=== PATIENT | female | born 1965 | race Caucasian/White ===

== ENCOUNTER → 2018-02-07 17:30 | Outpatient (CLI) | payer BC, SELFPAY ==
--- NOTE | 2018-02-07 17:30 | DT_ITS ---
This patient was seen during an EMR downtime February 06, 2018 - February 13, 2018. This patient may have a combination of paper and electronic documentation or all paper documentation. All documentation is viewable within the e-chart portion of [employer] for each patient visit.
--- NOTE | 2018-02-07 18:00 | MRI_ITS ---
STUDY: MRI BRAIN WITH AND WITHOUT CONTRAST REASON FOR EXAM: Female, 52 years old. MS. Numbness and tingling. TECHNIQUE: Standardized multiplanar fat and water weighted pulse sequences were obtained. 10 ml of Gadavist contrast material was administered intravenously for the contrast portion of the examination. COMPARISON: 12/27/2016. FINDINGS: No restricted diffusion to suspect acute or subacute ischemic infarct. Normal size of the ventricles and extra-axial spaces for the patient's age. Subcortical white matter T2 FLAIR hyperintensity foci in both cerebral hemispheres are unchanged. Normal bilateral basal ganglia. Normal thalami. There is no extra-axial fluid accumulation. Normal flow voids within the major intracranial circulation suggesting patency by spin echo criteria. Normal venous enhancement. There is no enhancing intra-axial or extra-axial abnormality. Normal sella turcica, pituitary gland, infundibular stalk, optic chiasm and hypothalamus. Normal tectal plate and pineal gland. Normal midbrain, mendez and medulla. Normal cerebellum. Normal basal cisterns. Normal bilateral temporal bones. Normal bilateral internal auditory canals. No demonstrated orbital abnormality, within the constraints of a routine brain study. Normal visualized paranasal sinuses. Normal calvarium and skull base. Normal visualized soft tissue structures. Normal visualized upper cervical spine. MRI/Brain W/WO Contrast IMPRESSION: 1. No MRI evidence of acute or subacute ischemic infarct. 2. Nonspecific T2 FLAIR hyperintensity foci in the white matter of both cerebral hemispheres. They are unchanged. 3. No enhancing lesions extra-axially and intraaxially. 4. No significant interval changes when compared to 12/27/2016. Electronically Signed: Asa Mcdaniel MD at 12:21 EDT , Service support ,
== END ==
PROVIDERS: Family Provider Internal Medicine; PCP Internal Medicine; Visit Provider Nurse Practitioner Acute Care
DX: G35 Multiple sclerosis (principal); R20.0 Anesthesia of skin; R20.2 Paresthesia of skin
CPT/HCPCS: 70553; A9585

== ENCOUNTER → 2018-07-28 11:49 | Outpatient (CLI) | payer BC, SELFPAY ==
--- NOTE | 2018-07-28 11:53 | BI_ITS ---
MAMMOGRAPHY - BILATERAL SCREENING REASON FOR EXAM: Female, 53 years old. Routine annual screening examination. PERTINENT HISTORY: Non-contributory. TECHNIQUE: Digital bilateral breast pio (3D mammographic acquisition) in the CC and MLO projections. 2-D mediolateral oblique (MLO) and craniocaudad (CC) views of both breasts were obtained. CAD: Full Field Digital Mammography with Computer Added Detection was performed. COMPARISON: Comparison is made with prior study dated July 21, 2017 and November 26, 2015. FINDINGS: Breast Composition: The breasts are almost entirely fatty. There are no dominant masses or suspicious calcifications. Stable small benign-appearing nodules in the axillary region of the left breast suggestive of small lymph nodes. No other significant abnormalities are identified. There has been no significant change since the prior study. BI/SCREENING MAMM (CAD), BILAT IMPRESSION: Stable bilateral screening mammogram. Yearly follow-up mammogram recommended. (A) ASSESSMENT CATEGORY: BIRADS Category 2: Benign. A letter regarding these results will be sent to the patient by the facility within 30 days. Approximately 10% of breast cancers are not detected by mammography. A normal mammogram should not delay biopsy of a clinically suspicious abnormality. [id number] Electronically Signed: Jose Gibbons MD at 9:36 EST Tel [phone], Service support ,
== END ==
PROVIDERS: Family Provider Internal Medicine; PCP Internal Medicine; Referring Provider Obstetrics & Gynecology; Visit Provider Obstetrics & Gynecology
DX: Z12.31 Encounter for screening mammogram for malignant neoplasm of breast (principal)
CPT/HCPCS: 77063; 77067

== ENCOUNTER → 2018-08-18 11:33 | Outpatient (CLI) | payer BC, SELFPAY ==
[2018-08-18 13:35] LABS: Absolute Lymphocyte Count 1.48 X10^3/ul (0.83-4.51); Absolute Neutrophil Count 2.6 X10^3/uL (2.0-7.7); Basophil# 0.03 X10^3/uL; Basophil% 0.6 % (0-1); Eosinophils% 2.2 % (0-5); Hemoglobin 12.8 g/dl (12.0-15.0); Lymphocyte # 1.48 X10^3/ul (4.0); Lymphocyte % 31.8 % (19-41); Mean Corpuscular Hgb 29.9 pg (27.0-32.0); Mean Corpuscular Volume 93.5 fL (81-99); Mean Platelet Vol. 9.4 fl (6.2-12.0); Monocyte# 0.45 X10^3/uL; Monocyte% 9.7 % (0-10); Neutrophil # 2.59 X10^3/uL (2.7-7.7); Neutrophil % 55.7 % (47-70); Platelet Count 319 K/mm3 (150-450); RBC Distribution Width CV 13.6 % (11.6-14.6); RBC Distribution Width SD 46.2 fl (35.1-43.9); Red Blood Count 4.28 M/mm3 (4.2-5.4); White Blood Count 4.7 K/mm3 (4.4-11.0)
[2018-08-18 13:36] LABS: POSITIVE COUNT NO; POSITIVE DIFFERENTIAL NO; POSITIVE MORPHOLOGY NO
[2018-08-18 13:47] LABS: Color, Urine Yellow (Yellow); Glucose, Dipstick Normal (Normal); Ketone-Dipstick Negative (Negative); Leukocyte Esterase-Dipstick 100 /ul (Negative); Nitrite-Dipstick Negative (Negative); Occult Blood-Urine Negative /ul (Negative); Protein-Dipstick Negative (Negative); Urine Bilirubin Dipstick Negative (Negative); Urine Clarity Clear (Clear); Urine Urobilinogen Normal (Normal)
[2018-08-18 14:14] LABS: ALB/GLOB Ratio 1.1 RATIO (0.9-2.4); AST(SGOT) 18 U/L (15-37); Alanine Aminotransfer ALT/SGPT 25 U/L (13-56); Albumin, Serum 3.8 g/dL (3.2-5.0); Alkaline Phosphatase 85 U/L (45-117); Anion Gap 9 (5-15); BUN 19 mg/dL (7-18); BUN/Creat Ratio 29.6 RATIO (10-20); Calcium,Total 8.9 mg/dL (8.5-10.1); Chloride 105 mmol/L (98-107); Cholesterol 210 mg/dL (200); Creatinine, Serum 0.64 mg/dL (0.55-1.02); EST Glomerular Filtration Rate 103 mL/min (>60); Est Glom Filt Rate - Afr Amer 124 mL/min (>60); Globulin 3.6 g/dL (2.2-4.2); Glucose 82 mg/dL (74-106); High Density Lipoprotein 75 mg/dL; Potassium 3.8 mmol/L (3.5-5.1); Protein, Total 7.4 g/dL (6.4-8.2); Sodium Level 139 mmol/L (136-145); Thyroid Stim Hormone (TSH) 1.35 uIU/mL (0.358-3.74); Triglycerides 79 mg/dL; Very Low Density Lipoprotein 16 mg/dL (5-40)
--- OUTSIDE RECORDS SUMMARY | 2018-10-03 07:19 | XMS RPT_ITS | Continuity of Care Document ---
:1965 Author Organization [facility] Address [address] [place] [address] Phone Care Team Providers Name Role Phone Rimma Ovalle DO Unavailable José Miguel BOONE, Faisal Coleman Unavailable ASA Celis Unavailable Unavailable Kem Moya Unavailable Unavailable Unavailable Unavailable Problems Name Dates Details Annual physical exam (Z00.00, V70.0) Status: Active Benign paroxysmal positional vertigo (H81.10, 386.11) Comments: see comment with other dx -- may need to do mri Status: Active BMI 39.0-39.9,adult (Z68.39, V85.39) Status: Active Cyst of ovary, unspecified laterality (N83.209, 620.2) Status: Active Depression, acute (F32.9, 296.20) Status: Active Elevated blood-pressure reading without diagnosis of hypertension (R03.0, 796.2) Status: Active Encounter for screening for lipid disorder (Renamed from Screening for lipid disorders) (Z13.220, V77.91) Status: Active FIBROMYALGIA Status: Active Hormone imbalance (E34.9, 259.9) Status: Active Hypercholesteremia (E78.00, 272.0) Status: Active Hypoglycemia (E16.2, 251.2) Comments: eat q 2-3 hrs - aviod sugar white starches Status: Active Non morbid obesity, unspecified obesity type (E66.9, 278.00) Status: Active Non-smoker (Z78.9, V49.89) Status: Active Premenstrual tension syndrome (N94.3, 625.4) Status: Active Rosacea (L71.9, 695.3) Status: Active Screening for diabetes mellitus (Z13.1, V77.1) Status: Active Sore throat (J02.9, 462) Status: Active Syncope (R55, 780.2) Status: Active Ultrasound scan abnormal (R93.8, 793.99) Comments: dilated fallopian tube Status: Active Upper respiratory infection, acute (J06.9, 465.9) Status: Active URI (upper respiratory infection) (J06.9, 465.9) Status: Active Medications Name Dates Details AmLODIPine Besylate 2.5 MG Oral Tablet 1 (one) Tablet qd for 0 days Quantity: 30 {Tablet} Refills: 2 Ordered:21-Aug-2018 Kelly Ovalle DO, DO, Kathleen Start : 21-Aug-2018 Active Aspirin 81 MG Oral Tablet Delayed Release daily (81 MG) Active VITAMIN B12, 100MCG (Oral Tablet) 1 (one) Tablet qd for 30 days Refills: 0 Ordered:31-Jan-2015 Kelly Ovalle DO, DO, Kathleen Start : 31-Jan-2015 Active VITAMIN D3, 2000UNIT (Oral Capsule) 2 (two) Capsule qd for 30 days Refills: 0 Ordered:31-Jan-2015 Kelly Ovalle DO, DO, Kathleen Start : 31-Jan-2015 Active Wellbutrin XL 300 MG Oral Tablet Extended Release 24 Hour 1 (one) Tablet qd for 90 days Quantity: 90 {Tablet} Refills: 1 Ordered:21-Aug-2018 Kelly Ovalle DO, DO, Kathleen Start : 21-Aug-2018 Active ADVAIR DISKUS, 100-50MCG/DOSE (Inhalation Miscellaneous) 1 puff Misc BID for 0 days Quantity: 1 {Misc} Refills: 0 Ordered:29-Sep-2007 Whit Celis LPN Start : 29-Sep-2007 End : 11-Jun-2008 Inactive SANTA-D 24 HOUR, 180-240MG (Oral Tablet Extended Release 24 Hour) 1 for 0 days Refills: 0 Ordered:06-Nov-2010 Hayley Turner LPN Start : 04-Dec-2008 End : 06-Nov-2010 Inactive Amoxicillin-Pot Clavulanate 875-125 MG Oral Tablet 1 (one) Tablet PO BID for 14 days Quantity: 28 {Tablet} Refills: 0 Ordered:13-Dec-2017 Whit Hall Start : 13-Dec-2017 End : 27-Dec-2017 Inactive Comments:Take with food Augmentin 875-125 MG Oral Tablet 1 Tablet bid for 14 days Quantity: 28 {Tablet} Refills: 0 Ordered:16-Nov-2017 Rhonda Robledo CNP Start : 16-Nov-2017 End : 30-Nov-2017 Inactive BIAXIN XL PAC, 500MG (Oral Tablet Extended Release 24 Hour) 2 (two) Tablet ER 24HR daily for 10 days Quantity: 20 {Tablet_ER_24HR} Refills: 0 Ordered:02-Mar-2013 Rhonda Robledo CNP Start : 02-Mar-2013 End : 12-Mar-2013 Inactive Contrave 8-90 MG Oral Tablet Extended Release 12 Hour 1 (one) Tablet uad for 30 days Refills: 0 Ordered:17-Aug-2017 Kelly Ovalle DO, DO, Kathleen Start : 17-Aug-2017 End : 16-Sep-2017 Inactive Comments:1 tab qd x 1 wk1 tab bid x 1 wk2 tabs in AM and 2 tab in PM x 1 wkthen 2 tabs bid CYANOCOBALAMIN, 2500MCG (Sublingual Tablet Sublingual) 1 Tab Sublingual qd for 999 days Refills: 0 Ordered:26-Apr-2014 Rhonda Robledo CNP Start : 06-Nov-2010 End : 01-Aug-2013 Inactive Comments:500 sublingual CYMBALTA, 30MG (Oral Capsule Delayed Release Particles) 1 (one) Capsule DR Part Daily for one wek for 0 days Refills: 0 Ordered:21-Oct-2008 Whit Celis LPN Start : 21-Oct-2008 End : 02-Jan-2009 Inactive CYMBALTA, 60MG (Oral Capsule Delayed Release Particles) 1 (one) Capsule DR Part Daily for 0 days Quantity: 90 {Capsule_DR_Part} Refills: 3 Ordered:06-Nov-2010 Hayley Turner LPN Start : 27-Nov-2008 End : 06-Nov-2010 Inactive DIPROLENE AF, 0.05% (External Cream) apply to affected area Cream Twice daily for 0 days Quantity: 60 {Cream} Refills: 0 Ordered:06-Nov-2010 Hayley Turner LPN Start : 11-Jun-2008 End : 06-Nov-2010 Inactive DOXEPIN HCL, 10MG (Oral Capsule) 1 (one) Capsule Daily for 0 days Quantity: 30 {Capsule} Refills: 0 Ordered:21-Oct-2008 Whit Celis LPN Start : 21-Oct-2008 End : 01-Nov-2008 Inactive FLONASE, 50MCG/ACT (Nasal Suspension) 1 QD for 0 days Refills: 0 Ordered:11-Jun-2008 Whit Celis LPN End : 11-Jun-2008 Inactive HYCODAN, 5-1.5MG/5ML (Oral Syrup) 1-2 Syrup QHS / HS for 0 days Quantity: 90 {Syrup} Refills: 0 Ordered:29-Sep-2007 Whit Celis LPN Start : 29-Sep-2007 End : 11-Jun-2008 Inactive HYCODEN (Oral Syrup) (Free Text) 1 (one) Syrup 1 tsp q8hrs prn for 0 days Quantity: 4 {Ounce} Refills: 0 Ordered:31-Jan-2015 Whit Celis LPN Start : 25-Oct-2014 End : 31-Jan-2015 Inactive Lansoprazole 30 MG Oral Capsule Delayed Release 1 (one) Capsule DR qd for 0 days Quantity: 30 {Capsule} Refills: 2 Ordered:01-Nov-2016 Whit Celis LPN Start : 12-Jun-2015 End : 01-Nov-2016 Inactive Lansoprazole 30 MG Oral Capsule Delayed Release 1 (one) Capsule DR qd for 0 days Quantity: 90 {Capsule} Refills: 3 Ordered:01-Nov-2016 Whit Celis LPN Start : 12-Jun-2015 End : 01-Nov-2016 Inactive LEVAQUIN, 750MG (Oral Tablet) 1 Tablet Daily for 0 days Quantity: 5 {Tablet} Refills: 0 Ordered:29-Sep-2007 Whit Celis LPN Start : 29-Sep-2007 End : 11-Jun-2008 Inactive MEDROL (WYATT), 4MG (Oral Tablet) 1 qd for 0 days Refills: 0 Ordered:06-Nov-2010 Hayley Turner LPN End : 06-Nov-2010 Inactive METROGEL, 1% (External Gel) apply qd for 0 days Refills: 0 Ordered:06-Nov-2010 Hayley Turner LPN End : 06-Nov-2010 Inactive MUCINEX, 600MG (Oral Tablet Extended Release 12 Hour) 1 Tablet ER 12HR bid for 0 days Quantity: 30 {Tablet_ER_12HR} Refills: 0 Ordered:26-Apr-2014 Whit Celis LPN Start : 02-Mar-2013 End : 26-Apr-2014 Inactive MULTI VITAMIN/MINERALS (Oral Tablet) 1 Tablet qd for 999 days Refills: 0 Ordered:26-Apr-2014 Meena [employer] MATERIAL HANDLERRhonda Start : 06-Nov-2010 End : 01-Aug-2013 Inactive NASACORT AQ, 55MCG/ACT (Nasal Aerosol Solution) Aerosol Soln for 0 days Refills: 0 Ordered:06-Nov-2010 Hayley Turner LPN Start : 04-Dec-2008 End : 06-Nov-2010 Inactive NASONEX, 50MCG/ACT (Nasal Suspension) 2 (two) Suspension sprays for 0 days Quantity: 1 {Suspension} Refills: 0 Ordered:26-Apr-2014 Whit Celis LPN Start : 02-Mar-2013 End : 26-Apr-2014 Inactive No Known Historical Medications PREDNISONE, 20MG (Oral Tablet) 1 Tablet Daily for 0 days Quantity: 5 {Tablet} Refills: 0 Ordered:29-Sep-2007 Whit Celis LPN Start : 29-Sep-2007 End : 11-Jun-2008 Inactive SINGULAIR, 10MG (Oral Tablet) 1 QD for 0 days Refills: 0 Ordered:11-Jun-2008 Whit Celis LPN End : 11-Jun-2008 Inactive TRAZODONE HCL, 50MG (Oral Tablet) 1 Tablet qd for 0 days Refills: 0 Ordered:06-Nov-2010 Hayley Turner LPN Start : 27-Nov-2008 End : 06-Nov-2010 Inactive SANTA, 180MG (Oral Tablet) 1 QD for 0 days Refills: 0 Ordered:24-Jan-2007 Kristen Banks End : 24-Jan-2007 Discontinued CELEBREX, 200MG (Oral Capsule) 1 QD for 0 days Refills: 0 Ordered:24-Jan-2007 Kristen Banks End : 24-Jan-2007 Discontinued Coricidin HBP Congestion/Cough 10-200 MG Oral Capsule 1 (one) Capsule TAD for 0 days Quantity: 30 {Capsule} Refills: 0 Ordered:13-Dec-2017 MoyaKem Start : 16-Nov-2017 End : 13-Dec-2017 Discontinued Allergies and Adverse Reactions Name Dates Details doxycycline (Renamed from VELASQUEZ Inhibitors) (Allergy) Status: Active cipro (Renamed from Cephalosporins) (Allergy) Status: Active Seasonal (Allergy) Status: Active Past Medical History Name Dates Details Abdominal pain (R10.9, 789.00) Status: Inactive as of 30-Jul-2015 Abdominal pain, acute, left upper quadrant (R10.12, 789.02) Comments: for most part Status: Resolved as of 12-Jun-2015 Allergic rhinitis (J30.9, 477.9) Comments: Seasonal Status: Inactive as of 29-Jan-2009 Allergic rhinitis due to other allergen (J30.89, 477.8) Status: Inactive as of 29-Jan-2009 Atypical chest pain (R07.89, 786.59) Status: Resolved as of 21-Aug-2018 BMI 38.0-38.9,adult (Z68.38, V85.38) Status: Inactive as of 16-Nov-2017 BMI 40.0-44.9, adult (Z68.41, V85.41) Status: Inactive as of 16-Nov-2017 Bronchitis (J40, 490) Status: Inactive as of 29-Jan-2009 Cough (R05, 786.2) Status: Inactive as of 21-Aug-2018 Cough (R05, 786.2) Status: Inactive as of 14-Feb-2017 Dysuria (R30.0, 788.1) Status: Inactive as of 14-Feb-2017 Eczema (L30.9, 692.9) Status: Inactive as of 14-Feb-2017 Encounter for screening for malignant neoplasm of colon (Renamed from Special screening for malignant neoplasms, colon) (Z12.11, V76.51) Status: Inactive as of 14-Feb-2017 Epigastric Pain (Renamed from Abdominal pain, epigastric) (R10.13, 789.06) Status: Inactive as of 30-Jul-2015 Fatigue (R53.83, 780.79) Comments: considering BHRT Status: Inactive as of 29-Jan-2009 Hair loss (L65.9, 704.00) Status: Inactive as of 21-Aug-2018 Nausea (R11.0, 787.02) Status: Inactive as of 30-Jul-2015 Nutritional counseling (Z71.3, V65.3) Status: Inactive as of 21-Aug-2018 Pharyngitis, acute (J02.9, 462) Status: Inactive as of 29-Jan-2009 Post-nasal drainage (R09.82, 473.9) Status: Inactive as of 21-Aug-2018 Serum potassium elevated (E87.5, 276.7) Status: Inactive as of 21-Aug-2018 Shortness of breath (R06.02, 786.05) Status: Inactive as of 30-Jul-2015 Sinus pressure (J34.89, 478.19) Status: Inactive as of 21-Aug-2018 Sinusitis, acute (J01.90, 461.9) Status: Inactive as of 14-Feb-2017 SYMPTOM, FEVER PREST W/ CONDITIONS ELSEWHERE (780.61) Status: Inactive as of 30-Jul-2015 Unspecified Diagnosis Status: Inactive as of 14-Feb-2017 URI (upper respiratory infection) (465.9) Comments: early URI, but going on vacation will send with scritp us e if needed Status: Inactive as of 14-Feb-2017 Procedures Procedure Dates Details Carpal Tunnel Surgery - Right Completed Comments: 03/27/14 D&C Completed Comments: 02/18 Date Value Details 28-Jul-2018 SCREENING MAMM (CAD), BILAT Result: Comments: See Note; NOTES: [facility] Imaging Services [address] [place] [address] SCREENING MAMM (CAD), BILAT MR#: [id number] Acct: [id number] Name: MELISSAVARSHA Rep # : [id number] : 1965 F 53 From: Jose Gibbons MD PCP: Rimma Ovalle DO Status: REG CLI Study: SCREENING MAMM (CAD), BILAT Date of Exam: 07/28/18 Exam# [id number] Ordering Dr: Linda Coker DO MAMMOGRAPHY - BILATERAL SCREENING REASON FOR EXAM: Female, 53 years old. Routine annual screening examination. PERTINENT HISTORY: Non-contributory. TECHNIQUE: Digital bilateral breast pio (3D m ammographic acquisition) in the CC and MLO projections. 2-D mediolateral oblique (MLO) and craniocaudad (CC) views of both breasts were obtained. CAD: Full Field Digital Mammography with Computer Added Detection was performed. COMPARISON: Comparison is made with prior study dated July 21, 2017 and November 26, 2015. FINDINGS: Breast Composition: The breasts are a lmost entirely fatty. There are no dominant masses or suspicious calcifications. Stable small benign-appearing nodules in the axillary region of the left breast suggestive of small lymph nodes. No oth er significant abnormalities are identified. There has been no significant change since the prior study. BI/SCREENING MAMM (CAD), BILAT IMPRESSIO N: Stable bilateral screening mammogram. Yearly follow-up mammogram recommended. (A) ASSESSMENT CATEGORY: BIRADS Category 2: Benign. A letter regarding these result s will be sent to the patient by the facility within 30 days. Approximately 10% of breast cancers are not detected by mammography. A normal mammogram should not delay biopsy of a clinically suspicious abnormality. [id number] Electronically Signed: Jose Gibbons MD at 9:36 EST Tel [phone], Service support , CC: Rimma Ovalle DO; Linda Coker DO [employer]: Signed 23-Feb-2018 Downtime Report Result: Comments: See Note; NOTES: [facility] Medical Records Department [address] [place] [address] Downtime Report MR#: [id number] Acct: [id number] Name: VARSHA IBARRA Rep #: [id number] : 1965 52 From: Franco Montana PCP: Rimma Ovalle DO Status: REG CLI This patient was seen during an EMR downtime February 06, 2018 - February 13, 2018. This patient may have a combination of paper and electronic documentation or all paper documentation. All documentation is viewable within the e-chart portion of [employer] for each patient visit. 21-Jul-2017 SCREENING MAMM (CAD), BILAT Result: Comments: See Note; NOTES: [facility] Imaging Services [address] [place] [address] SCREENING MAMM (CAD), BILAT MR#: [id number] Acct: [id number] Name: VARSHA IBARRA Rep # : [id number] : 1965 F 52 From: Jose Gibbons MD PCP: Rimma Ovalle DO Status: REG CLI Study: SCREENING MAMM (CAD), BILAT Date of Exam: 07/21/17 Exam# [id number] Ordering Dr: Yamilet Vilchis o. MAMMOGRAPHY - BILATERAL SCREENING REASON FOR EXAM: Female, 52 years old. Routine annual screening examination. PERTINENT HISTORY: Non-contributory. TECHNIQUE: Digital bilateral breast pio ( 3D mammographic acquisition) in the CC and MLO projections. 2-D mediolateral oblique (MLO) and craniocaudad (CC) views of both breasts were obtained. CAD: Full Field Digital Mammography with Computer Ad ded Detection was performed. COMPARISON: Comparison is made with prior study dated November 26, 2015 and October 03, 2014. FINDINGS: Breast Composition: The breasts ar e almost entirely fatty. There are no dominant masses or suspicious calcifications. Stable appearance of the small axillary lymph nodes in the axillary region of the left breast. No other significant abnormalities are identified. There has been no significant change since the prior study. HPBI/SCREENING MAMM (CAD), BILAT IMPRESSION: Stable william ateral screening mammogram. Yearly follow-up mammogram recommended. (A) ASSESSMENT CATEGORY: BIRADS Category 2: Benign. A letter regarding these results will be sen t to the patient by the facility within 30 days. Approximately 10% of breast cancers are not detected by mammography. A normal mammogram should not delay biopsy of a clinically suspicious abnormality. [id number] Electronically Signed: Jose Gibbons MD at 14:34 EST Tel [phone], Service support , CC: Rimma Ovalle DO; OUT OF TOWN DOCTOR [employer]: Signed 09-Feb-2017 Echocardiogram Complete Result: Comments: See Note; NOTES: [facility] Cardiovascular Services [address] [place] [address] Echo Complete 02/09/17 1257 MR#: [id number] Acct: [id number] Name: VARSHA IBARRA Rep #: [id number] : 1965 51 From: Ken Lisa MD Attending Dr: Zulay Rhodes MD Status: REG CLI Ordering Dr: Rimma Rhodes MD Date: 02/09/17 Location: [facility] Sex: F C Adm itted: Reason For Study: Left Sided Paresthesia Procedure This was a 2D Doppler, Color Flow transthoracic echocardiogram. Exam performed in department. Left Ventricle Normal LV size. Mild concent suhail left ventricular hypertrophy. The estimated ejection fraction is 65 %. Stage 1 diastolic dysfunction. No regional wall motion abnormalities noted. Right Ventricle Normal size and thickness. Normal systolic function. Atria Normal left atrium. Normal right atrium. Normal atrial septum. Bubble contrast study negative for right to left interatrial shunt. Mitral Valve Normal mitral valve. Trivial mi tral valve insufficiency. Tricuspid Valve Normal tricuspid valve. Trivial tricuspid valve insufficiency. Unable to estimate RV systolic pressure/pulmonary artery pressure due to technically difficult s tudy. Aortic Valve Trisinus/trileaflet aortic valve. Pulmonic Valve Normal pulmonic valve. Great Vessels Normal aortic root. Normal arch. Normal inferior vena cava. Inferior vena cava collapse with sn iff. Pericardium/Pleural No pericardial effusion. Medication 22 gauge I.V. with prn adaptor inserted into left arm. Performed a rapid injection of agitated mix of 9 cc saline and 1cc air to assess for atrial septal defect. MMode/2D Measurements AND Calculations LVIDd: 3.9 cm IVSd: 1.2 cm LVOT diam: 2.0 cm LVIDs: 1.9 cm LVPWd: 1.4 cm LVOT area: 3.3 cm2 RVDd: 2.8 cm FS: 52.2 % Ao root diam: 3.1 cm LAV(MOD-bp): 25.4 ml LA A4 area: 10.0 cm2 LA dimension: 3.6 cm LAV(MOD-bp) Indexed: 11.8 ml/m2 LAV(MOD-sp2): 26.0 ml LAV(M OD-sp4): 19.2 ml RA A4 area: 10.6 cm2 Time Measurements MV dec time: 0.17 sec Doppler Measurements AND Calculations MV E max aye: 72.4 cm/sec Lat Peak E' Aye: 7.4 cm/sec Med Peak E' Aye: 6.8 cm/sec MV A max aye: 88.7 cm/sec E/E' lat: 9.8 E/E' med: 10.6 MV E/A: 0.82 MV V2 max: 103.0 cm/sec MV P1/2t max aye: 95.3 cm/sec Ao V2 max: 130.0 cm/sec MV max P.2 mmHg MV P1/2t: 50.9 msec Ao max P.8 mmHg MV V2 mean: 58.9 cm/sec MV dec slope : 549.0 cm/sec2 RADHA(V,D): 2.7 cm2 MV mean P.7 mmHg MVA(P1/2t): 4.3 cm2 MV V2 VTI: 20.2 cm LV V1 max: 108.6 cm/sec PA V2 max: 132.9 cm/sec LV V1 max P.7 mmHg Interpretation Summary Mild concentric left ventricular hypertrophy. The estimated ejection fraction is 65 %. Stage 1 diastolic dysfunction. Bubble contrast study negative for right to left interatrial shunt. Unable to estimate RV systolic pressure/pulmonary artery pressure due to technically difficult study. Compared to echo report dated 01/12/2012, no hector reciable changes noted. Ordering Physician: Zulay Rhodes Referring Physician: LINDA COKER Performed By: Devon Vallejo RCS 02/09/17 1448 Date Ken Lisa MD CC: Zulay Rhodes MD; Rimma Ovalle DO Date Dictated: 02/09/17 1257 Date Transcribed: 02/09/17 1448 [employer]: Signed 31-Dec-2016 12 Lead Electrocardiogram Result: Comments: See Note; NOTES: [facility] Cardiovascular Services [address] [place] [address] 12 Lead EKG 12/27/166 MR#: [id number] Acct: [id number] Name: VARSHA IBARRA E Rep #: [id number] : 1965 51 From: Ken Lisa MD Attending Dr: Status: DEP ER Ordering Dr: Leigh Charles MD Date: 12/27/16 Location: ED Sex: F C Admitted: Test Reason : NUMBNESS Blood Pressur e : / mmHG Vent. Rate : 095 BPM Atrial Rate : 095 BPM P-R Int : 174 ms QRS Dur : 076 ms QT Int : 362 ms P-R-T Axes : 034 007 044 degrees QTc Int : 454 ms Normal sinus rhythm Inferior infarct , ag e undetermined Abnormal ECG Confirmed by KEN LISA ([id number]), loan expeditor MARVIN MONTANA ([id number]) on 12/30/2016 3:03:19 PM Referred By: KRYSTA Confirmed By:KEN LISA 12/30/16 1503 Date Ken Lisa MD CC: Rimma Ovalle DO Date Dictated: 12/27/16 1436 Date Transcribed: 12/27/16 1436 [employer]: Signed 30-Dec-2016 Emergency Department Summary Result: Comments: See Note; NOTES: [facility] Medical Records Department [address] [place] [address] Emergency Department Summary MR#: [id number] Acct: [id number] Name: KARTHIK IBARRA E Rep #: [id number] : 1965 51 From: Leigh Charles MD PCP: Rimma Ovalle DO Status: DEP ER DATE OF SERVICE: 12/27/2016 CHIEF COMPLAINT: Paresthesia. HISTORY OF PRESENT ILLNESS: This is an otherwise healthy 51-year-old female with no known medical history, who had symptoms that started 3 days ago with a paresthesia in the left side of her jaw and tongue that had continued until today whe n very suddenly after lunch at work, she did not feel well and began noticing a paresthesia on the entire left side of her body, predominantly her limbs and it has continued. It has been a couple of marry rs now and just has not gotten better. Generally speaking, she does not feel ill. She has no headache, no tinnitus, no visual change or diplopia. No difficulty swallowing. No difficulty with speech and she has never experienced anything like this before. PHYSICAL EXAMINATION: VITAL SIGNS: Noted for a blood pressure initially 165/100, temperature is 99.4, and heart rate of 109. GENERAL: She is visibly a little bit anxious, but not distressed. NEUROLOGIC: Cranial nerves II through XII are intact. She has an NIH of 1 only for subjective paresthesias on the left side. No other elicited neurologic defic its. No facial droop or asymmetry. HEART: Rate is regular without murmur. LUNGS: Clear to auscultation bilaterally. EXTREMITIES: No pedal edema. CLINICAL COURSE AND DECISION MAKING: EKG was normal sinu s rhythm, unchanged from previous. CT brain was negative. CBC and chemistry, both unremarkable. I discussed the case with Dr. Adrian, who recommended MRI including MRA head and neck and currently, those tests are pending and will be followed up on by the oncoming physician. Providing benign appearing results, she will be discharged home to follow up with her physician. Obviously, there is significant a bnormality on the MRI that will be addressed. DISPOSITION: Pending MRI. DIAGNOSIS: Left-sided paresthesias. Leigh Charles MD T: NTS JOB: [id number] 12/30/16 0805 <Electronically signed by Jag Charles MD> Date Leigh Charles MD Cosigner Signature (If Indicated): Date CC: Rimma valerio DO Date Dictated: 12/27/161543 Date Transcribed: 12/27/161543 [employer]: Signed 28-Dec-2016 Emergency Department Summary Result: Comments: See Note; NOTES: [facility] Medical Records Department [address] [place] [address] Emergency Department Summary MR#: [id number] Acct: [id number] Name: KARTHIK IBARRA Rep #: [id number] : 1965 51 From: Magnus Londono MD PCP: Rimma Ovalle DO Status: [facility] DATE OF SERVICE: 12/27/2016 ADDENDUM: The patient was signed out to me by Dr. Charles. MRIs w ere reviewed. MRA of head and neck were unremarkable. MRI was questionable for concerning periventricular white matter changes, likely seen a small vessel disease versus demyelinating process. The patie nt has had no progression of symptoms while here. I discussed with Dr. Adrian. The patient wants to try outpatient therapy and I feel that this is reasonable. She will be discharged home, will be seen th is week. She is counseled on concerning symptoms, reasons to return and will follow up with neurology. IMPRESSION: Paresthesias. DISPOSITION: Discharge. Magnus Londono MD T: NTS JOB: [id number] <Electronically signed by Magnus Londono MD> Date Magnus Londono MD Cosigner Signature (If Indicated): Date ___ CC: Rimma Ovalle DO Date Dictated: 12/27/161958 Date Transcribed: 12/27/161958 [employer]: Signed 27-Dec-2016 Discharge Instruction Result: Comments: See Note; NOTES: [facility] Medical Records Department [address] [place] [address] Discharge Instruction 12/27/16 1957 MR#: [id number] Acct: [id number] Name: VARSHA IBARRA Rep #: [id number] : 1965 51 From: Magnus Londono MD PCP: Rimma Ovalle DO Status: REG ER ED Disposition - Plan for ED Patient: Chief Complaint: Numb/Ting Instructions: ED Paraes thesias Referrals: Rasta Adrian MD [STAFF PHYSICIAN] - What to do if you have Problems For any increased pain, shortness of breath, bleeding, nausea or vomiting, chest pain, or any unexpected prob lems, contact your Primary Care Provider. Call [facility] ([phone]) or report to the closest Emergency Room. Call 911 if necessary. 12/27/162005 <Electronically signed by Magnus adler MD> Date Magnus Londono MD Cosigner Signature (If Indicated): Date CC: Rimma Ovalle DO 27-Dec-2016 Discharge Instruction Result: Comments: See Note; NOTES: [facility] Medical Records Department [address] [place] [address] Discharge Instruction 12/27/16 1544 MR#: [id number] Acct: [id number] Name: VARSHA IBARRA Rep #: [id number] : 1965 51 From: Leigh Charles MD PCP: Rimma Ovalle DO Status: REG ER ED Disposition - Plan for ED Patient: Chief Complaint: Numb/Ting Instructions: ED Paraesthe inocencio Referrals: Rimma Ovalle DO [Primary Care Provider] - As soon as possible What to do if you have Problems For any increased pain, shortness of breath, bleeding, nausea or vomiting, chest ashish n, or any unexpected problems, contact your Primary Care Provider. Call [facility] ([phone]) or report to the closest Emergency Room. Call 911 if necessary. 12/27/16 1545 <Parish huseyin signed by Leigh Charles MD> Date Leigh Charles MD Cosigner Signature (If Indicated): Date CC: Rimma Ovalle DO 27-Dec-2016 Brain W/WO Contrast Result: Comments: See Note; NOTES: [facility] Imaging Services [address] [place] [address] Verdana 4d Brain W/WO Contrast MR#: [id number] Acct: [id number] Name: VARSHA IBARRA p #: [id number] : 1965 F 51 From: Joseluis Magaña MD PCP: Rimma Ovalle DO Status: REG ER Study: Brain W/WO Contrast Date of Exam: 12/27/16 Exam# [id number] Ordering Dr: Leigh Charles MD STUDY : MRI BRAIN WITH AND WITHOUT CONTRAST REASON FOR EXAM: Female, 51 years old. Numbness and tingling of left cheek and tongue TECHNIQUE: Standardized multiplanar fat and water weighted pulse sequences w ere obtained. 10 ml of Gadavist contrast material was administered intravenously for the contrast portion of the examination. COMPARISON: CT of December 27, 2016 FINDI NGS: Normal size of the ventricles and extra-axial spaces for the patient's age. There are multiple punctate white matter lesions in the centrum semiovale and ricks radiata bilaterally without mass eff ect or restricted diffusion. Normal bilateral basal ganglia. Normal thalami. There is no extra-axial fluid accumulation. Normal flow voids within the major intracranial circulation suggesting patency by spin echo criteria. Normal venous enhancement. There is no enhancing intra- axial or extra-axial abnormality. Normal sella turcica, pituitary gland, infundibular stalk, optic chiasm and hypothalamus. Normal tectal plate and pineal gland. Normal midbrain, mendez and medulla. Normal cerebellum. Normal basal cisterns. Normal bilateral temporal bones. Normal bilateral internal auditory canals. No demon strated orbital abnormality, within the constraints of a routine brain study. Normal visualized paranasal sinuses. Normal calvarium and skull base. Normal visualized soft tissue structures. Normal visua lized upper cervical spine. 0008 MRI/Brain W/WO Contrast IMPRESSION: Multiple nonspecific periventricular white matter lesions.. This likely represent s ischemic changes secondary to small vessel disease in patient of this age although nonspecific demyelinating disease also cannot be entirely excluded and clinical correlation is recommended There is n o mass effect or restricted diffusion to suggest acute infarction. Electronically Signed: Joseluis Magaña MD at 19:09 EDT , Service support , CC: Leigh Charles MD; Rimma Ovalle DO [employer]: Signed 27-Dec-2016 MRA Head ONLY without Contrast Result: Comments: See Note; NOTES: [facility] Imaging Services [address] [place] [address] Verdana 4d MRA Head ONLY without Contrast MR#: [id number] Acct: [id number] Name: Ivon IBARRA Rep #: [id number] : 1965 F 51 From: Joseluis Magaña MD PCP: Rimma Ovalle DO Status: [facility] Study: MRA Head ONLY without Contrast Date of Exam: 12/27/16 Exam# [id number] Ordering Dr: Leigh Covington MD STUDY: MRA OF THE HEAD WITHOUT CONTRAST REASON FOR EXAM: Female, 51 years old. CVA TECHNIQUE: 3-D kljo-bu-bljwtq (TOF) imaging was performed with MIPs. The study was performed unenhan david. COMPARISON: None. FINDINGS: Normal bilateral petrous carotid arteries. Normal right cavernous carotid artery with a normal supraclinoid bifurcation. Normal lef t cavernous carotid artery with a normal supraclinoid bifurcation. Normal right A1 segments of the anterior cerebral artery. Normal left A1 segments of the anterior cerebral artery. Anterior communicat ing artery not visualized consistent with normal variant.. Normal A2 segments of the anterior cerebral arteries Normal right M1 and M2 segments of the middle cerebral arteries, with a normal M1 bifurca tion. Normal left M1 and M2 segments of the middle cerebral arteries, with a normal M1 bifurcation. Normal right posterior communicating artery (PCOM). Left posterior communicating artery not visualize d consistent with normal variant Normal bilateral vertebral arteries. Normal basilar artery with a normal basilar bifurcation. The visualized bilateral superior cerebellar (SCA) arteries are normal. N ormal bilateral P1, P2 and visualized P3 segments of the posterior cerebral arteries. There is no demonstrated aneurysm of the eek of [place]. There is no major vessel occlusion or hemodynamically si gnificant stenosis. There is no demonstrated abnormality of the visualized brain. MRI/MRA Head ONLY without Contrast IMPRESSION: Normal MRA of th e head Electronically Signed: Joseluis Magaña MD at 19:38 EDT , Service support , CC: Leigh Charles MD; Rimma Ovalle DO [employer]: Signed 27-Dec-2016 MRA Neck WITH and W/O Contrast Result: Comments: See Note; NOTES: [facility] Imaging Services [address] [place] [address] Verdana 4d MRA Neck WITH and W/O Contrast MR#: [id number] Acct: [id number] Name: Ivon IBARRA Rep #: [id number] : 1965 F 51 From: Joseluis Magaña MD PCP: Rimma Ovalle DO Status: REG ER Study: MRA Neck WITH and W/O Contrast Date of Exam: 12/27/16 Exam# [id number] Ordering Dr: Leigh Covington MD STUDY: MRA NECK WITH AND WITHOUT CONTRAST REASON FOR EXAM: Female, 51 years old. CVA TECHNIQUE: 3-D ujkc-ta-xmibqk (TOF) imaging was performed in an 1.5 T MRI scanner. [address] was administered for the contrast enhanced images. COMPARISON: None. FINDINGS: RIGHT CAROTID ARTERIES: Normal right common carotid artery (CCA). Normal right co mmon carotid bulb. Normal origin of the right internal carotid (ICA) artery without a hemodynamically significant stenosis. Normal visualized cervical portion of the right internal carotid artery. Norm al origin of the right external carotid artery (ECA). LEFT CAROTID ARTERIES: Normal left common carotid artery (CCA). Normal left common carotid bulb. Normal origin of the left internal carotid (ICA) a rtery without a hemodynamically significant stenosis. Normal visualized cervical portion of the left internal carotid artery. Normal origin of the left external carotid artery (ECA). VERTEBRAL ARTERIE S: Normal antegrade flow within the bilateral vertebral artery without a hemodynamically significant stenosis. MRI/MRA Neck WITH and W/O Contrast IMPRESSION: Normal bilateral cervical carotid and vertebral arteries. Electronically Signed: Joseluis Magaña MD at 19:12 EDT , Service support , Fax CC: Leigh Charles MD; Rimma Ovalle DO [employer]: Signed 27-Dec-2016 Brain/Head without Contrast Result: Comments: See Note; NOTES: [facility] Imaging Services [address] [place] [address] Verdana 4d Brain/Head without Contrast MR#: [id number] Acct: [id number] Name: KARTHIK IBARRA E Rep #: [id number] : 1965 F 51 From: Jose Gibbons MD PCP: Rimma Ovalle DO Status: REG ER Study: Brain/Head without Contrast Date of Exam: 12/27/16 Exam# [id number] Ordering Dr: Leigh Guzman MD STUDY: CT BRAIN WITHOUT CONTRAST REASON FOR EXAM: Female, 51 years old. Left sided paresthesias. RADIATION DOSAGE (If Supplied By Facility): CTDIvol = ( 60.81 ) mGy, DLP = ( 1044.28 ) m Gycm TECHNIQUE: Transaxial CT imaging of the brain was performed without administration of intravenous contrast material. Individualized dose optimization techniques were used for this CT. COMPARISON : None. FINDINGS: Normal soft tissue structures. Normal calvarium. Normal size ventricles and extra-axial spaces for the patient's age. Normal white matter tracts o f the cerebral hemispheres. Normal basal ganglia and thalami. Normal brainstem. Normal cerebellum. There is no intracranial hemorrhage. There are no findings of an acute ischemic infarction. Normal vi sualized paranasal sinuses. 0026 CT/Brain/Head without Contrast IMPRESSION: Normal unenhanced CT scan of the brain. Electronically Signed: Jose heath MD at 15:12 EDT Tel [phone], Service support , CC: Leigh Charles MD; Rimam Ovalle DO [employer]: Signed 22-Nov-2016 Electroencephalogram Result: Comments: See Note; NOTES: [facility] Pulmonary Services/Neurology [address] [place] [address] Electroencephalogram (EEG) MR#: [id number] Acct: [id number] Name: WARD IBARRA Rep #: [id number] : 1965 51 From: Rimma Rhodes MD Referring Dr: Rimma Ovalle DO Status: REG CLI Ordering Dr: Rimma Ovalle DO Date: 11/12/16 Location: PSN Sex: F C DATE OF SERVICE: HISTORY: EEG is done to rule out seizure. The patient had experienced tunneled vision, eyes rolling back as well as blackout episode for which EEG is being requested. EEG DESCRIPTION: This is an 18-channel EEG done with 10-20 lead placement system. Photic stimulation and hyperventilation were performed. Bipolar montages and referential montages were reviewed. The posterior dominant backgro und rhythm is 8 Hz, which is synchronous, symmetrical and reactive to eye opening and closing. Photic stimulation elicited a normal photic driving response. Without any photoparoxysmal response. Hyperve ntilation did not elicit any abnormal paroxysmal response. The patient did get drowsy, but no sleep architecture was identified. There is no background slowing. There is no epileptiform discharges or el ectrographic seizures noted during the recording. INTERPRETATION: This is a normal awake and drowsy EEG. There is no epileptiform discharges or electrographic seizures noted during the record. José Rhodes MD T: NTS JOB: [id number] 11/22/16 1339 <Electronically signed by Rimma Rhodes MD> Date Rimma Rhodes MD C C: Zulay Rhodes MD; Rimma Ovalle DO Date Dictated: 11/12/1643 Date Transcribed: 11/12/16942 [employer]: Signed 21-May-2016 Upper GI/w Small Bowel Result: Comments: See Note; NOTES: [facility] Imaging Services [address] [place] [address] Verdana 4d Upper GI/w Small Bowel MR#: [id number] Acct: [id number] Name: VARSHA IBARRA Rep #: [id number] : 1965 F 51 From: Jose Gibbons MD PCP: Rimma Ovalle DO Status: REG CLI Study: Upper GI/w Small Bowel Date of Exam: 05/21/16 Exam# [id number] Ordering Dr: Rony Gale STUDY: AIR-CONTRAST UPPER GI SERIES AND SMALL BOWEL FOLLOW-THROUGH EXAMINATION. REASON FOR EXAM: Female, 51 years old. Upper abdominal pain and heartburn. FLUOROSCOPY TIME (if supplied): (0:4 0) minutes/seconds. 30 images were obtained. TECHNIQUE: The patient ingested barium. Multiple images of the esophagus, stomach and duodenum were obtained. Following this, a small bowel follow-through e xamination was performed. COMPARISON: None. FINDINGS: The esophagus is unremarkable. There is no evidence of gas esophageal reflux. No mass lesion is seen. The stom ach and duodenum are unremarkable. There is no evidence of ulceration. No mass lesions present. A small bowel follow through examination was then obtained. The small bowel transit is normal. There is no evidence of intrinsic or extrinsic small bowel disease. The terminal ileum is unremarkable. RAD/Upper GI/w Small Bowel IMPRESSION: Unremarkable examination. Electronically Signed: Jose Gibbons MD at 10:55 EDT Tel [phone], Service support [phone], CC: RONY GALE; Rimma Ovalle DO [employer]: Signed 21-May-2016 Upper GI/w Small Bowel Result: Comments: See Note; NOTES: [facility] Imaging Services [address] [place] [address] Verdana 4d Upper GI/w Small Bowel MR#: [id number] Acct: [id number] Name: ANGIE IBARRAAlicja Craig Rep #: [id number] : 1965 F 51 From: Jose Gibbons MD PCP: Rimma Ovalle DO Status: REG CLI Study: Upper GI/w Small Bowel Date of Exam: 05/21/16 Exam# [id number] Ordering Dr: Rony Gale STUDY: AIR-CONTRAST UPPER GI SERIES AND SMALL BOWEL FOLLOW-THROUGH EXAMINATION. REASON FOR EXAM: Female, 51 years old. Upper abdominal pain and heartburn. FLUOROSCOPY TIME (if supplied): (0:4 0) minutes/seconds. 30 images were obtained. TECHNIQUE: The patient ingested barium. Multiple images of the esophagus, stomach and duodenum were obtained. Following this, a small bowel follow-through e xamination was performed. COMPARISON: None. FINDINGS: The esophagus is unremarkable. There is no evidence of gas esophageal reflux. No mass lesion is seen. The stom ach and duodenum are unremarkable. There is no evidence of ulceration. No mass lesions present. A small bowel follow through examination was then obtained. The small bowel transit is normal. There is no evidence of intrinsic or extrinsic small bowel disease. The terminal ileum is unremarkable. RAD/Upper GI/w Small Bowel IMPRESSION: Unremarkable examination. Electronically Signed: Jose Gibbons MD at 10:55 EDT Tel [phone], Service support [phone], CC: RONY GALE; Rimma Ovalle DO [employer]: Signed 26-Nov-2015 Breast Limited Unilateral Result: Comments: See Note; NOTES: [facility] Imaging Services [address] [place] [address] Verdana 4d Breast Limited Unilateral MR#: [id number] Acct: [id number] Name: VARSHA CHAN Rep #: [id number] : 1965 F 50 From: Jose Gibbons MD PCP: Rimma Ovalle DO Status: [facility] CLI Study: Breast Limited Unilateral Date of Exam: 11/26/15 Exam# [id number] Or gareth Dr: LINDA COKER STUDY: ULTRASOUND BREAST - RIGHT REASON FOR EXAM: Female, 50 years old. Palpable lump in the right breast. TECHNIQUE: Axial and longitudinal images of the RIGHT breast w ere performed with a high resolution ultrasound transducer. COMPARISON: Comparison is made with prior mammogram done earlier in the day. FINDINGS: RIGHT Carmen st: There is a 6 mm x 1 mm x 2 mm echogenic nodule deep to the skin surface. This corresponds to the palpable abnormality. This may represent a sebaceous cyst. IMPRESSION: There is a 6 mm x 1 mm x 2 mm echogenic non-OB to the skin surface. This corresponds to the palpable abnormality. This most likely represents a sebaceous cyst. ASSESSMENT CATEGORY: BIRADS Category 2: Benign. A letter regarding these results will be sent to the patient by the facility within 30 days. Electronically Signed: Chandrika Mensah at 13:05 EDT Tel [phone], Service support [phone], CC: Rimma Ovalle DO; LINDA COKER [employer]: Signed 26-Nov-2015 Bilat Diag Digital AND CAD Result: Comments: See Note; NOTES: [facility] Imaging Services [address] [place] [address] Verdana 4d Bilat Diag Digital AND CAD MR#: [id number] Acct: [id number] Name: VARSHA IBARRA Rafa Rep #: [id number] : 1965 F 50 From: Jose Gibbons MD PCP: Rimma Ovalle DO Status: REG CLI Study: Bilat Diag Digital AND CAD Date of Exam: 11/26/15 Exam# [id number] Ordering Dr: HAYLEY COKER MAMMOGRAPHY - BILATERAL DIAGNOSTIC REASON FOR EXAM: Female, 50 years old. Superficial lump along the inferior medial aspect of the right breast. PERTINENT HISTORY: Non- contributory. TECHNIQUE: Digital examination. Mediolateral oblique (MLO) and craniocaudad (CC) views of both breasts were obtained. CAD: CAD was performed on this study. COMPARISON: Comparison is made with prior examination dated October 03, 2014 and July 27, 2013. FINDINGS: Breast Composition: There are scattered areas of fibroglandular density. Th ere are no dominant masses or suspicious calcifications. No other significant abnormalities are identified. There has been no significant change since the prior study. IMPRESSION: Stable bilateral diagnostic mammogram. With the patient's history of a palpable abnormality in the right breast, correlation with ultrasound is recommended. ASSESSMENT CATEGORY: BIRADS Category 0: Incomplete. Need additional imaging evaluation. A letter regarding these results will be sent to the patient by the facility within 30 days. Approximately 10% of breast cancers are not detected by mammography. A normal mammogram should not delay biopsy of a clinically suspicious abnormality. Electronically Signed: Jose Gibbons MD at 13:06 EDT Tel [phone], Service support [phone], CC: Rimma COKER [employer]: Signed 04-Jun-2015 Abdomen without IV Contrast Result: Comments: See Note; NOTES: [facility] Imaging Services [address] [place] [address] CAT Scan Report MR#: [id number] Acct: [id number] Name: MELISSAVARSHA E Rep #: [id number] : 1965 F 50 From: Madison Romero MD PCP: Rimma Ovalle DO Status: REG CLI Study: Abdomen without IV Contrast Date of Exam: 06/04/15 Exam# [id number] Ordering Dr: Rimma Ovalle STUDY: CT ABDOMEN WITHOUT CONTRAST REASON FOR EXAM: Female, 50 years old. Epigastric and left upper quadrant pain, prior gastric plication, cholecystectomy. RADIATION DOSAGE (If Supplied By F acdelia): CTDIvol = ( 13.38 ) mGy, DLP = ( 980.25 ) mGycm TECHNIQUE: Transaxial 3.75 mm images were obtained without intravenous contrast, and oral contrast. Sagittal and coronal images were recons tructed. This examination is limited for the evaluation of solid organs and vascular structures due to the lack of intravenous contrast. COMPARISON: None. FINDI NGS: The visualized lung bases are unremarkable. There is cardiac enlargement. There is no pericardial effusion. There is mild hepatomegaly with diffuse hepatic enlargement measuring 18 cm cranioca udal. The gallbladder is contracted. Normal spleen. Normal pancreas. Normal bilateral adrenal glands. Bilateral nonobstructive but hyperattenuated collecting system possible with previous contrast application. Normal post surgical gastric plication appearance. Normal small intestine. Normal colon. The appendix is visualized and appears normal. Image 85-19 series 1002. There is minor athero sclerotic calcification of the abdominal aorta, without a demonstrated aneurysm. Normal inferior vena cava. Normal retroperitoneum. There is a small umbilical hernia containing fat. Obesity. There a re L5-S1 degenerative changes. IMPRESSION: Normal post surgical appearance of gastric plication. Status post cholecystectomy. No acute intra-abdominal pathol ogy detected. Hyperattenuation in the renal collecting system possible due to previous contrast application. This can also be seen with marked hematuria. Clinical correlation advised. Mild arterio sclerosis, small umbilical hernia, degenerative changes, obesity as nonacute findings. Electronically Signed: Madison Romero MD at 5:04 EDT , Service support [phone], CC: Rimma Ovalle DO [employer]: Signed 31-Jan-2015 Chest PA and Lateral Result: Comments: See Note; NOTES: [facility] Imaging Services [facility] [place] [address] Radiology Report MR#: [id number] Acct: [id number] Name: VARSHA IBARRA Rep #: [id number] : 1965 F 49 From: Eris Bro MD PCP: Rimma Ovalle DO Status: REG CLI Study: Chest PA and Lateral Date of Exam: 01/31/15 Exam# [id number] Ordering Dr: Rimma Ovalle DO STUDY: X-RAY CHEST REASON FOR EXAM: Female, 49 years old. Chest pressure. Hiatal hernia. TECHNIQUE: Frontal and lateral views of the chest. COMPARISON: None. FINDINGS: The lungs are clear and expanded. There is no demonstrated pleural abnormality. Normal size heart. Normal mediastinum and dejon. Normal visualized pulmonary arteries. Normal visualized aortic arch and descending thoracic aorta. Normal visualized thoracic spine. Normal visualized ribs, clavicles, and shoulders. There is no demonstrated abnormality of the visualized soft tissue structures of the upper abdomen. IMPRESSION: Normal x-ray examination of the chest. Electronically Signed: Eris Bro MD at 23:31 EDT Tel , Service support [phone], 0035 RAD/Chest PA and Lateral IMPRESSION: Normal x-ray examination of the chest. Electronically Signed: Eris alvarado MD at 23:31 EDT , Service support [phone], CC: Rimma Ovalle DO [employer]: Signed 03-Oct-2014 Bilat Scrn Digital AND CAD Result: Comments: See Note; NOTES: [facility] Imaging Services [address] [place] [address] Breast Imaging Report MR#: [id number] Acct: [id number] Name: VARSHA IBARRA Rep # : [id number] : 1965 F 49 From: Jose Gibbons MD PCP: Rimma Ovalle DO Status: REG CLI Study: Bilat Scrn Digital AND CAD Date of Exam: 10/03/14 Exam# [id number] Ordering Dr: BURAK COKER AN MAMMOGRAPHY - BILATERAL SCREENING REASON FOR EXAM: Female, 49 years old. Routine annual screening examination. PERTINENT HISTORY: Non-contributory. TECHNIQUE: Digital examination. Mediolat eral oblique (MLO) and craniocaudad (CC) views of both breasts were obtained. CAD: CAD was performed on this study. COMPARISON: Comparison is made with prior study dated July 27, 2013 and 2011. FINDINGS: Breast Composition: There are scattered areas of fibroglandular density. There are no dominant masses or suspicious calcifications. Stab le small nodular densities in both axillary regions in keeping with small axillary lymph nodes. No other significant abnormalities are identified. There has been no significant change since the rose or study. IMPRESSION: Stable bilateral screening mammogram. Yearly follow-up recommended. (A) ASSESSMENT CATEGORY: BIRADS Category 2: Benign. A letter regarding these results will be sent to the patient by the facility within 30 days. Approximately 10% of breast cancers are not detected by mammography. A normal mammogr am should not delay biopsy of a clinically suspicious abnormality. Electronically Signed: Jose Gibbons MD at 8:13 EST Tel [phone], Service support [phone], Fax CC: Rimma Ovalle DO; LINDA COKER [employer]: Signed Family History Unknown Family Member Name Dates Details Adopted Status: Active Social History Name Dates Details Caffeine Use Comments: 3 QD Status: Active Drug Use Comments: Marijuana in high school & college Status: Active Non Drinker/No Alcohol Use Status: Active Non Smoker/No Tobacco Use Status: Active Tobacco use: Never smoker. Status: Active Smoking Status Name Dates Details Never smoker Vital Signs Date Test Result Details :44 Pulse 94 /min Comments: Pattern: Regular Respiration Rate 18 /min Comments: Pattern: Unlabored O2 SAT 96 % Comments: Room air BP Systolic 140 mm[Hg] Comments: Patient Position: Sitting; Cuff Location: Left Arm; Cuff Size: Thigh BP Diastolic 92 mm[Hg] Comments: Patient Position: Sitting; Cuff Location: Left Arm; Cuff Size: Thigh Weight 240.5 lb Height 66 in Body Mass Index Calculated 38.82 kg/m2 Body Surface Area Calculated 2.16 m2 :54 Temperature 97 f Pulse 90 /min Comments: Pattern: Regular Respiration Rate 17 /min Comments: Pattern: Unlabored O2 SAT 98 % Comments: Room air BP Systolic 118 mm[Hg] Comments: Patient Position: Sitting; Cuff Location: Left Arm; Cuff Size: Standard BP Diastolic 84 mm[Hg] Comments: Patient Position: Sitting; Cuff Location: Left Arm; Cuff Size: Standard Weight 245 lb Height 66 in Body Mass Index Calculated 39.54 kg/m2 Body Surface Area Calculated 2.18 m2 :17 Temperature 97.2 f Pulse 89 /min Comments: Pattern: Regular Respiration Rate 16 /min Comments: Pattern: Unlabored O2 SAT 98 % Comments: Room air BP Systolic 126 mm[Hg] Comments: Patient Position: Sitting; Cuff Location: Left Arm; Cuff Size: Standard BP Diastolic 84 mm[Hg] Comments: Patient Position: Sitting; Cuff Location: Left Arm; Cuff Size: Standard Weight 245 lb Height 66 in Body Mass Index Calculated 39.54 kg/m2 Body Surface Area Calculated 2.18 m2 :31 Pulse 72 /min Comments: Pattern: Regular Respiration Rate 18 /min Comments: Pattern: Unlabored O2 SAT 96 % Comments: Room air BP Systolic 128 mm[Hg] Comments: Patient Position: Sitting; Cuff Location: Left Arm; Cuff Size: Large BP Diastolic 84 mm[Hg] Comments: Patient Position: Sitting; Cuff Location: Left Arm; Cuff Size: Large Weight 251.25 lb Height 66 in Body Mass Index Calculated 40.55 kg/m2 Body Surface Area Calculated 2.2 m2 :29 Pulse 87 /min Comments: Pattern: Regular Respiration Rate 18 /min Comments: Pattern: Unlabored O2 SAT 97 % Comments: Room air BP Systolic 138 mm[Hg] Comments: Patient Position: Sitting; Cuff Location: Left Arm; Cuff Size: Large BP Diastolic 84 mm[Hg] Comments: Patient Position: Sitting; Cuff Location: Left Arm; Cuff Size: Large Weight 245.5 lb Height 66 in Body Mass Index Calculated 39.62 kg/m2 Body Surface Area Calculated 2.18 m2 :44 Pulse 102 /min Comments: Pattern: Regular Respiration Rate 18 /min Comments: Pattern: Unlabored O2 SAT 97 % Comments: Room air BP Systolic 132 mm[Hg] Comments: Patient Position: Sitting; Cuff Location: Left Arm; Cuff Size: Large BP Diastolic 88 mm[Hg] Comments: Patient Position: Sitting; Cuff Location: Left Arm; Cuff Size: Large Weight 240.25 lb Height 66 in Body Mass Index Calculated 38.78 kg/m2 Body Surface Area Calculated 2.16 m2 :06 Pulse 88 /min Comments: Pattern: Regular Respiration Rate 20 /min Comments: Pattern: Unlabored O2 SAT 98 % Comments: Room air BP Systolic 124 mm[Hg] Comments: Patient Position: Sitting; Cuff Location: Left Arm; Cuff Size: Large BP Diastolic 86 mm[Hg] Comments: Patient Position: Sitting; Cuff Location: Left Arm; Cuff Size: Large Weight 248 lb Height 66 in Body Mass Index Calculated 40.03 kg/m2 Body Surface Area Calculated 2.19 m2 :33 Temperature 97.8 f Comments: Method: Temporal Pulse 116 /min Comments: Pattern: Regular Respiration Rate 17 /min Comments: Pattern: Unlabored O2 SAT 98 % Comments: Room air BP Systolic 124 mm[Hg] Comments: Patient Position: Sitting; Cuff Location: Left Arm; Cuff Size: Standard BP Diastolic 82 mm[Hg] Comments: Patient Position: Sitting; Cuff Location: Left Arm; Cuff Size: Standard Weight 246.5 lb Height 66 in Body Mass Index Calculated 39.79 kg/m2 Body Surface Area Calculated 2.19 m2 :48 Temperature 98.2 f Comments: Method: Temporal Pulse 70 /min Comments: Pattern: Regular Respiration Rate 16 /min Comments: Pattern: Unlabored BP Systolic 122 mm[Hg] Comments: Patient Position: Sitting; Cuff Location: Left Arm; Cuff Size: Standard BP Diastolic 74 mm[Hg] Comments: Patient Position: Sitting; Cuff Location: Left Arm; Cuff Size: Standard Weight 238.5 lb Height 66 in Body Mass Index Calculated 38.49 kg/m2 Body Surface Area Calculated 2.16 m2 [id number]:20 Pulse 83 /min Comments: Pattern: Regular O2 SAT 97 % Comments: Room air BP Systolic 128 mm[Hg] Comments: Patient Position: Sitting; Cuff Location: Left Arm; Cuff Size: Large BP Diastolic 80 mm[Hg] Comments: Patient Position: Sitting; Cuff Location: Left Arm; Cuff Size: Large Weight 238.5 lb Height 66 in Body Mass Index Calculated 38.49 kg/m2 Body Surface Area Calculated 2.16 m2 [id number]:15 Temperature 98.8 f Comments: Method: Oral Pulse 100 /min Comments: Pattern: Regular Respiration Rate 18 /min Comments: Pattern: Unlabored O2 SAT 98 % Comments: Room air BP Systolic 128 mm[Hg] Comments: Patient Position: Sitting; Cuff Location: Left Arm; Cuff Size: Large BP Diastolic 86 mm[Hg] Comments: Patient Position: Sitting; Cuff Location: Left Arm; Cuff Size: Large Weight 230.125 lb Height 66 in Body Mass Index Calculated 37.14 kg/m2 Body Surface Area Calculated 2.12 m2 [id number]:01 Comments: 128/84 recheck bp Temperature 98 f Comments: Method: Tympanic Pulse 66 /min Comments: Pattern: Regular Respiration Rate 18 /min Comments: Pattern: Unlabored O2 SAT 98 % Comments: Room air BP Systolic 162 mm[Hg] Comments: Patient Position: Sitting; Cuff Location: Left Arm; Cuff Size: Large BP Diastolic 90 mm[Hg] Comments: Patient Position: Sitting; Cuff Location: Left Arm; Cuff Size: Large Weight 231.5625 lb Height 66 in Body Mass Index Calculated 37.37 kg/m2 Body Surface Area Calculated 2.13 m2 24-[id number]:57 Temperature 98 f Comments: Method: Oral Pulse 77 /min Comments: Pattern: Regular O2 SAT 98 % Comments: Room air BP Systolic 122 mm[Hg] Comments: Patient Position: Sitting; Cuff Location: Left Arm; Cuff Size: Standard BP Diastolic 80 mm[Hg] Comments: Patient Position: Sitting; Cuff Location: Left Arm; Cuff Size: Standard Weight 212.125 lb Height 66 in Body Mass Index Calculated 34.24 kg/m2 Body Surface Area Calculated 2.05 m2 [id number]:28 Pulse 72 /min Comments: Pattern: Regular Respiration Rate 20 /min Comments: Pattern: Unlabored BP Systolic 128 mm[Hg] Comments: Patient Position: Sitting; Cuff Location: Left Arm; Cuff Size: Large BP Diastolic 82 mm[Hg] Comments: Patient Position: Sitting; Cuff Location: Left Arm; Cuff Size: Large Weight 212.125 lb Height 66 in Body Mass Index Calculated 34.24 kg/m2 Body Surface Area Calculated 2.05 m2 :38 Comments: statse today is a good day Temperature 97.5 f Comments: Method: Oral Pulse 76 /min Comments: Pattern: Regular Respiration Rate 18 /min Comments: Pattern: Unlabored BP Systolic 114 mm[Hg] Comments: Patient Position: Sitting; Cuff Location: Left Arm; Cuff Size: Standard BP Diastolic 70 mm[Hg] Comments: Patient Position: Sitting; Cuff Location: Left Arm; Cuff Size: Standard Weight 212.125 lb Height 66 in Body Mass Index Calculated 34.24 kg/m2 Body Surface Area Calculated 2.05 m2 :37 Temperature 99.1 f Comments: Method: Oral Pulse 64 /min Comments: Pattern: Regular Respiration Rate 20 /min Comments: Pattern: Unlabored BP Systolic 128 mm[Hg] Comments: Patient Position: Sitting; Cuff Location: Left Arm; Cuff Size: Large BP Diastolic 84 mm[Hg] Comments: Patient Position: Sitting; Cuff Location: Left Arm; Cuff Size: Large Weight 212.125 lb Height 66 in Body Mass Index Calculated 34.24 kg/m2 Body Surface Area Calculated 2.05 m2 :26 Temperature 97.6 f Comments: Method: Oral Pulse 76 /min Comments: Pattern: Regular Respiration Rate 16 /min Comments: Pattern: Unlabored BP Systolic 118 mm[Hg] Comments: Patient Position: Sitting; Cuff Location: Left Arm; Cuff Size: Standard BP Diastolic 80 mm[Hg] Comments: Patient Position: Sitting; Cuff Location: Left Arm; Cuff Size: Standard Weight 214.4 lb Height 66 in Body Mass Index Calculated 34.6 kg/m2 Body Surface Area Calculated 2.06 m2 :06 Pulse 80 /min Comments: Pattern: Regular Respiration Rate 20 /min Comments: Pattern: Unlabored BP Systolic 132 mm[Hg] Comments: Patient Position: Sitting; Cuff Location: Left Arm; Cuff Size: Large BP Diastolic 78 mm[Hg] Comments: Patient Position: Sitting; Cuff Location: Left Arm; Cuff Size: Large Weight 245.5625 lb Height 65 in Body Mass Index Calculated 40.86 kg/m2 Body Surface Area Calculated 2.16 m2 Head Circumference 0.00 cm :09 Temperature 98.5 f Comments: Method: Oral Pulse 78 /min Comments: Pattern: Regular Respiration Rate 18 /min Comments: Pattern: Unlabored BP Systolic 128 mm[Hg] Comments: Patient Position: Sitting; Cuff Location: Left Arm; Cuff Size: Standard BP Diastolic 78 mm[Hg] Comments: Patient Position: Sitting; Cuff Location: Left Arm; Cuff Size: Standard Weight 247.0625 lb Height 0 in Head Circumference 0.00 cm :13 Pulse 64 /min Comments: Pattern: Regular Respiration Rate 20 /min Comments: Pattern: Unlabored BP Systolic 128 mm[Hg] Comments: Patient Position: Sitting; Cuff Location: Left Arm; Cuff Size: Large BP Diastolic 82 mm[Hg] Comments: Patient Position: Sitting; Cuff Location: Left Arm; Cuff Size: Large Weight 249.0625 lb Height 65 in Body Mass Index Calculated 41.45 kg/m2 Body Surface Area Calculated 2.17 m2 Head Circumference 0.00 cm :53 Pulse 72 /min Comments: Pattern: Regular Respiration Rate 18 /min Comments: Pattern: Unlabored BP Systolic 128 mm[Hg] Comments: Patient Position: Sitting; Cuff Location: Left Arm; Cuff Size: Large BP Diastolic 78 mm[Hg] Comments: Patient Position: Sitting; Cuff Location: Left Arm; Cuff Size: Large Weight 0 lb Height 65 in Head Circumference 0.00 cm :42 Pulse 80 /min Comments: Pattern: Regular Respiration Rate 20 /min Comments: Pattern: Unlabored BP Systolic 118 mm[Hg] Comments: Patient Position: Sitting; Cuff Location: Left Arm; Cuff Size: Standard BP Diastolic 70 mm[Hg] Comments: Patient Position: Sitting; Cuff Location: Left Arm; Cuff Size: Standard Weight 225 lb Height 65 in Body Mass Index Calculated 37.44 kg/m2 Body Surface Area Calculated 2.08 m2 Head Circumference 0.00 cm :56 Temperature 98.3 f Comments: Method: Oral Pulse 88 /min Comments: Pattern: Regular Respiration Rate 20 /min Comments: Pattern: Unlabored BP Systolic 124 mm[Hg] Comments: Patient Position: Sitting; Cuff Location: Right Arm; Cuff Size: Standard BP Diastolic 72 mm[Hg] Comments: Patient Position: Sitting; Cuff Location: Right Arm; Cuff Size: Standard Weight 225 lb Height 65 in Body Mass Index Calculated 37.44 kg/m2 Body Surface Area Calculated 2.08 m2 Head Circumference 0.00 cm [id number]:32 Pulse 60 /min Comments: Pattern: Regular Respiration Rate 16 /min Comments: Pattern: Unlabored BP Systolic 112 mm[Hg] Comments: Patient Position: Sitting; Cuff Location: Left Arm; Cuff Size: Standard BP Diastolic 64 mm[Hg] Comments: Patient Position: Sitting; Cuff Location: Left Arm; Cuff Size: Standard Weight 225 lb Height 65 in Body Mass Index Calculated 37.44 kg/m2 Body Surface Area Calculated 2.08 m2 Head Circumference 0.00 cm Results Date Description Value Details [id number] CBC W/Diff, Automated Comments: [facility] [address] [place], [address] Absolute Lymph 1.48 {X10_3/ul} (Normal) Range: 0.83-4.51 Absolute Neut 2.6 {X10_3/uL} (Normal) Range: 2.0-7.7 IM GRAN % 0.000 % (Normal) Range: 0.0-0.9 Comments: IG% - Immature Granulocytes (promyelocytes, myelocytes andmetamyelocytes) > 1% indicates that a LEFT SHIFT is Present. BASO% 0.6 % (Normal) Range: 0-1 EO% 2.2 % (Normal) Range: 0-5 MONO% 9.7 % (Normal) Range: 0-10 LY% 31.8 % (Normal) Range: 19-41 NEUT% 55.7 % (Normal) Range: 47-70 MPV 9.4 fL (Normal) Range: 6.2-12.0 PLT 319 K/mm3 (Normal) Range: 150-450 RDW SD 46.2 fL (Abnormal) Range: 35.1-43.9 RDW CV 13.6 % (Normal) Range: 11.6-14.6 MCHC 32.0 {g/gl} (Normal) Range: 32-36 MCH 29.9 pg (Normal) Range: 27.0-32.0 MCV 93.5 fL (Normal) Range: 81-99 HCT 40.0 % (Normal) Range: 37-47 HGB 12.8 g/dL (Normal) Range: 12.0-15.0 RBC 4.28 {M/mm3} (Normal) Range: 4.2-5.4 WBC 4.7 K/mm3 (Normal) Range: 4.4-11.0 24-Jtk-[id number]:38 Comprehensive Metabolic Profil Comments: [facility] [address] [place] [place], [address] GAP 9 (Normal) Range: 5-15 CO2 25.0 mmol/L (Normal) Range: 21.0-32.0 CL 105 mmol/L (Normal) Range: 98-107 K 3.8 mmol/L (Normal) Range: 3.5-5.1 NA 139 mmol/L (Normal) Range: 136-145 T BILI 0.50 mg/dL (Normal) Range: 0.20-1.00 ALT 25 U/L (Normal) Range: 13-56 ALK P 85 U/L (Normal) Range: 45-117 AST 18 U/L (Normal) Range: 15-37 CA 8.9 mg/dL (Normal) Range: 8.5-10.1 A/G 1.1 {RATIO} (Normal) Range: 0.9-2.4 GLOB 3.6 g/dL (Normal) Range: 2.2-4.2 ALB 3.8 g/dL (Normal) Range: 3.2-5.0 T PROT 7.4 g/dL (Normal) Range: 6.4-8.2 BUN/CRE 29.6 {RATIO} (Abnormal) Range: 10-20 EST GFR - AA 124 mL/min (Normal) Comments: GFR Calc EST GFR 103 mL/min (Normal) Comments: Non- GFR Calc CREAT,SERUM 0.64 mg/dL (Normal) Range: 0.55-1.02 Comments: The validity of the calculated GFR AND GFRAA in patients over70 years has not been determined. Clinical correlation isessential. BUN 19 mg/dL (Abnormal) Range: 7-18 GLU 82 mg/dL (Normal) Range: 74-106 Comments: Please note revised GLUCOSE reference range ptlzdjyzr48/02/2018. 34-Ius-306834:38 Lipid Profile Comments: [facility] [address] [place], [place], [id number] VLDL 16 mg/dL (Normal) Range: 5-40 LDL 119 mg/dL (Normal) Range: 0-130 HDL 75 mg/dL (Normal) Comments: The drugs N-Acetylcysteine and Metamizole may falselydepress this assay. Reference Range HDL <40 mg/dL Low HDL Cholesterol HDL >or= 60 mg/dL High HDL Cholesterol TRIG 79 mg/dL (Normal) Comments: The drugs N-Acetylcysteine and Metamizole may falselydepress this assay.Serum Triglycerides Reference Interval Normal <150 mg/dL Borderline high 150 - 199 mg/dL High 200 - 499 mg/dL Very High > or = 500 mg/dL CHOL 210 mg/dL (Abnormal) Comments: <200 mg/dL Desirable 200-240 mg/dL Borderline >240 mg/dL High Risk [id number]-Ozf-[id number] Thyroid Stim Hormone (TSH) Comments: [facility] [address] [place], [address] TSH 1.35 {uIU/mL} (Normal) Range: 0.358-3.74 30-Ehc-375455:38 Urinalysis, Routine (Dipstick) Comments: How was Urine Obtained? [facility] [address] [place], [address] LEUK ESTERASE 100 /ul (Abnormal) OCCULT BLOOD-UR Negative /ul (Normal) NITRITE UR Negative (Normal) UROBILI Normal mg/dL (Normal) PROT DIPSTX Negative mg/dL (Normal) pH UR 6.0 (Normal) Range: 5.0 - 8.0 SP.GR. DIPSTX 1.010 (Normal) Range: 1.002-1.030 KETONE UR Negative mg/dL (Normal) BILIRUBIN URINE Negative mg/dL (Normal) GLUCOSE, UR Normal mg/dL (Normal) CLARITY Clear (Normal) COLOR Yellow (Normal) 09-Vmt-85997:16 THROAT CULTURE (04104) Comments: PATIENT NOT FASTINGPERFORMED BY: [facility] [address] [facility] [id number] Information: SRC: Result 1 RRF (Normal) Comments: Routine respiratory taniya Upper Respiratory Culture Final report (Normal) [id number] Rapid Strep Test, Office (04268) Rapid Strep Test, Office Negative (Normal) :44 CBC W/Diff, Automated Comments: [facility] [address] [place], [address] Absolute Lymph 1.70 {X10_3/ul} (Normal) Range: 0.83-4.51 Absolute Neut 2.5 {X10_3/uL} (Normal) Range: 2.0-7.7 IM GRAN % 0.000 % (Normal) Range: 0.0-0.9 Comments: IG% - Immature Granulocytes (promyelocytes, myelocytes andmetamyelocytes) > 1% indicates that a LEFT SHIFT is Present. BASO% 0.4 % (Normal) Range: 0-1 EO% 2.5 % (Normal) Range: 0-5 MONO% 8.4 % (Normal) Range: 0-10 LY% 35.7 % (Normal) Range: 19-41 NEUT% 53.0 % (Normal) Range: 47-70 MPV 10.2 fL (Normal) Range: 6.2-12.0 PLT 272 K/mm3 (Normal) Range: 150-450 RDW SD 46.7 fL (Abnormal) Range: 35.1-43.9 RDW CV 13.4 % (Normal) Range: 11.6-14.6 MCHC 31.3 {g/gl} (Abnormal) Range: 32-36 MCH 30.0 pg (Normal) Range: 27.0-32.0 MCV 96.2 fL (Normal) Range: 81-99 HCT 40.0 % (Normal) Range: 37-47 HGB 12.5 g/dL (Normal) Range: 12.0-15.0 RBC 4.16 {M/mm3} (Abnormal) Range: 4.2-5.4 WBC 4.8 K/mm3 (Normal) Range: 4.4-11.0 :44 Erythrocyte Sed Rate Comments: [facility] [address] [place] [place], [address] SED RATE 11 mm/h (Normal) Range: 0-30 :44 Uric Acid Comments: [address] [place], [place], [address] URIC 3.7 mg/dL (Normal) Range: 2.6-6.0 Comments: The drugs N-Acetylcysteine and Metamizole may falselydepress this assay. :30 Hemoglobin A1c Comments: [facility] [address] [place], [place], [id number] HGB A1C 5.8 % (Normal) Range: 4.2-6.3 37-Kvt-97694:30 Lipid Profile Comments: [facility] [address] [place], [place], [id number] VLDL 12 mg/dL (Normal) Range: 5-40 LDL 125 mg/dL (Normal) Range: 0-130 HDL 73 mg/dL (Normal) Comments: The drugs N-Acetylcysteine and Metamizole may falsely deressthis assay. Reference Range HDL <40 mg/dL Low HDL Cholesterol HDL >or= 60 mg/dL High HDL Cholesterol TRIG 61 mg/dL (Normal) Comments: The drugs N-Acetylcysteine and Metamizole may falsely deressthis assay.Serum Triglycerides Reference Interval Normal <150 mg/dL Borderline high 150 - 199 mg/dL High 200 - 499 mg/dL Very High > or = 500 mg/dL CHOL 210 mg/dL (Abnormal) Comments: <200 mg/dL Desirable 200-240 mg/dL Borderline >240 mg/dL High Risk 10-Got-984000:35 Basic Metabolic Profile (BMP) Comments: [facility] [address] [place], [place], [id number] GAP 3 (Abnormal) Range: 5-15 CO2 28.0 mmol/L (Normal) Range: 21.0-32.0 CL 108 mmol/L (Abnormal) Range: 98-107 K 3.8 mmol/L (Normal) Range: 3.5-5.1 NA 139 mmol/L (Normal) Range: 136-145 CA 8.9 mg/dL (Normal) Range: 8.5-10.1 BUN/CRE 23.7 {RATIO} (Abnormal) Range: 10-20 Estimated CRCL 82.25 ml/min (Normal) EST GFR - AA 110 mL/min (Normal) Comments: GFR Calc EST GFR 91 mL/min (Normal) Comments: Non- GFR Calc CREAT,SERUM 0.72 mg/dL (Normal) Range: 0.55-1.02 Comments: The validity of the calculated GFR AND GFRAA in patients over70 years has not been determined. Clinical correlation isessential. BUN 17 mg/dL (Normal) Range: 7-18 GLU 104 mg/dL (Normal) Range: 70-110 75-Qtf-890553:35 CBC W/Diff, Automated Comments: [facility] [address] [place], [address] Absolute Lymph 1.20 {X10_3/ul} (Normal) Range: 0.83-4.51 Absolute Neut 3.4 {X10_3/uL} (Normal) Range: 2.0-7.7 IM GRAN % 0.000 % (Normal) Range: 0.0-0.9 Comments: IG% - Immature Granulocytes (promyelocytes, myelocytes andmetamyelocytes) > 1% indicates that a LEFT SHIFT is Present. BASO% 0.4 % (Normal) Range: 0-1 EO% 1.6 % (Normal) Range: 0-5 MONO% 7.4 % (Normal) Range: 0-10 LY% 23.9 % (Normal) Range: 19-41 NEUT% 66.7 % (Normal) Range: 47-70 MPV 9.0 fL (Normal) Range: 6.2-12.0 PLT 274 K/mm3 (Normal) Range: 150-450 RDW SD 47.5 fL (Abnormal) Range: 35.1-43.9 RDW CV 13.8 % (Normal) Range: 11.6-14.6 MCHC 31.9 {g/gl} (Abnormal) Range: 32-36 MCH 30.0 pg (Normal) Range: 27.0-32.0 MCV 94.3 fL (Normal) Range: 81-99 HCT 38.3 % (Normal) Range: 37-47 HGB 12.2 g/dL (Normal) Range: 12.0-15.0 RBC 4.06 {M/mm3} (Abnormal) Range: 4.2-5.4 WBC 5.0 K/mm3 (Normal) Range: 4.4-11.0 86-Mij-639352:04 LIPID PANEL (27044) Comments: PATIENT WAS FASTINGPERFORMED BY: [facility] [address] [place] [id number] Information: [id number] LDL/HDL Ratio 1.5 {ratio_units} (Normal) Range: 0.0-3.2 Comments: LDL/HDL Ratio Men Women 1/2 Avg.Risk 1.0 1.5 Av g.Risk 3.6 3.2 2X Avg.Risk 6.2 5.0 3X Avg.Risk 8.0 6.1 LDL Cholesterol Calc 134 mg/dL (Abnormal) Range: 0-99 VLDL Cholesterol [place] 13 mg/dL (Normal) Range: 5-40 HDL Cholesterol 87 mg/dL (Normal) Comments: According to ATP-III Guidelines, HDL-C >59 mg/dL is considered anegative risk factor for CHD. Triglycerides 66 mg/dL (Normal) Range: 0-149 Cholesterol, Total 234 mg/dL (Abnormal) Range: 100-199 56-Rdg-571400:05 Amylase Comments: Test performed at:[facility] [address] [place] [address] LEIGH 29 U/L (Normal) Range: 25-115 59-Llw-630234:05 CBC W/Diff, Automated Comments: Test performed at:[facility] [address] [facility] [place] [address] Absolute Lymph 1.35 {X10_3/ul} (Normal) Range: 0.83-4.51 Absolute Neut 2.2 {X10_3/uL} (Normal) Range: 2.0-7.7 IM GRAN % 0.000 % (Normal) Range: 0.0-0.9 Comments: IG% - Immature Granulocytes (promyelocytes, myelocytes andmetamyelocytes) > 1% indicates that a LEFT SHIFT is Present. BASO% 0.7 % (Normal) Range: 0-1 EO% 1.7 % (Normal) Range: 0-5 MONO% 10.6 % (Abnormal) Range: 0-10 LY% 33.3 % (Normal) Range: 19-41 NEUT% 53.7 % (Normal) Range: 47-70 MPV 10.1 fL (Normal) Range: 6.2-12.0 PLT 293 K/mm3 (Normal) Range: 150-450 RDW SD 43.4 fL (Normal) Range: 35.1-43.9 RDW CV 13.1 % (Normal) Range: 11.6-14.6 MCHC 33.5 {g/gl} (Normal) Range: 32-36 MCH 31.2 pg (Normal) Range: 27.0-32.0 MCV 93.1 fL (Normal) Range: 81-99 HCT 40.3 % (Normal) Range: 37-47 HGB 13.5 g/dL (Normal) Range: 12.0-15.0 RBC 4.33 {M/mm3} (Normal) Range: 4.2-5.4 WBC 4.1 K/mm3 (Abnormal) Range: 4.4-11.0 71-Psu-759233:05 Comprehensive Metabolic Profil Comments: Test performed at:[facility] [address], [place] [id number] GAP 6 (Normal) Range: 5-15 CO2 26.0 mmol/L (Normal) Range: 21.0-32.0 CL 105 mmol/L (Normal) Range: 98-107 K 3.8 mmol/L (Normal) Range: 3.5-5.1 NA 137 mmol/L (Normal) Range: 136-145 T BILI 0.50 mg/dL (Normal) Range: 0.20-1.00 ALT 29 U/L (Normal) Range: 12-78 ALK P 89 U/L (Normal) Range: 50-136 AST 24 U/L (Normal) Range: 15-37 CA 9.1 mg/dL (Normal) Range: 8.5-10.1 A/G 1.1 {RATIO} (Normal) Range: 0.9-2.4 GLOB 3.5 g/dL (Normal) Range: 2.3-3.5 ALB 3.9 g/dL (Normal) Range: 3.4-5.0 T PROT 7.4 g/dL (Normal) Range: 6.4-8.2 BUN/CRE 20.0 {RATIO} (Normal) Range: 10-20 EST GFR - AA 114 mL/min (Normal) EST GFR 94 mL/min (Normal) CREAT,SERUM 0.70 mg/dL (Normal) Range: 0.55-1.20 Comments: The validity of the calculated GFR AND GFRAA in patients over70 years has not been determined. Clinical correlation isessential. BUN 14 mg/dL (Normal) Range: 7-18 GLU 78 mg/dL (Normal) Range: 70-110 96-Bwj-326827:05 CRP Comments: Test performed at:[facility] [address] [facility] [place] [address] C-REACTIVE PROT 3.94 mg/L (Abnormal) Range: 0.0-3.0 Comments: C-Reactive Protein (CRP) provides useful information for thediagnosis, therapy and monitoring of inflammatory processesand associated diseases. For the evaluation of Relative Riskfor Cardiovascular Dise ase, a High Sensitivity CRP (HSCRP)should be ordered. [id number]-[id number]:05 Erythrocyte Sed Rate Comments: Test performed at:[facility] [address] [place] [address] SED RATE 28 mm/h (Normal) Range: 0-30 61-Nqw-031426:05 Lipase Comments: Test performed at:[facility] [address] [place], [place] [address] LIPASE 85 U/L (Normal) Range: 73-393 95-Vbr-627360:41 Comprehensive Metabolic Profil Comments: Test performed at:[facility] [address] [place], [place] [address] GAP 9 (Normal) Range: 5-15 CO2 25.0 mmol/L (Normal) Range: 21.0-32.0 CL 102 mmol/L (Normal) Range: 98-107 K 4.0 mmol/L (Normal) Range: 3.5-5.1 NA 136 mmol/L (Normal) Range: 136-145 T BILI 0.40 mg/dL (Normal) Range: 0.00-4.00 ALT 28 U/L (Normal) Range: 12-78 ALK P 79 U/L (Normal) Range: 50-136 AST 18 U/L (Normal) Range: 15-37 CA 9.5 mg/dL (Normal) Range: 8.5-10.1 A/G 1.1 {RATIO} (Normal) Range: 0.9-2.4 GLOB 3.6 g/dL (Normal) Range: 2.7-4.2 ALB 3.8 g/dL (Normal) Range: 3.4-5.0 T PROT 7.4 g/dL (Normal) Range: 6.4-8.2 BUN/CRE 22.5 {RATIO} (Abnormal) Range: 10-20 EST GFR - AA 98 mL/min (Normal) EST GFR 81 mL/min (Normal) CREAT,SERUM 0.8 mg/dL (Normal) Range: 0.6-1.0 BUN 18 mg/dL (Normal) Range: 7-18 GLU 94 mg/dL (Normal) Range: 70-110 :41 Follicle Stimulating Hormone Comments: Test performed at:[facility] [address] [place] [address] FSH 67.0 m[iU]/mL (Normal) Comments: NORMAL REFERENCE RANGES FEMALE FOLLICULAR 2.3 - 12.6 mIU/mL MID-CYCLE PEAK 5.2 - 17.5 mIU/mL LUTEAL 1.7 - 12.9 mIU/mL POST-MENOPAUSAL ON MHT 5.9 - 72.8 mIU/mL NOT ON MHT 12.7 - 132.2 mlU/mL MALE 0.7 - 10.8 mIU/mLNEW TEST METHOD AND REFERENCE RANGES JANUARY 24, 201224-Oct-201424-Zgy-313552:41 Thyroid Stim Hormone (TSH) Comments: Test performed at:[facility] [address] [place] [address] TSH 1.51 {uIU/mL} (Normal) Range: 0.358-3.74 :41 Vitamin B12 362 pg/mL (Normal) Comments: Test performed at:[facility] [address] [place] [address] Range: 211-911 :41 Vitamin D,25 Hydroxy Comments: Test performed at:[facility] [address] [place] [id number] Vitamin D 25-OH 28.8 ng/mL (Normal) Comments: Vitamin D 25(OH) Status Range Deficiency <20 ng/mL (50nmol/L) Insuffciency 20 - 30 ng/mL (50 - 75 nmol/L) Sufficiency 30 - 100 ng/mL (75 - 250 nmol/L) Toxicity >100 ng/mL (>250 nmol/L) :05 B12 279 pg/mL (Normal) Range: 211-911 :05 CBCD ALC 1.15 {X10_3/ul} (Normal) Range: 0.83-4.51 ANC 2.5 {X10_3/uL} (Normal) Range: 2.0-7.7 IG% 0.200 % (Normal) Range: 0.0-0.9 Comments: IG% - Immature Granulocytes (promyelocytes, myelocytes andmetamyelocytes) > 1% indicates that a LEFT SHIFT is Present. B% 0.7 % (Normal) Range: 0-1 E% 2.7 % (Normal) Range: 0-5 M% 8.0 % (Normal) Range: 0-10 L% 27.8 % (Normal) Range: 19-41 N% 60.6 % (Normal) Range: 47-70 MPV 10.0 fL (Normal) Range: 6.2-12.0 PLT 284 K/mm3 (Normal) Range: 150-450 RDWSD 42.9 fL (Normal) Range: 35.1-43.9 RDWCV 13.0 % (Normal) Range: 11.6-14.6 MCHC 33.0 {g/gl} (Normal) Range: 32-36 MCH 30.4 pg (Normal) Range: 27.0-32.0 MCV 92.2 fL (Normal) Range: 81-99 HCT 37.9 % (Normal) Range: 37-47 HGB 12.5 g/dL (Normal) Range: 12.0-15.0 RBC 4.11 {M/mm3} (Abnormal) Range: 4.2-5.4 WBC 4.1 K/mm3 (Abnormal) Range: 4.4-11.0 :05 CELIAC Comments: Has Patient had X-rays with Contrast this admission? N tCELENDOA Negative (Normal) tCELTTG <2 U/mL (Normal) Range: 0-5 Comments: Negative 0 - 5Weak Positive 6 - 9Positive >9 tCELTTA <2 U/mL (Normal) Range: 0-3 Comments: Negative 0 - 3Weak Positive 4 - 10Positive >10Tissue Transglutaminase (tTG) has been identifiedas the endomysial antigen. Studies have demonstr-ated that endomysial IgA antibodie s have over 99%specificity for gluten sensitive enteropathy. VANIA 87 mg/dL (Abnormal) Range: 91-414 :05 CMP GAP 9 (Normal) Range: 5-15 CO2 27.0 mmol/L (Normal) Range: 21.0-32.0 CL 104 mmol/L (Normal) Range: 98-107 K 3.8 mmol/L (Normal) Range: 3.5-5.1 NA 140 mmol/L (Normal) Range: 136-145 BIT 0.30 mg/dL (Normal) Range: 0.00-4.00 ALT 25 U/L (Normal) Range: 12-78 ALK 81 U/L (Normal) Range: 50-136 AST 23 U/L (Normal) Range: 15-37 CA 8.9 mg/dL (Normal) Range: 8.5-10.1 AG 1.1 {RATIO} (Normal) Range: 0.9-2.4 GLOB 3.2 g/dL (Normal) Range: 2.7-4.2 ALB 3.6 g/dL (Normal) Range: 3.4-5.0 TPROT 6.8 g/dL (Normal) Range: 6.4-8.2 BC 22.9 {RATIO} (Abnormal) Range: 10-20 GFRAA 114 mL/min (Normal) GFR 94 mL/min (Normal) CREAT 0.7 mg/dL (Normal) Range: 0.6-1.0 BUN 16 mg/dL (Normal) Range: 7-18 GLU 131 mg/dL (Abnormal) Range: 70-110 Comments: Fasting Glucose result greater than or equal to 126 mg/dLsuggests DIABETES MELLITUS per A.D.A. criteria. :05 TESTF Comments: Has Patient had X-rays with Contrast this admission? N tTESPF 1.44 % (Normal) Range: 0.50-2.80 Comments: Performed at: CB - [facility] [address] [id number] Director: Ranjit Becerra PhD, Phone: [phone] at: - [facility] [address] [id number] Director: Rasta Canales MD, Phone: [phone] tTESF < 0.04 ng/dL (Abnormal) Range: 0.10-0.85 tTESTCOM Test not performed (Normal) tTEST < 3 ng/dL (Abnormal) Range: 3-41 8-Ipv-258130:05 VITD 26.8 ng/mL (Normal) Comments: Vitamin D 25(OH) Status RangeDeficiency <20 ng/mL (50nmol/L)Insuffciency 20 - 30 ng/mL (50 - 75 nmol/L)Sufficiency 30 - 100 ng/mL (75 - 250 nmol/L)Toxicity >100 ng/mL (>250 nmol/L) :39 CMP Comments: Has Patient had X-rays with Contrast this admission? NIs Patient on Heparin? N GAP 6 (Normal) Range: 5-15 CO2 27.0 mmol/L (Normal) Range: 21.0-32.0 CL 104 mmol/L (Normal) Range: 98-107 K 3.4 mmol/L (Abnormal) Range: 3.5-5.1 NA 137 mmol/L (Normal) Range: 136-145 BIT 0.40 mg/dL (Normal) Range: 0.00-1.00 ALT 29 U/L (Normal) Range: 12-78 ALK 76 U/L (Normal) Range: 45-117 AST 19 U/L (Normal) Range: 15-37 CA 8.6 mg/dL (Normal) Range: 8.5-10.1 AG 1.0 {RATIO} (Normal) Range: 0.9-2.4 GLOB 3.4 g/dL (Normal) Range: 2.7-4.2 ALB 3.4 g/dL (Normal) Range: 3.4-5.0 TPROT 6.8 g/dL (Normal) Range: 6.4-8.2 BC 12.5 {RATIO} (Normal) Range: 10-20 GFRAA 98 mL/min (Normal) GFR 81 mL/min (Normal) CREAT 0.8 mg/dL (Normal) Range: 0.6-1.0 BUN 10 mg/dL (Normal) Range: 7-18 GLU 101 mg/dL (Normal) Range: 70-110 :39 DHEA 51.3 ug/dL (Normal) Comments: Has Patient had Radioactive Injection for X-ray?: N Range: 41.2-243.7 :39 FE 60 ug/dL (Normal) Comments: Has Patient had X-rays with Contrast this admission? NIs Patient on Heparin? N Range: 50-170 :39 AMANDA 16 ng/mL (Normal) Comments: Has Patient had X-rays with Contrast this admission? NIs Patient on Heparin? N Range: 8-252 :39 FT3 2.9 pg/mL (Normal) Comments: Has Patient had X-rays with Contrast this admission? NIs Patient on Heparin? N Range: 2.18-3.98 :39 LIPID Comments: Has Patient had X-rays with Contrast this admission? NIs Patient on Heparin? N VLDL 11 mg/dL (Normal) Range: 5-40 LDL 108 mg/dL (Normal) Range: 0-130 HDL 72 mg/dL (Normal) Comments: Reference RangeHDL <40 mg/dL Low HDL CholesterolHDL >or= 60 mg/dL High HDL Cholesterol TRIG 55 mg/dL (Normal) Range: 0-199 Comments: Serum Triglycerides Reference IntervalNormal <150 mg/dLBorderline high 150 - 199 mg/dLHigh 200 - 499 mg/ dLVery High > or = 500 mg/dL CHOL 191 mg/dL (Normal) Comments: <200 mg/dL Toknmqywz178-616 mg/dL Borderline>240 mg/dL High Risk :39 PROL 9.8 ng/mL (Normal) Comments: Has Patient had X-rays with Contrast this admission? NIs Patient on Heparin? N Comments: NORMAL REFERENCE RANGESFEMALENON- 2.2 - 30.3 ng/mL 8.1 - 347.6 ng/mLPOST-MENOPAUSAL 0.7 - 31.5 ng/mLMALE 2.5 - 17.4 ng/mLNEW TEST METHOD & REFERENCE RANGES JANUARY 24, 2012:39 T4F 0.98 ng/dL (Normal) Comments: Has Patient had X-rays with Contrast this admission? NIs Patient on Heparin? N Range: 0.76-1.46 :39 TESTOF <0.2 pg/mL (Normal) Comments: Has Patient had Radioactive Injection for X-ray?: N Range: 0.0-2.2 Comments: Performed at: - [facility] [id number] Director: Ranjit Becerra PhD, Phone: [phone] at: [facility] [id number] Director: Rasta Canales MD, Phone: [phone] :39 TIBC 358 ug/dL (Normal) Comments: Has Patient had X-rays with Contrast this admission? NIs Patient on Heparin? N Range: 250-450 :39 TSH 2.86 {uIU/mL} (Normal) Comments: Has Patient had X-rays with Contrast this admission? NIs Patient on Heparin? N Range: 0.358-3.74 :29 glu gtt4 59 mg/dL (Abnormal) Comments: 4HR GTT GLU 4 HR GLU GTT-4 HOUR from 0516:[id number]. Range: 70-110 :30 glu gtt3 52 mg/dL (Abnormal) Comments: 4HR GTT GLU 3 HR GLU GTT-3 HOUR from 0516:[id number]. Range: 70-110 03-Ogi-501574:30 glu gtt2 116 mg/dL (Normal) Comments: 4HR GTT GLU 2 HR GLU GTT-2 HOUR from 0516:[id number]. Range: 70-120 38-Tli-031418:30 glu gtt1 167 mg/dL (Normal) Comments: 4HR GTT GLU 1 HR GLU GTT-1 HOUR from 0516:[id number]. Range: 120-170 :00 glu gtt.5 147 mg/dL (Normal) Comments: 4HR GTT GLU 1/2 HR GLU GTT-30 min. from 0516:[id number]. Range: 110-170 51-Dji-15045:26 glu gttf 92 mg/dL (Normal) Comments: 4HR GTT FASTING GLU GTT- FASTING from 0516:K54030M. Range: 70-110 Comments: GLUCOSE TOLERANCE TEST Reference Interval Non- Adults Fasting 70 - 110 30 minutes 110 - 170 1 hour 120 - 170 2 hour 70 - 120 3 hour 70 - 110 4 hour 70 - 110 5 hour 70 - 110 72-Xza-65182:22 BGM 99 mg/dL (Normal) Range: 70-110 Comments: MANAGEMENT OF PATIENT CARE PER NURSING PROTOCOLNo Action Required0 78-Qyw-52265:13 GTT4 7-Zqj-839973:18 BRAIN/HEAD W/WO CONTRAST Radiology Report See Note (Normal) Comments: PROCEDURE: CT BRAIN WITH AND WITHOUT CONTRAST REASON FOR EXAM: Female, 46 years old. Syncope and tunnel vision. TECHNIQUE: Transaxial CT imaging of the brain was performed pre andpostcontrast adm inistration. The examination was performed with intravenousadministration of 50ML ml of Isovue 370 contrast material. COMPARISON: None. FINDINGS:Normal size of the ventricles and extra-axial spaces f or the patient'nick.Normal white matter tracts of the supratentorial brain. Normal basalganglia and thalami. Normal brainstem. Normal cerebellum. There is no demonstrated extra-axial, intraparenchyma l, orintraventricularhemorrhage. There are no findings of an acute ischemic infarction. There is nodemonstrated enhancing abnormality. Normal calvarium. There is no demonstrated fracture. Normal soft tissue structures. Normal visualized paranasal sinuses. IMPRESSION:Normal enhanced and unenhanced CT scan of the brain. Signed:Jose Gibbons M.D.January 12, 2012 at 3:06:05 PM EDTElectronically Ladi d GP/GP Professional Interpretation Provided By: [employer] [facility], , To consult with a radiologist regarding this report, please call our [id number] t line @ Dictated on 01/12/12 1345 by Mikey Gibbons MDranscribed on 01/12/12 1522 by ITS IMPORTSign by Jose Gibbons MD on 01/12/12 1523 Sign by: Edwige BOONE,Jose 40-Qbj-139966:17 ROUTINE UA LEUK ESTERASE SeeNote (Normal) Comments: Result: NEGATIVE OCCULT BLOOD-UR SeeNote (Normal) Comments: Result: NEGATIVE NITRITE UR SeeNote (Normal) Comments: Result: NEGATIVE UROBILI 0.2 EU/dl (Normal) Range: 0.2 - 1.0 PROT DIPSTX SeeNote (Normal) Comments: Result: NEGATIVE pH UR 5.5 (Normal) Range: 5.0-8.0 SP.GR. DIPSTX 1.020 (Normal) Range: 1.002-1.030 KETONE UR SeeNote mg/dL (Normal) Comments: Result: NEGATIVE BILIRUBIN URINE SeeNote (Normal) Comments: Result: NEGATIVE GLUCOSE, UR SeeNote (Normal) Comments: Result: NEGATIVE CLARITY CLEAR (Normal) COLOR YELLOW (Normal) 41-Psd-684721:12 Influenza B Ag (63100) Influenza A Ag neg (Normal) 47-Peh-595553:11 Influenza A Ag (67146) Influenza A Ag neg (Normal) 5-Zdv-396391:01 TRANSVAGINAL NON- Radiology Report See Note (Normal) Comments: CLINICAL:45 year old female with ovarian cysts. ULTRASOUND TRANSVAGINAL TECHNIQUE:Transvaginal COMPARISON:10/09/2010 CT FINDINGS:Normal uterine size measuring 7.7 cm in maximal craniocaudal dimension.Ab icornate uterus is present. On the right there were anechoic areasmeasuring 0.4 x 0.2 x 0.3 cm and 0.7 x 0.6 x 0.4 cm. Presumably theseareleiomyomas. Normal endometrial thickness measuring 8 mm. There are no endometrialmasses, and there is no fluid in the endometrial cavity. Nabothian cyst was seen in the cervix 0.9 x 1.0 x 0.7 cm. Normal right ovary, measuring 4.6 x 2.9 x 2.8 cm. A cyst is presen tmeasuring 3.5 x 2.3 x 2.1 cm. Normal left ovary, measuring 2.5 x 1.9 x 1.5 cm. A cyst is presentmeasuring 1.1 x 0.9 x 0.6 cm. In the left adnexa there was a tubularstructure measuring 4.3 by 2.6 x 2.2 cm which may be a dilated fallopiantube. A minimal amount of free fluid was seen in the area of the right adnexa. IMPRESSION:Bicornate uterus with multiple anechoic areas in the right myometriumwhichma y be small leiomyomas. Bilateral ovarian cysts. Small amount of fluid in the left adnexa. Nabothian cyst in the area of the cervix. Tubular structure in the area of the left adnexa which may be a dilate dfallopian tube. Dictated on 11/11/10 1348 by Andrew Gonzalez MDTranscribed on 11/12/101706 by ITS IMPORTSign by Andrew Gonzalez MD on 11/12/101707 Sign by: Andrew Gonzalez MD :15 CBC HCT 38.1 % (Normal) Range: 37-47 HGB 12.9 g/dL (Normal) Range: 12.0-16.0 MCH 32.2 pg (Abnormal) Range: 27.0-32.0 MCHC 33.9 g/dL (Normal) Range: 32-36 MCV 95.0 fL (Normal) Range: 81-99 MPV 8.9 fL (Normal) Range: 6.5-12.0 PLT 248 K/mm3 (Normal) Range: 150-450 RBC 4.01 {M/mm3} (Abnormal) Range: 4.2-5.4 RDW 13.3 % (Normal) Range: 11.6-14.6 WBC 4.2 K/mm3 (Abnormal) Range: 4.4-11.0 :15 ESTRADIOL 4515 628.2 pg/mL (Normal) Comments: Adult Female:Follicular phase 12.5 - 166.0Ovulation phase 85.8 - 498.0Luteal phase 43.8 - 211.0Postmenopausal <6.0 - 54.2Ditvwpugd2od trimester 215.0 - >4300.0Girls (1- 10 years) 6.0 - 27.0Roche ECLIA methodology :15 PROGESTER. 4317 0.3 ng/mL (Normal) Comments: Follicular phase 0.2 - 1.5Luteal phase 1.7 - 27.0Ovulation phase 0.8 - 3.0First trimester 8.8 - 48.6Second trimester 12.4 - 75.8Third trimester 58.5 - 222. 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 (Normal) HPV high-risk SeeNote (Normal) Comments: Result: Negative PAPSMR Comment (Normal) Comments: The Pap smear is a screening test designed to aid in thedetection of premalignant and malignant conditions of theuterine cervix. It is not a diagnostic procedure andshould not be used as the sole means of detecting cervicalcancer. Both false-positive and false-negative reports dooccur.. DIAGN Comment (Normal) Comments: NEGATIVE FOR INTRAEPITHELIAL LESION AND MALIGNANCY.Satisfactory for evaluation. Endocervical and/or squamous metaplasticcells (endocervical component) are present.Corey [place], Accounting Auditor (ASCP) 3-Wru-184715:09 Rapid Strep Test, Office (65440) Comments: done Rapid Strep Test, Office Negative (Normal) 15-Puh-49010:19 LIPID CHOL 175 mg/dL (Normal) Comments: <200 mg/dL Desirable 200-240 mg/dL Borderline >240 mg/dL High Risk HDL 63 mg/dL (Normal) Comments: Reference Range HDL <40 mg/dL Low HDL Cholesterol HDL >or= 60 mg/dL High HDL Cholesterol LDL 104 mg/dL (Normal) Range: 0-130 TRIG 39 mg/dL (Normal) Comments: Serum Triglycerides Reference Interval Normal <150 mg/dL Borderline high 150 - 199 mg/dL High 200 - 499 mg/dL Very High > or = 500 mg/dL VLDL 8 mg/dL (Normal) Range: 5-40 Plan of Care Name Dates Details Instructions Elevated blood-pressure reading without diagnosis of hypertension : Follow up in 1 month-- maikol bp and new 2-rx Indication: Elevated blood-pressure reading without diagnosis of hypertension Syncope : Reviewed Disease Management Nurse Letter Indication: Syncope Elevated blood-pressure reading without diagnosis of hypertension : BP MONITORING - SELF Indication: Elevated blood-pressure reading without diagnosis of hypertension Hypercholesteremia : Reviewed Lab Indication: Hypercholesteremia BMI 39.0-39.9,adult : Eprescribed prescriptions (G8553) Indication: BMI 39.0-39.9,adult Sore throat : Follow up if no improvement or if symptoms worsen Indication: Sore throat Sore throat : Sore Throat *: sore throat Indication: Sore throat BMI 39.0-39.9,adult : Eprescribed prescriptions (G8553) Indication: BMI 39.0-39.9,adult Non-smoker : Follow up if no improvement or if symptoms worsen Indication: Non-smoker Non-smoker : Follow up if no improvement or if symptoms worsen Indication: Non-smoker Cough : Eprescribed prescriptions (G8553) Indication: Cough Hypercholesteremia : Diet, Exercise, and Wt loss Indication: Hypercholesteremia BMI 40.0-44.9, adult : Eprescribed prescriptions (G8553) Indication: BMI 40.0-44.9, adult Syncope : Reviewed Diagnostic Tests Indication: Syncope Syncope : Continue Current Prescription(s) Indication: Syncope Syncope : Reviewed Lab Indication: Syncope Syncope : Reviewed Disease Management Nurse Letter Indication: Syncope Syncope : Reviewed Diagnostic Tests Indication: Syncope Encounter for screening for malignant neoplasm of colon (Renamed from Special screening for malignant neoplasms, colon) : *Colon Cancer Screening Indication: Encounter for screening for malignant neoplasm of colon (Renamed from Special screening for malignant neoplasms, colon) Annual physical exam : Self breast exam Indication: Annual physical exam Abdominal pain, acute, left upper quadrant : Eprescribed prescriptions (G8553) Indication: Abdominal pain, acute, left upper quadrant Abdominal pain, acute, left upper quadrant : Follow up - Make appt after diagnostic tests Indication: Abdominal pain, acute, left upper quadrant Abdominal pain, acute, left upper quadrant : *Abd Pain Red Flags Indication: Abdominal pain, acute, left upper quadrant Abdominal pain : Eprescribed prescriptions (G8553) Indication: Abdominal pain Sinusitis, acute : *URI Symptoms Indication: Sinusitis, acute Sinusitis, acute : *Antibiotic Usage Education - Female Indication: Sinusitis, acute Elevated blood-pressure reading without diagnosis of hypertension : Follow up in 2 months Indication: Elevated blood-pressure reading without diagnosis of hypertension Hypercholesteremia : *Colon Cancer Screening Indication: Hypercholesteremia Elevated blood-pressure reading without diagnosis of hypertension : BP MONITORING - SELF Indication: Elevated blood-pressure reading without diagnosis of hypertension Non morbid obesity, unspecified obesity type : Diet, Exercise, and Wt loss Indication: Non morbid obesity, unspecified obesity type Syncope : Reviewed Diagnostic Tests Indication: Syncope Syncope : Reviewed Lab Indication: Syncope Syncope : Fainting (Syncope) *: fainting Indication: Syncope Syncope : Follow up - Make appt after diagnostic tests Indication: Syncope Ultrasound scan abnormal : Reviewed Diagnostic Tests Indication: Ultrasound scan abnormal Hypercholesteremia : FOLLOW UP IN 1 YEAR Indication: Hypercholesteremia Hypercholesteremia : *Cholesterol - Nonprescription Treatment Indication: Hypercholesteremia Hypercholesteremia : CHOLESTEROL MGMT. Indication: Hypercholesteremia FIBROMYALGIA : Continue Current Prescription(s) Indication: FIBROMYALGIA Allergic rhinitis due to other allergen : ALLERGY CONTROL Indication: Allergic rhinitis due to other allergen Allergic rhinitis due to other allergen : ALLERGY PROOFING Indication: Allergic rhinitis due to other allergen Allergic rhinitis due to other allergen : *URI Symptoms Indication: Allergic rhinitis due to other allergen FIBROMYALGIA : FOLLOW UP IN 1 MONTH Indication: FIBROMYALGIA Hypercholesteremia : Cholesterol - Medication Side Effects Indication: Hypercholesteremia Hypercholesteremia : Cholesterol - Nonprescription Treatment Indication: Hypercholesteremia Hypercholesteremia : CHOLESTEROL MGMT. Indication: Hypercholesteremia Bronchitis : Solu Medrol Injection/ Education Indication: Bronchitis Bronchitis : *URI Treatment Indication: Bronchitis Bronchitis : Antibiotic Usage Education - Female Indication: Bronchitis Bronchitis : URI Symptoms Indication: Bronchitis Planned Observations URINALYSIS (46332)Indication: Hypoglycemia On: :05 Request LIPID PANEL (12270)Indication: Hypercholesteremia On: :05 Request TSH (THYROID STIMULATING HORMONE) (33664)Indication: Depression, acute On: :05 Request CBC & PLATELETS (AUTO) (47217)Indication: Hypoglycemia On: :05 Request METABOLIC PANEL, COMPREHENSIVE (72465)Indication: Depression, acute On: :05 Request Blood Glucose , Office (84871)Indication: Screening for diabetes mellitus On: 57-Hfy-376823:51 Request C-REACTIVE PROTEIN (16822)Indication: Abdominal pain, acute, left upper quadrant On: :40 Request Amylase (86164)Indication: Abdominal pain, acute, left upper quadrant On: :40 Request Lipase (86846)Indication: Abdominal pain, acute, left upper quadrant On: :40 Request Sed Rate Erythrocyte (31867)Indication: Abdominal pain, acute, left upper quadrant On: :40 Request Metabolic Panel, Comprehensive (39503)Indication: Abdominal pain, acute, left upper quadrant On: :40 Request CBC (Auto) (48322)Indication: Abdominal pain, acute, left upper quadrant On: :40 Request MAGNESIUM (99329)Indication: Serum potassium elevated On: :42 Request POTASSIUM SERUM (87287)Indication: Serum potassium elevated On: 63-Ktj-693089:42 Request FECAL OCCULT HGB ASSAY- tubes sent home (00348)Indication: Hypercholesteremia On: :43 Request FERRITIN (01809)Indication: Hair loss On: :42 Request IRON BINDING CAPACITY (TIBC) (29869)Indication: Hair loss On: :42 Request IRON (38416)Indication: Hypercholesteremia On: :38 Request PROLACTIN (58174)Indication: Hair loss On: 05-Axf-164141:37 Request T3, FREE (TRIDOTHYRONINE) (85446)Indication: Hair loss On: :37 Request T4, FREE (THYROXINE) (08201)Indication: Hair loss On: :37 Request TSH (36248)Indication: Hair loss On: :37 Request Metabolic Panel, Comprehensive (44255)Indication: Hair loss On: :37 Request TESTOSTERONE FREE (19022)Indication: Hair loss On: :37 Request DHEA-S (DEHYDROEPIANDROSTERONE SULFATE) (59415)Indication: Hair loss On: :37 Request LIPID PANEL (51079)Indication: Hypercholesteremia On: :36 Request Glucose Tolerance Test (GTT) (83461)- 4 hrIndication: Syncope On: 6-Qis-025931:24 Request URINALYSIS, AUTOMATED, W/O MICRO (28763)Indication: Dysuria On: 95-Got-718364:59 Request LIPID PANEL (61175)Indication: Hypercholesteremia On: 47-Vxi-817029:39 Request Planned Encounters Medical; 1 Month FU - On: 28-Sep-2018 12:00 [facility] Rimma Ovalle DO, DO, Kathleen Planned Procedures HEAD-UP TILT TESTING (57453)By: On: 01-Nov-2016 Rimma Montague DO, DO, Kathleen EEGBy: Rimma Ovalle DO On: 01-Nov-2016 Rimma Majano DO Comments: Dr Frias to read CT - Abdomen (IV Contrast Needed)By: On: 02-Jun-2015 Rimma Montague DO, DO, Kathleen Radiology - Chest- PA and LatBy: On: 31-Jan-2015 Rimma Montague DO, DO, Kathleen EKG (12544)By: Rimma Ovalle DO On: 31-Jan-2015 Rimma Montague DO Comments: nsr no acute chg Bio Z (11050)By: Rimma Ovalle DO On: 07-Jan-2012 Intent Rimma Ovalle DO Comments: normal parameters EKG (37601)By: Rimma Ovalle DO On: 07-Jan-2012 Intent Rimma Ovalle DO Comments: nsr no acute chg Holter Moniter (37830)By: Vasquez On: 07-Jan-2012 Intent Rimma NEFF DO, Kathleen CT - Brain/HeadBy: Vasquez NEFF, On: 07-Jan-2012 Intent Rimma Carpenter DO Echo CompleteBy: Rimma Ovalle DO On: 07-Jan-2012 Intent Rimma Ovalle DO Cartoid DopplerBy: Vasquez NEFF, On: 07-Jan-2012 Intent Rimma Carpenter DO Ultrasound - Transvaginal On: 06-Nov-2010 Intent --PelvisBy: Rimma Ovalle DO Comments: must do transvaginal-- Rimma Ovalle DO Spirometry (72740)By: Vasquez NEFF, On: 29-Sep-2007 Intent Rimma Carpenter DO Comments: normal Solu- Medrol Injection, 125mg On: 29-Sep-2007 Intent (J2930)By: Rimma Ovalle DO Comments: Lot #[id number]-right [id number] by Rimma Mallory LPN, DO Instructions Name Dates Details BMI 39.0-39.9,adult : How to access health information online - Detail Indication: BMI 39.0-39.9,adult BMI 39.0-39.9,adult : Patient Instructions Indication: BMI 39.0-39.9,adult BMI 39.0-39.9,adult : How to access health information online Indication: BMI 39.0-39.9,adult BMI 39.0-39.9,adult : How to access health information online - Detail Indication: BMI 39.0-39.9,adult Upper respiratory infection, acute : Patient Instructions Indication: Upper respiratory infection, acute Cough : How to access health information online Indication: Cough Cough : How to access health information online - Detail Indication: Cough Cough : Patient Instructions Indication: Cough BMI 40.0-44.9, adult : How to access health information online Indication: BMI 40.0-44.9, adult BMI 40.0-44.9, adult : How to access health information online - Detail Indication: BMI 40.0-44.9, adult BMI 40.0-44.9, adult : Patient Instructions Indication: BMI 40.0-44.9, adult Syncope : Patient Instructions Indication: Syncope Non-smoker : How to access health information online Indication: Non-smoker Non-smoker : How to access health information online - Detail Indication: Non-smoker Non-smoker : Patient Instructions Indication: Non-smoker Abdominal pain, acute, left upper quadrant : How to access health information online Indication: Abdominal pain, acute, left upper quadrant Abdominal pain, acute, left upper quadrant : How to access health information online - Detail Indication: Abdominal pain, acute, left upper quadrant Abdominal pain, acute, left upper quadrant : Patient Instructions Indication: Abdominal pain, acute, left upper quadrant Abdominal pain : How to access health information online Indication: Abdominal pain Abdominal pain : How to access health information online - Detail Indication: Abdominal pain Abdominal pain : Patient Instructions Indication: Abdominal pain Hypercholesteremia : How to access health information online Indication: Hypercholesteremia Hypercholesteremia : How to access health information online - Detail Indication: Hypercholesteremia Hypercholesteremia : Patient Instructions Indication: Hypercholesteremia URI (upper respiratory infection) : Patient Instructions Indication: URI (upper respiratory infection) Syncope : DISCONTINUED - GLUCOSE TOLERANCE TEST (GTT) 5 hour (25870) Indication: Syncope Pharyngitis, acute : Sore throat: diagnosis and treatment Indication: Pharyngitis, acute Encounters Office Visit On: 21-Aug-2018 10:28 Encounter Reason: Follow up tests - Date: (08/18/18 labs)., [ADDITIONAL REASON] Follow up for chronic medical issues - The patient feels well with minor complai End: 21-Aug-2018 11:43 nts, has decreased energy level and is sleeping poorly. Patient has been compliant with instructions. Current medication use: no side effects. Patient sleeps 7 hours per night. Nutrition: balanced diet and supplemental vitamins. The medical issues the patient is following up for include All identified problems below, fibromyalgia, high blood pressure and high cholesterol. blood pressure range : and weight :. Encounter Diagnosis: BMI 39.0-39.9,adult , Non-smoker, Hypercholesteremia, Elevated blood-pressure reading without diagnosis of hypertension, FIBROMYALGIA, Depression, acute, Syncope (780.2) [facility] Lab Order On: 16-Aug-2018 17:03 Encounter Diagnosis: Hypercholesteremia, Depression, acute, Hypoglycemia (251.2) End: 16-Aug-2018 17:06 [facility] Office Visit On: 13-Dec-2017 11:46 Encounter Reason: Sore Throat - Symptoms include sore throat, postnasal drainage (more at begining), fever (99.9) and chills. The symptoms are on the left side more than the right. Onset was 10 day(s) ago. Note for Sore End: 13-Dec-2017 12:20 throat: Symptoms started about 10 days ago with sore throat-thought it was allergies- took claritin and then last night sore throat felt like knife blades in throat- woke up during the night with sore t hroat, low grade fever. Feels under the weather. Nasal drainage-yellow, some headaches. No facial pressure, CP, SOB, wheezing, cough-occassional.Encounter Diagnosis: BMI 39.0-39.9,adult, Non-smoker, Sore throat, Upper respiratory infection, acute, Post-nasal drainage [facility] Office Visit On: 16-Nov-2017 13:14 Encounter Reason: Cold Symptoms - Symptoms include nasal congestion, runny nose, postnasal drainage, sore throat, productive cough, facial pressure and facial pain. Onset was 4 day(s) ago. The symptoms occur constantly. End: 16-Nov-2017 13:54 Associated symptoms include plugged ear(s) and fever. Previous presentation included nasal congestion, runny nose, postnasal drainage, sore throat, productive cough and fever.Encounter Diagnosis: BMI 39.0-39.9,adult, Non-smoker, Cough, Sinus pressure , URI (upper respiratory infection) [facility] Phone Encounter On: 28-Jun-2017 15:29 Encounter Diagnosis: Non morbid obesity, unspecified obesity type End: 28-Jun-2017 15:41 [facility] Office Visit On: 03-Jun-2017 9:20 Encounter Reason: Depression - No changes in management were made at the last visit. Symptoms include depressed mood and irritability, while symptoms do not include suicidal ideation or suicide attempt. Onset was gradual End: 03-Jun-2017 10:36 2 month(s) ago. There is no known event that preceded symptom onset. The symptoms occur constantly.Encounter Diagnosis: Non-smoker, BMI 40.0-44.9, adult, Depression, acute, Hypercholesteremia, Nutritional counseling [facility] Office Visit On: 02-Dec-2016 12:27 Encounter Reason: Follow up testsEncounter Diagnosis: Syncope (780.2) End: 02-Dec-2016 12:57 [facility] Office Visit On: 01-Nov-2016 13:33 Encounter Reason: Syncope - No changes in management were made at the last visit. The syncopal episode occurred while the patient was seated.Encounter Diagnosis: BMI 38.0-38.9,adult, Non-smoker, Syncope (780.2) End: 01-Nov-2016 14:15 [facility] Office Visit On: 30-Jul-2015 10:58 Encounter Reason: Physical female exam - Last seen between 3-6 months ago. General health: feels well with minor complaints, has good energy level and is sleeping well. The patient's appetite is normal. Nutrition: normal End: 30-Jul-2015 11:55 /adequate. Exercises 4 days per week. Sleeps on average 7 hours per night. Normal bowel and bladder habits. Safety measures include appropriate use of safety belts and home smoke detectors. There are no current emotional problems. screening, mammography (09/19) and screening, Pap smear (09/19).Encounter Diagnosis: Annual physical exam, Encounter for screening for malignant neoplasm of colon (Renamed from Special screening for malignant neoplasms, colon), Screening for diabetes mellitus, Encounter for screening for lipid disorder (Renamed from Screening for lipid disorders) [facility] Office Visit On: 12-Jun-2015 12:32 Encounter Reason: Follow up tests - Date: (06.02.15 and 06.04.15).Encounter Diagnosis: Abdominal Pain,LUQ (789.02), Epigastric Pain (Renamed from Abdominal pain, epigastric), Nausea, Atypical chest pain, Shortness of breath End: 12-Jun-2015 13:53 [facility] Office Visit On: 02-Jun-2015 13:45 Encounter Reason: Abdominal pain - The pain has been occurring in an intermittent pattern for 4 days. The course has been recurrent.Encounter Diagnosis: Abdominal pain, Shortness of breath, Atypical chest pain, Nausea, Abdominal Pain,LUQ (789.02), End: 02-Jun-2015 14:45 Epigastric Pain (Renamed from Abdominal pain, epigastric) [facility] Office Visit On: 31-Jan-2015 11:16 Encounter Reason: Hernia - It has been on off and x 8 months and I htink it may be acting up. I have alot of belching and uncomfortable feeling in that upper chest areaEncounter Diagnosis: Atypical chest pain, Shortness of breath End: 03-Feb-2015 18:08 [facility] Phone Encounter On: 25-Oct-2014 14:36 Encounter Diagnosis: Cough (786.2) End: 25-Oct-2014 14:40 [facility] Office Visit On: 23-Oct-2014 13:14 Encounter Reason: Sinusitis - The last clinic visit was 5 day(s) ago. No changes in management were made at the last visit. Symptoms include nasal congestion, upper tooth pain, forehead pain, cough and ear pain, while sy End: 23-Oct-2014 14:12 mptoms do not include headache. Onset was sudden. The patient describes this as moderate in severity. Associated symptoms do not include chills or fever.Encounter Diagnosis: SINUSITIS, ACUTE NOS (461.9), Cough (786.2) [facility] Phone Encounter On: 29-Apr-2014 17:40 Encounter Diagnosis: Serum potassium elevated End: 29-Apr-2014 17:44 [facility] Office Visit On: 26-Apr-2014 11:45 Encounter Reason: Hair loss - The last clinic visit was 2 month(s) ago. No changes in management were made at the last visit. Symptoms include unexplained hair loss. The hair loss has been noted to affect the scalp. Onse End: 26-Apr-2014 15:32 t was sudden. There is no known event that preceded symptom onset. The patient describes this as mild., [ADDITIONAL REASON] Follow up for chronic medical issues - The patient feels well with minor complai nts, has decreased energy level and is sleeping poorly. Patient has been compliant with instructions. Patient sleeps 7 hours per night. Nutrition: balanced diet and supplemental vitamins. The medical is sues the patient is following up for include All identified problems below, fibromyalgia, high blood pressure and high cholesterol. blood pressure range : and weight :. Encounter Diagnosis: Hypercholesteremia (272.0), FIBROMYALGIA, Elevated Blood Pressure without diagnosis of Hypertension (796.2), Hair loss [facility] Office Visit On: 02-Mar-2013 11:51 Encounter Reason: Sinusitis/ - The duration of the symptoms are 1 week The course has been worsening. The sinusitis/ has no relieving factors. Associated features include The symptoms have been associated with cough, ear End: 02-Mar-2013 12:14 pain, nasal discharge/stuffy nose, sinus pain, sore throat (worse in the am ) and teeth pain.Encounter Diagnosis: URI (upper respiratory infection) (465.9) [facility] Office Visit On: 21-Jan-2012 11:13 Encounter Reason: Follow up tests - Date: (01/19/12 labs).Encounter Diagnosis: Syncope (780.2), Hypoglycemia (251.2), Obesity, unspecified (278.00) End: 21-Jan-2012 12:03 [facility] Office Visit On: 07-Jan-2012 10:34 Encounter Reason: Dizziness - Onset was 1 month(s) ago.Encounter Diagnosis: Syncope (780.2), Benign paroxysmal positional vertigo (386.11) End: 10-Jan-2012 18:09 [facility] Phone Encounter On: 15-Jun-2011 15:58 Encounter Diagnosis: Dysuria (788.1) End: 15-Jun-2011 16:00 [facility] Office Visit On: 19-Nov-2010 11:17 Encounter Reason: Follow up tests - Date: (11-11-10)., [ADDITIONAL REASON] Cough - The onset of the cough has been sudden and has been occurring in a persi End: 19-Nov-2010 13:41 stent pattern for 1 week. The course has been constant. The cough is characterized as productive of mucoid sputum. The amount of sputum produced is scanty. The cough occurs all the time. The symptoms ar e aggravated by supine posture and particular position, but not by meals. The symptoms have been associated with fever, hoarseness, runny nose and sore throat. Encounter Diagnosis: Ovarian Cyst, Unspecified (620.2), ABNORMAL PELIVC ULTRASOUND (793.5), SYMPTOM, FEVER PREST W/ CONDITIONS ELSEWHERE (780.61), SINUSITIS, ACUTE NOS (461.9) [facility] Historical Summary On: 06-Nov-2010 9:42 [facility] End: 06-Nov-2010 9:45 Office Visit On: 06-Nov-2010 8:19 Encounter Reason: abnormal trans vaginal us - US -- Sep 03: Abnormal, supect aneurysmCT was Oct 09: no vasc [id number] US -- Oct 20: still abnormalMarch 4th has f/u with [facility] and still say no vasc findingsEncounter Diagnosis: End: 06-Nov-2010 9:26 Unspecified Diagnosis, Ovarian Cyst, Unspecified (620.2), FIBROMYALGIA, Hypercholesteremia (272.0), Obesity, unspecified (278.00) [facility] Office Visit On: 02-Jan-2009 13:06 Encounter Reason: Weight gain - The patient has had the problem of weight gain for years. The patient's appetite is normal. Note for Weight gain: she has been about up 5 pounds in the last year, she did do a program in [address] [place] [address] Diagnosis: End: 02-Jan-2009 13:44 FIBROMYALGIA, Obesity, unspecified (278.00) [facility] Office Visit On: 04-Dec-2008 13:05 Encounter Reason: Sore throat - The onset of the sore throat has been acute and has been occurring in a persistent pattern for 2 days. The course has been unchanged. The symptoms have been associated with difficulty in s End: 04-Dec-2008 13:34 wallowing ,recent contact with a person with sore throat (son has been sick) and runny nose (LEFT side). Encounter Diagnosis: ACUTE PHARYNGITIS (462.), Allergic rhinitis due to other allergen (477.8) [facility] Office Visit On: 27-Nov-2008 13:12 Encounter Reason: Follow up Meds - The patient feels well with minor complaints ,has good energy level and is sleeping poorly. Patient has been compliant with instructions. Current medication use: no side effects and com End: 27-Nov-2008 13:31 pliant with dosing regimen. Patient sleeps 6 hours per night. Nutrition: balanced diet and supplemental vitamins. Encounter Diagnosis: Premenstrual tension syndromes (625.4), FIBROMYALGIA, Rosacea (695.3), Eczema (692.9) [facility] Historical Summary On: 01-Nov-2008 8:53 [facility] End: 01-Nov-2008 8:54 Office Visit On: 21-Oct-2008 15:52 Encounter Reason: Joint pain - The onset of the pain has been gradual and has been occurring in a persistent pattern for 3 days. The course has been constant. The pain is described as severe. Encounter Diagnosis: FIBROMYALGIA, End: 21-Oct-2008 16:45 Hypercholesteremia (272.0) [facility] Office Visit On: 11-Jun-2008 10:42 Encounter Reason: Rash - The onset of the rash has been sudden and has been occurring in an intermittent pattern for 2 months. The course has been recurrent. The rash is characterized as red ,crusty and raised above the End: 11-Jun-2008 10:55 skin. The rash was first seen on the upper extremity (inbetween the index finger and middle one). There has been no progression. There has been associated pain (when it cracks open), while there has been no itching. Encounter Diagnosis: Eczema (692.9) [facility] Office Visit On: 29-Sep-2007 14:56 Encounter Reason: Cough - The onset of the cough has been sudden and 2 weeks ago. The cough is characterized as dry. The amount of sputum produced is scanty. The cough occurs all the time. The symptoms are aggravated by End: 29-Sep-2007 15:31 supine posture and particular position, but not by meals. The symptoms have been associated with headache ,runny nose (some) and sore throat (this am), while the symptoms have not been associated with fever ,hoarseness or wheezing. Encounter Diagnosis: BRONCHITIS, NOT SPECIFIED ACUTE OR CHRONIC (490.), Cough (786.2) [facility] Office Visit On: 24-Jan-2007 13:27 Encounter Reason: Depression - The onset of the depression has been gradual and has been occurring in a persistent pattern for months. The course has been increasing. The depression is described as feeling blue ,sad ,ner End: 24-Jan-2007 14:13 vous and tired. The symptoms have been associated with depression in the past ,difficulty sleeping ,feeling tired ,lack of energy and loss of libido, while the symptoms have not been associated with [place] problems. Note for Depression: Pt wonders is she is starting menopause. Pt has several symptoms of hormone imbalance as reviewed in the ROS.Encounter Diagnosis: HORMONE IMBALANCE (259.9), Fatigue (780.79), Premenstrual tension syndromes (625.4) [facility] Historical Summary On: 05-Aug-2006 8:49 [facility] End: 05-Aug-2006 8:53 Payers Brandi CAMARA/Peter Ibarra; prema guarantor
--- OUTSIDE RECORDS SUMMARY | 2018-10-03 07:20 | XMS RPT_ITS ---
:1965 Author Organization OHIP Care Team Providers Name Role Phone Rony Lock Attending Unavailable VasquezRimma Referring Unavailable Vasquez, Rimma Primary Care Unavailable Vasquez DO, Rimma Attending Unavailable Vasquez DO, Rimma Referring Unavailable Vasquez DO, Rimma Consulting Unavailable Vasquez, Rimma Attending Unavailable Vasquez, Rimma Referring Unavailable Vasquez, Rimma Primary Care Unavailable Juana Balderas PAPER GOODS MACHINE SET UP OPERATOR-C Attending Unavailable Juana Balderas PAPER GOODS MACHINE SET UP OPERATOR-C Referring Unavailable Vasquez, Rimma Primary Care Unavailable Samira, Linda Attending Unavailable Saimra Linda Referring Unavailable Vasquez, Rimma Primary Care Unavailable Purpose Purpose PROBLEMS PROBLEMS DATE TYPE CONDITION / ATTENDING STATUS SOURCE CODE 05/13/2018 Admitting Other specified Rony Lock Active [facility] Diagnosis disorders of System veins / Repository I87.8(ICD-10) 03/01/2018 Unknown 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 / PAPER GOODS MACHINE SET UP OPERATOR-C Formerly [facility] G35(ICD-10) Hospital Repository PROCEDURES PROCEDURES No Procedure Records FoundVITAL SIGNS VITAL SIGNS No Vital Signs Records FoundRESULTS RESULTS CBC W/DIFF, AUTOMATED Collected: 08/18/2018 Status: F Source: [place] [facility] REPOSITORY TYPE CODE TESTS RESULT OUT OF RANGE REFERENCE UNITS LAB L100.1000 4.4-11.0 K/mm3 Normal WBC 4.7 LAB L100.1200 4.2-5.4 M/mm3 Normal RBC 4.28 LAB L100.1300 12.0-15.0 g/dl Normal HGB 12.8 LAB L100.1400 37-47 % Normal HCT 40.0 LAB L100.1500 81-99 fL Normal MCV 93.5 LAB L100.1600 27.0-32.0 pg Normal MCH 29.9 LAB L100.1700 32-36 g/gl Normal MCHC 32.0 LAB L100.1810 11.6-14.6 % Normal RDW CV 13.6 LAB L100.1820 35.1-43.9 fl High RDW SD 46.2 LAB L100.1900 150-450 K/mm3 Normal PLT 319 LAB L100.2000 6.2-12.0 fl Normal MPV 9.4 LAB L100.2100 47-70 % Normal NEUT% 55.7 LAB L100.2200 19-41 % Normal LY% 31.8 LAB L100.2300 0-10 % Normal MONO% 9.7 LAB L100.2400 0-5 % Normal EO% 2.2 LAB L100.2500 0-1 % Normal BASO% 0.6 LAB L100.2550 0.0-0.9 % Normal IM GRAN % 0.000 Result Comment: IG% - Immature Granulocytes (promyelocytes, myelocytes and metamyelocytes) > 1% indicates that a LEFT SHIFT is Present. LAB L100.2620 2.0-7.7 X10 3/uL Normal Absolute Neut 2.6 LAB L100.2720 0.83-4.51 X10 3/ul Normal Absolute Lymph 1.48 Performed By: #### L100.0100 #### [facility] [address] [place], [address] URINALYSIS, ROUTINE Collected: 08/18/2018 Status: F Source: [place] (DIPSTICK) 11:38 AM [facility] REPOSITORY Order Comment: How was Urine Obtained? CLEAN CATCH TYPE CODE TESTS RESULT OUT OF RANGE REFERENCE UNITS LAB L400.3000 Yellow COLOR Normal Yellow LAB L400.3050 Clear Normal CLARITY Clear LAB L400.3200 Normal mg/dl Normal GLUCOSE, UR Normal LAB L400.3300 Negative mg/dL Normal BILIRUBIN URINE Negative LAB L400.3400 Negative mg/dl Normal KETONE UR Negative LAB L400.3465 1.002-1.030 Normal SP.GR. DIPSTX 1.010 LAB L400.3550 5.0 - 8.0 pH UR Normal 6.0 LAB L400.3600 Negative mg/dl PROT Normal DIPSTX Negative LAB L400.3700 Normal mg/dl Normal UROBILI Normal LAB L400.3750 Negative Normal NITRITE UR Negative LAB L400.3780 Negative /ul Normal OCCULT BLOOD-UR Negative LAB L400.3800 Negative /ul High LEUK ESTERASE 100 Performed By: #### L400.2011 #### [facility] [address] [place], [address] COMPREHENSIVE METABOLIC Collected: 08/18/2018 Status: F Source: [place] PROFIL 11:38 AM [facility] REPOSITORY TYPE CODE TESTS RESULT OUT OF RANGE REFERENCE UNITS LAB L501.0100 74-106 mg/dL Normal GLU 82 Result Comment: Please note revised GLUCOSE reference range effective 2017. LAB L501.1000 7-18 mg/dL High BUN 19 LAB L501.1100 0.55-1.02 mg/dL Normal CREAT,SERUM 0.64 Result Comment: The validity of the calculated GFR AND GFRAA in patients over 70 years has not been determined. Clinical correlation is essential. LAB L501.1110 >60 mL/min Normal EST GFR 103 Result Comment: Non- GFR Calc LAB L501.1115 >60 mL/min Normal EST GFR - AA 124 Result Comment: GFR Calc LAB L501.1300 10-20 RATIO High BUN/CRE 29.6 LAB L501.1500 6.4-8.2 g/dL T Normal PROT 7.4 LAB L501.1800 3.2-5.0 g/dL Normal ALB 3.8 LAB L501.1950 2.2-4.2 g/dL Normal GLOB 3.6 LAB L501.2000 0.9-2.4 RATIO Normal A/G 1.1 LAB L501.2200 8.5-10.1 mg/dL CA Normal 8.9 LAB L501.4100 15-37 U/L Normal AST 18 LAB L501.4305 45-117 U/L Normal ALK P 85 LAB L501.4405 13-56 U/L Normal ALT 25 LAB L501.4600 0.20-1.00 mg/dL T Normal BILI 0.50 LAB L501.5300 136-145 mmol/L NA Normal 139 LAB L501.5600 3.5-5.1 mmol/L K Normal 3.8 LAB L501.5900 98-107 mmol/L CL Normal 105 LAB L501.6100 21.0-32.0 mmol/L Normal CO2 25.0 LAB L501.6200 5-15 Normal GAP 9 Performed By: #### L500.4050, L500.4100, L501.9520 #### [facility] [address] [place], [address] LIPID PROFILE Collected: 08/18/2018 Status: F Source: [place] 11:38 AM [facility] REPOSITORY TYPE CODE TESTS RESULT OUT OF RANGE REFERENCE UNITS LAB L501.4900 200 mg/dL High CHOL 210 Result Comment: <200 mg/dL Desirable 200-240 mg/dL Borderline >240 mg/dL High Risk LAB L501.5000 mg/dL Normal TRIG 79 Result Comment: The drugs N-Acetylcysteine and Metamizole may falsely depress this assay. Serum Triglycerides Reference Interval Normal <150 mg/dL Borderline high 150 - 199 mg/dL High 200 - 499 mg/dL Very High > or = 500 mg/dL LAB L501.6400 mg/dL Normal HDL 75 Result Comment: The drugs N-Acetylcysteine and Metamizole may falsely depress this assay. Reference Range HDL <40 mg/dL Low HDL Cholesterol HDL >or= 60 mg/dL High HDL Cholesterol LAB L501.6500 0-130 mg/dL Normal LDL 119 LAB L501.6600 5-40 mg/dL Normal VLDL 16 Performed By: #### L500.4050, L500.4100, L501.9520 #### [facility] [address] [place], [address] THYROID STIM HORMONE Collected: 08/18/2018 Status: F Source: [place] (TSH) 11:38 AM [facility] REPOSITORY TYPE CODE TESTS RESULT OUT OF RANGE REFERENCE UNITS LAB L501.9520 0.358-3.74 uIU/mL Normal TSH 1.35 Performed By: #### L500.4050, L500.4100, L501.9520 #### [facility] [address] [facility] [place], [address] SCREENING MAMM (CAD), Observed: 07/28/2018 Status: F Source: [place] BILAT 11:53 AM [facility] REPOSITORY [facility] Imaging Services [address] [place] [address] SCREENING MAMM (CAD), BILAT MR#: [id number] Acct: [id number] Name: PABLO IBARRA Rep #: [id number] : 1965 F 53 From: Jose Gibbons MD PCP: Rimma Ovalle DO Status: [facility] Study: SCREENING MAMM (CAD), BILAT Date of Exam: 07/28/18 Exam# [id number] Ordering Dr: Linda Hogan DO MAMMOGRAPHY - BILATERAL SCREENING REASON FOR EXAM: Female, 53 years old. Routine annual screening examination. PERTINENT HISTORY: Non-contributory. TECHNIQUE: Digital bilateral breast pio (3D mammographic acquisition) in the CC and MLO projections. 2-D mediolateral oblique (MLO) and craniocaudad (CC) views of both breasts were obtained. CAD: Full Field Digital Mammography with Computer Added Detection was performed. COMPARISON: Comparison is made with prior study dated July 21, 2017 and November 26, 2015. FINDINGS: Breast Composition: The breasts are almost entirely fatty. There are no dominant masses or suspicious calcifications. Stable small benign-appearing nodules in the axillary region of the left breast suggestive of small lymph nodes. No other significant abnormalities are identified. There has been no significant change since the prior study. BI/SCREENING MAMM (CAD), BILAT IMPRESSION: Stable bilateral screening mammogram. Yearly follow-up mammogram recommended. (A) ASSESSMENT CATEGORY: BIRADS Category 2: Benign. A letter regarding these results will be sent to the patient by the facility within 30 days. Approximately 10% of breast cancers are not detected by mammography. A normal mammogram should not delay biopsy of a clinically suspicious abnormality. [id number] Electronically Signed: Jose Gibbons MD at 9:36 EST Tel [phone], Service support , CC: Rimma Ovalle DO; Linda Hogan DO Wood Patternmaker Apprentice: Signed VL AORTA ILIAC Observed: 05/13/2018 Status: F Source: [employer] DUPLEX 10:04 AM SYSTEM REPOSITORY Patient Name: PABLO IBARRA Ultrasound Exam Date/Time 05/13/2018 11:26:44 EDT Exam VL Aorta Iliac Duplex Ordering Physician RONY LOCK Accession Number [id number] CPT4 Codes 41965 () Reason For Exam Include abdominal aorta, vena cava, iliac arteries and iliac veins Report [facility] --- Abdominal Aortic Duplex Report Patient Name: Pablo Ibarra : 1965 Study Date: 05/13/2018 E (53yrs) Age: 53 Account: [id number] Gender: F Loc: BP: Ordering: Rony Lock MD Technologist: Ordering Physician: Rony Lock MD Candy Mixer: Indira Tolbert RVT Interpreting Physician: Heathre Goodwin --- Location: [facility] --- INDICATIONS: 459.89 other specified disorders of veins. --- CONCLUSIONS 1. Normal aorto iliac duplex 2. Left iliac vein enlargement --- IMPRESSIONS: - Aorta patent, normal caliber - Bilateral iliac arteries patent and normal caliber - Inferior vena cava patent, normal caliber - Right iliac vein patent, normal caliber - Left iliac vein patent, dilated to 1.45 cm --- STUDY DATA: Abdominal aorta duplex. Birthdate: Patient birthdate: 1965. Age: Patient is 53 yr old. Sex: Gender: female. Ethnicity: Ethnicity: white. Height: Height: 0 cm. Weight: Weight: 0 kg. Doppler flow study including spectral analysis, color and lund scale imaging. Patient status: Outpatient. Procedure: A vascular evaluation was performed. The images were obtained using a [employer] E9 vascular ultrasound machine. The study was technically limited due to body habitus and bowel gas. --- Arterial flow: + +-------+-------+ + --+ !Location !V sys !AP cm !Transverse!Comment ! + +-------+-------+ + --+ !Abd aorta - prox !78 cm/s!1.46 cm!1.43 cm ! --! + +-------+-------+ + --+ !Abd aorta - mid !64 cm/s!1.56 cm!1.71 cm ! --! + +-------+-------+ + --+ !Abd aorta - distal!86 cm/s!1.49 cm!1.52 cm ! --! + +-------+-------+ + --+ !Right common iliac!73 cm/s!0.94 cm! ! --! + +-------+-------+ + --+ !Left common iliac !95 cm/s!1.04 cm!1.26 cm ! --! + +-------+-------+ + --+ !IVC !-------!-------! !patent / no dilation seen ! + +-------+-------+ + --+ !Rt iliac Vein !-------!-------! !patent, no dilation seen. ! + +-------+-------+ + --+ !Left iliac vein !-------!-------! !patent/ small dilation seen ! ! ! ! ! !proximally(1.45cm) Pt gassy ! ! ! ! ! !near bifurcation. ! + +-------+-------+ + --+ Electronically signed by: Heather Goodwin [id number] Final Dictated: 05/13/2018 9:14 pm Dictating Physician: HEATHER GOODWIN Signed Date and Time: 05/13/2018 9:14 pm Signed by: HEATHER GOODWIN DOWNTIME REPORT Observed: 02/23/2018 Status: F Source: [place] 11:[address] [facility] Medical Records Department [address] [place] [address] Downtime Report MR#: [id number] Acct: [id number] Name: ANGIE IBARRAL E Rep #: [id number] : 1965 52 From: Jaron Ambrosio PCP: Rimma Ovalle DO Status: REG CLI This patient was seen during an EMR downtime February 06, 2018 - February 13, 2018. This patient may have a combination of paper and electronic documentation or all paper documentation. All documentation is viewable within the e-chart portion of [employer] [facility] for each patient visit. BRAIN W/WO CONTRAST Observed: 02/10/2018 Status: F Source: [place] 8:[address] [facility] Imaging Services [address] [place] [address] Brain W/WO Contrast MR#: [id number] Acct: [id number] Name: ANGIE IBARRAL E Rep #: [id number] : 1965 F 52 From: Asa Mcdaniel MD PCP: Rimma Ovalle DO Status: REG CLI Study: Brain W/WO Contrast Date of Exam: 02/07/18 Exam# [id number] Ordering Dr: Juana Balderas PAPER GOODS MACHINE SET UP OPERATOR-C STUDY: MRI BRAIN WITH AND WITHOUT CONTRAST REASON FOR EXAM: Female, 52 years old. MS. Numbness and tingling. TECHNIQUE: Standardized multiplanar fat and water weighted pulse sequences were obtained. 10 ml of Gadavist contrast material was administered intravenously for the contrast portion of the examination. COMPARISON: 12/27/2016. FINDINGS: No restricted diffusion to suspect acute or subacute ischemic infarct. Normal size of the ventricles and extra-axial spaces for the patient's age. Subcortical white matter T2 FLAIR hyperintensity foci in both cerebral hemispheres are unchanged. Normal bilateral basal ganglia. Normal thalami. There is no extra-axial fluid accumulation. Normal flow voids within the major intracranial circulation suggesting patency by spin echo criteria. Normal venous enhancement. There is no enhancing intra-axial or extra-axial abnormality. Normal sella turcica, pituitary gland, infundibular stalk, optic chiasm and hypothalamus. Normal tectal plate and pineal gland. Normal midbrain, mendez and medulla. Normal cerebellum. Normal basal cisterns. Normal bilateral temporal bones. Normal bilateral internal auditory canals. No demonstrated orbital abnormality, within the constraints of a routine brain study. Normal visualized paranasal sinuses. Normal calvarium and skull base. Normal visualized soft tissue structures. Normal visualized upper cervical spine. MRI/Brain W/WO Contrast IMPRESSION: 1. No MRI evidence of acute or subacute ischemic infarct. 2. Nonspecific T2 FLAIR hyperintensity foci in the white matter of both cerebral hemispheres. They are unchanged. 3. No enhancing lesions extra-axially and intraaxially. 4. No significant interval changes when compared to 12/27/2016. Electronically Signed: Asa Mcdaniel MD at 12:21 EDT , Service support , CC: RAOUL Balderas; Rimma Ovalle DO Wood Patternmaker Apprentice: Signed ALLERGIES ALLERGIES DATE TYPE / CODE NAME / CODE REACTION SEVERITY SOURCE 12/27/2016 Drug doxycycline/ Itching Unknown [facility] Allergy/4160 [id number](R Hospital 90745(SNOMED XNORM) Repository CT) 12/27/2016 Drug ciprofloxaci Hives Unknown [facility] Allergy/4160 n/[id number] Hospital 85014(SNOMED (RXNORM) Repository CT) ENCOUNTERS ENCOUNTERS ADMIT/DISCHARGE ACCOUNT NUMBER ADMITTING ENCOUNTER LOCATION SOURCE CLASS 09/27/2018 [id number] Ambulatory Building:[facility] [place] Practices Repository 08/18/2018 [id number] Ambulatory [facility] ding:MTLAB Repository 07/28/2018 [id number] Ambulatory [facility] ding:OPBI Repository 05/13/2018 [id number] Ambulatory [facility] Repository 02/07/2018 [id number] Ambulatory [facility] ding:MRI Repository FUNCTIONAL STATUS FUNCTIONAL STATUS No Functional Status Records FoundEQUIPMENT EQUIPMENT No Equipment Records FoundPAYERS PAYERS ENCOUNTER GUARANTOR PAYER SUBSCRIBER SOURCE 09/27/2018 Pablo Primary Pablo OHIP Practices FredDOB: Insurance:Brandi CraigB: Repository [id number] /BSPolicy Number: [id number] [id number] [address] [place], [place] [address]Pfg: [phone]) Date:[id number] 240[address]Nae: Name:[facility] [id number] () ()Tel: [phone]) [address] [place] [address] [phone] ( [phone]: 09/27/2018 Secondary Pablo OHIP Practices [place]: Repository /BSPolicy Number: [id number] [address] Date:2004-09-05 [place], [place] [id number] [address]Ntf: ([phone]) Name:[facility] [phone] () [id number] [place] [address] [phone]: 09/27/2018 Tertiary Pablo OHIP Practices Insurance:Brandi CraigB: Repository /BSPolicy Number: [id number] [address] Date:2007-09-05 [place], [place] [id number] [phone]: [phone] Name:[facility] [phone] () [id number] [place] [address] [id number]: 08/18/2018 PABLO E Primary SUDHIR D [place] [id number] Insurance:[facility] FREDDOB: [facility] y Number: [id number], [place] [id number] Repository [address]Mwd: [phone] charles Date:7295-44-19FY [phone] () [address]FR[address], [place] [address]AF: 08/18/2018 Secondary NOT GIVENUNK [place] Insurance:SELF PAY [facility] Number: Effective Repository Date:2018-08-17 07/28/2018 PABLO Craig Primary SUDHIR Dao [id number] Insurance:ANTHEMPolic JOHNSONDOB: [facility] y Number: [id number], [place] [id number] Repository [address]Qha: [phone] charles Date:7319-56-00PM [phone] () [address], [place] [address]OY: 07/28/2018 Secondary NOT GIVENUNK [place] Insurance:SELF PAY [facility] Number: Effective Repository Date:2018-05-03 05/13/2018 Pablo Craig Primary Sudhir [facility] JohnsonDOB: Insurance:[place] JohnsonDOB: System [id number] Cross Blue [id number] Repository [facility] Number: [address] [place] Effective Date: [address]Lae: () 02/07/2018 Pablo Rafa Primary Sudhir [address]ao [id number] Insurance:ANTHEMPolic JohnsonDOB: Community [place] y Number: [id number], [place] [id number] Repository [address]Dwt: [phone] charles Date:9533-00-96XV [phone] () [address], [place] [address]QY: 02/07/2018 Secondary NOT GIVENUNK [place] Insurance:SELF PAY [facility] Number: Effective Repository Date:2018-01-26 SOCIAL HISTORY SOCIAL HISTORY No Social History Records FoundFAMILY HISTORY FAMILY HISTORY No Family History Records FoundADVANCE DIRECTIVES ADVANCE DIRECTIVES No Advanced Directives Records FoundINFORMATION SOURCE INFORMATION SOURCE DATE CREATED AUTHOR AUTHOR'S ORGANIZATION 09/27/2018 [facility]
--- OUTSIDE RECORDS SUMMARY | 2018-10-03 07:20 | XMS RPT_ITS | Continuity of Care Document ---
:1965 Author Organization [facility] Address [address] [place] [address] Phone Care Team Providers Name Role Phone Rimma Ovalle DO Unavailable José Miguel BOONE, Faisal Coleman Unavailable Kem Moya Unavailable Unavailable Whit Hall Unavailable Unavailable Unavailable Unavailable Problems Name Dates Details Annual physical exam (Z00.00, V70.0) Status: Active Atypical chest pain (R07.89, 786.59) Status: Active Benign paroxysmal positional vertigo (H81.10, 386.11) Comments: see comment with other dx -- may need to do mri Status: Active BMI 39.0-39.9,adult (Z68.39, V85.39) Status: Active Cough (R05, 786.2) Status: Active Cyst of ovary, unspecified laterality (N83.209, 620.2) Status: Active Depression, acute (F32.9, 296.20) Status: Active Elevated blood-pressure reading without diagnosis of hypertension (R03.0, 796.2) Status: Active Encounter for screening for lipid disorder (Renamed from Screening for lipid disorders) (Z13.220, V77.91) Status: Active FIBROMYALGIA Comments: stable Status: Active Hair loss (L65.9, 704.00) Status: Active Hormone imbalance (E34.9, 259.9) Status: Active Hypercholesteremia (E78.00, 272.0) Status: Active Hypoglycemia (E16.2, 251.2) Comments: eat q 2-3 hrs - aviod sugar white starches Status: Active Non morbid obesity, unspecified obesity type (E66.9, 278.00) Status: Active Non-smoker (Z78.9, V49.89) Status: Active Nutritional counseling (Z71.3, V65.3) Status: Active Post-nasal drainage (R09.82, 473.9) Status: Active Premenstrual tension syndrome (N94.3, 625.4) Status: Active Rosacea (L71.9, 695.3) Status: Active Screening for diabetes mellitus (Z13.1, V77.1) Status: Active Serum potassium elevated (E87.5, 276.7) Status: Active Sinus pressure (J34.89, 478.19) Status: Active Sore throat (J02.9, 462) Status: Active Syncope (R55, 780.2) Status: Active Ultrasound scan abnormal (R93.8, 793.99) Comments: dilated fallopian tube Status: Active Upper respiratory infection, acute (J06.9, 465.9) Status: Active URI (upper respiratory infection) (J06.9, 465.9) Status: Active Medications Name Dates Details Aspirin 81 MG Oral Tablet Delayed Release Active daily (81 MG) VITAMIN B12, 100MCG (Oral Tablet) 1 (one) Tablet qd for 30 days Refills: 0 Ordered:31-Jan-2015 Kelly Ovalle DO, DO, Kathleen Start : 31-Jan-2015 Active VITAMIN D3, 2000UNIT (Oral Capsule) 2 (two) Capsule qd for 30 days Refills: 0 Ordered:31-Jan-2015 Kelly Ovalle DO, DO, Kathleen Start : 31-Jan-2015 Active Wellbutrin XL 150 MG Oral Tablet Extended Release 24 Hour 1 (one) Tablet qd for 90 days Quantity: 90 {Tablet} Refills: 1 Ordered:22-Dec-2017 Kelly Ovalle DO, DO, Kathleen Start : 22-Dec-2017 Active ADVAIR DISKUS, 100-50MCG/DOSE (Inhalation Miscellaneous) 1 [...] days Quantity: 28 {Tablet} Refills: 0 Ordered:16-Nov-2017 Meena RAMSAYRhonda Start : 16-Nov-2017 End : 30-Nov-2017 Inactive BIAXIN XL PAC, 500MG (Oral Tablet Extended Release 24 Hour) 2 (two) Tablet ER 24HR daily for 10 days Quantity: 20 {Tablet_ER_24HR} Refills: 0 Ordered:02-Mar-2013 Meena RAMSAYRhonda Start : 02-Mar-2013 End : 12-Mar-2013 Inactive [...] for 999 days Refills: 0 Ordered:26-Apr-2014 Meena RAMSAY Rhonda Craig Start : 06-Nov-2010 End : 01-Aug-2013 Inactive [...] days Quantity: 5 {Tablet} Refills: 0 Ordered:29-Sep-2007 Whti Celis LPN Start : 29-Sep-2007 End : 11-Jun-2008 Inactive MEDROL (WYATT), 4MG (Oral Tablet) 1 qd for 0 days Refills: 0 Ordered:06-Nov-2010 Johnny JENKINSNAriesn L End : 06-Nov-2010 Inactive METROGEL, 1% (External Gel) apply qd for 0 days Refills: 0 Ordered:06-Nov-2010 Johnny BRAY Hayley L End : 06-Nov-2010 Inactive MUCINEX, 600MG (Oral Tablet Extended Release 12 Hour) 1 Tablet ER 12HR bid for 0 days Quantity: 30 {Tablet_ER_12HR} Refills: 0 Ordered:26-Apr-2014 Whit Celis LPN Start : 02-Mar-2013 End : 26-Apr-2014 Inactive MULTI VITAMIN/MINERALS (Oral Tablet) 1 Tablet qd for 999 days Refills: 0 Ordered:26-Apr-2014 Meena RAMSAYRhonda Start : 06-Nov-2010 End : 01-Aug-2013 Inactive NASACORT AQ, 55MCG/ACT (Nasal Aerosol Solution) Aerosol Soln for 0 days Refills: 0 Ordered:06-Nov-2010 Hayley Turner LPN L Start : 04-Dec-2008 End : 06-Nov-2010 Inactive [...] qd for 0 days Refills: 0 Ordered:06-Nov-2010 Johnny JENKINSN Hayley L Start : 27-Nov-2008 End : 06-Nov-2010 Inactive SANTA, 180MG (Oral Tablet) 1 QD for 0 days Refills: 0 Ordered:24-Jan-2007 Kristen Banks End : 24-Jan-2007 Discontinued CELEBREX, 200MG (Oral Capsule) 1 QD for 0 days Refills: 0 Ordered:24-Jan-2007 Kristen Banks End : 24-Jan-2007 Discontinued Coricidin HBP Congestion/Cough 10-200 MG Oral Capsule 1 (one) Capsule TAD for 0 days Quantity: 30 {Capsule} Refills: 0 Ordered:13-Dec-2017 Kem Moya Start : 16-Nov-2017 End : 13-Dec-2017 Discontinued [...] (J30.89, 477.8) Status: Inactive as of 29-Jan-2009 BMI 38.0-38.9,adult (Z68.38, V85.38) Status: Inactive as [...] considering BHRT Status: Inactive as of 29-Jan-2009 Nausea (R11.0, 787.02) Status: Inactive as of 30-Jul-2015 Pharyngitis, acute (J02.9, 462) Status: Inactive as of 29-Jan-2009 Shortness of breath (R06.02, 786.05) Status: Inactive as of 30-Jul-2015 Sinusitis, acute (J01.90, 461.9) Status: Inactive as [...] (CAD), BILAT Result: Comments: See Note; NOTES: [facility] Imaging Services [address] [place] [address] SCREENING MAMM (CAD), BILAT MR#: [id number] Acct: [id number] Name: VARSHA IBARRA Rep # : [id number] : 1965 F 53 From: Jose Gibbons MD PCP: Rimma Ovalle DO Status: REG CLI Study: SCREENING MAMM (CAD), BILAT Date of Exam: 07/28/18 Exam# [id number] Ordering Dr: Linda Coker DO MAMMOGRAPHY - [...] delay biopsy of a clinically suspicious abnormality. [id number] Electronically Signed: Jose Gibbons MD at 9:36 EST Tel [phone], Service support , CC: Rimma Ovalle DO; Linda Coker DO Composite Technician: Signed 23-Feb-2018 Downtime Report Result: Comments: See Note; NOTES: [facility] Medical Records Department [address] [place] [address] Downtime Report MR#: [id number] Acct: [id number] Name: VARSHA IBARRA Rep #: [id number] : 1965 52 From: Franco Montana PCP: Rimma Ovalle DO Status: REG CLI This patient was seen during an EMR downtime February 06, 2018 - February 13, 2018. This patient may have a combination of paper and electronic documentation or all paper documentation. All documentation is viewable within the e-chart portion of [employer] for each patient visit. 21-Jul-2017 SCREENING MAMM (CAD), BILAT Result: Comments: See Note; NOTES: [facility] Imaging Services [address] [place] [address] SCREENING MAMM (CAD), BILAT MR#: [id number] Acct: [id number] Name: VARSHA IBARRA Rep # : [id number] : 1965 F 52 From: Joes Gibbons MD PCP: Rimma Ovalle DO Status: REG CLI Study: SCREENING MAMM (CAD), BILAT Date of Exam: 07/21/17 Exam# [id number] Ordering Dr: Yamilet Vilchis o. MAMMOGRAPHY - [...] delay biopsy of a clinically suspicious abnormality. [id number] Electronically Signed: Jose Gibbons MD at 14:34 EST Tel [phone], Service support , CC: Rimma Ovalle ; OUT OF TOWN DOCTOR Composite Technician: Signed 09-Feb-2017 Echocardiogram Complete Result: Comments: See Note; NOTES: [facility] Cardiovascular Services [address] [place] [address] Echo Complete 02/09/17 1257 MR#: [id number] Acct: [id number] Name: VARSHA IBARRA Rep #: [id number] : 1965 51 From: Ken Lisa MD Attending Dr: Zulay Rhodes MD Status: REG CLI Ordering Dr: Rimma Rhodes MD Date: 02/09/17 Location: [facility] Sex: F C Adm itted: Reason For [...] Dictated: 02/09/17 1257 Date Transcribed: 02/09/17 1448 Composite Technician: Signed 31-Dec-2016 12 Lead Electrocardiogram Result: Comments: See Note; NOTES: [facility] Cardiovascular Services [address] [place] [address] 12 Lead EKG 12/27/161435 MR#: [id number] Acct: [id number] Name: VARSHA IBARRA Rep #: [id number] : 1965 51 From: Ken Lisa MD [...] Abnormal ECG Confirmed by KEN LISA ([id number]), manuscript editor MARVIN MONTANA ([id number]) on 12/30/2016 3:03:19 PM Referred By: KRYSTA Confirmed By:KEN LISA 12/30/16 1503 Date Ken Lsia MD CC: Rimma Ovalle DO Date Dictated: 12/27/161435 Date Transcribed: 12/27/161435 Composite Technician: Signed 30-Dec-2016 Emergency Department Summary Result: Comments: See Note; NOTES: [facility] Medical Records Department [address] [place] [address] Emergency Department Summary MR#: [id number] Acct: [id number] Name: KARTHIK IBARRA E Rep #: [id number] : 1965 51 From: Leigh Charles MD [...] paresthesias. Leigh Charles MD T: NTS JOB: [id number] 12/30/16 0805 <Electronically signed by Jag Charles MD> Date Leigh Charles MD Cosigner Signature (If Indicated): Date CC: Rimma avlerio DO Date Dictated: 12/27/16 1544 Date Transcribed: 12/27/16 1544 Composite Technician: Signed 28-Dec-2016 Emergency Department Summary Result: Comments: See Note; NOTES: [facility] Medical Records Department [address] [place] [address] Emergency Department Summary MR#: [id number] Acct: [id number] Name: KARTHIK IBARRA E Rep #: [id number] : 1965 51 From: Magnus Londono MD PCP: Rimma Ovalle DO Status: [facility] ER DATE OF SERVICE: 12/27/2016 ADDENDUM: The patient [...] Discharge. Magnus Londono MD T: NTS JOB: [id number] 1516 <Electronically signed by Magnus Londono MD> Date Magnus Londono MD Cosigner Signature (If Indicated): Date ___ CC: Rimma Ovalle DO Date Dictated: 12/27/161958 Date Transcribed: 12/27/161958 Composite Technician: Signed 27-Dec-2016 Discharge Instruction Result: Comments: See Note; NOTES: [facility] Medical Records Department [address] [facility] [place] [address] Discharge Instruction 12/27/161956 MR#: [id number] Acct: [id number] Name: VARSHA IBARRA E Rep #: [id number] : 1965 51 From: Magnus Londono MD PCP: Rimma Ovalle DO Status: [facility] ER ED Disposition - Plan for ED Patient: Chief Complaint: Numb/Ting Instructions: ED [place] thesias Referrals: Rasta Adrian MD [STAFF PHYSICIAN] - What to do if you have Problems For any increased pain, shortness of breath, bleeding, nausea or vomiting, chest pain, or any unexpected prob lems, contact your Primary Care Provider. Call [facility] ([phone]) or report to the closest Emergency Room. Call 911 if necessary. 12/27/162005 <Electronically signed by Magnus adler MD> Date Magnus Londono MD Cosigner Signature (If Indicated): Date CC: Rimma Ovalle DO 27-Dec-2016 Discharge Instruction Result: Comments: See Note; NOTES: [facility] Medical Records Department [address] [place] [address] Discharge Instruction 12/27/16 1544 MR#: [id number] Acct: [id number] Name: VARSHA IBARRA Rep #: [id number] : 1965 51 From: Leigh Charles MD [...] your Primary Care Provider. Call [facility] ([phone]) or report to the closest Emergency Room. Call 911 if necessary. 12/27/16 1545 <Electroni huseyin signed by Leigh Charles MD> Date Leigh Charles MD Cosigner Signature (If Indicated): Date CC: Rimma Vasquez NEFF 27-Dec-2016 Brain W/WO Contrast Result: Comments: See Note; NOTES: [facility] Imaging Services [address] [place] [address] Verdana 4d Brain W/WO Contrast MR#: [id number] Acct: [id number] Name: VARSHA IBARRA p #: [id number] : 1965 F 51 From: Joseluis Magaña MD PCP: Rimma Ovalle DO Status: REG Study: Brain W/WO Contrast Date of Exam: 12/27/16 Exam# [id number] Ordering Dr: Leigh Charles MD STUDY : [...] CC: Leigh Charles MD; Rimma Ovalle DO Composite Technician: Signed 27-Dec-2016 MRA Head ONLY without Contrast Result: Comments: See Note; NOTES: [facility] Imaging Services [address] [place] [address] Verdana 4d MRA Head ONLY without Contrast MR#: [id number] Acct: [id number] Name: Ivon IBARRA Rep #: [id number] : 1965 F 51 From: Joseluis Magaña MD PCP: Rimma Ovalle DO Status: REG Study: MRA Head ONLY without Contrast Date of Exam: 12/27/16 Exam# [id number] Ordering Dr: Leigh Covington MD STUDY: MRA OF THE HEAD WITHOUT CONTRAST REASON FOR EXAM: Female, 51 years old. CVA TECHNIQUE: 3-D ouln-rh-ngbkei (TOF) imaging was performed with MIPs. The [...] There is no demonstrated aneurysm of the [place]. There is no major vessel occlusion or hemodynamically si gnificant stenosis. There is no demonstrated abnormality of the visualized brain. MRI/MRA Head ONLY without Contrast IMPRESSION: Normal MRA of th e head Electronically Signed: Joseluis Magaña MD at 19:38 EDT , Service support , CC: Leigh Charles MD; Rimma Ovalle DO Composite Technician: Signed 27-Dec-2016 MRA Neck WITH and W/O Contrast Result: Comments: See Note; NOTES: [facility] Imaging Services [address] [place] [address] Verapison 4d MRA Neck WITH and W/O Contrast MR#: [id number] Acct: [id number] Name: Ivon IBARRA Rep #: [id number] : 1965 F 51 From: Joseluis Magaña MD PCP: Rimma Ovalle DO Status: [facility] Study: MRA Neck WITH and W/O Contrast Date of Exam: 12/27/16 Exam# [id number] Ordering Dr: Leigh Covington MD STUDY: MRA NECK WITH AND WITHOUT CONTRAST REASON FOR EXAM: Female, 51 years old. CVA TECHNIQUE: 3-D uill-oo-hmxjyj (TOF) imaging was performed in an 1.5 [...] CC: Leigh Charles MD; Rimma Ovalle DO Composite Technician: Signed 27-Dec-2016 Brain/Head without Contrast Result: Comments: See Note; NOTES: [facility] Imaging Services [address] [place] [address] Verdana 4d Brain/Head without Contrast MR#: [id number] Acct: [id number] Name: KARTHIK IBARRA AE E Rep #: [id number] : 1965 F 51 From: Jose Gibbons MD PCP: Rimma Ovalle DO Status: [facility] Study: Brain/Head without Contrast Date of Exam: 12/27/16 Exam# [id number] Ordering Dr: Leigh Guzman MD STUDY: CT [...] Jose heath MD at 15:12 EDT Tel [phone], Service support , CC: Leigh Charles MD; Rimma Ovalle DO Composite Technician: Signed 22-Nov-2016 Electroencephalogram Result: Comments: See Note; NOTES: [facility] Pulmonary Services/Neurology [address] [place] [address] Electroencephalogram (EEG) MR#: [id number] Acct: [id number] Name: WARD IBARRA Rep #: [id number] : 1965 51 From: Rimma Rhodes MD Referring Dr: Rimma Ovalle DO Status: REG CLI Ordering Dr: Rimma Ovalle DO Date: 11/12/16 Location: [facility] Sex: F C DATE OF SERVICE: HISTORY: [...] record. José Rhodes MD T: NTS JOB: [id number] 11/22/16 1339 <Electronically signed by Rimma Rhodes MD> Date Rimma Rhodes MD C C: Zulay Rhodes MD; Rimma Ovalle DO Date Dictated: 11/12/16942 Date Transcribed: 11/12/16942 Composite Technician: Signed 21-May-2016 Upper GI/w Small Bowel Result: Comments: See Note; NOTES: [facility] Imaging Services [address] [place] [address] Verdana 4d Upper GI/w Small Bowel MR#: [id number] Acct: [id number] Name: VARSHA IBARRA Rafa Rep #: [id number] : 1965 F 51 From: Jose Gibbons MD PCP: Rimma Ovalle DO Status: REG CLI Study: Upper GI/w Small Bowel Date of Exam: 05/21/16 Exam# [id number] Ordering Dr: Rony Gale STUDY: AIR-CONTRAST UPPER [...] Jose Gibbons MD at 10:55 EDT Tel [phone], Service support [phone], CC: RONY GALE; Rimma Ovalle DO Composite Technician: Signed 21-May-2016 Upper GI/w Small Bowel Result: Comments: See Note; NOTES: [facility] Imaging Services [address] [place] [address] Verda 4d Upper GI/w Small Bowel MR#: [id number] Acct: [id number] Name: VARSHA IBARRA Rep #: [id number] : 1965 F 51 From: Jose Gibbons MD PCP: Rimma Ovalle DO Status: REG CLI Study: Upper GI/w Small Bowel Date of Exam: 05/21/16 Exam# [id number] Ordering Dr: Rony Gale STUDY: AIR-CONTRAST UPPER [...] Jose Gibbons MD at 10:55 EDT Tel [phone], Service support [phone], CC: RONY GALE; Rimma Ovalle DO Composite Technician: Signed 26-Nov-2015 Breast Limited Unilateral Result: Comments: See Note; NOTES: [facility] Imaging Services [address] [place] [address] Verdana 4d Breast Limited Unilateral MR#: [id number] Acct: [id number] Name: VARSHA CHAN Rep #: [id number] : 1965 F 50 From: Jose Gibbons MD PCP: Rimma Ovalle DO Status: [facility] CLI Study: Breast Limited Unilateral Date of Exam: 11/26/15 Exam# [id number] Or dering Dr: LINDA COKER STUDY: ULTRASOUND BREAST - RIGHT REASON FOR EXAM: Female, 50 years old. Palpable lump in the right breast. TECHNIQUE: Axial and longitudinal images of the RIGHT breast w ere performed with a high resolution ultrasound transducer. COMPARISON: Comparison is made with prior mammogram done earlier in the day. FINDINGS: RIGHT [address]: There is a 6 mm x [...] Signed: Chandrika Mensah at 13:05 EDT Tel [phone], Service support [phone], CC: Rimma Ovalle DO; LINDA COKER Composite Technician: Signed 26-Nov-2015 Bilat Diag Digital AND CAD Result: Comments: See Note; NOTES: [facility] Imaging Services [address] [place] [address] Verdana 4d Bilat Diag Digital AND CAD MR#: [id number] Acct: [id number] Name: VARSHA IBARRA Rep #: [id number] : 1965 F 50 From: Jose Gibbons MD PCP: Rimma Ovalle DO Status: REG CLI Study: Bilat Diag Digital AND CAD Date of Exam: 11/26/15 Exam# [id number] Ordering Dr: HAYLEY COKER MAMMOGRAPHY - BILATERAL [...] Jose Gibbons MD at 13:06 EDT Tel [phone], Service support [phone], CC: Rimma Ovalle DO; HAYLEY COKER Composite Technician: Signed 04-Jun-2015 Abdomen without IV Contrast Result: Comments: See Note; NOTES: [facility] Imaging Services [address] [place] [address] CAT Scan Report MR#: [id number] Acct: [id number] Name: VARSHA IBARRA Rep #: [id number] : 1965 F 50 From: Madison Romero MD PCP: Rimma Ovalle DO Status: REG CLI Study: Abdomen without IV Contrast Date of Exam: 06/04/15 Exam# [id number] Ordering Dr: Rimma Ovalle D O STUDY: CT ABDOMEN WITHOUT CONTRAST REASON FOR EXAM: Female, 50 years old. Epigastric and left upper quadrant pain, prior gastric plication, cholecystectomy. RADIATION DOSAGE (If Supplied By F acility): CTDIvol = ( 13.38 ) mGy, DLP [...] MD at 5:04 EDT , Service support , CC: Rimma Ovalle DO Composite Technician: Signed 31-Jan-2015 Chest PA and Lateral Result: Comments: See Note; NOTES: [facility] Imaging Services [address] [place] [address] Radiology Report MR#: [id number] Acct: [id number] Name: VARSHA IBARRA Rafa Rep #: : 1965 F 49 From: Eris Bro MD PCP: Rimma Ovalle DO Status: REG CLI Study: Chest PA and Lateral Date of Exam: 01/31/15 Exam# [id number] Ordering Dr: Rimma Ovalle DO STUDY: X-RAY [...] at 23:31 EDT Tel , Service support [phone], 0035 RAD/Chest PA and Lateral IMPRESSION: Normal x-ray examination of the chest. Electronically Signed: Eris alvarado MD at 23:31 EDT , Service support [phone], CC: Rimma Ovalle DO Composite Technician: Signed 03-Oct-2014 Mine Wetzel Digital AND CAD Result: Comments: See Note; NOTES: [facility] Imaging Services [address] [place] [address] Breast Imaging Report MR#: [id number] Acct: [id number] Name: VARSHA IBARRA Rep # : [id number] : 1965 F 49 From: Jose Gibbons MD PCP: Rimma Ovalle DO Status: REG CLI Study: Bilat Scrn Digital AND CAD Date of Exam: 10/03/14 Exam# [id number] Ordering Dr: BURAK COKER MAMMOGRAPHY - BILATERAL SCREENING REASON FOR EXAM: [...] Jose Gibbons MD at 8:13 EST Tel [phone], Service support [phone], Fax CC: Rimma COKER Composite Technician: Signed Family History Unknown Family Member Name [...] smoker Vital Signs Date Test Result Details 31-Qio-151485:54 Temperature 97 f Pulse 90 /min Comments: [...] kg/m2 Body Surface Area Calculated 2.16 m2 :20 Pulse 83 /min Comments: Pattern: Regular O2 SAT 97 % Comments: Room air BP Systolic 128 mm[Hg] Comments: Patient Position: Sitting; Cuff Location: Left Arm; Cuff Size: Large BP Diastolic 80 mm[Hg] Comments: Patient Position: Sitting; Cuff Location: Left Arm; Cuff Size: Large Weight 238.5 lb Height 66 in Body Mass Index Calculated 38.49 kg/m2 Body Surface Area Calculated 2.16 m2 :15 Temperature 98.8 f Comments: Method: Oral Pulse [...] kg/m2 Body Surface Area Calculated 2.12 m2 47-Byb-171604:01 Comments: 128/84 recheck bp Temperature 98 f [...] kg/m2 Body Surface Area Calculated 2.13 m2 34-Mug-265167:57 Temperature 98 f Comments: Method: Oral Pulse [...] kg/m2 Body Surface Area Calculated 2.05 m2 :28 Pulse 72 /min Comments: Pattern: Regular Respiration [...] kg/m2 Body Surface Area Calculated 2.05 m2 68-Qvv-616225:37 Temperature 99.1 f Comments: Method: Oral Pulse [...] Calculated 2.08 m2 Head Circumference 0.00 cm :32 Pulse 60 /min Comments: Pattern: Regular Respiration [...] 0.00 cm Results Date Description Value Details :16 THROAT CULTURE (71294) Comments: PATIENT NOT FASTINGPERFORMED BY: MARY [facility] Mjvmew9977 [facility] [id number] Information: SRC: Result 1 RRF (Normal) Comments: Routine respiratory taniya Upper Respiratory Culture Final report (Normal) 29-Pnp-037810:56 Rapid Strep Test, Office (73600) Rapid Strep Test, Office Negative (Normal) :44 CBC W/Diff, Automated Comments: [facility] [address] [place], [place], [address] Absolute Lymph 1.70 {X10_3/ul} (Normal) Range: 0.83-4.51 [...] Range: 4.4-11.0 :44 Erythrocyte Sed Rate Comments: [facility] [address] [place], [place], [address] SED RATE 11 mm/h (Normal) Range: 0-30 52-Jtm-885263:44 Uric Acid Comments: [facility] [address] [place], [address] URIC 3.7 mg/dL (Normal) Range: 2.6-6.0 Comments: The drugs N-Acetylcysteine and Metamizole may falselydepress this assay. :30 Hemoglobin A1c Comments: [facility] [address] [place], [address] HGB A1C 5.8 % (Normal) Range: 4.2-6.3 :30 Lipid Profile Comments: [facility] [address] [place], [address] VLDL 12 mg/dL (Normal) Range: 5-40 LDL [...] 200-240 mg/dL Borderline >240 mg/dL High Risk 50-Tkr-218762:35 Basic Metabolic Profile (BMP) Comments: [facility] [address] [place], [address] GAP 3 (Abnormal) Range: 5-15 CO2 28.0 [...] 7-18 GLU 104 mg/dL (Normal) Range: 70-110 33-Ere-781307:35 CBC W/Diff, Automated Comments: [facility] [address] [place], [place], [address] Absolute Lymph 1.20 {X10_3/ul} (Normal) Range: 0.83-4.51 [...] 4.2-5.4 WBC 5.0 K/mm3 (Normal) Range: 4.4-11.0 50-Iok-073844:04 LIPID PANEL (95248) Comments: PATIENT WAS FASTINGPERFORMED BY: [facility] [address] [place] [id number] Information: [id number] LDL/HDL Ratio 1.5 {ratio_units} (Normal) Range: 0.0-3.2 [...] Cholesterol, Total 234 mg/dL (Abnormal) Range: 100-199 68-Nvg-044246:05 Amylase Comments: Test performed at:[facility] [address] [place] [address] LEIGH 29 U/L (Normal) Range: 25-115 :05 CBC W/Diff, Automated Comments: Test performed at:[facility] [address] [place] [address] Absolute Lymph 1.35 {X10_3/ul} (Normal) Range: 0.83-4.51 [...] 4.2-5.4 WBC 4.1 K/mm3 (Abnormal) Range: 4.4-11.0 54-Qye-240845:05 Comprehensive Metabolic Profil Comments: Test performed at:[facility] [address] [place] [address] GAP 6 (Normal) Range: 5-15 CO2 26.0 [...] 7-18 GLU 78 mg/dL (Normal) Range: 70-110 72-Hyi-114586:05 CRP Comments: Test performed at:[facility] [address] [place] [address] C-REACTIVE PROT 3.94 mg/L (Abnormal) Range: 0.0-3.0 Comments: C-Reactive Protein (CRP) provides useful information for thediagnosis, therapy and monitoring of inflammatory processesand associated diseases. For the evaluation of Relative Riskfor Cardiovascular Dise ase, a High Sensitivity CRP (HSCRP)should be ordered. :05 Erythrocyte Sed Rate Comments: Test performed at:[facility] [address] [place] [address] SED RATE 28 mm/h (Normal) Range: 0-30 :05 Lipase Comments: Test performed at:[address] [place] [address] LIPASE 85 U/L (Normal) Range: 73-393 49-Bbv-017766:41 Comprehensive Metabolic Profil Comments: Test performed at:[address] [place], [place] [address] GAP 9 (Normal) Range: 5-15 CO2 25.0 [...] 7-18 GLU 94 mg/dL (Normal) Range: 70-110 41-Jzw-591908:41 Follicle Stimulating Hormone Comments: Test performed at:[facility] [address] [place] [address] [id number] FSH 67.0 m[iU]/mL (Normal) Comments: NORMAL REFERENCE RANGES FEMALE FOLLICULAR 2.3 - 12.6 mIU/mL MID-CYCLE PEAK 5.2 - 17.5 mIU/mL LUTEAL 1.7 - 12.9 mIU/mL POST-MENOPAUSAL ON MHT 5.9 - 72.8 mIU/mL NOT ON MHT 12.7 - 132.2 mlU/mL MALE 0.7 - 10.8 mIU/mLNEW TEST METHOD AND REFERENCE RANGES JANUARY 24, 201224-Oct-201407-Pgu-777508:41 Thyroid Stim Hormone (TSH) Comments: Test performed at:[facility] [address] [place] [address] 44691 TSH 1.51 {uIU/mL} (Normal) Range: 0.358-3.74 06-Bkd-437889:41 Vitamin B12 362 pg/mL (Normal) Comments: Test performed at:[facility] [address] [place] [address] Range: 211-911 24-Aam-551886:41 Vitamin D,25 Hydroxy Comments: Test performed at:[facility] [address] [place] [address] 85276 Vitamin D 25-OH 28.8 ng/mL (Normal) Comments: Vitamin D 25(OH) Status Range Deficiency <20 ng/mL (50nmol/L) Insuffciency 20 - 30 ng/mL (50 - 75 nmol/L) Sufficiency 30 - 100 ng/mL (75 - 250 nmol/L) Toxicity >100 ng/mL (>250 nmol/L) : B12 279 pg/mL (Normal) Range: 211-911 :05 [...] 126 mg/dLsuggests DIABETES MELLITUS per A.D.A. criteria. 4-Unn-701791:05 TESTF Comments: Has Patient had X-rays with Contrast this admission? N tTESPF 1.44 % (Normal) Range: 0.50-2.80 Comments: Performed at: - [facility] [address] [id number] Director: Ranjit Becerra PhD, Phone: [phone] at: - [facility] [place] [address]Lbp Director: Rasta Canales MD, Phone: [phone] tTESF < 0.04 ng/dL (Abnormal) Range: 0.10-0.85 tTESTCOM Test not performed (Normal) tTEST < 3 ng/dL (Abnormal) Range: 3-41 9-Bgf-712902:05 VITD 26.8 ng/mL (Normal) Comments: Vitamin D 25(OH) Status RangeDeficiency <20 ng/mL (50nmol/L)Insuffciency 20 - 30 ng/mL (50 - 75 nmol/L)Sufficiency 30 - 100 ng/mL (75 - 250 nmol/L)Toxicity >100 ng/mL (>250 nmol/L) 14-Rpz-14400:39 CMP Comments: Has Patient had X-rays with [...] CHOL 191 mg/dL (Normal) Comments: <200 mg/dL Fgosypimf334-114 mg/dL Borderline>240 mg/dL High Risk :39 PROL [...] N Range: 0.0-2.2 Comments: Performed at: - [facility] [address] [id number] Director: Ranjit Becerra PhD, Phone: [phone] at: - [place] [address]Mxi Director: Rasta Canales MD, Phone: [phone] TIBC 358 ug/dL (Normal) Comments: Has Patient had X-rays with Contrast this admission? NIs Patient on Heparin? N Range: 250-450 :39 TSH 2.86 {uIU/mL} (Normal) Comments: Has Patient had X-rays with Contrast this admission? NIs Patient on Heparin? N Range: 0.358-3.74 :29 glu gtt4 59 mg/dL (Abnormal) Comments: 4HR GTT GLU 4 HR GLU GTT-4 HOUR from 0516:N10192V. Range: 70-110 33-Gvz-885732:30 glu gtt3 52 mg/dL (Abnormal) Comments: 4HR GTT GLU 3 HR GLU GTT-3 HOUR from 0516:X29154L. Range: 70-110 28-Sap-962899:30 glu gtt2 116 mg/dL (Normal) Comments: 4HR GTT GLU 2 HR GLU GTT-2 HOUR from 0516:E49997X. Range: 70-120 77-Awx-475241:30 glu gtt1 167 mg/dL (Normal) Comments: 4HR GTT GLU 1 HR GLU GTT-1 HOUR from 0516:G98421J. Range: 120-170 :00 glu gtt.5 147 mg/dL (Normal) Comments: 4HR GTT GLU 1/2 HR GLU GTT-30 min. from 0516:C63015P. Range: 110-170 :26 glu gttf 92 mg/dL (Normal) Comments: 4HR GTT FASTING GLU GTT- FASTING from 0516:W70734V. Range: 70-110 Comments: GLUCOSE TOLERANCE TEST Reference Interval Non- Adults Fasting 70 - 110 30 minutes 110 - 170 1 hour 120 - 170 2 hour 70 - 120 3 hour 70 - 110 4 hour 70 - 110 5 hour 70 - 110 37-Sxe-81742:22 BGM 99 mg/dL (Normal) Range: 70-110 Comments: MANAGEMENT OF PATIENT CARE PER NURSING PROTOCOLNo Action Required0 97-Zap-79894:13 GTT4 2-Hap-452679:18 BRAIN/HEAD W/WO CONTRAST Radiology Report See Note [...] Ladi d GP/GP Professional Interpretation Provided By: [facility], , To consult with a radiologist regarding this report, please call our [id number] t line @ Dictated on 01/12/12 1345 by Edwige BOONE,MisaelrieleTranscribed on 01/12/12 1522 by ITS IMPORTSign by Jose Gibbons MD on 01/12/12 1523 Sign by: Jose Gibbons MD 37-Pjv-036866:17 ROUTINE UA LEUK ESTERASE SeeNote (Normal) Comments: [...] NEGATIVE CLARITY CLEAR (Normal) COLOR YELLOW (Normal) 83-Moa-828036:12 Influenza B Ag (82573) Influenza A Ag neg (Normal) 08-Jra-024606:11 Influenza A Ag (33796) Influenza A Ag neg (Normal) 3-Aho-871352:01 TRANSVAGINAL NON- Radiology Report See Note (Normal) [...] 498.0Luteal phase 43.8 - 211.0Postmenopausal <6.0 - 54.3Lsdrwtrti4na trimester 215.0 - >4300.0Girls (1- 10 years) 6.0 - 27.0Roche ECLIA methodology 9-Sep-98977:15 PROGESTER. 4317 0.3 ng/mL (Normal) Comments: Follicular phase 0.2 - 1.5Luteal phase 1.7 - 27.0Ovulation phase 0.8 - 3.0First trimester 8.8 - 48.6Second trimester 12.4 - 75.8Third trimester 58.5 - 222. 3Postmenopausal 0.1 - 0.8Performed at: [address] [id number] Director: Zarha Ingram MD, Phone: [phone] 00-Kmo-699450:45 PAP [id number] Comments: CYTOLOGY INFORMATION:- CLINICAL INFORMATION:- DATE LMP/MENOPAUSE:- COLLECTION VIAL: Thin Prep Vial- TELESALES ADVISOR SOURCE: CERVICAL/ENDOCERVICAL- COLLECTION TECHNIQUE: BRUSH/SPATULA HPV low-risk SeeNote (Normal) Comments: Result: NegativeThese HPV tests detect thirteen high-risk types(16/18/31/33/35/ 39/45/51/52/56/58/59/68) and five low- risktypes (6/11/42/43/44) without differentiation..Performed at: [address] [id number] Director: Tra Serna MDPerformed at: =[address] [id number] Director: Tra Serna MD COMM . (Normal) [...] squamous metaplasticcells (endocervical component) are present.Corey Montana, Principal Architect (ASCP) 7-Ayv-086923:09 Rapid Strep Test, Office (14340) Comments: done BC Rapid Strep Test, Office Negative (Normal) 65-Vck-38389:19 LIPID CHOL 175 mg/dL (Normal) Comments: <200 [...] Plan of Care Name Dates Details Instructions Sore throat : Follow up if no [...] Reviewed Lab Indication: Syncope Syncope : Reviewed In Store Demonstrator Letter Indication: Syncope Syncope : Reviewed Diagnostic [...] URI Symptoms Indication: Bronchitis Planned Observations URINALYSIS (98217)Indication: Hypoglycemia On: :05 Request LIPID PANEL (25672)Indication: Hypercholesteremia On: :05 Request TSH (THYROID STIMULATING HORMONE) (47079)Indication: Depression, acute On: :05 Request CBC & PLATELETS (AUTO) (91037)Indication: Hypoglycemia On: :05 Request METABOLIC PANEL, COMPREHENSIVE (23608)Indication: Depression, acute On: :05 Request Blood Glucose , Office (78747)Indication: Screening for diabetes mellitus On: 70-Zsc-344896:51 Request C-REACTIVE PROTEIN (43171)Indication: Abdominal pain, acute, left upper quadrant On: :40 Request Amylase (12269)Indication: Abdominal pain, acute, left upper quadrant On: :40 Request Lipase (33353)Indication: Abdominal pain, acute, left upper quadrant On: :40 Request Sed Rate Erythrocyte (47691)Indication: Abdominal pain, acute, left upper quadrant On: :40 Request Metabolic Panel, Comprehensive (26529)Indication: Abdominal pain, acute, left upper quadrant On: :40 Request CBC (Auto) (38198)Indication: Abdominal pain, acute, left upper quadrant On: :40 Request MAGNESIUM (38075)Indication: Serum potassium elevated On: :42 Request POTASSIUM SERUM (39693)Indication: Serum potassium elevated On: 51-Edc-132328:42 Request FECAL OCCULT HGB ASSAY- tubes sent home (59015)Indication: Hypercholesteremia On: :43 Request FERRITIN (41543)Indication: Hair loss On: :42 Request IRON BINDING CAPACITY (TIBC) (85759)Indication: Hair loss On: :42 Request IRON (30674)Indication: Hypercholesteremia On: :38 Request PROLACTIN (28873)Indication: Hair loss On: :37 Request T3, FREE (TRIDOTHYRONINE) (24664)Indication: Hair loss On: :37 Request T4, FREE (THYROXINE) (97486)Indication: Hair loss On: :37 Request TSH (94889)Indication: Hair loss On: :37 Request Metabolic Panel, Comprehensive (01089)Indication: Hair loss On: :37 Request TESTOSTERONE FREE (08205)Indication: Hair loss On: 92-Qqk-441364:37 Request DHEA-S (DEHYDROEPIANDROSTERONE SULFATE) (65931)Indication: Hair loss On: 33-Ftp-219455:37 Request LIPID PANEL (30034)Indication: Hypercholesteremia On: 29-Itp-839321:36 Request Glucose Tolerance Test (GTT) (49167)- 4 hrIndication: Syncope On: 4-Eae-485563:24 Request URINALYSIS, AUTOMATED, W/O MICRO (24370)Indication: Dysuria On: 55-Psr-385544:59 Request LIPID PANEL (69215)Indication: Hypercholesteremia On: 93-Xot-279849:39 Request Planned Encounters Medical; General Medical - On: 21-Aug-2018 10:30 Comprehensive [facility] Medicine Rimma Ovalle DO, DO, Kathleen Planned Procedures HEAD-UP TILT TESTING (26411)By: On: 01-Nov-2016 Rimma Montague DO, DO, Kathleen EEGBy: Rimma Ovalle DO On: 01-Nov-2016 Rimma Majano DO Comments: Dr Frias to read CT - Abdomen (IV Contrast Needed)By: On: 02-Jun-2015 Rimma Montague DO, DO, Kathleen Radiology - Chest- PA and LatBy: On: 31-Jan-2015 Rimma Montague DO, DO, Kathleen EKG (55115)By: Rimma Ovalle DO On: 31-Jan-2015 Rimma Montague DO Comments: nsr no acute chg Bio Z (15604)By: Rimma Ovalle DO On: 07-Jan-2012 Rimma Montague DO Comments: normal parameters EKG (79077)By: Rimma Ovalle DO On: 07-Jan-2012 Rimma Montague DO Comments: nsr no acute chg Holter Moniter (22557)By: Vasquez On: 07-Jan-2012 Rimma Majano DO, DO, Kathleen CT - Brain/HeadBy: Vasquez NEFF, On: 07-Jan-2012 Intent Rimma Carpenter DO Echo CompleteBy: Rimma Ovalle DO On: 07-Jan-2012 Intent Rimma Ovalle DO Cartoid DopplerBy: Vasquez NEFF, On: 07-Jan-2012 Intent Rimma Carpenter DO Ultrasound - Transvaginal On: 06-Nov-2010 Intent --PelvisBy: Rimma Ovalle DO Comments: must do transvaginal-- Rimma Ovalle DO Spirometry (95786)By: Vasquez NEFF, On: 29-Sep-2007 Intent Rimma Carpenter DO Comments: normal Solu- Medrol Injection, 125mg On: 29-Sep-2007 Intent (J2930)By: Rimma Ovalle DO Comments: Lot #[id number]-right [id number] by Rimma Mallory LPN, DO Instructions Name [...] - GLUCOSE TOLERANCE TEST (GTT) 5 hour (15942) Indication: Syncope Pharyngitis, acute : Sore throat: diagnosis and treatment Indication: Pharyngitis, acute Encounters Lab Order On: 16-Aug-2018 17:03 Encounter Diagnosis: [...] Sep 03: Abnormal, supect aneurysmCT was Oct 4th: no vasc lqnnqtgd7re US -- Oct 20: still abnormalMarch 4th [...] year, she did do a program in [address] [place] [address] Diagnosis: End: 02-Jan-2009 13:44 FIBROMYALGIA, Obesity, unspecified [...] End: 05-Aug-2006 8:53 Payers Brandi CAMARA/Peter Ibarra; a guarantor
--- OUTSIDE RECORDS SUMMARY | 2018-10-04 04:55 | XMS RPT_ITS ---
:1965 Author Organization OHIP Care Team Providers Name Role Phone Rony Lock Attending Unavailable VasquezRimma Referring Unavailable Vasquez, Rimma Primary Care Unavailable Vasquez DO, Rimma Attending Unavailable Vasquez DO, Rimma Referring Unavailable Vasquez DO, Rimma Consulting Unavailable Vasquez, Rimma Attending Unavailable Vasquez, Rimma Referring Unavailable Vasquez, Rimma Primary Care Unavailable Juana Balderas PROGRAMMER NUMERICAL CONTROL-C Attending Unavailable Juana Balderas PROGRAMMER NUMERICAL CONTROL-C Referring Unavailable Vasquez, Rimma Primary Care Unavailable Samira, Linda Attending Unavailable Samira Linda Referring Unavailable Vasquez, Rimma Primary Care Unavailable Purpose Purpose PROBLEMS PROBLEMS DATE TYPE CONDITION / ATTENDING STATUS SOURCE CODE 05/13/2018 Admitting Other specified Rony Lock Active [facility] Diagnosis disorders of System veins / Repository I87.8(ICD-10) 03/01/2018 Unknown 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, [address] URINALYSIS, ROUTINE Collected: 08/18/2018 Status: F Source: [place] (DIPSTICK) 11:38 AM [facility] [place] Order Comment: How was Urine Obtained? [...] ESTERASE 100 Performed By: #### L400.2011 #### [facility] [address] [place], [address] COMPREHENSIVE METABOLIC Collected: 08/18/2018 Status: F Source: [place] PROFIL 11:38 AM [facility] [place] TYPE CODE TESTS RESULT OUT OF [...] Performed By: #### L500.4050, L500.4100, L501.9520 #### [facility] [address] [place], [address] LIPID PROFILE Collected: 08/18/2018 Status: F Source: SULPHUR BLUFF 11:38 AM [facility] [place] TYPE CODE TESTS RESULT OUT OF [...] Performed By: #### L500.4050, L500.4100, L501.9520 #### [facility] [address] [place], [address] THYROID STIM HORMONE Collected: 08/18/2018 Status: F Source: [place] (TSH) 11:38 AM [facility] [place] TYPE CODE TESTS RESULT OUT OF RANGE REFERENCE UNITS LAB L501.9520 0.358-3.74 uIU/mL Normal TSH 1.35 Performed By: #### L500.4050, L500.4100, L501.9520 #### [facility] [address] [facility] [place], [address] SCREENING MAMM (CAD), Observed: 07/28/2018 Status: F Source: [place] BILAT 11:53 AM [facility] Imaging Services [address] [place] [address] SCREENING MAMM (CAD), BILAT MR#: [id number] Acct: [id number] Name: PABLO IBARRA Rep #: [id number] : 1965 F 53 From: Jose Gibbons MD PCP: Rimma Ovalle DO Status: [facility] Study: SCREENING MAMM (CAD), BILAT Date of Exam: 07/28/18 Exam# [id number] Ordering Dr: Linda Hogan DO MAMMOGRAPHY - [...] delay biopsy of a clinically suspicious abnormality. [id number] Electronically Signed: Jose Gibbons MD at 9:36 EST Tel [phone], Service support , CC: Rimma Ovalle DO; Linda Hogan DO Irrigator Sprinkling System: Signed VL AORTA ILIAC Observed: 05/13/2018 Status: F Source: [facility] [employer] [facility] (FIG) DUPLEX 10:04 AM SYSTEM REPOSITORY Patient Name: PABLO IBARRA Ultrasound Exam Date/Time 05/13/2018 11:26:44 EDT Exam VL Aorta Iliac Duplex Ordering Physician RONY LOCK Accession Number [id number] CPT4 Codes 63528 () Reason For Exam Include abdominal aorta, vena cava, iliac arteries and iliac veins Report [facility] --- Abdominal Aortic Duplex Report Patient Name: Pablo Ibarra : 1965 Study Date: 05/13/2018 E (53yrs) Age: 53 Account: [id number] Gender: F Loc: BP: Ordering: Rony Lock MD Technologist: Ordering Physician: Rony Lock MD Office Coordinator: Indira Tolbert RVT Interpreting Physician: Heather Goodwin --- Location: [facility] --- INDICATIONS: 459.89 other specified disorders of [...] performed. The images were obtained using a [employer] E9 vascular ultrasound machine. The study was [...] + --+ Electronically signed by: Heather Goodwin 5107-28-31A07:14:02 Final Dictated: 05/13/2018 9:14 pm Dictating Physician: HEATHER GOODWIN Signed Date and Time: 05/13/2018 9:14 pm Signed by: HEATHER GOODWIN DOWNTIME REPORT Observed: 02/23/2018 Status: F Source: FELIBERTO 11:52 AM [facility] Medical Records Department [address] [place] [address] Downtime Report MR#: [id number] Acct: [id number] Name: ANGIE IBARRAL E Rep #: [id number] : 1965 52 From: Jaron Ambrosio PCP: Rimma Ovalle DO Status: REG CLI This patient was seen during an EMR downtime February 06, 2018 - February 13, 2018. This patient may have a combination of paper and electronic documentation or all paper documentation. All documentation is viewable within the e-chart portion of [employer] for each patient visit. BRAIN W/WO CONTRAST Observed: 02/10/2018 Status: F Source: FELIBERTO 8:51 AM [facility] Imaging Services [address] [place] [address] Brain W/WO Contrast MR#: [id number] Acct: [id number] Name: ANGIE IBARRAL E Rep #: [id number] : 1965 F 52 From: Asa Mcdaniel MD PCP: Rimma Ovalle DO Status: REG CLI Study: Brain W/WO Contrast Date of Exam: 02/07/18 Exam# [id number] Ordering Dr: Juana Balderas PROGRAMMER NUMERICAL CONTROL-C STUDY: MRI BRAIN WITH AND WITHOUT CONTRAST [...] , CC: RAOUL Balderas; Rimma Ovalle DO Irrigator Sprinkling System: Signed ALLERGIES ALLERGIES DATE TYPE / CODE NAME / CODE REACTION SEVERITY SOURCE 12/27/2016 Drug doxycycline/ Itching Unknown [facility] Allergy/4160 [id number](R Hospital 81854(SNOMED XNORM) Repository CT) 12/27/2016 Drug ciprofloxaci Hives Unknown [facility] Allergy/4160 n/[id number] Hospital 67330(SNOMED (RXNORM) Repository CT) ENCOUNTERS ENCOUNTERS ADMIT/DISCHARGE ACCOUNT NUMBER ADMITTING ENCOUNTER LOCATION SOURCE CLASS 09/27/2018 66054 Ambulatory Building:[facility] [place] Practices Repository 08/18/2018 [id number] [facility] ding:MTLAB Repository 07/28/2018 [id number] [facility] ding:OPBI Repository 05/13/2018 [id number] Ambulatory [facility] Repository 02/07/2018 [id number] [facility] ding:MRI Repository FUNCTIONAL STATUS FUNCTIONAL STATUS No Functional Status Records FoundEQUIPMENT EQUIPMENT No Equipment Records FoundPAYERS PAYERS ENCOUNTER GUARANTOR PAYER SUBSCRIBER SOURCE 09/27/2018 Pablo Primary Pablo [facility]IP Practices FredDOB: Insurance:Brandi CraigB: Repository [id number] /BSPolicy Number: [id number] [place] [id number] [address] [place], [place] [address]Cvm: (419) Date:4003-76-16Frhe 36[address]Rol: Name:[facility] [id number] () ()Tel: [phone]) [address] [place] [address] [phone] ( [id number]: 09/27/2018 Secondary Pablo OHIP Practices Insurance:Judakeily CraigB: Repository /BSPolicy Number: [id number] [address] [place] Date:2004-09-05 [place], [place] [id number] [id number]: ([phone]) Name:[facility] [phone] () [id number] [place] [address] [id number]: 09/27/2018 Tertiary Pablo OHIP Practices Insurance:Brandi CraigB: Repository /BSPolicy Number: [id number] [address] Date:2007-09-05 [place], [place] [id number] [address]Azm: ([phone]) Name:[facility] [phone] () [id number] [place] [address] [id number]: 08/18/2018 PABLO E Primary SUDHIR D Feliberto [id number] Insurance:[facility] FREDDOB: [facility] y Number: [id number], [place] [id number] Repository [address]Kac: [phone]) charles Date:5141-40-04RC [phone] () [address], [place] [address]YA: 08/18/2018 Secondary NOT GIVENUNK Rowe Insurance:SELF PAY [facility] Number: Effective Repository Date:2018-08-17 07/28/2018 PABLO Craig Primary SUDHIR Dao [id number] Insurance:ANTHEMPolic JOHNSONDOB: Community [email or web address]VIEW y Number: [id number], [place] [id number] Repository [address]Qtd: [phone]) charles Date:7876-59-28OM [phone] () [address], [place] [address]LF: 07/28/2018 Secondary NOT GIVENUNK Feliberto Insurance:SELF PAY [facility] Number: Effective Repository Date:2018-05-03 05/13/2018 Pablo Craig Primary Sudhir [facility] JohnsonDOB: Insurance:Juda Blue JohnsonDOB: System [id number] Cross Blue [id number] Repository [facility] Number: Dr.[place] Effective Date: [address]Uka: () 02/07/2018 Pablo Rafa Primary Sudhir Dao [id number] Insurance:ANTHEMPolic JohnsonDOB: Community [place] y Number: [id number] [id number] Repository [address]Loe: [phone]) charles Date:7524-98-32VR [phone] () [address], [place] [address]CE: 02/07/2018 Secondary NOT GIVENUNK Rowe Insurance:SELF PAY [facility] Number: Effective Repository Date:2018-01-26 SOCIAL HISTORY SOCIAL HISTORY No Social History Records FoundFAMILY HISTORY FAMILY HISTORY No Family History Records FoundADVANCE DIRECTIVES ADVANCE DIRECTIVES No Advanced Directives Records FoundINFORMATION SOURCE INFORMATION SOURCE DATE CREATED AUTHOR AUTHOR'S ORGANIZATION 09/27/2018 [facility]
== END ==
PROVIDERS: Family Provider Internal Medicine; PCP Internal Medicine; Referring Provider Internal Medicine; Visit Provider Internal Medicine
DX: F32.9 Major depressive disorder, single episode, unspecified (principal); E16.2 Hypoglycemia, unspecified; E78.00 Pure hypercholesterolemia, unspecified
CPT/HCPCS: 36415; 80053; 80061; 81002; 84443; 85025

== ENCOUNTER → 2019-06-29 17:12 | Outpatient (CLI) | payer BC, SELFPAY ==
[2019-06-29 17:47] LABS: Hematocrit 41.2 % (37-47); Hemoglobin 13.4 g/dL (12.0-15.0); Mean Corp Hgb Conc 32.5 g/dL (32-36); Mean Corpuscular Hgb 31.1 pg (27.0-32.0); Mean Corpuscular Volume 95.6 fL (81-99); Mean Platelet Vol. 9.2 fl (6.2-12.0); Platelet Count 309 K/mm3 (150-450); RBC Distribution Width SD 45.9 fl (35.1-43.9); Red Blood Count 4.31 M/mm3 (4.2-5.4); White Blood Count 5.6 K/mm3 (4.4-11.0)
[2019-06-29 18:10] LABS: Anion Gap 4 (5-15); BUN 17 mg/dL (7-18); BUN/Creat Ratio 21.2 RATIO (10-20); Chloride 105 mmol/L (98-107); EST Glomerular Filtration Rate 79 mL/min (>60); Est Glom Filt Rate - Afr Amer 95 mL/min (>60); Glucose 92 mg/dL (74-106); Potassium 4.1 mmol/L (3.5-5.1); Sodium Level 138 mmol/L (136-145)
== END ==
PROVIDERS: Family Provider Internal Medicine; PCP Internal Medicine; Referring Provider Orthopaedic Surgery; Visit Provider Orthopaedic Surgery
DX: Z01.818 Encounter for other preprocedural examination (principal); Z01.810 Encounter for preprocedural cardiovascular examination
CPT/HCPCS: 36415; 80048; 85027; 93005

== ENCOUNTER → 2019-08-07 07:19 | Outpatient (CLI) | payer BC, SELFPAY ==
[2019-08-07 10:21] LABS: Color, Urine Yellow (Yellow); Glucose, Dipstick Normal (Normal); Ketone-Dipstick Negative (Negative); Leukocyte Esterase-Dipstick 100 /ul (Negative); Nitrite-Dipstick Negative (Negative); Occult Blood-Urine 10 /ul (Negative); Protein-Dipstick Negative (Negative); Specific Gravity, Urine 1.025 (1.002-1.030); Urine Bilirubin Dipstick Negative (Negative); Urine Clarity Sl. Cloudy (Clear); Urine Urobilinogen Normal (Normal)
[2019-08-07 10:50] LABS: ALB/GLOB Ratio 1.1 RATIO (0.9-2.4); AST(SGOT) 14 U/L (15-37); Alanine Aminotransfer ALT/SGPT 20 U/L (13-56); Albumin, Serum 3.5 g/dL (3.2-5.0); Alkaline Phosphatase 85 U/L (45-117); Anion Gap 8 (5-15); BUN 17 mg/dL (7-18); Calcium,Total 9.3 mg/dL (8.5-10.1); Chloride 107 mmol/L (98-107); Creatinine, Serum 0.77 mg/dL (0.55-1.02); EST Glomerular Filtration Rate 82 mL/min (>60); Est Glom Filt Rate - Afr Amer 100 mL/min (>60); Globulin 3.2 g/dL (2.2-4.2); Glucose 102 mg/dL (74-106); Potassium 3.7 mmol/L (3.5-5.1); Protein, Total 6.7 g/dL (6.4-8.2); Sodium Level 141 mmol/L (136-145); Thyroid Stim Hormone (TSH) 2.02 uIU/mL (0.358-3.74)
[2019-08-08 14:08] LABS: CHOLESTEROL TOTAL 223 mg/dL (100-199); HDL-C 68 mg/dL (>39); HDL-P TOTAL 44.6 umol/L (>=30.5); SMALL LDL-P 315 nmol/L (<=527); TRIGLYCERIDES 97 mg/dL (0-149)
[2019-08-08 20:32] LABS: LDL SIZE 21.6 nm (>20.5); LDL-C 136 mg/dL (0-99); LDL-P 1258 nmol/L (<1000)
[2019-08-08 20:33] LABS: INSULIN RESISTANCE SCORE 36 (<=45)
== END ==
PROVIDERS: Family Provider Internal Medicine; PCP Internal Medicine; Referring Provider Internal Medicine; Visit Provider Internal Medicine
DX: I10 Essential (primary) hypertension (principal); E78.00 Pure hypercholesterolemia, unspecified
CPT/HCPCS: 36415; 80053; 80061; 81002; 83704; 84443

== ENCOUNTER → 2020-02-25 15:25 | Outpatient (CLI) | payer BC, SELFPAY ==
--- NOTE | 2020-02-25 15:29 | BI_ITS ---
MAMMOGRAPHY - BILATERAL SCREENING 3-D TOMOSYNTHESIS REASON FOR EXAM: Female, 54 years old. Routine screening PERTINENT HISTORY: FAM HX UNKNOWN -ADOPTED -- GAINED 10# -- NO SX -- BILAT MOLES MARKED. TECHNIQUE: 2-D mammograms and 3-D Tomosynthesis of the breast (s) were performed. CAD was performed. COMPARISON: None. FINDINGS: The breast composition is almost entirely fat. Scattered benign calcifications are seen. No dense spiculated masses or suspicious microcalcifications are identified. No architectural distortion is identified. There is no skin thickening or retraction. There has been no significant change since the prior study. BI/SCREEN MAMM (CAD) W/KOBI BILAT IMPRESSION: No mammographic signs of malignancy. Routine yearly mammograms recommended. ASSESSMENT CATEGORY: BIRADS Category 1: Negative. A letter regarding these results will be sent to the patient by the facility within 30 days. FOLLOW UP RECOMMENDATION: Yearly follow up mammogram recommended. (A) Approximately 10% of breast cancers are not detected by mammography. A normal mammogram should not delay biopsy of a clinically suspicious abnormality. Electronically Signed: Archie Forbes MD at 8:17 EDT , Service support ,
== END ==
PROVIDERS: PCP Internal Medicine; Referring Provider Obstetrics & Gynecology; Visit Provider Obstetrics & Gynecology
DX: Z12.31 Encounter for screening mammogram for malignant neoplasm of breast (principal)
CPT/HCPCS: 77063; 77067

== ENCOUNTER → 2021-05-20 11:50 | Outpatient (CLI) | payer BC, SELFPAY ==
[2021-05-20 11:54] LABS: Bacteria 0 SEEN /hpf (None Seen); Mucous, Urine 0 SEEN /hpf (<or=2+); Red Blood Cells-Urine 0 SEEN /hpf (0-5); White Blood Cells 0 SEEN /hpf (0-5)
[2021-05-20 15:02] LABS: Absolute Lymphocyte Count 1.06 X10^3/uL (0.83-4.51); Absolute Neutrophil Count 3.1 X10^3/uL (2.0-7.7); Basophil# 0.03 X10^3/uL; Basophil% 0.7 % (0-1); Eosinophil# 0.06 X10^3/uL; Eosinophils% 1.3 % (0-5); Hematocrit 43.7 % (37-47); Hemoglobin 13.7 g/dL (12.0-15.0); Lymphocyte # 1.06 X10^3/ul (0.83-4.51); Lymphocyte % 23.2 % (19-41); Mean Corp Hgb Conc 31.4 g/dL (32-36); Mean Corpuscular Hgb 30.1 pg (27.0-32.0); Mean Platelet Vol. 10.7 fl (6.2-12.0); Monocyte# 0.36 X10^3/uL; Monocyte% 7.9 % (0-10); NRBC Flagged by Analyzer 0 % (0-5); Neutrophil # 3.05 X10^3/uL (2.7-7.7); Neutrophil % 66.7 % (47-70); Platelet Count 299 K/mm3 (150-450); RBC Distribution Width CV 13.3 % (11.6-14.6); RBC Distribution Width SD 47.6 fl (35.1-43.9); Red Blood Count 4.55 M/mm3 (4.2-5.4); White Blood Count 4.6 K/mm3 (4.4-11.0)
[2021-05-20 15:07] LABS: Color, Urine Yellow (Yellow); Glucose, Dipstick Normal (Normal); Leukocyte Esterase-Dipstick 25 /ul (Negative); Nitrite-Dipstick Negative (Negative); Occult Blood-Urine Negative /ul (Negative); Protein-Dipstick Negative (Negative); Urine Bilirubin Dipstick Negative (Negative); Urine Clarity Clear (Clear); Urine Urobilinogen Normal (Normal)
[2021-05-20 15:10] LABS: Ketone-Dipstick 150 mg/dl (Negative)
[2021-05-20 15:13] LABS: Squamous Epithelial Cells - UA 0-5 SEEN /hpf (5-10)
[2021-05-20 15:32] LABS: AST(SGOT) 23 U/L (15-37); Alanine Aminotransfer ALT/SGPT 52 U/L (13-56); Albumin, Serum 3.8 g/dL (3.2-5.0); Alkaline Phosphatase 83 U/L (45-117); Anion Gap 7 (5-15); BUN 16 mg/dL (7-18); BUN/Creat Ratio 19.4 RATIO (10-20); Calcium,Total 9.3 mg/dL (8.5-10.1); Chloride 104 mmol/L (98-107); Cholesterol 207 mg/dL (200); Creatinine, Serum 0.83 mg/dL (0.55-1.02); EST Glomerular Filtration Rate 76 mL/min (>60); Est Glom Filt Rate - Afr Amer 92 mL/min (>60); Glucose 89 mg/dL (74-106); High Density Lipoprotein 68 mg/dL; Protein, Total 7.8 g/dL (6.4-8.2); Sodium Level 139 mmol/L (136-145); Thyroid Stim Hormone (TSH) 1.17 uIU/mL (0.358-3.74); Triglycerides 63 mg/dL; Very Low Density Lipoprotein 13 mg/dL (5-40)
== END ==
PROVIDERS: PCP Internal Medicine; Referring Provider Internal Medicine; Visit Provider Internal Medicine
DX: I10 Essential (primary) hypertension (principal); F32.9 Major depressive disorder, single episode, unspecified; E78.00 Pure hypercholesterolemia, unspecified
CPT/HCPCS: 36415; 80053; 80061; 81001; 82043; 82570; 84443; 85025

== ENCOUNTER → 2021-05-28 18:12 | Outpatient (CLI) | payer BC, SELFPAY ==
--- NOTE | 2021-05-28 18:24 | US_ITS ---
STUDY: THYROID ULTRASOUND REASON FOR EXAM: Female, 56 years old. THYROID MASS- TECHNIQUE: Ultrasound evaluation of the thyroid was performed with real-time and static lund-scale imaging. COMPARISON: None. FINDINGS: RIGHT LOBE: The right lobe of the thyroid gland measures 4.9 cm x 1.6 cm x 1.7 cm. There is a homogeneous echotexture. There is a 5 mm x 3 mm x 3 mm cyst in the midpole of the right lobe. LEFT LOBE: The left lobe of the thyroid gland measures 4.4 cm x 1.3 cm x 1.4 cm. There is a homogeneous echotexture. There are no demonstrated solid, cystic or complex lesions. ISTHMUS: The isthmus measures 3 mm. There is a 2.2 cm x 0.9 cm x 0.5 cm lymph node in the lower aspect of the left cervical region. US/Thyroid IMPRESSION: 5 mm x 3 mm x 3 mm cyst in the midpole of the right lobe of the thyroid. 2.2 cm x 0.9 cm x 0.5 cm lymph node in the lower cervical region. Electronically Signed: Jose Gibbons MD at 12:45 EDT , Service support ,
== END ==
PROVIDERS: PCP Internal Medicine; Visit Provider Internal Medicine
DX: E07.9 Disorder of thyroid, unspecified (principal)
CPT/HCPCS: 76536

== ENCOUNTER → 2022-02-17 | Outpatient (CLI) | payer BC, SELFPAY ==
--- NOTE | 2022-02-17 11:08 | NEURO ---
NCS and/or EMG Patient Report Ordering Doctor: Sher Chacon DATE OF SERVICE: 02/17/22 Varsha presents for electrodiagnostic testing of the upper limbs. She reports intermittent numbness and tingling in the hands. She has a history of right carpal tunnel release several years ago. Electrodiagnostic findings: Median motor nerve demonstrates normal distal latency, amplitude and conduction velocity bilaterally. Normal ulnar motor response bilaterally, including conduction across the elbow. Normal median ulnar F waves. Sensory responses are within normal limits. On needle EMG, all muscles tested in the upper limbs as well as the cervical paraspinals showed no evidence of denervation normal motor unit action potentials. Electrodiagnostic impression: Diagnostic study of the upper limbs. There is no electrodiagnostic evidence for peripheral neuropathy including carpal tunnel syndrome. There is no electrodiagnostic evidence for cervical radiculopathy.
== END | disposition home or self-care (01) ==
LOC: PSN 09:44
PROVIDERS: PCP Internal Medicine; Referring Provider Student in an Organized Health Care Education/Training Program; Visit Provider Student in an Organized Health Care Education/Training Program
DX: R20.2 Paresthesia of skin (principal)
CPT/HCPCS: 95886; 95912

== ENCOUNTER → 2022-08-26 | Outpatient (CLI) | payer BC, SELFPAY ==
[2022-08-26 09:00] LABS: Absolute Lymphocyte Count 1.52 X10^3/uL (0.83-4.51); Absolute Neutrophil Count 2.9 X10^3/uL (2.0-7.7); Basophil# 0.05 X10^3/uL; Eosinophil# 0.19 X10^3/uL; Eosinophils% 3.7 % (0-5); Hematocrit 40.6 % (37-47); Lymphocyte # 1.52 X10^3/ul (0.83-4.51); Lymphocyte % 29.6 % (19-41); Mean Corpuscular Hgb 30.4 pg (27.0-32.0); Mean Corpuscular Volume 95.1 fL (81-99); Mean Platelet Vol. 9.7 fl (6.2-12.0); Monocyte# 0.47 X10^3/uL; Monocyte% 9.1 % (0-10); NRBC Flagged by Analyzer 0 % (0-5); Neutrophil % 56.4 % (47-70); Platelet Count 306 K/mm3 (150-450); RBC Distribution Width CV 13.4 % (11.6-14.6); RBC Distribution Width SD 46.8 fl (35.1-43.9); Red Blood Count 4.27 M/mm3 (4.2-5.4); White Blood Count 5.1 K/mm3 (4.4-11.0)
[2022-08-26 09:20] LABS: Vitamin D,25 Hydroxy 48.7 ng/mL
[2022-08-26 09:33] LABS: ALB/GLOB Ratio 1.1 RATIO (0.9-2.4); AST(SGOT) 17 U/L (15-37); Alanine Aminotransfer ALT/SGPT 31 U/L (13-56); Albumin, Serum 3.5 g/dL (3.2-5.0); Alkaline Phosphatase 81 U/L (45-117); Anion Gap 4 (5-15); BUN 15 mg/dL (7-18); BUN/Creat Ratio 19.6 RATIO (10-20); Chloride 106 mmol/L (98-107); Cholesterol 237 mg/dL (200); Creatinine, Serum 0.76 mg/dL (0.55-1.02); EST Glomerular Filtration Rate 83 mL/min (>60); Est Glom Filt Rate - Afr Amer 100 mL/min (>60); Globulin 3.3 g/dL (2.2-4.2); Glucose 113 mg/dL (74-106); High Density Lipoprotein 71 mg/dL; Potassium 3.9 mmol/L (3.5-5.1); Protein, Total 6.8 g/dL (6.4-8.2); Sodium Level 140 mmol/L (136-145); Thyroid Stim Hormone (TSH) 2.08 uIU/mL (0.358-3.74); Triglycerides 77 mg/dL; Very Low Density Lipoprotein 15 mg/dL (5-40)
[2022-08-26 15:32] LABS: Microalbumin,Random Urine 17.9 mg/L (NO RANGE EST.); Microalbumin:Creatinine Ratio 13.9 mg/g CRE (<30 mg/g CRE)
== END | disposition home or self-care (01) ==
LOC: LAB 07:22
PROVIDERS: PCP Internal Medicine; Referring Provider Internal Medicine; Visit Provider Internal Medicine
DX: R73.9 Hyperglycemia, unspecified (principal); E55.9 Vitamin D deficiency, unspecified; I10 Essential (primary) hypertension
CPT/HCPCS: 36415; 80053; 80061; 82043; 82306; 82570; 83036; 84443; 85025

== ENCOUNTER → 2023-04-28 | Outpatient (CLI) | payer BC, SELFPAY ==
--- NOTE | 2023-04-28 15:03 | BI_ITS ---
MAMMOGRAPHY - BILATERAL SCREENING REASON FOR EXAM: Female, 58 years old. Routine annual screening examination. PERTINENT HISTORY: Family history unknown, as the patient is adopted. No reported personal history of breast cancer. TECHNIQUE: Digital bilateral breast kobi (3D mammographic acquisition) in the CC and MLO projections. 2-D mediolateral oblique (MLO) and craniocaudad (CC) views of both breasts were obtained. CAD: Full Field Digital Mammography with Computer Added Detection was performed. COMPARISON: Screening mammogram from 02/25/2020, 07/28/2018. FINDINGS: Breast Composition: The breasts are almost entirely fatty. There are no dominant masses or suspicious calcifications. Stable scattered small benign-appearing bilateral axillary and intramammary lymph nodes. No other significant abnormalities are identified. There has been no significant change since the prior study. BI/SCRN MAMM (CAD)W/KOBI BILAT IMPRESSION: Negative screening mammogram. Stable examination since 02/25/2020. Yearly followup mammogram recommended. (A) ASSESSMENT CATEGORY: BIRADS Category 2: Benign. A letter regarding these results will be sent to the patient by the facility within 30 days. Approximately 10% of breast cancers are not detected by mammography. A normal mammogram should not delay biopsy of a clinically suspicious abnormality. Electronically Signed: Ricardo Meza DO at 8:52 EDT ,
--- NOTE | 2023-04-28 15:19 | BD_ITS ---
STUDY: DUAL ENERGY X-RAY ABSORPTIOMETRY / DXA REASON FOR EXAM: Female, 58 years old. [id number] TECHNIQUE: Bone Mineral Density (BMD) measurements of lumbar spine and bilateral hips were obtained. COMPARISON: None. FINDINGS: Lumbar Spine (L1-L4): g/cm2 (1.156) / T-score (1.0) / Z-score (2.3) Findings are suggestive of normal bone density with a low fracture risk. Left Femur Total: g/cm2 (0.976) / T-score (0.3) / Z-score (1.2) Left Femoral Neck: g/cm2 (0.703) / T-score (-1.3) / Z-score (-0.1) Right Femur Total: g/cm2 (0.903) / T-score (-0.3) / Z-score (0.6) Right Femoral Neck: g/cm2 (0.719) / T-score (-1.2) / Z-score (0.1) BD/Dexa Bone Density Study IMPRESSION: The patient is considered osteopenic as outlined below according to World Stoney Organization (WHO) criteria with a low fracture risk. Reference Information: The T-score is the number of standard deviations above or below the standard which is normal for young adults at their peak bone mineral density. The World Health Organization (WHO) interprets the T-scores as follows: Above -1 Normal bone density Between -1 and -2.5 Osteopenia Equal to / or below -2.5 Osteoporosis As a practical clinical guideline, osteopenia may be graded as follows: Mild -1 through -1.5 Moderate -1.6 through -2.0 Severe -2.1 through -2.4 The Z-score is the number of standard deviations above or below age-matched controls. A Z-score of less than -1.5 would be considered abnormal. References: 1. NIH Osteoporosis and Related Bone Diseases www osteo.org 2. International Society for Clinical Densitometry www iscd.org 3. National Osteoporosis Foundation www nof.org Electronically Signed: Jose Gibbons MD at 14:44 EDT ,
== END | disposition home or self-care (01) ==
PROVIDERS: PCP Internal Medicine
DX: Z78.0 Asymptomatic menopausal state (principal); Z12.31 Encounter for screening mammogram for malignant neoplasm of breast
CPT/HCPCS: 77063; 77067; 77080

== ENCOUNTER → 2024-06-28 | Outpatient (CLI) | payer BC, SELFPAY ==
--- NOTE | 2024-06-28 15:14 | BI_ITS ---
MAMMOGRAPHY - BILATERAL SCREENING REASON FOR EXAM: Female, 59 years old. Routine annual screening examination. PERTINENT HISTORY: Non-contributory. TECHNIQUE: Digital bilateral breast kobi (3D mammographic acquisition) in the CC and MLO projections. 2-D mediolateral oblique (MLO) and craniocaudad (CC) views of both breasts were obtained. CAD: Full Field Digital Mammography with Computer Added Detection was performed. COMPARISON: Comparison is made with prior study April 28, 2023 and February 25, 2020. FINDINGS: Breast Composition: The breasts are almost entirely fatty. There are no dominant masses or suspicious calcifications. Stable small benign-appearing bilateral axillary lymph nodes. No other significant abnormalities are identified. There has been no significant change since the prior study. BI/SCRN MAMM (CAD)W/KOBI BILAT IMPRESSION: Stable bilateral screening mammogram. Yearly follow-up mammogram recommended. (A) ASSESSMENT CATEGORY: BIRADS Category 2: Benign. A letter regarding these results will be sent to the patient by the facility within 30 days. Approximately 10% of breast cancers are not detected by mammography. A normal mammogram should not delay biopsy of a clinically suspicious abnormality. [id number] Electronically Signed: Jose Gibbons MD at 8:08 EDT ,
== END | disposition home or self-care (01) ==
PROVIDERS: PCP Internal Medicine
DX: Z12.31 Encounter for screening mammogram for malignant neoplasm of breast (principal)
CPT/HCPCS: 77063; 77067

== ENCOUNTER → 2024-07-30 | Outpatient (CLI) | payer BC, SELFPAY ==
[2024-07-30 10:32] LABS: Absolute Lymphocyte Count 1.58 X10^3/uL (0.83-4.51); Absolute Neutrophil Count 2.4 X10^3/uL (2.0-7.7); Basophil# 0.05 X10^3/uL; Basophil% 1.1 % (0-1); Eosinophil# 0.18 X10^3/uL; Eosinophils% 3.9 % (0-5); Hematocrit 38.6 % (37-47); Hemoglobin 12.5 g/dL (12.0-15.0); Lymphocyte # 1.58 X10^3/ul (0.83-4.51); Lymphocyte % 34.2 % (19-41); Mean Corp Hgb Conc 32.4 g/dL (32-36); Mean Corpuscular Hgb 30.3 pg (27.0-32.0); Mean Corpuscular Volume 93.7 fL (81-99); Mean Platelet Vol. 9.5 fl (6.2-12.0); Monocyte# 0.41 X10^3/uL; Monocyte% 8.9 % (0-10); NRBC Flagged by Analyzer 0 % (0-5); Neutrophil # 2.39 X10^3/uL (2.7-7.7); Neutrophil % 51.7 % (47-70); Platelet Count 293 K/mm3 (150-450); RBC Distribution Width CV 13.1 % (11.6-14.6); Red Blood Count 4.12 M/mm3 (4.2-5.4); White Blood Count 4.6 K/mm3 (4.4-11.0)
[2024-07-30 10:51] LABS: Vitamin D,25 Hydroxy 39.1 ng/mL
[2024-07-30 11:02] LABS: Microalbumin,Random Urine 5.4 mg/L (NO RANGE EST.); Microalbumin:Creatinine Ratio 14.9 mg/g CRE (<30 mg/g CRE)
[2024-07-30 11:28] LABS: Hemoglobin A1c 5.6 % (3.8-5.6)
[2024-07-30 11:48] LABS: AST(SGOT) 21 U/L (15-37); Alanine Aminotransfer ALT/SGPT 28 U/L (13-56); Albumin, Serum 3.3 g/dL (3.2-5.0); Alkaline Phosphatase 102 U/L (45-117); Anion Gap 8 (5-15); BUN 21 mg/dL (7-18); BUN/Creat Ratio 30.3 RATIO (10-20); Calcium,Total 9.2 mg/dL (8.5-10.1); Chloride 107 mmol/L (98-107); Cholesterol 223 mg/dL (200); Creatinine, Serum 0.69 mg/dL (0.55-1.02); EST Glomerular Filtration Rate 92 mL/min (>60); Est Glom Filt Rate - Afr Amer 111 mL/min (>60); Globulin 3.4 g/dL (2.2-4.2); Glucose 100 mg/dL (74-106); High Density Lipoprotein 87 mg/dL; Potassium 3.8 mmol/L (3.5-5.1); Protein, Total 6.7 g/dL (6.4-8.2); Sodium Level 139 mmol/L (136-145); Triglycerides 67 mg/dL; Very Low Density Lipoprotein 13 mg/dL (5-40)
== END | disposition home or self-care (01) ==
PROVIDERS: PCP Internal Medicine; Referring Provider Internal Medicine; Visit Provider Internal Medicine
DX: R73.09 Other abnormal glucose (principal); E78.00 Pure hypercholesterolemia, unspecified; E55.9 Vitamin D deficiency, unspecified
CPT/HCPCS: 36415; 80053; 80061; 82043; 82306; 82570; 83036; 84443; 85025

== ENCOUNTER → 2024-09-29 | Outpatient (CLI) | payer BC, SELFPAY ==
[2024-09-29 11:49] LABS: T4 Free Direct 0.86 ng/dL (0.76-1.46)
== END | disposition home or self-care (01) ==
LOC: LAB 10:29
PROVIDERS: PCP Internal Medicine; Referring Provider Ophthalmology; Visit Provider Ophthalmology
DX: H11.822 Conjunctivochalasis, left eye (principal)
CPT/HCPCS: 36415; 84439; 84443

== ENCOUNTER → 2024-10-08 | Outpatient (CLI) | payer BC, SELFPAY ==
[2024-10-08 16:07] LABS: Creatinine, Serum 0.85 mg/dL (0.55-1.02); EST Glomerular Filtration Rate 73 mL/min (>60); Est Glom Filt Rate - Afr Amer 88 mL/min (>60)
== END | disposition home or self-care (01) ==
LOC: MTLAB 12:51
PROVIDERS: PCP Internal Medicine; Referring Provider Ophthalmology; Visit Provider Ophthalmology
DX: H11.822 Conjunctivochalasis, left eye (principal)
CPT/HCPCS: 36415; 82565

== ENCOUNTER → 2025-04-24 | Outpatient (CLI) | payer BC, SELFPAY ==
--- NOTE | 2025-04-24 12:01 | US_ITS ---
PROCEDURE: THYROID 04/24/2025 REASON FOR EXAM: THYROID MASS TECHNIQUE: THYROID COMPARISON: None FINDINGS: Right thyroid lobe size: 4.4 x 1.7 x 1.9 cm Left thyroid lobe size: 4.1 x 1.6 x 1.3 cm Isthmus: 4.4 mm Background parenchymal echotexture is normal Nodules: 1. Lobe: Right, Location: Midpole, Size: 0.6 cm, Stability: N/A Composition: Cystic or mostly cystic (+0) Echogenicity: Anechoic (+0) Margin: Smooth (+0) Shape: Wider than tall (+0) Echogenic Foci: None (+0) TI-RADS: 1 2. Lobe: Right, Location: Lower pole, Size: 0.2 cm, Stability: N/A Composition: Cannot be determined Echogenicity: Cannot be determined Margin: Ill-defined (+0) Shape: Wider than tall (+0) Echogenic Foci: Macrocalcification (+1) TI-RADS: 1 Technologist scanned overly sternoclavicular joint in the area of palpable concern. Likely degenerative changes. US/Thyroid IMPRESSION: 1. Benign colloid cyst right midpole. 2. Benign dystrophic calcification right lower pole. TIADS 1. Non-suspicious. No follow-up required 3. Technologist scanned over an area of palpable concern at the sternoclavicul ar region. Likely degenerative changes. Consider x-ray if appropriate. Reading Location: [id number]
== END | disposition home or self-care (01) ==
PROVIDERS: PCP Internal Medicine; Referring Provider Internal Medicine; Visit Provider Internal Medicine
DX: E07.9 Disorder of thyroid, unspecified (principal)
CPT/HCPCS: 76536

== ENCOUNTER → 2025-06-19 | Outpatient (CLI) | payer BC, SELFPAY ==
[2025-06-19 10:27] LABS: Hematocrit 37.9 % (37-47); Hemoglobin 12.7 g/dL (12.0-15.0); Immature Granulocytes Count 0.000 X10^3/uL (0.0-0.0); Mean Corp Hgb Conc 33.5 g/dL (32-36); Mean Corpuscular Volume 92.0 fL (81-99); Mean Platelet Vol. 9.3 fl (6.2-12.0); NRBC Flagged by Analyzer 0 % (0-5); Platelet Count 292 K/mm3 (150-450); RBC Distribution Width CV 13.2 % (11.6-14.6); RBC Distribution Width SD 44.9 fl (35.1-43.9); Red Blood Count 4.12 M/mm3 (4.2-5.4); White Blood Count 4.1 K/mm3 (4.4-11.0)
[2025-06-19 10:31] LABS: Color, Urine Yellow (Yellow); Glucose, Dipstick Normal (Normal); Ketone-Dipstick Negative (Negative); Leukocyte Esterase-Dipstick 500 /ul (Negative); Nitrite-Dipstick Negative (Negative); Occult Blood-Urine 10 /ul (Negative); Protein-Dipstick 15 mg/dl (Negative); Specific Gravity, Urine 1.020 (1.002-1.030); Urine Bilirubin Dipstick Negative (Negative)
[2025-06-19 10:43] LABS: Mucous, Urine 2+ /hpf (<or=2+); Red Blood Cells-Urine 0-5 SEEN /hpf (0-5); Squamous Epithelial Cells - UA 0-5 SEEN /hpf (5-10)
[2025-06-19 11:08] LABS: Creatinine, Urine (random) 227.00 mg/dL (28.00-217.00); Microalbumin,Random Urine 29.1 mg/L (<20 mg/L)
[2025-06-19 11:25] LABS: AST(SGOT) 20 U/L (<=31); Alanine Aminotransfer ALT/SGPT 21 U/L (<=34); Albumin, Serum 4.1 g/dL (3.4-4.8); Alkaline Phosphatase 71 U/L (35-104); Anion Gap 12 (5-15); BUN 17 mg/dL (4-19); BUN/Creat Ratio 20.3 RATIO (10-20); Calcium,Total 9.6 mg/dL (7.6-11.0); Carbon Dioxide 24.2 mmol/L (21.0-32.0); Chloride 104 mmol/L (98-108); Cholesterol 218 mg/dL (<=200); Globulin 2.7 g/dL (2.2-4.2); Glucose 99 mg/dL (70-99); Low Density Lipoprotein Calc. 136 mg/dL; Potassium 3.8 mmol/L (3.3-5.1); Triglycerides 68 mg/dL; Very Low Density Lipoprotein 14 mg/dL (5-40); Vitamin D,25 Hydroxy 52.2 ng/mL (30-100); cholesterol:hdl ratio screen 3.17
== END | disposition home or self-care (01) ==
PROVIDERS: PCP Internal Medicine; Referring Provider Internal Medicine; Visit Provider Internal Medicine
DX: E78.00 Pure hypercholesterolemia, unspecified (principal); E55.9 Vitamin D deficiency, unspecified; R73.09 Other abnormal glucose
CPT/HCPCS: 36415; 80053; 80061; 81001; 82043; 82306; 82570; 83695; 84443; 85025

== ENCOUNTER → 2025-07-30 | Outpatient (CLI) | payer BC, SELFPAY ==
--- NOTE | 2025-07-30 16:20 | BD_ITS ---
PROCEDURE: DEXA BONE DENSITY STUDY 07/30/2025 REASON FOR EXAM: F, age 60 y/o . Postmenopausal. TECHNIQUE: Procedure Code: BDDBD Modality: DX Procedure: DEXA BONE DENSITY STUDY COMPARISON: DEXA examination dated 04/28/2023 FINDINGS: BMD and T-SCORES Lumbar spine: 1.146 g/cm2, T-score 0.9 Levels: L1 through L4 Change from prior: There has been a decrease in the bone mineral density of the lumbar spine by 0.8% since the prior study dated 04/28/2023. Left femoral neck: 0.668 g/cm2, T-score -1.6 Left total hip: 0.929 g/cm2, T-score -0.1 Change from prior: There has been a significant decrease in the bone mineral density of the left hip by 4.8% since the prior study dated 04/28/2023.. Right femoral neck: 0.759 g/cm2, T-score -0.8 Right total hip: 0.878 g/cm2, T-score -0.5 Change from prior: There has been a decrease in the bone mineral density of the right hip by 2.8% since the prior study dated 04/28/2023. The World Health Organization has defined the following categories based on bone density: Normal bone density: T-score equal to or greater than -1.0 Osteopenia: T-score between -1.0 and -2.5 Osteoporosis: T-score equal to or less than -2.5 FRAX (or Comparable) Fracture Risk Assessment: 10 Year Probability of Fracture: Major Osteoporotic Fracture: 13% Hip Fracture: 1.2% (Note: FRAX is not to be reported in setting of normal range bone density, osteoporosis on DEXA, known history of osteoporosis, prior osteoporotic hip or vertebral fracture, or for any patient undergoing pharmacological treatment for bone loss.) The National Osteoporosis Foundation (NOF) recommends pharmacological treatment for patients with a FRAX 10-year risk of 3% or higher for a hip fracture, or 20% or higher for a major osteoporotic fracture, to prevent osteoporosis and reduce fracture risk. The patient does not meet the pharmacological treatment recommendations for prevention of osteoporosis. BD/Dexa Bone Density Study IMPRESSION: OSTEOPENIA. Recommend follow-up as clinically warranted. Reading Location: [id number]
--- OUTSIDE RECORDS SUMMARY | 2025-07-30 19:15 | XMS RPT_ITS | CCD ---
Author Organization [facility] Care Team Providers Care Aerologist Name Role Phone Rony Mcnair Unavailable Unavailable Zaid, Rimma Unavailable Unavailable Zaid, Rimma Unavailable Unavailable Zaid, Rimma Unavailable Faisal Valdez Unavailable Kem Moya Unavailable Unavailable Whit Hall Unavailable Unavailable Unavailable Unavailable Whit Celis Unavailable Unavailable Deyanira Wright Unavailable Unavailable ALEC MITTAL Attending Unavailabl e JOSELUIS MITTAL Attending Unavailable IMRASHI Referring Unavailable ZAIDIVORYHLEE Primary Care Unavailable Zaid, Rimma Unavailable Faisal Valdez Unavailable Whit Celis Unavailable Unavailable Kem Moya Unavailable Unavailable Unavailable Unavailable Mandeep Munoz MD Unavailable Gravius, Anahi Unavailable Unavailable Betty Cao Unavailable Unavailable Kem Gómez Unavailable Unavailable Zaid DO, Rimma Unavailable Faisal Valdez MD Unavailable Gravius CATERING ADMINISTRATIVE ASSISTANT, Anahi Unavailable Unavailable Nash JENKINSN Betty Unavailable Unavailable Kem Gómez LPN Unavailable Unavailable Unavailable Unavailable Zaid DO, Rimma Unavailable [phone] Unavailable Unavailable Tamara Martinez MA Unavailable Unavailable Manmaikelk CATERING ADMINISTRATIVE ASSISTANT, Maria Luisa Unavailable Unavailable Zaid DO Rimma Attending Unavailable Zaid DO, Rimma Referring Unavailable Zaid DO Rimma Consulting Unavailable ZAID, RIMMA DO Consulting Unavailable ARGENTINA TALLEY MD Attending Unavailable ARGENTINA TALLEY MD Primary Care Unavailable ARGENTINA TALLEY MD Admitting Unavailable PROVIDER, UNKNOWN Consulting Unavailable Unavailable Primary Care Provider Unavailabl e Zaid NEFF, Dr. Shanks Primary Care Provider [phone] Zaid NEFF, Dr. Shanks Attending Provider [phone] Zaid NEFF, Dr. Shanks Referring Provider [phone] Aleksander BOONE, Dr. Pelaez Attending Provider [phone] RIMMA MAR Primary Care Unavailable DENNIS TOURE Attending Unavailable ARGENTINA TALLEY Referring Unavailable Zaid, Rimma Referring Unavailable Zaid, Rimma Primary Care Unavailable Zaid, Rimma Attending Unavailable Zaid, Rimma Referring Unavailable Benigno Armijo Attending Unavailable Zaid, Rimma Primary Care Unavailable Zaid, Rimma Primary Care Unavailable Zaid, Rimma Attending Unavailable Zaid, Rimma Referring Unavailable Zaid, Rimma Primary Care Unavailable Zaid, Rimma Attending Unavailable Zaid, Rimma Referring Unavailable Zaid, Rimma Referring Unavailable Zaid, Rimma Primary Care Unavailable Zaid, Rimma Attending Unavailable Zaid, Rimma Primary Care Unavailable Zaid, Rimma Attending Unavailable Zaid, Rimma Referring Unavailable Zaid, Rimma Referring Unavailable Zaid, Rimma Primary Care Unavailable Zaid, Rimma Attending Unavailable Mayank, Argentina Attending Unavailable Argentina Talley Referring Unavailable Zaid, Rimma Primary Care Unavailable Argentina Talley Attending Unavailable Argentina Talley Referring Unavailable Zaid, Rimma Primary Care Unavailable Allergies Allergy Classification Reported Allergen(s) Allergy Type Date of Onset Reaction(s) Facility (1 source) allergy to substance [facility] Work Phone: (1 source) allergy to substance [facility] Work Phone: (1 source) allergy to substance [facility] Work Phone: (1 source) allergy to substance [facility] Work Phone: (1 source) allergy to substance [facility] Work Phone: (1 source) allergy to substance [facility] Work Phone: (1 source) allergy to substance [facility] Work Phone: (1 source) allergy to substance [facility] Work Phone: (1 source) allergy to substance [facility] Work Phone: (18 sources) amLODIPine; Translations: [Norvasc *CALCIUM CHANNEL BLOCKERS*] Drug Allergy [facility] Work Phone: Comment on above: face and hand swelli ng (1 source) allergy to substance [facility] Work Phone: (1 source) allergy to substance [facility] Work Phone: (1 source) allergy to substance [facility] Work Phone: (8 sources) Ciprofloxacin; Translations: [CIPROFLOXACIN] Drug Allergy 5 Hives [facility] Repository (8 sources) Doxycycline; Translations: [DOXYCYCLINE] Drug Allergy 9 Itching [facility] Repository (17 sources) Ciprofloxacin Drug Allergy [facility] Work Phone: (17 sources) Doxycycline Drug Allergy [facility] Work Phone: (18 sources) Seasonal allergy allergy to substance 6 [facility] Work Phone: (1 source) Ciprofloxacin Drug Allergy [address] [facility] Work Phone: (1 source) Doxycycline Drug Allergy [address] [facility] Work Phone: (2 sources) Minocycline Drug Allergy [address] [facility] Work Phone: Medications Current Medications Medication Drug Class(es) Dates Sig (Normalized) Sig (Original) atenolol 25 mg oral tablet (20 sources) beta-Adrenergic Carol Ann Start: 10-18-2024 take 1 tablet by mouth once daily Atenolol 25 MG tablet Take 1 tablet by mouth daily. 10/18/2024 Active Start: 10-29-2022 take 1 tablet by jennifer once daily atenoloL 25 mg oral tablet 1 (one) Tablet daily for 90 days Quantity: 90 {Tablet} Refills: 3 Ordered: 29-Oct-2022 Zaid DO, Rimma Zaid DO, Rimma Start : 29-Oct-2022 Active Comments: Mail order. Start: 11-03-2021 take 1 tablet by jennifer th once daily Atenolol 25 MG Oral Tablet 1 (one) Tablet daily for 90 days Quantity: 90 {Tablet} Refills: 3 Ordered: 03-Nov-2021 Zaid DO, Rimma Zaid DO, Rimma Start : 03-Nov-2021 Active Comments: Mail order. Start: 10-13-2020 take 1 tablet by jennifer th once daily Atenolol 25 MG Oral Tablet 1 (one) Tablet daily for 90 days Quantity: 90 {Tablet} Refills: 3 Ordered: 13-Oct-2020 Zaid DO, Rimma Zaid DO, Rimma Start : 13-Oct-2020 Active Comments: Mail order. Start: 10-15-2019 take 1 tablet by jennifer th once daily Atenolol 25 MG Oral Tablet 1 (one) Tablet daily for 90 days Quantity: 90 {Tablet} Refills: 3 Ordered: 15-Oct-2019 Zaid DO, Rimma Zaid DO, Rimma Start : 15-Oct-2019 Active Comments: Mail order. Start: 10-24-2018 ATENOLOL 25 MG TABS take 1 tablet daily ATENOLOL [id number] Analy Somers PA-C Start: 09-08-2018 take 1 tablet by jennifer th once daily Atenolol 25 MG Oral Tablet 1 (one) Tablet daily for 30 days Quantity: 30 {Tablet} Refills: 3 Ordered: 08-Sep-2018 Deyanira Wright Start : 08-Sep-2018 Active Comment on above: Mail order. 24 hr buPROPion hydrochloride 150 mg extended release oral tablet (20 sources) Aminoketone Start: 12-13-2024 take 1 tablet by mouth once daily in the morning buPROPion 150 MG tablet XL Take 1 tablet by mouth daily every morning. 12/13/2024 Active Start: 10-18-2022 take 1 tablet by jennifer th once daily Wellbutrin XL 150 mg oral Tablet, Extended Release 24 hr 1 (one) Tablet qd for 90 days Quantity: 90 {Tablet} Refills: 3 Ordered: 18-Oct-2022 Zaid DORimma Zaid DORimma Start : 18-Oct-2022 Active Comments: Mail order. Start: 05-07-2022 take 1 tablet by jennifer th once daily Wellbutrin XL 150 MG Oral Tablet Extended Release 24 Hour 1 (one) Tablet qd for 90 days Quantity: 90 {Tablet} Refills: 1 Ordered: 07-May-2022 Zaid DORimma DO, Kathleen Start : 07-May-2022 Active Comments: Mail order. Start: 07-22-2021 take 1 tablet by jennifer th once daily Wellbutrin XL 150 MG Oral Tablet Extended Release 24 Hour 1 (one) Tablet qd for 90 days Quantity: 90 {Tablet} Refills: 1 Ordered: 22-Jul-2021 Zaid DORimma DO, Kathleen Start : 22-Jul-2021 Active Comments: Mail order. Start: 10-15-2019 take 1 tablet by jennifer th once daily Wellbutrin XL 300 MG Oral Tablet Extended Release 24 Hour 1 (one) Tablet qd for 90 days Quantity: 90 {Tablet} Refills: 1 Ordered: 02-Jul-2020 Rimma Mar DO, DO, Kathleen Start : 02-Jul-2020 Active Comments: Mail order. Start: 04-09-2019 WELLBUTRIN XL 300 MG [id number] take 1 tablet daily BUPROPION HCL [id number] Analy Somers PA-C Start: 08-21-2018 take 1 tablet by jennifer th once daily Wellbutrin XL 300 MG Oral Tablet Extended Release 24 Hour 1 (one) Tablet qd for 90 days Quantity: 90 {Tablet} Refills: 1 Ordered: 21-Aug-2018 Zaid DORimma DO, Kathleen Start : 21-Aug-2018 Active Start: 12-22-2017 take 1 tablet by jennifer th once daily Wellbutrin XL 150 MG Oral Tablet Extended Release 24 Hour 1 (one) Tablet qd for 90 days Quantity: 90 {Tablet} Refills: 1 Ordered: 22-Dec-2017 Zaid DORimma DO, Kathleen Start : 22-Dec-2017 Active Comment on above: Mail order. hypromellose (1 source) Hypromellose (SYSTANE NIGHT OP) Apply to eye. Active meloxicam 15 mg oral tablet (1 source) Nonsteroidal Anti-inflammatory Drug Start: take 1 tablet by mouth once daily Meloxicam 15 MG tablet Take 1 tablet by mouth daily. 11/28/2024 Active Polyethyl Glycol-Propyl Glycol (SYSTANE ULTRA OP) (1 source) take 1 drop(s) into the eye(s) three times daily Polyethyl Glycol-Propyl Glycol (SYSTANE ULTRA OP) Apply 1 drop to eye 3 (three) times a day. Active Completed/Discontinued Medications Medication Drug Class(es) Dates Sig (Normalized) Sig (Original) 8 hr acetaminophen 650 mg extended release oral tablet (1 source) Start: 06-27-2019 TYLENOL 8 HOUR 650 MG CR-TABS take 1 tablet every 8 hours as needed ACETAMINOPHEN [id number] Analy Somers PA-C amLODIPine 2.5 mg oral tablet (20 sources) Dihydropyridine Calcium Channel Carol Ann Start: 09-07-2018 End: 09-07-2018 take 1 tablet by mouth once daily AmLODIPine Besylate 2.5 MG Oral Tablet 1 (one) Tablet qd for 0 days Quantity: 30 {Tablet} Refills: 2 Ordered: 07-Sep-2018 Rimma Mar DO, DO, Kathleen Start : 07-Sep-2018 End : 07-Sep-2018 Discontinued Comments: face and hand swelling Start: 08-21-2018 take 1 tablet by jennifer once daily AmLODIPine Besylate 2.5 MG Oral Tablet 1 (one) Tablet qd for 0 days Quantity: 30 {Tablet} Refills: 2 Ordered: 21-Aug-2018 Rimma Mar DO, DO, Kathleen Start : 21-Aug-2018 Active Comment on above: face and hand swelli ng amoxicillin 875 mg / clavulanate 125 mg oral tablet (20 sources) Penicillin-class Antibacterial Start: 12-13-19 End: 12-23-19 take 1 tablet by mouth twice daily at mealtime Amoxicillin-Pot Clavulanate 875-125 MG Oral Tablet 1 (one) Tablet PO BID for 10 days Quantity: 20 {Tablet} Refills: 0 Ordered: 13-Dec-2019 Rimma Mar DO, DO, Kathleen Start : 13-Dec-2019 End : 23-Dec-2019 Inactive Comments: Take with food Start: 12-13-2017 End: 12-27-2017 take 1 tablet by mouth twice daily at mealtime Amoxicillin-Pot Clavulanate 875-125 MG Oral Tablet 1 (one) Tablet PO BID for 14 days Quantity: 28 {Tablet} Refills: 0 Ordered: 13-Dec-2017 Whit Hall Start : 13-Dec-2017 End : 27-Dec-2017 Inactive Comments: Take with food Start: 11-16-2017 End: 11-30-2017 take 1 tablet by mouth twice daily Augmentin 875-125 MG Oral Tablet 1 Tablet bid for 14 days Quantity: 28 {Tablet} Refills: 0 Ordered: 16-Nov-2017 Rhonda Robledo Start : 16-Nov-2017 End : 30-Nov-2017 Inactive Comment on above: Take with food ascorbic acid 60 mg / beta carotene 5000 unt / copper sulfate 40 mg / dl-alpha tocopheryl acetate 30 unt / sodium selenite 0.04 mg / zinc oxide 40 mg oral tablet (4 sources) Vitamin C Start: 1 End: 3 take 1 tablet by mouth once daily MULTI VITAMIN/MINERALS (Oral Tablet) 1 Tablet qd for 999 days Refills: 0 Ordered: 26-Apr-2014 Rhonda Robledo CNP Start : 06-Nov-2010 End : 01-Aug-2013 Inactive aspirin 81 mg delayed release oral tablet (20 sources) Platelet Aggregation Inhibitor, Nonsteroidal Anti-inflammatory Drug Start: 9 ASPIRIN ADULT LOW DOSE 81 MG TBEC take 1 tablet daily ASPIRIN [id number] Analy Somers PA-C aspirin 81 MG Ch ew Tab chewable tablet Chew 1 tablet daily. Active azithromycin 250 mg oral tablet (14 sources) Macrolide Antimicrobial Start: 09-20-2019 End: 12-13-2019 take 1 tablet by mouth once daily Zithromax Z-Wyatt 250 MG Oral Tablet tad Tablet qd for 0 days Quantity: 1 {Package} Refills: 0 Ordered: 13-Dec-2019 Whit Celis RN Start : 20-Sep-2019 End : 13-Dec-2019 Inactive augmented betamethasone 0.5 mg/ml topical cream (20 sources) Corticosteroid Start: 06-11-2008 End: 11-06-2010 DIPROLENE AF, 0.05% (External Cream) apply to affected area Cream Twice daily for 0 days Quantity: 60 {Cream} Refills: 0 Ordered: 06-Nov-2010 Hayley Turner RN Start : 11-Jun-2008 End : 06-Nov-2010 Inactive 12 hr buPROPion hydrochloride 90 mg / naltrexone hydrochloride 8 mg extended release oral tablet (20 sources) Opioid Antagonist, Aminoketone Start: 08-17-2017 End: 09-16-2017 take 1 tablet by mouth once daily, then take 1 tablet by mouth twice daily in the morning, then take 2 tablets by mouth in the evening, then take 2 tablets by mouth twice daily Contrave 8-90 MG Oral Tablet Extended Release 12 Hour 1 (one) Tablet uad for 30 days Refills: 0 Ordered: 17-Aug-2017 Rimma Mar DO, DO, Kathleen Start : 17-Aug-2017 End : 16-Sep-2017 Inactive Comments: 1 tab qd x 1 wk1 tab bid x 1 wk2 tabs in AM and 2 tab in PM x 1 wkthen 2 tabs bid Comment on above: 1 tab qd x 1 wk1 tab bid x 1 wk2 tabs in AM and 2 tab in PM x 1 wkthen 2 tabs bid [id number] TAMIN D TABS (1 source) Start: 08-04-2016 CALCIUM 500 TABS daily [id number] ITAMIN D TABS [id number] Jass Mendez MD celecoxib 200 mg oral capsule (20 sources) Nonsteroidal Anti-inflammatory Drug End: 01-24-2007 take 1 capsule by mouth once daily CELEBREX, 200MG (Oral Capsule) 1 QD for 0 days Refills: 0 Ordered: 24-Jan-2007 Kristen Banks End : 24-Jan-2007 Discontinued Cholecalciferol (20 sources) Vitamin D Start: 08-04-2016 VITAMIN D3 4000 UNIT CAPS take 1 capsule daily CHOLECALCIFEROL [id number] Analy Somers PA-C Start: 01-31-2015 take 2 capsules by m outh once daily VITAMIN D3, 2000UNIT (Oral Capsule) 2 (two) Capsule qd for 30 days Refills: 0 Ordered: 31-Jan-2015 Rimma Mar DO, DO, Kathleen Start : 31-Jan-2015 Active take 1 tablet by jennifer th once daily cholecalciferol 125 MCG (5000 UNIT) tablet Take 1 tablet by mouth daily. Active 24 hr clarithromycin 500 mg extended release oral tablet (20 sources) Macrolide Antimicrobial Start: 03-02-2013 End: 03-12-2013 take 2 tablets by mouth once daily BIAXIN XL PAC, 500MG (Oral Tablet Extended Release 24 Hour) 2 (two) Tablet ER 24HR daily for 10 days Quantity: 20 {Tablet_ER_24HR} Refills: 0 Ordered: 02-Mar-2013 Rhonda Robledo Start : 02-Mar-2013 End : 12-Mar-2013 Inactive Start: 03-02-2013 End: 03-12-2013 take 2 tablets by mouth once daily BIAXIN XL PAC, 500MG (Oral Tablet Extended Release 24 Hour) 2 (two) Tablet ER 24HR daily for 10 days Quantity: 20 {Tablet_ER_24HR} Refills: 0 Ordered: 02-Mar-2013 Rhonda Robledo CNP Start : 02-Mar-2013 End : 12-Mar-2013 Inactive dextromethorphan hydrobromide 10 mg / guaiFENesin 200 mg oral capsule (20 sources) Uncompetitive S-wzmitd-H-aspartate Receptor Antagonist, Sigma-1 Agonist Start: 11-16-2017 End: 12-13-2017 Coricidin HBP Congestion/Cough 10-200 MG Oral Capsule 1 (one) Capsule TAD for 0 days Quantity: 30 {Capsule} Refills: 0 Ordered: 13-Dec-2017 Kem Gómez LPN Start : 16-Nov-2017 End : 13-Dec-2017 Discontinued doxepin hydrochloride 10 mg oral capsule (20 sources) Tricyclic Antidepressant Start: 10-21-2008 End: 11-01-2008 take 1 capsule by mouth once daily DOXEPIN HCL, 10MG (Oral Capsule) 1 (one) Capsule Daily for 0 days Quantity: 30 {Capsule} Refills: 0 Ordered: 21-Oct-2008 Whit Celis RN Start : 21-Oct-2008 End : 01-Nov-2008 Inactive DULoxetine 60 mg delayed release oral capsule (20 sources) Serotonin and Norepinephrine Reuptake Inhibitor Start: 11-27-2008 End: 11-06-2010 take 4 capsules by mouth once daily CYMBALTA, 60MG (Oral Capsule Delayed Release Particles) 1 (one) Capsule DR Part Daily for 0 days Quantity: 90 {Capsule_DR_Part} Refills: 3 Ordered: 06-Nov-2010 Hayley Turner RN Start : 27-Nov-2008 End : 06-Nov-2010 Inactive Start: 11-27-2008 End: 11-06-2010 take 1 capsule by mouth once daily CYMBALTA, 60MG (Oral Capsule Delayed Release Particles) 1 (one) Capsule DR Part Daily for 0 days Quantity: 90 {Capsule_DR_Part} Refills: 3 Ordered: 06-Nov-2010 Hayley Turner LPN Start : 27-Nov-2008 End : 06-Nov-2010 Inactive Start: 10-21-2008 End: 01-02-2009 CYMBALTA, 30MG (Oral Capsule Delayed Release Particles) 1 (one) Capsule DR Part Daily for one wek for 0 days Refills: 0 Ordered: 21-Oct-2008 Whit Celis RN Start : 21-Oct-2008 End : 02-Jan-2009 Inactive Start: 10-21-2008 End: 01-02-2009 CYMBALTA, 30MG (Oral Capsule Delayed Release Particles) 1 (one) Capsule DR Part Daily for one wek for 0 days Refills: 0 Ordered: 21-Oct-2008 Whit Celis LPN Start : 21-Oct-2008 End : 02-Jan-2009 Inactive fexofenadine hydrochloride 180 mg oral tablet (20 sources) Histamine-1 Receptor Antagonist End: 01-24-2007 take 1 tablet by mouth once daily SANTA, 180MG (Oral Tablet) 1 QD for 0 days Refills: 0 Ordered: 24-Jan-2007 Kristen Banks End : 24-Jan-2007 Discontinued 24 hr fexofenadine hydrochloride 180 mg / pseudoephedrine hydrochloride 240 mg extended release oral tablet (20 sources) alpha-Adrenergic Agonist, Histamine-1 Receptor Antagonist Start: 12-04-2008 End: 11-06-2010 take 180-240 mg by mouth every twenty-four hours SANTA-D 24 HOUR, 180-240MG (Oral Tablet Extended Release 24 Hour) 1 for 0 days Refills: 0 Ordered: 06-Nov-2010 Hayley Turner RN Start : 04-Dec-2008 End : 06-Nov-2010 Inactive Start: 12-04-2008 End: 11-06-2010 take 1 tablet by mouth once SANTA-D 24 HOUR, 180-240 MG (Oral Tablet Extended Release 24 Hour) 1 for 0 days Refills: 0 Ordered: 06-Nov-2010 Hayley Turner LPN Start : 04-Dec-2008 End : 06-Nov-2010 Inactive fluticasone propionate 0.05 mg/actuat metered dose nasal spray (20 sources) Corticosteroid End: 06-11-2008 FLONASE, 50MCG/ACT (Nasal Suspension) 1 QD for 0 days Refills: 0 Ordered: 11-Jun-2008 Whit Celis RN End : 11-Jun-2008 Inactive 14 actuat fluticasone propionate 0.1 mg/actuat / salmeterol 0.05 mg/actuat dry powder inhaler (18 sources) Corticosteroid, beta2-Adrenergic Agonist Start: 09-29-2007 End: 06-11-2008 take 1 puff(s) by inhalation twice daily ADVAIR DISKUS, 100-50MCG/DOSE (Inhalation Miscellaneous) 1 puff Misc BID for 0 days Quantity: 1 {Misc} Refills: 0 Ordered: 29-Sep-2007 Whit Celis RN Start : 29-Sep-2007 End : 11-Jun-2008 Inactive Start: 09-29-2007 End: 06-11-2008 take 1 puff(s) by inhalation twice daily ADVAIR DISKUS, 100-50MCG/DOSE (Inhalation Miscellaneous) 1 puff Misc BID for 0 days Quantity: 1 {Misc} Refills: 0 Ordered: 29-Sep-2007 Whit Celis RN Start : 29-Sep-2007 End : 11-Jun-2008 Inactive Start: 09-29-2007 End: 06-11-2008 take 1 puff(s) by inhalation twice daily ADVAIR DISKUS, 100-50MCG/DOSE (Inhalation Miscellaneous) 1 puff Misc BID for 0 days Quantity: 1 {Misc} Refills: 0 Ordered: 29-Sep-2007 Whit Celis LPN Start : 29-Sep-2007 End : 11-Jun-2008 Inactive 12 hr guaiFENesin 600 mg extended release oral tablet (20 sources) Start: 03-02-2013 End: 04-26-2014 MUCINEX, 600MG (Oral Tablet Extended Release 12 Hour) 1 Tablet ER 12HR bid for 0 days Quantity: 30 {Tablet_ER_12HR} Refills: 0 Ordered: 26-Apr-2014 Whit Celis RN Start : 02-Mar-2013 End : 26-Apr-2014 Inactive homatropine methylbromide 0.3 mg/ml / HYDROcodone bitartrate 1 mg/ml oral solution (20 sources) Opioid Agonist, Cholinergic Muscarinic Agonist Start: 09-29-2007 End: 06-11-2008 HYCODAN, 5-1.5MG/5ML (Oral Syrup) 1-2 Syrup QHS / HS for 0 days Quantity: 90 {Syrup} Refills: 0 Ordered: 29-Sep-2007 Whit Celis RN Start : 29-Sep-2007 End : 11-Jun-2008 Inactive Start: 09-29-2007 End: 06-11-2008 HYCODAN, 5-1.5MG/5ML (Oral S yrup) 1-2 Syrup QHS / HS for 0 days Quantity: 90 {Syrup} Refills: 0 Ordered: 29-Sep-2007 Whit Celis RN Start : 29-Sep-2007 End : 11-Jun-2008 Inactive HYCODEN (Oral Syrup) (Free Text) (12 sources) Start: 10-25-2014 End: 01-31-2015 HYCODEN (Oral Syrup) (Free T ext) 1 (one) Syrup 1 tsp q8hrs prn for 0 days Quantity: 4 {Ounce} Refills: 0 Ordered: 31-Jan-2015 Whit Celis RN Start : 25-Oct-2014 End : 31-Jan-2015 Inactive Start: 10-25-2014 End: 01-31-2015 HYCODEN (Oral Syrup) (Free T ext) 1 (one) Syrup 1 tsp q8hrs prn for 0 days Quantity: 4 {Ounce} Refills: 0 Ordered: 31-Jan-2015 Whit Celis STRIP MACHINE TENDER Start : 25-Oct-2014 End : 31-Jan-2015 Inactive lansoprazole 30 mg delayed release oral capsule (20 sources) Proton Pump Inhibitor Start: 06-12-2015 End: 11-01-2016 take 1 capsule by mouth once daily Lansoprazole 30 MG Oral Capsule Delayed Release 1 (one) Capsule DR qd for 0 days Quantity: 90 {Capsule} Refills: 3 Ordered: 01-Nov-2016 Whit Celis RN Start : 12-Jun-2015 End : 01-Nov-2016 Inactive Comments: Mail order. Comment on above: Mail order. levoFLOXacin 750 mg oral tablet (20 sources) Quinolone Antimicrobial Start: 09-29-2007 End: 06-11-2008 take 1 tablet by mouth once daily LEVAQUIN, 750MG (Oral Tablet) 1 Tablet Daily for 0 days Quantity: 5 {Tablet} Refills: 0 Ordered: 29-Sep-2007 Whit Celis RN Start : 29-Sep-2007 End : 11-Jun-2008 Inactive loratadine 10 mg oral tablet (2 sources) Start: 06-27-2019 CLARITIN 10 MG TABS take 1 tablet daily as needed LORATADINE [id number] Analy Somers PA-C methylPREDNISolone 4 mg oral tablet (20 sources) Corticosteroid End: 11-06-2010 MEDROL (WYATT), 4MG (Oral Tablet) 1 qd for 0 days Refills: 0 Ordered: 06-Nov-2010 Hayley Turner RN End : 06-Nov-2010 Inactive metroNIDAZOLE 0.01 mg/mg topical gel (20 sources) Nitroimidazole Antimicrobial End: 11-06-2010 METROGEL, 1% (External Gel) apply qd for 0 days Refills: 0 Ordered: 06-Nov-2010 Hayley Turner RN End : 06-Nov-2010 Inactive End: 11-06-2010 METROGEL, 1% (External Gel) apply qd for 0 days Refills: 0 Ordered: 06-Nov-2010 Hayley Turner LPN End : 06-Nov-2010 Inactive mometasone furoate 0.05 mg/actuat metered dose nasal spray (20 sources) Corticosteroid Start: 03-02-2013 End: 04-26-2014 NASONEX, 50MCG/ACT (Nasal Suspension) 2 (two) Suspension sprays for 0 days Quantity: 1 {Suspension} Refills: 0 Ordered: 26-Apr-2014 Whit Celis RN Start : 02-Mar-2013 End : 26-Apr-2014 Inactive Start: 03-02-2013 End: 04-26-2014 NASONEX, 50MCG/ACT (Nasal Funes spension) 2 (two) Suspension sprays for 0 days Quantity: 1 {Suspension} Refills: 0 Ordered: 26-Apr-2014 Whit Celis LPN Start : 02-Mar-2013 End : 26-Apr-2014 Inactive montelukast 10 mg oral tablet (20 sources) Leukotriene Receptor Antagonist End: 06-11-2008 take 1 tablet by mouth once daily SINGULAIR, 10MG (Oral Tablet) 1 QD for 0 days Refills: 0 Ordered: 11-Jun-2008 Whit Celis RN End : 11-Jun-2008 Inactive Multi Vitamin/Minerals (4 sources) Start: 11-06-2010 End: 08-01-2013 take 1 tablet by mouth once daily MULTI VITAMIN/MINERALS (Oral Tablet) 1 Tablet qd for 999 days Refills: 0 Ordered: 26-Apr-2014 Rhonda Robledo CNP Start : 06-Nov-2010 End : 01-Aug-2013 Inactive MULTI VITAMIN/MINERALS (Oral Tablet) (13 sources) Start: 11-06-2010 End: 08-01-2013 take 1 tablet by mouth once daily MULTI VITAMIN/MINERALS (Oral Tablet) 1 Tablet qd for 999 days Refills: 0 Ordered: 26-Apr-2014 Rhonda Robledo Start : 06-Nov-2010 End : 01-Aug-2013 Inactive Start: 11-06-2010 End: 08-01-2013 take 1 tablet by mouth once daily MULTI VITAMIN/MINERALS (Oral Tablet) 1 Tablet qd for 999 days Refills: 0 Ordered: 26-Apr-2014 Rhonda Robledo CNP Start : 06-Nov-2010 End : 01-Aug-2013 Inactive predniSONE 20 mg oral tablet (20 sources) Start: 09-20-2019 End: 12-13-2019 take 1 tablet by mouth once daily predniSONE 20 MG Oral Tablet 1 Tablet daily for 0 days Quantity: 5 {Tablet} Refills: 0 Ordered: 13-Dec-2019 Whit Celis RN Start : 20-Sep-2019 End : 13-Dec-2019 Inactive Start: 09-29-2007 End: 06-11-2008 take 1 tablet by mouth once daily PREDNISONE, 20MG (Oral Tablet) 1 Tablet Daily for 0 days Quantity: 5 {Tablet} Refills: 0 Ordered: 29-Sep-2007 Whit Celis LPN Start : 29-Sep-2007 End : 11-Jun-2008 Inactive traZODone hydrochloride 50 mg oral tablet (20 sources) Serotonin Reuptake Inhibitor Start: 11-27-2008 End: 11-06-2010 take 1 tablet by mouth once daily TRAZODONE HCL, 50MG (Oral Tablet) 1 Tablet qd for 0 days Refills: 0 Ordered: 06-Nov-2010 Hayley Turner RN L Start : 27-Nov-2008 End : 06-Nov-2010 Inactive triamcinolone acetonide 0.055 mg/actuat metered dose nasal spray (20 sources) Corticosteroid Start: 12-04-2008 End: 11-06-2010 NASACORT AQ, 55MCG/ACT (Nasal Aerosol Solution) Aerosol Soln for 0 days Refills: 0 Ordered: 06-Nov-2010 Hayley Turner RN L Start : 04-Dec-2008 End : 06-Nov-2010 Inactive Start: 12-04-2008 End: 11-06-2010 NASACORT AQ, 55MCG/ACT (Nasa l Aerosol Solution) Aerosol Soln for 0 days Refills: 0 Ordered: 06-Nov-2010 Hayley Turner RN L Start : 04-Dec-2008 End : 06-Nov-2010 Inactive Start: 12-04-2008 End: 11-06-2010 NASACORT AQ, 55MCG/ACT (Nasa l Aerosol Solution) Aerosol Soln for 0 days Refills: 0 Ordered: 06-Nov-2010 Hayley Turner LPN Start : 04-Dec-2008 End : 06-Nov-2010 Inactive vitamin b12 0.1 mg oral tablet (20 sources) Vitamin B12 Start: 01-31-2015 take 1 tablet by mouth once daily VITAMIN B12, 100MCG (Oral Tablet) 1 (one) Tablet qd for 30 days Refills: 0 Ordered: 31-Jan-2015 Rimma Mar DO, DO, Kathleen Start : 31-Jan-2015 Active Start: 11-06-2010 End: 08-01-2013 take 1 tablet under the tongue once daily CYANOCOBALAMIN, 2500MCG (Sublingual Tablet Sublingual) 1 Tab Sublingual qd for 999 days Refills: 0 Ordered: 26-Apr-2014 Dianalorenaprema Rhonda Start : 06-Nov-2010 End : 01-Aug-2013 Inactive Comments: 500 sublingual Start: 11-06-2010 End: 08-01-2013 take 1 tablet under the tongue once daily CYANOCOBALAMIN, 2500MCG (Sublingual Tablet Sublingual) 1 Tab Sublingual qd for 999 days Refills: 0 Ordered: 26-Apr-2014 Dianalorenaprema Rhonda Start : 06-Nov-2010 End : 01-Aug-2013 Inactive Comments: 500 sublingual Comment on above: 500 sublingual NEGATED: Highlighted row has not occurred!drug or medication (11 sources) No Known Histori otto Medications NEGATED: Highlighted row has not occurred!No Known Historical Medications (1 source) No Known Histori otto Medications Problems Active Problems Problem Classification Problem Date Documented Date Episodic/Chronic Abdominal pain (20 sources) Epigastric pain; Translations: [Abdominal pain] Resolved: 5 07-30-2015 Episodic Comment on above: for most part Administrative/socia l admission (20 sources) Counseling procedure with explicit context; Translations: [Patient encounter status] Resolved: 8 12-13-2017 Episodic Allergic reactions (20 sources) Eczema; Translations: [Eczema] Resolved: 7 02-14-2017 Episodic Chronic obstructive pulmonary disease and bronchiectasis (20 sources) Bronchitis; Translations: [Bronchitis] Resolved: 9 06-10-2015 Episodic Chronic obstructive pulmonary disease and bronchiectasis (11 sources) Chronic obstructive pulmonary disease and bronchiectasis Conditions associated with dizziness or vertigo (20 sources) Benign paroxysmal positional vertigo; Translations: [Benign paroxysmal positional vertigo] 12-13-2017 Episodic Comment on above: see comment with oth er dx -- may need to do mri Diabetes mellitus without complication (9 sources) Type 2 diabetes mellitus; Translations: [Type II diabetes mellitus, well controlled] 09-02-2022 Chronic Disorders of lipid metabolism (20 sources) Hypercholesterolemia; Translations: [Hypercholesteremia] Onset: 5 08-16-2018 Chronic Essential hypertension (20 sources) Essential (primary) hypertension; Translations: [Benign hypertension] Onset: 9 10-24-2018 Chronic Comment on above: pt to do wt loss and exercise to try to avoid- more meds- will fu 6mo pt to do wt loss and exercise to try to avoid- more meds- will fu [id number] done at [facility] 06/23 prior to surgery Fever of unknown origin (20 sources) Fever presenting with conditions classified elsewhere; Translations: [SYMPTOM, FEVER PREST W/ CONDITIONS ELSEWHERE] Resolved: 5 07-30-2015 Episodic Fluid and electrolyte disorders (20 sources) Hyperkalemia; Translations: [Serum potassium elevated] Resolved: 8 12-13-2017 Episodic Genitourinary symptoms and ill-defined conditions (20 sources) Dysuria; Translations: [Dysuria] Resolved: 7 02-14-2017 Episodic Headache; including migraine (20 sources) Pain in face; Translations: [Facial pain] Resolved: 1 06-30-2020 Episodic Immunizations and screening for infectious disease (20 sources) Contact with and (suspected) exposure to other viral communicable diseases; Translations: [Exposure to SARS-associated coronavirus] 06-30-2020 Episodic Malaise and fatigue (20 sources) Fatigue; Translations: [Fatigue] Resolved: 9 04-26-2014 Episodic Comment on above: considering [facility] Mood disorders (20 sources) Acute depression; Translations: [Depression, acute] 10-24-2018 Chronic Mood disorders (20 sources) Mood disorders; Translations: [Major depressive disorder, single episode, unspecified] 08-16-2018 Nausea and vomiting (20 sources) Nausea; Translations: [Nausea] Resolved: 5 07-30-2015 Episodic Nonspecific chest pain (20 sources) Atypical chest pain; Translations: [Atypical chest pain] Resolved: 8 12-13-2017 Episodic Nutritional deficiencies (20 sources) Vitamin D deficiency; Translations: [Vitamin D deficiency] 07-26-2022 Chronic Osteoarthritis (2 sources) Unilateral primary osteoarthritis of first carpometacarpal joint, left hand; Translations: [Unilateral primary osteoarthritis of first carpometacarpal joint, right hand] Onset: 6 08-04-2016 Chronic Other circulatory disease (20 sources) Elevated blood-pressure reading without diagnosis of hypertension; Translations: [Elevated blood-pressure reading without diagnosis of hypertension] 12-13-2017 Episodic Other connective tissue disease (20 sources) Primary fibromyalgia syndrome 12-13-2017 Episodic Comment on above: stable Other diseases of veins and lymphatics (2 sources) Other specified disorders of veins; Translations: [Other specified disorders of veins] Onset: 8 Episodic Other endocrine disorders (20 sources) Hypoglycemia; Translations: [Hypoglycemia] 08-16-2018 Chronic Comment on above: eat q 2-3 hrs - avio d sugar white starches Other endocrine disorders (20 sources) Disorder of endocrine system; Translations: [Hormone imbalance] 12-13-2017 Episodic Other eye disorders (1 source) Conjunctivochalasis of left eye; Translations: [Conjunctivochalasis, left eye] 01-01-2025 Episodic Other eye disorders (1 source) Chemosis of conjunctiva; Translations: [Conjunctival edema, left eye] 01-01-2025 Episodic Other female genital disorders (20 sources) Premenstrual tension syndrome; Translations: [Premenstrual tension syndrome] 12-13-2017 Chronic Other female genital disorders (20 sources) Premenstrual tension syndromes Chronic Other inflammatory condition of skin (20 sources) Rosacea; Translations: [Rosacea] 12-13-2017 Chronic Other lower respiratory disease (20 sources) Shortness of breath; Translations: [Dyspnea] Resolved: 5 07-30-2015 Episodic Other lower respiratory disease (20 sources) Cough; Translations: [Cough] Resolved: 2 02-14-2017 Episodic Other nervous system disorders (1 source) Carpal tunnel syndrome, right upper limb; Translations: [Carpal tunnel syndrome, right upper limb] Onset: 6 08-04-2016 Chronic Other nervous system disorders (1 source) Carpal tunnel syndrome, left upper limb; Translations: [Carpal tunnel syndrome, left upper limb] Onset: 6 08-04-2016 Chronic Other nervous system disorders (1 source) Lesion of ulnar nerve, right upper limb; Translations: [Lesion of ulnar nerve, right upper limb] Onset: 6 08-04-2016 Chronic Other nervous system disorders (20 sources) Loss of taste; Translations: [Taste absent] 06-30-2020 Episodic Other nutritional; endocrine; and metabolic disorders (20 sources) Body mass index 40+ - severely obese; Translations: [BMI 40.0-44.9, adult] Resolved: 8 11-16-2017 Chronic Other nutritional; endocrine; and metabolic disorders (20 sources) Obesity, unspecified; Translations: [Obesity] Chronic Other nutritional; endocrine; and metabolic disorders (20 sources) Body mass index 30+ - obesity; Translations: [BMI 38.0-38.9,adult] Resolved: 9 12-13-2017 Chronic Other nutritional; endocrine; and metabolic disorders (20 sources) Obesity; Translations: [Non morbid obesity, unspecified obesity type] 12-13-2017 Chronic Other screening for suspected conditions (not mental disorders or infectious disease) (20 sources) Ultrasound scan abnormal; Translations: [Patient encounter status] Onset: 5 Resolved: 7 12-13-2017 Episodic Comment on above: dilated fallopian tu be Other skin disorders (20 sources) Nonscarring hair loss, unspecified; Translations: [Loss of hair] Resolved: 8 12-13-2017 Episodic Other upper respiratory disease (20 sources) Allergic rhinitis due to other allergen; Translations: [Allergic rhinitis] Chronic Other upper respiratory disease (12 sources) Pain in throat Episodic Other upper respiratory disease (20 sources) Nasal sinus problem; Translations: [Sinus pressure] Resolved: 8 12-13-2017 Episodic Other upper respiratory infections (20 sources) Acute upper respiratory infection; Translations: [Acute pharyngitis] Resolved: 8 12-13-2017 Episodic Comment on above: early URI, but going on vacation will send with scritp us e if needed Ovarian cyst (20 sources) Cyst of ovary; Translations: [Cyst of ovary, unspecified laterality] 12-13-2017 Episodic Pneumonia (except that caused by tuberculosis or sexually transmitted disease) (20 sources) Severe acute respiratory syndrome; Translations: [SARS (severe acute respiratory syndrome)] Resolved: 2 07-26-2022 Episodic Residual codes; unclassified (20 sources) Non-smoker; Translations: [Non-smoker] 05-20-2021 Episodic Residual codes; unclassified (1 source) Asymptomatic menopausal state; Translations: [Asymptomatic menopausal state] Onset: 5 Episodic Syncope (20 sources) Syncope; Translations: [Syncope and collapse] Onset: 7 12-13-2017 Episodic Thyroid disorders (20 sources) Mass of thyroid gland; Translations: [Thyroid mass] Onset: 5 05-20-2021 Episodic Unclassified (20 sources) Unclassified (20 sources) Hypercholesteremia (272.0) Unclassified (20 sources) Non-smoker; Translations: [Non-smoker] 12-13-2017 Unclassified (12 sources) Hair loss Unclassified (12 sources) Elevated Blood Pressure without diagnosis of Hypertension (796.2) Unclassified (17 sources) BMI 38.0-38.9,adult Unclassified (20 sources) Hypercholesteremia Unclassified (20 sources) BMI 40.0-44.9, adult Unclassified (20 sources) BMI 39.0-39.9,adult Unclassified (19 sources) HTN (hypertension), benign Unclassified (1 source) Thyroid mass Unclassified (1 source) BRONCHITIS, NOT SPECIFIED ACUTE OR CHRONIC (490.) Past or Other Problems Problem Classification Problem Date Documented Da te Episodic/Chronic Conditions associated with dizziness or vertigo (20 sources) Conditions associated with dizziness or vertigo Diabetes mellitus without complication (20 sources) Hyperglycemia; Translations: [Hyperglycemia] Onset: 08-27-2024 06-30-2020 Episodic Diabetes mellitus without complication (12 sources) Diabetes mellitus without complication Other connective tissue disease (1 source) Bicipital tendinitis, right shoulder; Translations: [Bicipital tendinitis, right shoulder] Onset: 06-27-2019 06-27-2019 Episodic Other connective tissue disease (1 source) Complete rotator cuff tear or rupture of right shoulder, not specified as traumatic; Translations: [Complete rotator cuff tear or rupture of right shoulder, not specified as traumatic] Onset: 06-27-2019 06-27-2019 Episodic Other eye disorders (3 sources) Conjunctivochalasis , left eye; Translations: [Conjunctivochalasi s, left eye] Onset: 10-26-2024 Episodic Other eye disorders (2 sources) Conjunctival edema, left eye; Translations: [Conjunctival edema, left eye] Onset: 01-01-2025 Episodic Other upper respiratory disease (20 sources) Allergic rhinitis; Translations: [Allergic rhinitis] Resolved: 01-29-2009 06-10-2015 Chronic Comment on above: Seasonal Other upper respiratory disease (11 sources) Nasal discharge; Translations: [Post-nasal drainage] Resolved: 08-21-2018 12-13-2017 Episodic Syncope (20 sources) Syncope Unclassified (20 sources) Patient encounter status; Translations: [Annual physical exam] Resolved: 08-21-2018 12-13-2017 Unclassified (12 sources) HORMONE IMBALANCE (259.9) Unclassified (20 sources) Ovarian Cyst, Unspecified (620.2) Unclassified (20 sources) Unspecified Diagnosis Resolved: 02-14-2017 02-14-2017 Unclassified (20 sources) SINUSITIS, ACUTE NOS (461.9) Unclassified (12 sources) SYMPTOM, FEVER PREST W/ CONDITIONS ELSEWHERE (780.61) Unclassified (12 sources) ABNORMAL PELIVC ULTRASOUND (793.5) Unclassified (20 sources) Screening status; Translations: [Screening for diabetes mellitus] Resolved: 02-14-2017 12-13-2017 Unclassified (12 sources) Serum potassium elevated Unclassified (20 sources) Abdominal Pain,LUQ (789.02) Unclassified (12 sources) Encounter for screening for lipid disorder (Renamed from Screening for lipid disorders) Unclassified (12 sources) Encounter for screening for malignant neoplasm of colon (Renamed from Special screening for malignant neoplasms, colon) Unclassified (12 sources) Nutritional counseling Unclassified (12 sources) Non morbid obesity, unspecified obesity type Unclassified (12 sources) Sinus pressure Unclassified (12 sources) Upper respiratory infection, acute Unclassified (12 sources) Post-nasal drainage Unclassified (1 source) Problem Unclassified (5 sources) Exposure to SARS-associated coronavirus Unclassified (5 sources) Taste absent Unclassified (5 sources) Sinusitis, acute Unclassified (5 sources) Facial pain Results Test Name Value Interpretation Reference Range Facility [id number] [facility] Normal . [facility] Comment on above: Order Comment: [id number] 5APOLIPOPROTIENB RT G OR RED Result Comment: Test Ordered: [id number] Apolipoprotein B Apolipoprotein B 106 [H ] mg/dL BN Reference Range: <90 Desirable < 90 Borderline High 90 - 99 High 100 - 130 Very High >130 ASCVD RISK THERAPEUTIC TARGET CATEGORY APO B (mg/dL) Very High Risk <80 (if extreme risk <70) High Risk <90 Moderate Risk <90 Performed at: [facility] [address] [id number] Trauma Program Manager: Bere Huntley MD, Phone: [phone] Performed at: [address] [place] [address] [id number] Trauma Program Manager: Thom Rubio PhD, Phone: [phone] Performed By: #### L [id number] #### [facility] Laboratory [address] [place], [address] Lipoprotein Aon 06-20-2025 Lipoprotein a [Moles/Vol] 212.0 nmol/L Abnormal <75.0 [facility] Comment on above: Order Comment: Test( s) 811829-Plbwzyeojyt (a)was developed and its performance characteristicsdetermined by [employer]. It has not been cleared or approvedby the Food and Drug Administration. Result Comment: Note : Values greater than or equal to 75.0 nmol/L may indicate an independent risk factor for CHD, but must be evaluated with caution when applied to non- populations due to the influence of genetic factors on Lp(a) across ethnicities. Performed at: [address] [id number] Trauma Program Manager: Thom Rubio PhD, Phone: [phone] Performed By: #### L [id number] #### [facility] [address] [place], [address] CBC W/Diff, Automatedon 06-05 Absolute Lymph 1.14 X10 3/uL Normal 0.83-4.51 [facility] Comment on above: Performed By: #### L [id number], [id number] #### [facility] [address] [place], [address] Absolute Neut 2.4 X10 3/uL Normal 2.0-7.7 [facility] Comment on above: Performed By: #### L [id number], [id number] #### [facility] [address] [place], [address] Basophils/100 WBC (Bld) 1.2 % High 0-1 [facility] Comment on above: Performed By: #### L [id number], [id number] #### [facility] [address] [place], [address] Eosinophils/100 WBC (Bld) 2.7 % Normal 0-5 [facility] Comment on above: Performed By: #### L [id number], [id number] #### [facility] [address] [place], [address] Erythrocyte distribution width (RBC) [Ratio] 13.2 % Normal 11.6-14.6 [facility] Comment on above: Performed By: #### L [id number], [id number] #### [facility] [address] [place], [address] Hematocrit (Bld) [Volume fraction] 37.9 % Normal 37-47 [facility] Comment on above: Performed By: #### L [id number], [id number] #### [facility] [address] [place], [address] Hemoglobin (Bld) [Mass/Vol] 12.7 g/dL Normal 12.0-15.0 [facility] Comment on above: Performed By: #### L [id number], [id number] #### [facility] [address] [place], [address] IG% 0.000 Normal 0.0-0.9 [facility] Comment on above: Result Comment: IG% - Immature Granulocytes (promyelocytes, myelocytes and metamyelocytes) > 1% indicates that a LEFT SHIFT is Present. Performed By: #### L [id number], [id number] #### [facility] [address] [place], [address] Lymphocytes/100 WBC (Bld) 27.7 % Normal 19-41 [facility] Comment on above: Performed By: #### L [id number], [id number] #### [facility] [address] [place], [address] MCH (RBC) [Entitic mass] 30.8 pg Normal 27.0-32.0 [facility] Comment on above: Performed By: #### L [id number], [id number] #### [facility] [address] [place], [address] MCHC (RBC) [Mass/Vol] 33.5 g/dL Normal 32-36 [facility] Comment on above: Performed By: #### L [id number], [id number] #### [facility] [address] [place], [address] MCV (RBC) [Entitic vol] 92.0 fL Normal 81-99 [facility] Comment on above: Performed By: #### L [id number], [id number] #### [facility] [address] [place], [address] Monocytes/100 WBC (Bld) 9.2 % Normal 0-10 [facility] Comment on above: Performed By: #### L [id number], [id number] #### [facility] [address] [place], [address] Neutrophils/100 WBC (Bld) 59.2 % Normal 47-70 [facility] Comment on above: Performed By: #### L [id number], [id number] #### [facility] [address] [place], [address] Nucleated RBC (Bld) [#/Vol] 0 10*3/uL Normal 0-5 [facility] Comment on above: Performed By: #### L [id number], [id number] #### [facility] [address] [place], [address] Platelet mean volume (Bld) [Entitic vol] 9.3 fL Normal 6.2-12.0 [facility] Comment on above: Performed By: #### L [id number], [id number] #### [facility] [address] [place], [address] Platelets (Bld) [#/Vol] 292 10*3/uL Normal 150-450 [facility] Comment on above: Performed By: #### L [id number], [id number] #### [facility] [address] [place], [address] RBC (Bld) [#/Vol] 4.12 10*6/uL Low 4.2-5.4 [facility] Comment on above: Performed By: #### L [id number], [id number] #### [facility] [address] [place], [address] RDW SD 44.9 fl High 35.1-43.9 [facility] Comment on above: Performed By: #### L [id number], [id number] #### [facility] [address] [place], [address] WBC (Bld) [#/Vol] 4.1 10*3/uL Low 4.4-11.0 [facility] Comment on above: Performed By: #### L [id number], [id number] #### [facility] [address] [place], [address] Comprehensive Metabolic Prof [facility] 06-19-2025 Albumin [Mass/Vol] 4.1 g/dL Normal 3.4-4.8 [facility] Comment on above: Performed By: #### L [id number], [id number] #### [facility] [address] [place], [address] Albumin/Globulin [Mass ratio] 1.5 {ratio} Normal 0.9-2.4 [facility] Comment on above: Performed By: #### L [id number], [id number] #### [facility] [address] [place], [address] ALK PHOS 71 U/L Normal 35-104 [facility] Comment on above: Performed By: #### L [id number], [id number] #### [facility] [address] [place], [address] ALT [Catalytic activity/Vol] 21 U/L Normal <=34 [facility] Comment on above: Performed By: #### L [id number], [id number] #### [facility] [address] [place], [address] AST [Catalytic activity/Vol] 20 U/L Normal <=31 [facility] Comment on above: Performed By: #### L [id number], [id number] #### [facility] [address] [place], [address] Bilirubin [Mass/Vol] 0.45 mg/dL Normal 0.00-1.30 [facility] Comment on above: Performed By: #### L [id number], [id number] #### [facility] [address] [place], [address] BUN/CRE 20.3 RATIO High 10-20 [facility] Comment on above: Performed By: #### L [id number], [id number] #### [facility] [address] [place], [address] Calcium [Mass/Vol] 9.6 mg/dL Normal 7.6-11.0 [facility] Comment on above: Performed By: #### L [id number], [id number] #### [facility] [address] [place], [address] Chloride [Moles/Vol] 104 mmol/L Normal 98-108 [facility] Comment on above: Performed By: #### L [id number], [id number] #### [facility] [address] [place], [address] CO2 [Moles/Vol] 24.2 mmol/L Normal 21.0-32.0 [facility] Comment on above: Performed By: #### L [id number], [id number] #### [facility] [address] [place], [address] Creatinine [Mass/Vol] 0.83 mg/dL Normal 0.70-1.20 [facility] Comment on above: Performed By: #### L [id number], [id number] #### [facility] [address] [place], [address] GAP 12 Normal 5-15 [facility] Comment on above: Performed By: #### L [id number], [id number] #### [facility] [address] [place], [address] GFR/1.73 sq M.predicted among non-blacks MDRD (S/P/Bld) [Vol rate/Area] 80 mL/min/{1.73_m2} Normal >60 [facility] Comment on above: Result Comment: mL/m in/1.73m2 CKD-EPI Creatinine Equation (2020) Performed By: #### L [id number], [id number] #### [facility] [address] [place], [address] Globulin (S) [Mass/Vol] 2.7 g/dL Normal 2.2-4.2 [facility] Comment on above: Performed By: #### L [id number], [id number] #### [facility] [address] [place], [address] Glucose [Mass/Vol] 99 mg/dL Normal 70-99 [facility] Comment on above: Performed By: #### L [id number], [id number] #### [facility] [address] [place], [address] Potassium [Moles/Vol] 3.8 mmol/L Normal 3.3-5.1 [facility] Comment on above: Performed By: #### L [id number], [id number] #### [facility] [address] [place], [address] Sodium [Moles/Vol] 140 mmol/L Normal 133-145 [facility] Comment on above: Performed By: #### L 501.9520, L506.0400 #### [facility] [address] [place], [address] T PROT 6.8 g/dL Normal 5.9-8.4 [facility] Comment on above: Performed By: #### L 501.9520, L506.0400 #### [facility] [address] [place], [address] Urea nitrogen [Mass/Vol] 17 mg/dL Normal 4-19 [facility] Comment on above: Performed By: #### L 501.9520, L506.0400 #### [facility] [address] [place], [address] Lipid Profileon 06-19-2025 CHOL:HDL 3.17 Normal [facility] Comment on above: Performed By: #### L 501.9520, L506.0400 #### [facility] [address] [place], [address] Cholesterol [Mass/Vol] 218 mg/dL High <=200 [facility] Comment on above: Result Comment: Chol esterol level, Desirable <200 mg/dL Borderline high cholesterol 200-239 mg/dL High cholesterol >=240 mg/dL Recommendations of the NCEP Adult Treatment Panel for the following risk-cutoff thresholds for the [place] population. Performed By: #### L 501.9520, L506.0400 #### [facility] [address] [place], [address] Cholesterol in HDL [Mass/Vol] 69 mg/dL Normal [facility] Comment on above: Result Comment: Clarisa onal Cholesterol Education Program (NCEP) guidelines: <40 mg/dL: Low HDL-cholesterol (major risk factor for CHD) >= 60 mg/dL: High HDL-cholesterol (negative risk factor for CHD) HDL-cholesterol is affected by a number of factors, e.g. smoking, exercise, hormones, sex and age. Performed By: #### L 501.9520, L506.0400 #### [facility] [address] [place], [address] Cholesterol in LDL [Mass/Vol] 136 mg/dL Normal [facility] Comment on above: Result Comment: Bord ddxxao=676-920 mg/dL Higher Yjnq=708 mg/dL or greater Friedwald Equation for LDL-C Performed By: #### L 501.9520, L506.0400 #### [facility] [address] [place], [address] Cholesterol in VLDL [Mass/Vol] 14 mg/dL Normal 5-40 [facility] Comment on above: Performed By: #### L 501.9520, L506.0400 #### [facility] [address] [place], [address] Triglyceride [Mass/Vol] 68 mg/dL Normal [facility] Comment on above: Result Comment: The drugs N-Acetylcysteine and Metamizole may falsely depress this assay. Normal range: <150 mg/dL Borderline High: 150-199 mg/dL High: 200-499 mg/dL Very High: >500 mg/dL Performed By: #### L 501.9520, L506.0400 #### [facility] [address] [place], [address] Microalb:Creat Ratio,Random URon 06-19-2025 Creatinine [Mass/Vol] 227.00 mg/dL High 28.00-217. 00 [facility] Comment on above: Performed By: #### L 501.9520, L506.0400 #### [facility] [address] [place], [address] MALB:CREAT 12.8 mg/g CRE Normal <30 mg/g CRE [facility] Comment on above: Performed By: #### L 501.9520, L506.0400 #### [facility] [address] [place], [address] MICROALBUMIN,UR 29.1 mg/L Normal <20 mg/L [facility] Comment on above: Performed By: #### L 501.9520, L506.0400 #### [facility] [address] [place], [address] Thyroid Stim Hormone (TSH)on 06-19-2025 TSH 2.410 uIU/mL Normal 0.300-4.20 0 [facility] Comment on above: Performed By: #### L 501.9520, L506.0400 #### [facility] [address] [place], [address] Urinalysis, Completeon 06-19 BACTERIA RARE Normal None Seen [facility] Comment on above: Order Comment: CLEAN CATCH Performed By: #### L 501.9520, L506.0400 #### [facility] [address] [place], [address] CAST,HYALINE 5-10 SEEN Normal 0-5 [facility] Comment on above: Order Comment: CLEAN CATCH Performed By: #### L 501.9520, L506.0400 #### [facility] [address] [place], [address] EPI,SQUAMOUS 0-5 SEEN Normal 5-10 [facility] Comment on above: Order Comment: CLEAN CATCH Performed By: #### L 501.9520, L506.0400 #### [facility] [address] [place], [address] Mucus Ql (Urine sed) 2+ /hpf Normal [facility] Comment on above: Order Comment: CLEAN CATCH Performed By: #### L 501.9520, L506.0400 #### [facility] [address] [place], [address] RBC 0-5 SEEN Normal 0-5 [facility] Comment on above: Order Comment: CLEAN CATCH Performed By: #### L 501.9520, L506.0400 #### [facility] [address] [place], [address] WBC 10-25 SEEN Normal 0-5 [facility] Comment on above: Order Comment: CLEAN CATCH Performed By: #### L 501.9520, L506.0400 #### [facility] [address] [place], [address] Vitamin D,25 Hydroxyon 06-19 Vitamin D 25-OH 52.2 ng/mL Normal 30-100 [facility] Comment on above: Result Comment: Arti min D Status Deficiency: <20 ng/mL (50nmol/L) Insufficiency: 20-30 ng/mL (50-75 nmol/L) Sufficiency: 30-100 ng/mL (75-250 nmol/L) Toxicity: >100 ng/mL (>250 nmol/L) Performed By: #### L 501.9520, L506.0400 #### [facility] [address] [place], [address] Thyroidon 04-24-2025 Thyroid [facility] [address] [address] [facility] [place] [address] Thyroid MR#: [id number] Acct: [id number] Name: VARSHA TORRES Rep #: [id number] : 1965 F 60 From: Noah Elise MD PCP: Dr. Rimma Mar DO Status: REG CLI Study: Thyroid Date of Exam: 04/24/25 Exam# [id number] Ordering Dr: Rimma Mar DO PROCEDURE: THYROID 04/24/2025 REASON FOR EXAM: THYROID MASS TECHNIQUE: THYROID COMPARISON: None FINDINGS: Right thyroid lobe size: 4.4 x 1.7 x 1.9 cm Left thyroid lobe size: 4.1 x 1.6 x 1.3 cm Isthmus: 4.4 mm Background parenchymal echotexture is normal Nodules: 1. Lobe: Right, Location: Midpole, Size: 0.6 cm, Stability: N/A Composition: Cystic or mostly cystic (+0) Echogenicity: Anechoic (+0) Margin: Smooth (+0) Shape: Wider than tall (+0) Echogenic Foci: None (+0) TI-RADS: 1 2. Lobe: Right, Location: Lower pole, Size: 0.2 cm, Stability: N/A Composition: Cannot be determined Echogenicity: Cannot be determined Margin: Ill-defined (+0) Shape: Wider than tall (+0) Echogenic Foci: Macrocalcification (+1) TI-RADS: 1 Technologist scanned overly sternoclavicular joint in the area of palpable concern. Likely degenerative changes. US/Thyroid IMPRESSION: 1. Benign colloid cyst right midpole. 2. Benign dystrophic calcification right lower pole. TIADS 1. Non-suspicious. No follow-up required 3. Technologist scanned over an area of palpable concern at the sternoclavicular region. Likely degenerative changes. Consider x-ray if appropriate. Reading Location: [facility] CC: Dr. Rimma Mar DO Drafter Civil: Signed Normal [facility] Coronary Angiography CTon Coronary Angiography CT [facility] Imaging Services [address] [place] [address] 04/12/25 0643 MR#: [id number] Acct: [id number] Name: VARSHA TORRES Rep #: [id number] : 1965 59 From: Benigno Armijo MD PCP: Dr. Rimma Mar DO Status:REG REF Y Location: CT ADDENDUM by Dr. Benigno Armijo MD on 05/13/25 at 1441 Addendum Date of study 04/11/25 05/13/25 1441 Date Benigno Armijo MD Cosigner Signature (if applicable): Date cc: Dr. Benigno Armijo MD; Dr. Rimma Mar, DO * Signed Calcium Scoring Date of Study:: 04/12/25 Indications Indications: Hyperlipidemia Coronary Calcium Scoring: High-resolution Computed Tomographic imaging of the chest was performed on [04/11/2025], with particular attention paid to the coronary arteries. Images from the examination were analyzed for the presence and extent of coronary artery calcification , using coronary calcium quantification software. The patient tolerated the procedure well and there were no complications. The results of the coronary calcification analysis are provided below. Findings Coronary Artery Left Main (LM): 0 Left Anterior Descending (LAD): 0 Left Circumflex (LCX): 0 Right Coronary Artery (RCA): 53.6 Total Agatston Score: 53.6 Percentile Rankin-75th percentile Calcium Scoring Interpretation: Different methods to categorize the overall amount of coronary plaque. Overall amount CAC SIS Visual of coronary plaque P1 Mild -100 <2 1-2 vessels with mild amount of plaque P2 Moderate 101-300 3-4 1-2 vessels with moderate amount, 3 vessels with mild amount of plaque P3 Severe 301-999 5-7 3 vessels with moderate amount, 1 vessel with severe amount of plaque P4 Extensive >1000 >8 2-3 vessels with severe amount of plaque Calcium Score: Mild: 1-2 vessels w/mild amount of plaque Conclusion: Mild one-vessel plaque disease. 04/12/25 0644 Date Benigno Armijo MD Cosigner Signature (if applicable): Date CC: Dr. Benigno Armijo MD; Dr. Rimma Mar DO Signed Normal [facility] Limited Chest CT Cardiac Onl yon 04-11-[address] Cardiac Only [facility] Imaging Services [address] [place], [place] [id number] Limited Chest CT Cardiac Only MR#: [id number] Acct: [id number] Name: VARSHA TORRES Rep #: [id number] : 1965 F 59 From: Jose jackson MD PCP: Dr. Rimma Mar DO Status: REG REF Study: Limited Chest CT Cardiac Only Date of Exam: Exam# [id number] Ordering Dr: Rimma Mar DO PROCEDURE: LIMITED CHEST CT CARDIAC ONLY 04/11/2025 REASON FOR EXAM: HYPERCHOLESTERMIA TECHNIQUE: LIMITED CHEST CT CARDIAC ONLY CONTRAST: None delete One or more dose reduction techniques were used (e.g., Automated exposure control, adjustment of the mA and/or kV according to patient size, use of iterative reconstruction technique). RADIATION DOSE SUMMARY: CTDlvol: 12.19 mGy DLP: 195.04 mGycm COMPARISON: None FINDINGS: Atherosclerotic calcification of the aortic arch. Minimal calcification of the proximal portion of the right coronary artery. The heart is nonenlarged. Small benign-appearing mediastinal lymph nodes. Findings suggestive of scarring in the lingular segment of the left upper lobe. Upper abdomen is unremarkable. CT/Limited Chest CT Cardiac Only IMPRESSION: Mild right coronary artery calcification. Mild linear scarring in the lingular segment of the left upper lobe. Reading Location: [facility] CC: Dr. Rimma Mar DO Drafter Civil: Signed Normal [facility] CT ORBITS W/WO CONTRASTon CT ORBITS W/WO CONTRAST [place] [address] Patient: ANNA MARIE TORRES Phone#: : 1965 Age: 59 Gender: F Pt. Type: Out Account: [id number] Location: Ordering: [facility] Exam Date: 10/11/2024/10:59 Family Phys: Charge Code: [id number] Physician: [place] Order #: [id number] Dose#: 41.6 mGy PROCEDURE: CT ORBITS WITH AND WITHOUT CONTRAST COMPARISON: None. INDICATIONS: Conjunctivochalasis. TECHNIQUE: After obtaining the patient's consent, multi-planar CT images were obtained and created without and with non-ionic intravenous contrast. All CT scans at this facility use dose modulation, iterative reconstruction, and/or weight based dosing when appropriate to reduce radiation dose to as low as reasonably achievable. IV CONTRAST: Omnipaque 350,50ml TOTAL DOSE: 41.6 CTDIvol(mGy) FINDINGS: GLOBES: Normal. No asymmetry or no visible mass. EXTRAOCULAR MUSCLES: Normal. No enlargement or asymmetry. INTRACONAL SPACE: Normal. No visible mass, with normal retrobulbar fat. No inflammatory stranding. No fluid collection. No abnormal enhancement. EXTRACONAL SPACE: Normal. No visible mass or inflammation. No abnormal enhancement. No fluid collection. SINUSES: Minimal mucosal thickening in the left maxillary sinus. Frontal sinuses are not pneumatized. BONES: Normal. Intact bony orbit, without evidence of fracture. OTHER: Congenital nonunion of the posterior arch of C1. CONCLUSION: 1. Unremarkable CT appearance of the orbits Dictated by: Kristy Larose MD on 10/11/2024 at 16:55 Approved by: Kristy Larose MD on 10/11/2024 at 17:[address] [facility] Serum Creatinine AND GFRon 0 10-08-2024 Creatinine [Mass/Vol] 0.85 mg/dL Normal 0.55-1.02 [facility] Comment on above: Result Comment: The validity of the calculated GFR GFRAA in patients over 70 years has not been determined. Clinical correlation is essential. Performed By: #### L 501.1105 #### [facility] [place], [address] EST GFR - AA 88 mL/min Normal >60 [facility] Comment on above: Result Comment: Afri can Chinese GFR Calc Performed By: #### L 501.1105 #### [facility] [address] [place], [address] GFR/1.73 sq M.predicted among non-blacks MDRD (S/P/Bld) [Vol rate/Area] 73 mL/min/{1.73_m2} Normal >60 [facility] Comment on above: Result Comment: Non- GFR Calc Performed By: #### L 501.1105 #### [facility] [address] [place], [address] T4 Free Directon 09-29-2024 T4 FREE DIRECT 0.86 ng/dL Normal 0.76-1.46 [facility] Comment on above: Performed By: #### L 501.9520, L506.0400 #### [facility] [address] [place], [address] Thyroid Stim Hormone (TSH)on 09-29-2024 TSH 1.690 uIU/mL Normal 0.358-3.74 0 [facility] Comment on above: Performed By: #### L 501.9520, L506.0400 #### [facility] [address] [place], [address] CBC W/Diff, Automatedon 11-2 Absolute Lymph 1.58 X10 3/uL Normal 0.83-4.51 [facility] Comment on above: Performed By: #### L 501.9985, L506.1000, L500.4050, L502.0250, L501.9520, L500.4100, L100.0100 #### [facility] [address] [place], [address] Absolute Neut 2.4 X10 3/uL Normal 2.0-7.7 [facility] Comment on above: Performed By: #### L 501.9985, L506.1000, L500.4050, L502.0250, L501.9520, L500.4100, L100.0100 #### [facility] [address] [place], [address] Basophils/100 WBC (Bld) 1.1 % High 0-1 [facility] Comment on above: Performed By: #### L 501.9985, L506.1000, L500.4050, L502.0250, L501.9520, L500.4100, L100.0100 #### [facility] [address] [place], [address] Eosinophils/100 WBC (Bld) 3.9 % Normal 0-5 [facility] Comment on above: Performed By: #### L 501.9985, L506.1000, L500.4050, L502.0250, L501.9520, L500.4100, L100.0100 #### [facility] [address] [place], [address] Erythrocyte distribution width (RBC) [Ratio] 13.1 % Normal 11.6-14.6 [facility] Comment on above: Performed By: #### L 501.9985, L506.1000, L500.4050, L502.0250, L501.9520, L500.4100, L100.0100 #### [facility] [address] [place], [address] Hematocrit (Bld) [Volume fraction] 38.6 % Normal 37-47 [facility] Comment on above: Performed By: #### L 501.9985, L506.1000, L500.4050, L502.0250, L501.9520, L500.4100, L100.0100 #### [facility] [address] [place], [address] Hemoglobin (Bld) [Mass/Vol] 12.5 g/dL Normal 12.0-15.0 [facility] Comment on above: Performed By: #### L 501.9985, L506.1000, L500.4050, L502.0250, L501.9520, L500.4100, L100.0100 #### [facility] [address] [place], [address] IG% 0.200 Normal 0.0-0.9 [facility] Comment on above: Result Comment: IG% - Immature Granulocytes (promyelocytes, myelocytes and metamyelocytes) > 1% indicates that a LEFT SHIFT is Present. Performed By: #### L 501.9985, L506.1000, L500.4050, L502.0250, L501.9520, L500.4100, L100.0100 #### [facility] [address] [facility] [place], [address] Lymphocytes/100 WBC (Bld) 34.2 % Normal 19-41 [facility] Comment on above: Performed By: #### L 501.9985, L506.1000, L500.4050, L502.0250, L501.9520, L500.4100, L100.0100 #### [facility] [address] [place], [address] MCH (RBC) [Entitic mass] 30.3 pg Normal 27.0-32.0 [facility] Comment on above: Performed By: #### L 501.9985, L506.1000, L500.4050, L502.0250, L501.9520, L500.4100, L100.0100 #### [facility] [address] [place], [address] MCHC (RBC) [Mass/Vol] 32.4 g/dL Normal 32-36 [facility] Comment on above: Performed By: #### L 501.9985, L506.1000, L500.4050, L502.0250, L501.9520, L500.4100, L100.0100 #### [facility] [address] [place], [address] MCV (RBC) [Entitic vol] 93.7 fL Normal 81-99 [facility] Comment on above: Performed By: #### L 501.9985, L506.1000, L500.4050, L502.0250, L501.9520, L500.4100, L100.0100 #### [facility] [address] [place], [address] Monocytes/100 WBC (Bld) 8.9 % Normal 0-10 [facility] Comment on above: Performed By: #### L 501.9985, L506.1000, L500.4050, L502.0250, L501.9520, L500.4100, L100.0100 #### [facility] [address] [place], [address] Neutrophils/100 WBC (Bld) 51.7 % Normal 47-70 [facility] Comment on above: Performed By: #### L 501.9985, L506.1000, L500.4050, L502.0250, L501.9520, L500.4100, L100.0100 #### [facility] [address] [place], [address] Nucleated RBC (Bld) [#/Vol] 0 10*3/uL Normal 0-5 [facility] Comment on above: Performed By: #### L 501.9985, L506.1000, L500.4050, L502.0250, L501.9520, L500.4100, L100.0100 #### [facility] [address] [place], [address] Platelet mean volume (Bld) [Entitic vol] 9.5 fL Normal 6.2-12.0 [facility] Comment on above: Performed By: #### L 501.9985, L506.1000, L500.4050, L502.0250, L501.9520, L500.4100, L100.0100 #### [facility] [address] [place], [address] Platelets (Bld) [#/Vol] 293 10*3/uL Normal 150-450 [facility] Comment on above: Performed By: #### L 501.9985, L506.1000, L500.4050, L502.0250, L501.9520, L500.4100, L100.0100 #### [facility] [address] [place], [address] RBC (Bld) [#/Vol] 4.12 10*6/uL Low 4.2-5.4 [facility] Comment on above: Performed By: #### L 501.9985, L506.1000, L500.4050, L502.0250, L501.9520, L500.4100, L100.0100 #### [facility] [address] [place], [address] RDW SD 45.0 fl High 35.1-43.9 [facility] Comment on above: Performed By: #### L 501.9985, L506.1000, L500.4050, L502.0250, L501.9520, L500.4100, L100.0100 #### [facility] [address] [place], [address] WBC (Bld) [#/Vol] 4.6 10*3/uL Normal 4.4-11.0 [facility] Comment on above: Performed By: #### L 501.9985, L506.1000, L500.4050, L502.0250, L501.9520, L500.4100, L100.0100 #### [facility] [address] [place], [address] Comprehensive Metabolic Prof [facility] 07-30-2024 Albumin [Mass/Vol] 3.3 g/dL Normal 3.2-5.0 [facility] Comment on above: Performed By: #### L 501.9985, L506.1000, L500.4050, L502.0250, L501.9520, L500.4100, L100.0100 #### [facility] [address] [place], [address] Albumin/Globulin [Mass ratio] 1.0 {ratio} Normal 0.9-2.4 [facility] Comment on above: Performed By: #### L 501.9985, L506.1000, L500.4050, L502.0250, L501.9520, L500.4100, L100.0100 #### [facility] [address] [place], [address] ALK P 102 U/L Normal 45-117 [facility] Comment on above: Performed By: #### L 501.9985, L506.1000, L500.4050, L502.0250, L501.9520, L500.4100, L100.0100 #### [facility] [address] [place], [address] ALT [Catalytic activity/Vol] 28 U/L Normal 13-56 [facility] Comment on above: Performed By: #### L 501.9985, L506.1000, L500.4050, L502.0250, L501.9520, L500.4100, L100.0100 #### [facility] [address] [place], [address] AST [Catalytic activity/Vol] 21 U/L Normal 15-37 [facility] Comment on above: Performed By: #### L 501.9985, L506.1000, L500.4050, L502.0250, L501.9520, L500.4100, L100.0100 #### [facility] [address] [place], [address] Bilirubin [Mass/Vol] 0.30 mg/dL Normal 0.20-1.00 [facility] Comment on above: Result Comment: For patients on eltrombopag therapy, use of Dimension [place] TBIL is not recommended. Performed By: #### L 501.9985, L506.1000, L500.4050, L502.0250, L501.9520, L500.4100, L100.0100 #### [facility] [address] [place], [address] BUN/CRE 30.3 RATIO High 10-20 [facility] Comment on above: Performed By: #### L 501.9985, L506.1000, L500.4050, L502.0250, L501.9520, L500.4100, L100.0100 #### [facility] [address] [place], [address] CA,Total 9.2 mg/dL Normal 8.5-10.1 [facility] Comment on above: Performed By: #### L 501.9985, L506.1000, L500.4050, L502.0250, L501.9520, L500.4100, L100.0100 #### [facility] [address] [place], [address] Chloride [Moles/Vol] 107 mmol/L Normal 98-107 [facility] Comment on above: Performed By: #### L 501.9985, L506.1000, L500.4050, L502.0250, L501.9520, L500.4100, L100.0100 #### [facility] [address] [place], [address] CO2 [Moles/Vol] 24.0 mmol/L Normal 21.0-32.0 [facility] Comment on above: Performed By: #### L 501.9985, L506.1000, L500.4050, L502.0250, L501.9520, L500.4100, L100.0100 #### [facility] [address] [place], [place], [address] Creatinine [Mass/Vol] 0.69 mg/dL Normal 0.55-1.02 [facility] Comment on above: Result Comment: The validity of the calculated GFR GFRAA in patients over 70 years has not been determined. Clinical correlation is essential. Performed By: #### L 501.9985, L506.1000, L500.4050, L502.0250, L501.9520, L500.4100, L100.0100 #### [facility] [address] [place], [address] EST GFR - AA 111 mL/min Normal >60 [facility] Comment on above: Result Comment: Afri can Chinese GFR Calc Performed By: #### L 501.9985, L506.1000, L500.4050, L502.0250, L501.9520, L500.4100, L100.0100 #### [facility] [address] [place], [address] GAP 8 Normal 5-15 [facility] Comment on above: Performed By: #### L 501.9985, L506.1000, L500.4050, L502.0250, L501.9520, L500.4100, L100.0100 #### [facility] [address] [place], [place], [id number] GFR/1.73 sq M.predicted among non-blacks MDRD (S/P/Bld) [Vol rate/Area] 92 mL/min/{1.73_m2} Normal >60 [facility] Comment on above: Result Comment: Non- GFR Calc Performed By: #### L 501.9985, L506.1000, L500.4050, L502.0250, L501.9520, L500.4100, L100.0100 #### [facility] [address] [place], [address] Globulin (S) [Mass/Vol] 3.4 g/dL Normal 2.2-4.2 [facility] Comment on above: Performed By: #### L 501.9985, L506.1000, L500.4050, L502.0250, L501.9520, L500.4100, L100.0100 #### [facility] [address] [place], [address] Glucose [Mass/Vol] 100 mg/dL Normal 74-106 [facility] Comment on above: Result Comment: Fast ing Glucose result from 100 to 125 mg/dL suggests IMPAIRED HOMEOSTASIS per A.D.A. criteria. Performed By: #### L 501.9985, L506.1000, L500.4050, L502.0250, L501.9520, L500.4100, L100.0100 #### [facility] [address] [place], [address] Potassium [Moles/Vol] 3.8 mmol/L Normal 3.5-5.1 [facility] Comment on above: Performed By: #### L 501.9985, L506.1000, L500.4050, L502.0250, L501.9520, L500.4100, L100.0100 #### [facility] [address] [place], [address] Sodium [Moles/Vol] 139 mmol/L Normal 136-145 [facility] Comment on above: Performed By: #### L 501.9985, L506.1000, L500.4050, L502.0250, L501.9520, L500.4100, L100.0100 #### [facility] [address] [place], [address] T PROT 6.7 g/dL Normal 6.4-8.2 [facility] Comment on above: Performed By: #### L 501.9985, L506.1000, L500.4050, L502.0250, L501.9520, L500.4100, L100.0100 #### [facility] [address] [place], [address] Urea nitrogen [Mass/Vol] 21 mg/dL High 7-18 [facility] Comment on above: Performed By: #### L 501.9985, L506.1000, L500.4050, L502.0250, L501.9520, L500.4100, L100.0100 #### [facility] [address] [place], [address] Hemoglobin A1con 07-30-2024 HbA1c (Bld) [Mass fraction] 5.6 % Normal 3.8-5.6 [facility] Comment on above: Result Comment: Norm al < 5.7 % Prediabetic 5.7 - 6.4 % Diabetic >or= 6.5 % Please note range changes. Performed By: #### L 501.9985, L506.1000, L500.4050, L502.0250, L501.9520, L500.4100, L100.0100 #### [facility] [address] [place], [place], [phone] Lipid Profileon 07-30-2024 Cholesterol [Mass/Vol] 223 mg/dL High 200 [facility] Comment on above: Result Comment: <200 mg/dL Desirable 200-240 mg/dL Borderline >240 mg/dL High Risk Performed By: #### L 501.9985, L506.1000, L500.4050, L502.0250, L501.9520, L500.4100, L100.0100 #### [facility] [address] [place], [address] Cholesterol in HDL [Mass/Vol] 87 mg/dL Normal [facility] Comment on above: Result Comment: The drugs N-Acetylcysteine and Metamizole may falsely depress this assay. Reference Range HDL <40 mg/dL Low HDL Cholesterol HDL >or= 60 mg/dL High HDL Cholesterol Performed By: #### L 501.9985, L506.1000, L500.4050, L502.0250, L501.9520, L500.4100, L100.0100 #### [facility] [address] [place], [address] Cholesterol in LDL [Mass/Vol] 123 mg/dL Normal 0-130 [facility] Comment on above: Performed By: #### L 501.9985, L506.1000, L500.4050, L502.0250, L501.9520, L500.4100, L100.0100 #### [facility] [address] [place], [address] Cholesterol in VLDL [Mass/Vol] 13 mg/dL Normal 5-40 [facility] Comment on above: Performed By: #### L 501.9985, L506.1000, L500.4050, L502.0250, L501.9520, L500.4100, L100.0100 #### [facility] [address] [place], [address] Triglyceride [Mass/Vol] 67 mg/dL Normal [facility] Comment on above: Result Comment: The drugs N-Acetylcysteine and Metamizole may falsely depress this assay. Serum Triglycerides Reference Interval Normal <150 mg/dL Borderline high 150 - 199 mg/dL High 200 - 499 mg/dL Very High > or = 500 mg/dL Performed By: #### L 501.9985, L506.1000, L500.4050, L502.0250, L501.9520, L500.4100, L100.0100 #### [facility] [address] [place], [address] Microalb:Creat Ratio,Random URon 07-30-2024 Creatinine [Mass/Vol] 36.00 mg/dL Normal NO RANGE EST. [facility] Comment on above: Performed By: #### L 501.9985, L506.1000, L500.4050, L502.0250, L501.9520, L500.4100, L100.0100 #### [facility] [address] [place], [address] MALB:CRE 14.9 mg/g CRE Normal <30 mg/g CRE [facility] Comment on above: Performed By: #### L 501.9985, L506.1000, L500.4050, L502.0250, L501.9520, L500.4100, L100.0100 #### [facility] [address] [place], [address] MICROALBUMIN,UR 5.4 mg/L Normal NO RANGE EST. [facility] Comment on above: Performed By: #### L 501.9985, L506.1000, L500.4050, L502.0250, L501.9520, L500.4100, L100.0100 #### [facility] [address] [place], [address] Thyroid Stim Hormone (TSH)on 07-30-2024 TSH 2.910 uIU/mL Normal 0.358-3.74 0 [facility] Comment on above: Performed By: #### L 501.9985, L506.1000, L500.4050, L502.0250, L501.9520, L500.4100, L100.0100 #### [facility] [address] [place], [address] Vitamin D,25 Hydroxyon 07-30 Vitamin D 25-OH 39.1 ng/mL Normal [facility] Comment on above: Result Comment: Arti min D 25(OH) Status Range Deficiency <20 ng/mL (50nmol/L) Insufficiency 20 - 30 ng/mL (50 - 75 nmol/L) Sufficiency 30 - 100 ng/mL (75 - 250 nmol/L) Toxicity >100 ng/mL (>250 nmol/L) Performed By: #### L 501.9985, L506.1000, L500.4050, L502.0250, L501.9520, L500.4100, L100.0100 #### [facility] [address] [place], [address] Absolute lymphocyte counton 08-26-2022 Lymphocytes Auto (Unsp spec) [#/Vol] 1.52 10*3/uL 0.83-4.51 [facility] Work Phone: Basophil percentageon 2021 Basophils/100 WBC (Bld) 1.0 % 0-1 [facility] Work Phone: Bilirubin [Mass/Vol] 0.40 mg/dL 0.20-1.00 [facility] Work Phone: Comment on above: For patients on eltr ombopag therapy, use of Dimension [place] TBIL is not recommended. Chloride [Moles/Vol] 106 mmol/L 98-107 [facility] Work Phone: Cholesterol [Mass/Vol] 237 mg/dL <200 [facility] Work Phone: Comment on above: <200 mg/dL Desirable 200-240 mg/dL Borderline >240 mg/dL High Risk Eosinophils/100 WBC (Bld) 3.7 % 0-5 [facility] Work Phone: Glucose [Mass/Vol] 113 mg/dL 74-106 [facility] Work Phone: Comment on above: Fasting Glucose resu lt from 100 to 125 mg/dL suggests IMPAIRED HOMEOSTASIS per A.D.A. criteria. Neutrophils (Bld) [#/Vol] 2.9 10*3/uL 2.0-7.7 [facility] Work Phone: Neutrophils/100 WBC (Bld) 56.4 % 47-70 [facility] Work Phone: Potassium [Moles/Vol] 3.9 mmol/L 3.5-5.1 [facility] Work Phone: Protein [Mass/Vol] 6.8 g/dL 6.4-8.2 [facility] Work Phone: Sodium [Moles/Vol] 140 mmol/L 136-145 [facility] Work Phone: Triglyceride [Mass/Vol] 77 mg/dL <199 [facility] Work Phone: Comment on above: The drugs N-Acetylcy steine and Metamizole may falsely depress this assay.Serum Triglycerides Reference Interval Normal <150 mg/dL Borderline high 150 - 199 mg/dL High 200 - 499 mg/dL Very High > or = 500 mg/dL WBC (Bld) [#/Vol] 5.1 10*3/uL 4.4-11.0 [facility] Work Phone: Blood erythrocytes count (nu mber/volume)on 08-26-2022 RBC (Bld) [#/Vol] 4.27 10*6/uL 4.2-5.4 [facility] Work Phone: Blood hemoglobin measurement (mass/volume)on 08-26-2022 Hemoglobin (Bld) [Mass/Vol] 13.0 g/dL 12.0-15.0 [facility] Work Phone: Blood lymphocytes/100 leukoc yteson 08-26-2022 Lymphocytes/100 WBC (Bld) 29.6 % 19-41 [facility] Work Phone: Blood monocytes/100 leukocyt eson 08-26-2022 Monocytes/100 WBC (Bld) 9.1 % 0-10 [facility] Work Phone: Blood platelet mean volumeon 08-26-2022 Platelet mean volume (Bld) [Entitic vol] 9.7 fL 6.2-12.0 [facility] Work Phone: Determination of erythrocyte mean corpuscular volume (MCV)on 08-26-2022 MCV (RBC) [Entitic vol] 95.1 fL 81-99 [facility] Work Phone: Hematocrit Auto (Bld) [Volum e fraction]on 08-26-2022 Hematocrit (Bld) [Volume fraction] 40.6 % 37-47 [facility] Work Phone: Laboratory - Chemistry and C hemistry - challengeon 08-26-2022 ALP [Catalytic activity/Vol] 81 U/L 45-117 [facility] Work Phone: ALT [Catalytic activity/Vol] 31 U/L 13-56 [facility] Work Phone: CO2 [Moles/Vol] 30.0 mmol/L 21.0-32.0 [facility] Work Phone: Globulin (S) [Mass/Vol] 3.3 g/dL 2.2-4.2 [facility] Work Phone: Urea nitrogen/Creatinin e [Mass ratio] 19.6 mg/mg 10-20 [facility] Work Phone: Laboratory - Hematology and Cell countson 08-26-2022 Erythrocyte distribution width (RBC) [Entitic vol] 46.8 fL 35.1-43.9 [facility] Work Phone: Erythrocyte distribution width (RBC) [Ratio] 13.4 % 11.6-14.6 [facility] Work Phone: Immature granulocytes/100 WBC (Bld) 0.200 % 0.0-0.9 [facility] Work Phone: Comment on above: IG% - Immature Granu locytes (promyelocytes, myelocytes and metamyelocytes) > 1% indicates that a LEFT SHIFT is Present. MCH (RBC) [Entitic mass] 30.4 pg 27.0-32.0 [facility] Work Phone: Nucleated RBC/100 WBC (Bld) [Ratio] 0 % 0-5 [facility] Work Phone: MCHC Auto (RBC) [Mass/Vol]on 08-26-2022 MCHC (RBC) [Mass/Vol] 32.0 g/dL 32-36 [facility] Work Phone: No Panel Informationon 08-26 Urine Microalbumin/Creat inine Ratio 13.9 mg/g CRE <30 [facility] Work Phone: Estimated GFR (MDRD) Amer 100 mL/min >60 [facility] Work Phone: Comment on above: GFR Calc Estimated GFR (MDRD) Non-Af Amer 83 mL/min >60 [facility] Work Phone: Comment on above: Non- GFR Calc Thyroid Stimulating Hormone (TSH) 2.08 uIU/mL 0.358-3.74 [facility] Work Phone: Vitamin D 25-Hydroxy 48.7 ng/mL [facility] Work Phone: Comment on above: Vitamin D 25(OH) Sta tus Range Deficiency <20 ng/mL (50nmol/L) Insufficiency 20 - 30 ng/mL (50 - 75 nmol/L) Sufficiency 30 - 100 ng/mL (75 - 250 nmol/L) Toxicity >100 ng/mL (>250 nmol/L) Platelets bldon 08-26-2022 Platelets (Bld) [#/Vol] 306 10*3/uL 150-450 [facility] Work Phone: Serum or plasma albumin keith urement (mass/volume)on 08-26-2022 Albumin [Mass/Vol] 3.5 g/dL 3.2-5.0 [facility] Work Phone: Serum or plasma albumin/glob ulin mass ratioon 08-26-2022 Albumin/Globulin [Mass ratio] 1.1 {ratio} 0.9-2.4 [facility] Work Phone: Serum or plasma calcium keith urement (mass/volume)on 08-26-2022 Calcium [Mass/Vol] 9.0 mg/dL 8.5-10.1 [facility] Work Phone: Serum or plasma cholesterol in HDL measurement (mass/volume)on 08-26-2022 Cholesterol in HDL [Mass/Vol] 71 mg/dL >40 [facility] Work Phone: Comment on above: The drugs N-Acetylcy steine and Metamizole may falsely depress this assay. Reference Range HDL <40 mg/dL Low HDL Cholesterol HDL >or= 60 mg/dL High HDL Cholesterol Serum or plasma cholesterol in VLDL measurement (mass/volume)on 08-26-2022 Cholesterol in VLDL [Mass/Vol] 15 mg/dL 5-40 [facility] Work Phone: Serum or plasma creatinine m easurement (mass/volume)on 08-26-2022 Creatinine [Mass/Vol] 0.76 mg/dL 0.55-1.02 [facility] Work Phone: Comment on above: The validity of the calculated GFR & GFRAA in patients over 70 years has not been determined. Clinical correlation is essential. Serum or plasma low density lipoprotein (LDL) cholesterol measurement (mass/volume)on 08-26-2022 Cholesterol in LDL [Mass/Vol] 151 mg/dL 0-130 [facility] Work Phone: Serum or plasma urea nitroge n measurement (mass/volume)on 08-26-2022 Urea nitrogen [Mass/Vol] 15 mg/dL 7-18 [facility] Work Phone: Thin prep Papanicolaou smear with manual screeningon 08-26-2022 Thin prep Papanicolaou smear with manual screening 17.9 mg/L NO RANGE EST. [facility] Work Phone: Thin prep Papanicolaou smear with manual screening 17 U/L 15-37 [facility] Work Phone: Thin prep Papanicolaou smear with manual screening 4 5-15 [facility] Work Phone: Urine creatinine measurement (mass/volume)on 08-26-2022 Creatinine (U) [Mass/Vol] 129.00 mg/dL NO RANGE EST. [facility] Work Phone: Whole blood hemoglobin A1c/t otal hemoglobin ratio (mass fraction)on 08-26-2022 HbA1c (Bld) [Mass fraction] 6.0 % 3.8-5.6 [facility] Work Phone: Comment on above: Normal < 5.7 % Predi abetic 5.7 - 6.4 % Diabetic >or= 6.5 % Please note range changes. HgA1C , Office ([id number])on HbA1c (Bld) [Mass fraction] 5.5 % Normal 4.6 - 7.1 [facility]; [facility] Work Phone: 2018 Novel Coronavirus (COVI D-19), [place]KE ([id number])Ordered By: [employer] Operator on 06-30-20202018 Novel Coronavirus (COVID-19), [place] ([id number]) Not Detected Normal [facility] Work Phone: Comment on above: This nucleic acid am plification test was developed and its performancecharacteristics determined by [employer]. Nucleic acidamplification tests include PCR and TMA. This test has not been FDAcleared or approved. This test has been authorized by FDA under anEmergency Use Authorization (EUA). This test is only authorized forthe duration of time the declaration that circumstances existjustifying the authorization of the emergency use of in vitrodiagnostic tests for detection of SARS-CoV-2 virus and/or diagnosisof COVID-19 infection under section 564(b)(1) of the Act, 21 U.S.C.360bbb-3(b) (1), unless the authorization is terminated or revokedsooner.When diagnostic testing is negative, the possibility of a falsenegative result should be considered in the context of a patient'srecent exposures and the presence of clinical signs and symptomsconsistent with COVID-19. An individual without symptoms of COVID-19and who is not shedding SARS-CoV-2 virus would expect to have anegative (not detected) result in this assay. PATIENT NOT FASTINGP ERFORMED BY: YAMEL [employer] [id number] [facility] [id number] 2018 Novel Coronavirus (COVID-19), [place]KE ([id number]) Not detected Normal [facility]; [facility] Work Phone: Comment on above: This nucleic acid am plification test was developed and its performancecharacteristics determined by [employer]. Nucleic acidamplification tests include PCR and TMA. This test has not been FDAcleared or approved. This test has been authorized by FDA under anEmergency Use Authorization (EUA). This test is only authorized forthe duration of time the declaration that circumstances existjustifying the authorization of the emergency use of in vitrodiagnostic tests for detection of SARS-CoV-2 virus and/or diagnosisof COVID-19 infection under section 564(b)(1) of the Act, 21 U.S.C.360bbb-3(b) (1), unless the authorization is terminated or revokedsooner.When diagnostic testing is negative, the possibility of a falsenegative result should be considered in the context of a patient'srecent exposures and the presence of clinical signs and symptomsconsistent with COVID-19. An individual without symptoms of COVID-19and who is not shedding SARS-CoV-2 virus would expect to have anegative (not detected) result in this assay. PATIENT NOT FASTINGP ERFORMED BY: [facility] [id number] [facility] [id number] Coronavirus 2019on 0 COVID 19 Result INFORMATION ASSURANCE Normal Negative for COVID19 (SARS CoV2) by PCR. [facility] Comment on above: Result Comment: Nega tive for This test was developed and its performance characteristics determined by [facility] [place]. This test has been authorized by FDA under an Emergency Use Authorization (EUA). This test has been validated in accordance with the FDA's Guidance Document Policy for Diagnostics Testing in Laboratories Certified to Perform High Complexity Testing under CLIA prior to Emergency use Authorization for Coronavirus Disease 2019 during the Public Health Emergency issued on November 03, 2019. COVID19 (SARS This test was developed and its performance characteristics determined by [facility] [place]. This test has been authorized by FDA under an Emergency Use Authorization (EUA). This test has been validated in accordance with the FDA's Guidance Document Policy for Diagnostics Testing in Laboratories Certified to Perform High Complexity Testing under CLIA prior to Emergency use Authorization for Coronavirus Disease 2019 during the Public Health Emergency issued on November 03, 2019. CoV2) by PCR. This test was developed and its performance characteristics determined by [facility] [place]. This test has been authorized by FDA under an Emergency Use Authorization (EUA). This test has been validated in accordance with the FDA's Guidance Document Policy for Diagnostics Testing in Laboratories Certified to Perform High Complexity Testing under CLIA prior to Emergency use Authorization for Coronavirus Disease 2019 during the Public Health Emergency issued on November 03, 2019. Coronavirus 2019on 0 COVID 19 Source INFORMATION ASSURANCE INFORMATION ASSURANCE Normal [facility] CNOVon 09-15-2019 CNOV Office Visit (UCWSTR ) VARSHA TORRES ([id number]) 1965 F Date Time Provider Department 09/15/19 11:00 AM JOSE RAUL PARIKH RUST During your visit today, we recorded the following information about you: Temperature Pulse Respiration Blood pressure 97.4 degrees 81/minute 18/minute 132/88 Weight 112.3 kg Jose Raul Parikh MD 09/15/2019 11:32 AM Signed Patient presents with: Cough: with intermittent sinusitis x 1 week HPI: Feeling sick with URI starting 10 days ago which is largely improved, coughing for the last week. Cough is worse in the evening 7-10PM. Positive symptoms: cough, sinus pressure earlier this week, sore chest muscles, whistle in the evening, resolved chills/body aches, Negative symptoms: Shortness of breath, OTC: Nyquil, Cold Medicine with sudafed, tried mucinex DM Denies history of asthma, COPD, smoking, or lingering coughs with colds. PAST MEDICAL HISTORY Diagnosis Date - Absence of hair - Acute hyperkalemia - Atypical chest pain - Benign ovarian cyst - Benign paroxysmal positional nystagmus - Chest pain - Depressive disorder, not elsewhere classified HISTORY OF - Dysuria - Eczema - Fibromyalgia - High cholesterol - Hormone disturbance - Morbid obesity (HCC) stated BMI 40.2 - Myalgia and myositis, unspecified - Ovarian cyst - Rosacea - Syncope and collapse - Unspecified vitamin D deficiency - Vertigo - Vitamin B 12 deficiency MEDICATIONS: Current Outpatient Medications Medication Sig - aspirin, enteric coated (ASPIRIN, ENTERIC COATED) 81 mg EC tablet Take 1 tablet by mouth once daily. - atenolol (TENORMIN) 25 mg tablet Take 1 tablet by mouth once daily. - buPROPion XL (WELLBUTRIN XL) 300 mg 24 hr tablet Take 1 tablet by mouth once daily. - Acetaminophen 500 mg cap Take 500 mg by mouth once daily. - Cholecalciferol, Vitamin D3, 2,000 unit cap Take 4,000 mg by mouth once daily. - Cyanocobalamin (VITAMIN B-12) 1,000 mcg subl Dissolve 1,000 mcg under the tongue once daily. - calcium-vitamin D (CALCIUM 500+D) 500 mg(1,250mg) -200 unit ORAL per tablet Take 2 tablets by mouth twice daily. Take 2 tablets by mouth once daily - multivitamins(CHEWABLE MULTI VITAMIN TAB) Take one(1) tablet daily. - celecoxib (CELEBREX) 200 mg capsule Take 1 capsule by mouth once daily. No current facility-administered medications for this visit. ALLERGIES: ALLERGIES Allergen Reactions - Doxycycline Itching - Ciprofloxacin Hives CIPRO VITALS: BP 132/88 Pulse 81 Temp 36.3 ?C (97.4 ?F) (Left Tympanic) Resp 18 Wt 112.3 kg (247 lb 9.6 oz) SpO2 98% BMI 40.58 kg/m? PHYSICAL EXAM: GEN: Pleasant, in no acute distress. HEENT: PERRL, EOMI, conjunctiva clear Ears: canals clear. TMs without erythema, bulge, or effusion Sinuses: non-tender frontal sinus, non-tender maxillary sinuses Throat: moist mucous membranes, no erythema, no exudate Neck: supple, no thyromegaly, no lymphadenopathy HEART: regular rate and rhythm, no murmurs LUNGS: clear to auscultation, no wheezes or crackles, no increased WOB ASSESSMENT/PLAN: 1. Cough - ICD9: 786.2, ICD10: R05 Reassured by benign exam. Add - BENZONATATE 100 MG CAPSULE Follow up with worsening cough, worsening shortness of breath, increasing chest pain, or late onset fever. Jose Raul Parikh MD Referring Provider: SELF [200] Allergies As of Date: 09/15/2019 Noted Allergy Reaction DOXYCYCLINE 02/26/2009 9 - Itching CIPROFLOXACIN 04/09/2015 4 - Hives Comments: CIPRO Date Reviewed: 09/15/2019 Reviewed by: Tarsha Meza Ma - Fully Assessed Reason for Visit: Cough [28] Cmt: with intermittent sinusitis x 1 week Primary Visit Diagnosis:Cough [R05] Order(s):benzonatate (TESSALON PERLE) 100 mg capsuleTake 1 capsule by mouth every 8 hours as needed for Cough for up to 15 days.Disp: 30 capsuleRfl: 0 Prescriptions as of 09/15/2019 Sig: ASPIRIN 81 MG TABLET,DELAYED * Take 1 tablet by mouth once d* ATENOLOL 25 MG TABLET Take 1 tablet by mouth once d* BUPROPION XL 300 MG 24 HR TAB Take 1 tablet by mouth once d* ACETAMINOPHEN 500 MG CAPSULE Take 500 mg by mouth once shana* CHOLECALCIFEROL (VITAMIN D3) * Take 4,000 mg by mouth once d* CYANOCOBALAMIN (VIT B-12) 1,0* Dissolve 1,000 mcg under the * * CALCIUM CARBONATE 500 MG (1,2* Take 2 tablets by mouth twice* * CHEWABLE MULTI VITAMIN TABLET Take one(1) tablet daily. BENZONATATE 100 MG CAPSULE Take 1 capsule by mouth every* CELECOXIB 200 MG CAPSULE Take 1 capsule by mouth once * Problem List As Of Date 09/15/2019 Noted Resolved PREOP EXAM OTHER UNSPECIFIED [Z01.818] 11/21/2008 DYSTHYMIC DISORDER [F34.1] 01/14/2009 Morbid Obesity [E66.01] 05/08/2009 ASA CLASS II [1001] 08/08/2009 Fibromyalgia [M79.7] 08/16/2009 GERD (Gastroesophageal Reflux Disease) [K21.9] 08/16/2009 Depression [F32.9] 08/16/2009 [facility] [place] IR[facility] 09-820 [Z00.6] 05/18/2010 More... Vitamin B 12 deficiency [E53.8] Syncope and collapse [R55] Prescriptions ordered this encounter Disp Refills Start End BENZONATATE 100 MG CAPSULE 30 c* 0 09/15/2019 09/30/2019 Route: ORAL Sig: Take 1 capsule by mouth every 8 hours as needed for Cough for up to 15 days. Encounter Status:Closed by JOSE RAUL PARIKH MD on 09/15/[address] [facility] PROGRESSon 09-15-2019 PROGRESS HNO ID: [id number] Author: Jose Raul Parikh Service: ? Author Type: Physician Type: Progress Notes Filed: 09/15/2019 11:32 AM Note Text: Patient presents with: Cough: with intermittent sinusitis x 1 week HPI: Feeling sick with URI starting 10 days ago which is largely improved, coughing for the last week. Cough is worse in the evening 7-10PM. Positive symptoms: cough, sinus pressure earlier this week, sore chest muscles, whistle in the evening, resolved chills/body aches, Negative symptoms: Shortness of breath, OTC: Nyquil, Cold Medicine with sudafed, tried mucinex DM Denies history of asthma, COPD, smoking, or lingering coughs with colds. PAST MEDICAL HISTORY Diagnosis Date - Absence of hair - Acute hyperkalemia - Atypical chest pain - Benign ovarian cyst - Benign paroxysmal positional nystagmus - Chest pain - Depressive disorder, not elsewhere classified HISTORY OF - Dysuria - Eczema - Fibromyalgia - High cholesterol - Hormone disturbance - Morbid obesity (HCC) stated BMI 40.2 - Myalgia and myositis, unspecified - Ovarian cyst - Rosacea - Syncope and collapse - Unspecified vitamin D deficiency - Vertigo - Vitamin B 12 deficiency MEDICATIONS: Current Outpatient Medications Medication Sig - aspirin, enteric coated (ASPIRIN, ENTERIC COATED) 81 mg EC tablet Take 1 tablet by mouth once daily. - atenolol (TENORMIN) 25 mg tablet Take 1 tablet by mouth once daily. - buPROPion XL (WELLBUTRIN XL) 300 mg 24 hr tablet Take 1 tablet by mouth once daily. - Acetaminophen 500 mg cap Take 500 mg by mouth once daily. - Cholecalciferol, Vitamin D3, 2,000 unit cap Take 4,000 mg by mouth once daily. - Cyanocobalamin (VITAMIN B-12) 1,000 mcg subl Dissolve 1,000 mcg under the tongue once daily. - calcium-vitamin D (CALCIUM 500+D) 500 mg(1,250mg) -200 unit ORAL per tablet Take 2 tablets by mouth twice daily. Take 2 tablets by mouth once daily - multivitamins(CHEWABLE MULTI VITAMIN TAB) Take one(1) tablet daily. - celecoxib (CELEBREX) 200 mg capsule Take 1 capsule by mouth once daily. No current facility-administered medications for this visit. ALLERGIES: ALLERGIES Allergen Reactions - Doxycycline Itching - Ciprofloxacin Hives CIPRO VITALS: BP 132/88 Pulse 81 Temp 36.3 ?C (97.4 ?F) (Left Tympanic) Resp 18 Wt 112.3 kg (247 lb 9.6 oz) SpO2 98% BMI 40.58 kg/m? PHYSICAL EXAM: GEN: Pleasant, in no acute distress. HEENT: PERRL, EOMI, conjunctiva clear Ears: canals clear. TMs without erythema, bulge, or effusion Sinuses: non-tender frontal sinus, non-tender maxillary sinuses Throat: moist mucous membranes, no erythema, no exudate Neck: supple, no thyromegaly, no lymphadenopathy HEART: regular rate and rhythm, no murmurs LUNGS: clear to auscultation, no wheezes or crackles, no increased WOB ASSESSMENT/PLAN: 1. Cough - ICD9: 786.2, ICD10: R05 Reassured by benign exam. Add - BENZONATATE 100 MG CAPSULE Follow up with worsening cough, worsening shortness of breath, increasing chest pain, or late onset fever. Jose Raul Parikh MD Normal [facility] HgA1C , Office (13434)on HbA1c (Bld) [Mass fraction] 5.5 % Normal 4.6 - 7.1 [facility] Work Phone: Clinical Summary: HMSPatient IDon 06-27-2019 [facility] Work Phone: Office Visit: New/Est - 1st visit with physician, Rm: 41on 06-27-2019 NEGATED: Highlighted rowMRI (magnetic resonance imaging) history of the right shoulder on 06/07/[address] [facility] Work Phone: CNCOon 11-16-2018 CNCO Letter Text Normal [facility] CNOVon 11-16-2018 CNOV Office Visit (AGCARD PHRA) VARSHA TORRES ([id number]) 1965 F Date Time Provider Department 11/16/18 1:00 PM ALEC MITTALARDKATHRINE During your visit today, we recorded the following information about you: Pulse Respiration Blood pressure Weight 72/minute 16/minute 142/90 108.9 kg Height 1.664 m Jessica Spring MA 11/16/2018 1:05 PM Signed No cardiac complaints today. SHAE Duran. Alec Mittal DO 11/16/2018 4:44 PM Signed Subjective HPI Anna Marie Torres 53 year young woman with syncope with a tilt positive for VVS. She was last seen 01-10-17 and is here for a follow up visit. She has not had any recurrent syncope since our last visit. She has been diagnosed with HTN and started on atenolol. She had a number of questions about taking the medication and managing her BP with her history of VVS. I answered those and we reviewed management of VVS including being self aware, posture response and physical counter maneuvers. We also discussed that in patients over 45 the POST trial showed a trend in benefit with beta carol ann with VVS, so I think the atenolol is a good choice. Her BP today was 142/90, she showed me her trends on her phone which actually looked fairly good with systolic pressures ranging from 114 to 143 and overall good trends. ROS Objective Physical Exam Constitutional: She is oriented to person, place, and time and well-developed, well-nourished, and in no distress. No distress. HENT: Head: Normocephalic and atraumatic. Nose: Nose normal. Eyes: Pupils are equal, round, and reactive to light. Conjunctivae and EOM are normal. No scleral icterus. Neck: Normal range of motion. Neck supple. No JVD present. No tracheal deviation present. No thyromegaly present. Cardiovascular: Normal rate, regular rhythm, S1 normal, S2 normal, normal heart sounds and intact distal pulses. Exam reveals no gallop and no friction rub. No murmur heard. Pulses: Radial pulses are 2+ on the right side. Pulmonary/Chest: Effort normal and breath sounds normal. No respiratory distress. She has no wheezes. She has no rales. Abdominal: Soft. Bowel sounds are normal. She exhibits no distension. There is no tenderness. There is no rebound and no guarding. Musculoskeletal: Normal range of motion. She exhibits no edema or tenderness. Neurological: She is alert and oriented to person, place, and time. No cranial nerve deficit. Gait normal. Coordination normal. Skin: Skin is warm and dry. No rash noted. She is not diaphoretic. No erythema. No pallor. Psychiatric: Mood, memory, affect and judgment normal. 1. Syncope and collapse - ICD9: 780.2, ICD10: R55 (primary diagnosis) 2. Essential hypertension - ICD9: 401.9, ICD10: I10 Varsha is stable from a syncope perspective an we reviewed lifestyle management and potential for recurrence. Her BP appears to be responding to the atenolol and she will follow with Dr. Mar for ongoing management. As Varsha has not had recurrences, I am not making A scheduled follow up but encouraged her to contact me if recurrence or additional symptoms and I will see as needed. Referring Provider: SELF [200] Allergies As of Date: 11/16/2018 Noted Allergy Reaction DOXYCYCLINE 02/26/2009 9 - Itching CIPROFLOXACIN 04/09/2015 4 - Hives Comments: CIPRO Date Reviewed: 11/16/2018 Reviewed by: Jessica Humphrey) Saw - Fully Assessed Reason for Visit: Follow Up [171] Primary Visit Diagnosis:Syncope and collapse [R55] Other Visit Diagnosis:Essential hypertension [I10] Order(s):ECG B/O W INTERP (MED OFFICE) [ECG06] Order #: [id number] Prescriptions as of 11/16/2018 Sig: CELECOXIB 200 MG CAPSULE Take 1 capsule by mouth once * ATENOLOL 25 MG TABLET Take 1 tablet by mouth once d* BUPROPION XL 300 MG 24 HR TAB Take 1 tablet by mouth once d* ACETAMINOPHEN 500 MG CAPSULE Take 500 mg by mouth once shana* CYANOCOBALAMIN (VIT B-12) 1,0* Dissolve 1,000 mcg under the * * CALCIUM CARBONATE 500 MG (1,2* Take 2 tablets by mouth twice* * CHEWABLE MULTI VITAMIN TABLET Take one(1) tablet daily. CHOLECALCIFEROL (VITAMIN D3) * Take 4,000 mg by mouth once d* Problem List As Of Date 11/16/2018 Noted Resolved PREOP EXAM OTHER UNSPECIFIED [Z01.818] INVALID FOR* DYSTHYMIC DISORDER [F34.1] INVALID FOR* Morbid Obesity [E66.01] INVALID FOR* ASA CLASS II [1001] INVALID FOR* Fibromyalgia [M79.7] INVALID FOR* GERD (Gastroesophageal Reflux Disease) [K21.9] INVALID FOR* Depression [F32.9] INVALID FOR* [facility] [place] IRB 09-820 [Z00.6] INVALID FOR* More... Vitamin B 12 deficiency [E53.8] Syncope and collapse [R55] Visit Notes: >> Jessica Spring Pooja Nov 16, 2018 1:01 PM Status: Signed No cardiac complaints today. SHAE Duran. Level of Service: EST PATIENT VISIT LEVEL 3 [34291] Disposition: Return if symptoms worsen or fail to improve. Follow-up and Disposition History Recorded Encounter Status:Closed by ALEC MITTAL on 11/16/18 Normal [facility] PROGRESSon 11-16-2018 Protein mass conc HNO ID: [id number] Author: Alec Mittal Service: ? Author Type: Physician Type: Progress Notes Filed: 11/16/2018 4:44 PM Note Text: Subjective HPI Anna Marie Torres 53 year young woman with syncope with a tilt positive for VVS. She was last seen 01-10-17 and is here for a follow up visit. She has not had any recurrent syncope since our last visit. She has been diagnosed with HTN and started on atenolol. She had a number of questions about taking the medication and managing her BP with her history of VVS. I answered those and we reviewed management of VVS including being self aware, posture response and physical counter maneuvers. We also discussed that in patients over 45 the POST trial showed a trend in benefit with beta carol ann with VVS, so I think the atenolol is a good choice. Her BP today was 142/90, she showed me her trends on her phone which actually looked fairly good with systolic pressures ranging from 114 to 143 and overall good trends. ROS Objective Physical Exam Constitutional: She is oriented to person, place, and time and well-developed, well-nourished, and in no distress. No distress. HENT: Head: Normocephalic and atraumatic. Nose: Nose normal. Eyes: Pupils are equal, round, and reactive to light. Conjunctivae and EOM are normal. No scleral icterus. Neck: Normal range of motion. Neck supple. No JVD present. No tracheal deviation present. No thyromegaly present. Cardiovascular: Normal rate, regular rhythm, S1 normal, S2 normal, normal heart sounds and intact distal pulses. Exam reveals no gallop and no friction rub. No murmur heard. Pulses: Radial pulses are 2+ on the right side. Pulmonary/Chest: Effort normal and breath sounds normal. No respiratory distress. She has no wheezes. She has no rales. Abdominal: Soft. Bowel sounds are normal. She exhibits no distension. There is no tenderness. There is no rebound and no guarding. Musculoskeletal: Normal range of motion. She exhibits no edema or tenderness. Neurological: She is alert and oriented to person, place, and time. No cranial nerve deficit. Gait normal. Coordination normal. Skin: Skin is warm and dry. No rash noted. She is not diaphoretic. No erythema. No pallor. Psychiatric: Mood, memory, affect and judgment normal. 1. Syncope and collapse - ICD9: 780.2, ICD10: R55 (primary diagnosis) 2. Essential hypertension - ICD9: 401.9, ICD10: I10 Varsha is stable from a syncope perspective an we reviewed lifestyle management and potential for recurrence. Her BP appears to be responding to the atenolol and she will follow with Dr. Mar for ongoing management. As Varsha has not had recurrences, I am not making A scheduled follow up but encouraged her to contact me if recurrence or additional symptoms and I will see as needed. Normal [facility] CBC W/Diff, AutomatedOrdered By: Kiln Head House Operator on 08-18-2018 Absolute Neut 2.6 {X10_3/uL} Normal 2.0-7.7 [facility] Work Phone: Comment on above: [facility] [address] [place], [place], [id number] Basophils/100 WBC (Bld) 0.6 % Normal 0-1 [facility] Work Phone: Comment on above: [facility] [address] [place], [address] Basophils/100 WBC Auto (Bld) 0.6 % Normal 0-1 [facility] Work Phone: Eosinophils/100 WBC (Bld) 2.2 % Normal 0-5 [facility] Work Phone: Comment on above: [facility] [address] [place], [address] Eosinophils/100 WBC Auto (Bld) 2.2 % Normal 0-5 [facility] Work Phone: Erythrocyte distribution width (RBC) [Ratio] 13.6 % Normal 11.6-14.6 [facility] Work Phone: Comment on above: [place] [id number] [place], [address] Erythrocyte distribution width Auto Ratio (RBC) 13.6 % Normal 11.6-14.6 [facility] Work Phone: Hematocrit (Bld) [Volume fraction] 40.0 % Normal 37-47 [facility] Work Phone: Comment on above: [place] [address] [place], [address] Hematocrit Auto Volume Fraction (Bld) 40.0 % Normal 37-47 [facility] Work Phone: Hemoglobin mass conc (Bld) 12.8 g/dL Normal 12.0-15.0 [facility] Work Phone: Comment on above: [place] [address] [place], [address] IM GRAN % 0.000 % Normal 0.0-0.9 [facility] Work Phone: Comment on above: IG% - Immature Granu locytes (promyelocytes, myelocytes andmetamyelocytes) > 1% indicates that a LEFT SHIFT is Present. [facility] [address] [place], [address] Lymphocytes (Bld) [#/Vol] 1.48 {X10_3/ul} Normal 0.83-4.51 [facility] Work Phone: Comment on above: [place] [address] [place], [address] Lymphocytes/100 WBC (Bld) 31.8 % Normal 19-41 [facility] Work Phone: Comment on above: [place] [address] [place], [address] Lymphocytes/100 WBC Auto (Bld) 31.8 % Normal 19-41 [facility] Work Phone: MCH (RBC) [Entitic mass] 29.9 pg Normal 27.0-32.0 [facility] Work Phone: Comment on above: [place] [address] [place], [address] MCH Auto Entitic mass (RBC) 29.9 pg Normal 27.0-32.0 [facility] Work Phone: MCHC (RBC) [Mass/Vol] 32.0 {g/gl} Normal 32-36 [facility] Work Phone: Comment on above: [place] [address] [place], [address] MCHC Auto mass conc (RBC) 32.0 {g/gl} Normal 32-36 [facility] Work Phone: MCV (RBC) [Entitic vol] 93.5 fL Normal 81-99 [facility] Work Phone: Comment on above: [place] [address] [place], [address] MCV Auto Entitic volume (RBC) 93.5 fL Normal 81-99 [facility] Work Phone: Monocytes/100 WBC (Bld) 9.7 % Normal 0-10 [facility] Work Phone: Comment on above: [facility] [address] [place], [address] Monocytes/100 WBC Auto (Bld) 9.7 % Normal 0-10 [facility] Work Phone: Neutrophils/100 WBC (Bld) 55.7 % Normal 47-70 [facility] Work Phone: Comment on above: [facility] [address] [place], [address] Neutrophils/100 WBC Auto (Bld) 55.7 % Normal 47-70 [facility] Work Phone: Platelet mean volume (Bld) [Entitic vol] 9.4 fL Normal 6.2-12.0 [facility] Work Phone: Comment on above: [facility] [address] [place], [address] Platelet mean volume Auto Entitic volume (Bld) 9.4 fL Normal 6.2-12.0 [facility] Work Phone: Platelets (Bld) [#/Vol] 319 10*3/uL Normal 150-450 [facility] Work Phone: Comment on above: [facility] [address] [place], [address] Platelets Auto #/vol (Bld) 319 10*3/uL Normal 150-450 [facility] Work Phone: RBC (Bld) [#/Vol] 4.28 {M/mm3} Normal 4.2-5.4 [facility] Work Phone: Comment on above: [facility] [address] [place], [address] RBC Auto #/vol (Bld) 4.28 {M/mm3} Normal 4.2-5.4 [facility] Work Phone: RDW SD 46.2 fL Abnormal 35.1-43.9 [facility] Work Phone: Comment on above: [facility] [address] [place], [place], [id number] WBC (Bld) [#/Vol] 4.7 10*3/uL Normal 4.4-11.0 [facility] Work Phone: Comment on above: [facility] [address] [place], [address] WBC Auto #/vol (Bld) 4.7 10*3/uL Normal 4.4-11.0 [facility] Work Phone: CBC W/Diff, Automated 2.6 {X10_3/uL} Normal 2.0-7.7 [facility] Work Phone: CBC W/Diff, Automated 1.48 {X10_3/ul} Normal 0.83-4.51 [facility] Work Phone: CBC W/Diff, Automated 46.2 fL Abnormal 35.1-43.9 [facility] Work Phone: CBC W/Diff, Automated 0.000 % Normal 0.0-0.9 [facility] Work Phone: Comment on above: IG% - Immature Granu locytes (promyelocytes, myelocytes andmetamyelocytes) > 1% indicates that a LEFT SHIFT is Present. [facility] Prof ilOrdered By: Kiln Head House Operator on 08-18-2018 [facility] 2000 panel 3.8 mmol/L Normal 3.5-5.1 [facility] Work Phone: Comment on above: [facility] [address] [place], [address] [facility] 2000 panel 19 mg/dL Abnormal 7-18 [facility] Work Phone: Comment on above: [facility] [address] [place], [address] [facility] 2000 panel 82 mg/dL Normal 74-106 [facility] Work Phone: Comment on above: Please note revised GLUCOSE reference range gkxgptbum64/02/2018. [facility] [address] [place], [address] [facility] 2000 panel 139 mmol/L Normal 136-145 [facility] Work Phone: Comment on above: [facility] [address] [place], [address] [facility] 2000 panel 0.50 mg/dL Normal 0.20-1.00 [facility] Work Phone: Comment on above: [facility] [address] [place], [address] [facility] 2000 panel 25 U/L Normal 13-56 [facility] Work Phone: Comment on above: [facility] [address] [place], [address] [facility] 2000 panel 85 U/L Normal 45-117 [facility] Work Phone: Comment on above: [facility] [address] [place], [address] [facility] 2000 panel 18 U/L Normal 15-37 [facility] Work Phone: Comment on above: [facility] [address] [place], [address] [facility] 2000 panel 8.9 mg/dL Normal 8.5-10.1 [facility] Work Phone: Comment on above: [facility] [address] [place], [address] [facility] 2000 panel 1.1 {RATIO} Normal 0.9-2.4 [facility] Work Phone: Comment on above: [facility] [address] [place], [address] [facility] 2000 panel 3.6 g/dL Normal 2.2-4.2 [facility] Work Phone: Comment on above: [facility] [address] [place], [address] [facility] 2000 panel 3.8 g/dL Normal 3.2-5.0 [facility] Work Phone: Comment on above: [facility] [address] [place], [address] [facility] 2000 panel 7.4 g/dL Normal 6.4-8.2 [facility] Work Phone: Comment on above: [facility] [address] [place], [place], [address] [facility] 2000 panel 29.6 {RATIO} Abnormal 10-20 [facility] Work Phone: Comment on above: [facility] [address] [place], [address] [facility] 2000 panel 9 1 Normal 5-15 [facility] Work Phone: Comment on above: [facility] [address] [place], [address] [facility] 2000 panel 124 mL/min Normal [facility] Work Phone: Comment on above: GFR Calc [facility] [address] [place], [address] [facility] 2000 panel 103 mL/min Normal [facility] Work Phone: Comment on above: Non- GFR Calc [facility] [address] [place], [place], [id number] [facility] 2000 panel 0.64 mg/dL Normal 0.55-1.02 [facility] Work Phone: Comment on above: The validity of the calculated GFR AND GFRAA in patients over70 years has not been determined. Clinical correlation isessential. [facility] [address] [place], [place], [address] [facility] 2000 panel 25.0 mmol/L Normal 21.0-32.0 [facility] Work Phone: Comment on above: [facility] [address] [place], [address] [facility] 2000 panel 105 mmol/L Normal 98-107 [facility] Work Phone: Comment on above: [facility] [address] [place], [place], [address] Lipid ProfileOrdered By: Yvonne tem Supervisor Sandblaster on 08-18-2018 Cholesterol in HDL mass conc 75 mg/dL Normal [facility] Work Phone: Comment on above: The drugs N-Acetylcy steine and Metamizole may falselydepress this assay. Reference Range HDL <40 mg/dL Low HDL Cholesterol HDL >or= 60 mg/dL High HDL Cholesterol [facility] [address] [place], [place], [address] Cholesterol in LDL mass conc 119 mg/dL Normal 0-130 [facility] Work Phone: Comment on above: [facility] [address] [place], [place], [address] Cholesterol in VLDL [Mass/Vol] 16 mg/dL Normal 5-40 [facility] Work Phone: Comment on above: [facility] [address] [place], [place], [address] Cholesterol mass conc 210 mg/dL Abnormal [facility] Work Phone: Comment on above: <200 mg/dL Desirable 200-240 mg/dL Borderline >240 mg/dL High Risk [facility] [address] [place], [place], [id number] Triglyceride mass conc 79 mg/dL Normal [facility] Work Phone: Comment on above: The drugs N-Acetylcy steine and Metamizole may falselydepress this assay.Serum Triglycerides Reference Interval Normal <150 mg/dL Borderline high 150 - 199 mg/dL High 200 - 499 mg/dL Very High > or = 500 mg/dL [facility] [address] [place], [place], [address] Lipid Profile 16 mg/dL Normal 5-40 [facility] Work Phone: Thyroid Stim Hormone (TSH)Or dered By: Kiln Head House Operator on 08-18-2018 Thyrotropin Qn 1.35 {uIU/mL} Normal 0.358-3.74 [facility] Work Phone: Comment on above: [facility] [address] [place], [place], [id number] Urinalysis, Routine (Dipstic k)Ordered By: Kiln Head House Operator on 08-18-2018 Clarity (U) Clear Normal [facility] Work Phone: Comment on above: How was Urine Obtain ed? [facility] [address] [place], [place], [phone] Color (U) Yellow Normal [facility] Work Phone: Comment on above: How was Urine Obtain ed? [facility] [address] [place], [place], [address] Urinalysis, Routine (Dipstick) Negative Normal [facility] Work Phone: Comment on above: How was Urine Obtain ed? [facility] [address] [place], [place], [phone] Urinalysis, Routine (Dipstick) 100 /ul Abnormal [facility] Work Phone: Comment on above: How was Urine Obtain ed? [facility] [address] [place], [place], [phone] Urinalysis, Routine (Dipstick) Yellow Normal [facility] Work Phone: Urinalysis, Routine (Dipstick) Normal Normal [facility] Work Phone: Comment on above: How was Urine Obtain ed? [facility] [address] [place], [place], [phone] Urinalysis, Routine (Dipstick) Clear Normal [facility] Work Phone: Urinalysis, Routine (Dipstick) 6.0 1 Normal 5.0 - 8.0 [facility] Work Phone: Comment on above: How was Urine Obtain ed? [facility] [address] [place], [phone] Urinalysis, Routine (Dipstick) 1.010 1 Normal 1.002-1.03 0 [facility] Work Phone: Comment on above: How was Urine Obtain ed? [facility] [address] [place], [place], [phone] VL Aorta Iliac Duplexon - VL Aorta Iliac Duplex Patient Name: VARSHA TORRES Ultrasound Exam Date/Time 05/13/2018 11:26:44 EDT Exam VL Aorta Iliac Duplex Ordering Physician RONY MCNAIR Accession Number [id number] CPT4 Codes 62452 () Reason For Exam Include abdominal aorta, vena cava, iliac arteries and iliac veins Report [facility] --- Abdominal Aortic Duplex Report Patient Name: Varsha Torres : 1965 Study Date: 05/13/2018 E (53yrs) Age: 53 Account: [id number] Gender: F Loc: BP: Ordering: Rony Mcnair MD Technologist: Ordering Physician: Rony Mcnair MD Rn Occupational Health: Indira Tolbert RVT Interpreting Physician: Heather Goodwin --- Location: [facility] --- INDICATIONS: 459.89 other specified disorders of [...] performed. The images were obtained using a Stylenda E9 vascular ultrasound machine. The study was technically limited due to body habitus and bowel gas. --- Arterial flow: + +-------+ -------+ +--------- --+ !Location !V sys !AP cm !Transverse!Comment ! + +-------+ -------+ +--------- --+ !Abd aorta - prox !78 cm/s!1.46 cm!1.43 cm ! - --! + +-------+ -------+ +--------- --+ !Abd aorta - mid !64 cm/s!1.56 cm!1.71 cm ! - --! + +-------+ -------+ +--------- --+ !Abd aorta - distal!86 cm/s!1.49 cm!1.52 cm ! - --! + +-------+ -------+ +--------- --+ !Right common iliac!73 cm/s!0.94 cm! ! --! + +-------+ -------+ +--------- --+ !Left common iliac !95 cm/s!1.04 cm!1.26 cm ! - --! + +-------+ -------+ +--------- --+ !IVC !-------!-------! ! patent / no dilation seen ! + +-------+ -------+ +--------- --+ !Rt iliac Vein !-------!-------! ! patent, no dilation seen. ! + +-------+ -------+ +--------- --+ !Left iliac vein !-------!-------! ! patent/ small dilation seen ! ! ! ! ! !proximally(1.45cm) Pt gassy ! ! ! ! ! !near bifurcation. ! + +-------+ -------+ +--------- --+ Electronically signed by: Heather Goodwin [id number] Final Dictated: 05/13/2018 9:14 pm Dictating Physician: HEATHER GOODWIN Signed Date and Time: 05/13/2018 9:14 pm Signed by: HEATHER GOODWIN [facility] Rapid Strep Test, Office ([phone])Ordered By: Kem Gómez on 12-13-2017 S. pyogenes Ag EIA Ql (Throat) Negative Normal [facility]; [facility] Work Phone: Rapid Strep Test, Office ([phone])Ordered By: Kem Moya on 12-13-2017 S. pyogenes Ag IA Ql (Unsp spec) Negative Normal [facility] Work Phone: THROAT CULTURE ([phone])Ordere d By: Kiln Head House Operator on 12-13-2017 Bacteria identified Respiratory culture Nom (Unsp spec) Final report Normal [facility] Work Phone: Comment on above: PATIENT NOT FASTINGP ERFORMED BY: [facility] [facility] Efttzt3298 [facility] [id number] Information: SRC:TH Bacteria identified Respiratory culture Nom (Unsp spec) RRF Normal [facility] Work Phone: Comment on above: Routine respiratory taniya PATIENT NOT FASTINGP ERFORMED BY: [facility] Mzmqmq3415 [facility] [id number] Information: SRC:TH CBC W/Diff, AutomatedOrdered By: Kiln Head House Operator on 07-19-2017 Absolute Neut 2.5 {X10_3/uL} Normal 2.0-7.7 Com[facility] Work Phone: Comment on above: [facility] [address] [place], [address] Basophils/100 WBC (Bld) 0.4 % Normal 0-1 [facility] Work Phone: Comment on above: [facility] [address] [place], [address] Basophils/100 WBC Auto (Bld) 0.4 % Normal 0-1 [facility] Work Phone: Eosinophils/100 WBC (Bld) 2.5 % Normal 0-5 [facility] Work Phone: Comment on above: [facility] [address] [place], [address] Eosinophils/100 WBC Auto (Bld) 2.5 % Normal 0-5 [facility] Work Phone: Erythrocyte distribution width (RBC) [Ratio] 13.4 % Normal 11.6-14.6 [facility] Work Phone: Comment on above: [facility] [address] [place], [address] Erythrocyte distribution width Auto Ratio (RBC) 13.4 % Normal 11.6-14.6 [facility] Work Phone: Hematocrit (Bld) [Volume fraction] 40.0 % Normal 37-47 [facility] Work Phone: Comment on above: [place] [address] [place], [address] Hematocrit Auto Volume Fraction (Bld) 40.0 % Normal 37-47 [facility] Work Phone: Hemoglobin mass conc (Bld) 12.5 g/dL Normal 12.0-15.0 [facility] Work Phone: Comment on above: [place] [address] [place], [address] IM GRAN % 0.000 % Normal 0.0-0.9 [facility] Work Phone: Comment on above: IG% - Immature Granu locytes (promyelocytes, myelocytes andmetamyelocytes) > 1% indicates that a LEFT SHIFT is Present. [place] [address] [place], [address] Lymphocytes (Bld) [#/Vol] 1.70 {X10_3/ul} Normal 0.83-4.51 [facility] Work Phone: Comment on above: [facility] [address] [place], [address] Lymphocytes/100 WBC (Bld) 35.7 % Normal 19-41 [facility] Work Phone: Comment on above: [place] [address] [place], [address] Lymphocytes/100 WBC Auto (Bld) 35.7 % Normal 19-41 [facility] Work Phone: MCH (RBC) [Entitic mass] 30.0 pg Normal 27.0-32.0 [facility] Work Phone: Comment on above: [facility] [address] [place], [address] MCH Auto Entitic mass (RBC) 30.0 pg Normal 27.0-32.0 [facility] Work Phone: MCHC (RBC) [Mass/Vol] 31.3 {g/gl} Abnormal 32-36 [facility] Work Phone: Comment on above: [facility] [address] [place], [address] MCHC Auto mass conc (RBC) 31.3 {g/gl} Abnormal 32-36 [facility] Work Phone: MCV (RBC) [Entitic vol] 96.2 fL Normal 81-99 [facility] Work Phone: Comment on above: [facility] [address] [place], [address] MCV Auto Entitic volume (RBC) 96.2 fL Normal 81-99 [facility] Work Phone: Monocytes/100 WBC (Bld) 8.4 % Normal 0-10 [facility] Work Phone: Comment on above: [facility] [address] [place], [address] Monocytes/100 WBC Auto (Bld) 8.4 % Normal 0-10 [facility] Work Phone: Neutrophils/100 WBC (Bld) 53.0 % Normal 47-70 [facility] Work Phone: Comment on above: [facility] [address] [place], [address] Neutrophils/100 WBC Auto (Bld) 53.0 % Normal 47-70 [facility] Work Phone: Platelet mean volume (Bld) [Entitic vol] 10.2 fL Normal 6.2-12.0 [facility] Work Phone: Comment on above: [facility] [address] [place], [address] Platelet mean volume Auto Entitic volume (Bld) 10.2 fL Normal 6.2-12.0 [facility] Work Phone: Platelets (Bld) [#/Vol] 272 10*3/uL Normal 150-450 [facility] Work Phone: Comment on above: [facility] [address] [place], [address] Platelets Auto #/vol (Bld) 272 10*3/uL Normal 150-450 [facility] Work Phone: RBC (Bld) [#/Vol] 4.16 {M/mm3} Abnormal 4.2-5.4 [facility] Work Phone: Comment on above: [facility] [address] [place], [address] RBC Auto #/vol (Bld) 4.16 {M/mm3} Abnormal 4.2-5.4 [facility] Internal Medicine Work Phone: RDW SD 46.7 fL Abnormal 35.1-43.9 [facility] Work Phone: Comment on above: [facility] [address] [place], [address] WBC (Bld) [#/Vol] 4.8 10*3/uL Normal 4.4-11.0 [facility] Medicine Work Phone: Comment on above: [facility] [address] [place], [address] WBC Auto #/vol (Bld) 4.8 10*3/uL Normal 4.4-11.0 [facility] Internal Medicine Work Phone: CBC W/Diff, Automated 1.70 {X10_3/ul} Normal 0.83-4.51 [facility] Work Phone: CBC W/Diff, Automated 46.7 fL Abnormal 35.1-43.9 [facility] Work Phone: CBC W/Diff, Automated 0.000 % Normal 0.0-0.9 [facility] Work Phone: Comment on above: IG% - Immature Granu locytes (promyelocytes, myelocytes andmetamyelocytes) > 1% indicates that a LEFT SHIFT is Present. CBC W/Diff, Automated 2.5 {X10_3/uL} Normal 2.0-7.7 [facility] Internal Medicine Work Phone: Erythrocyte Sed RateOrdered By: Kiln Head House Operator on 07-19-2017 Erythrocyte Sed Rate 11 mm/h Normal 0-30 [facility] Internal [facility] Work Phone: Comment on above: [facility] [address] [place], [address] Uric AcidOrdered By: Kiln Head House Operator on 07-19-2017 Urate mass conc 3.7 mg/dL Normal 2.6-6.0 [facility] Work Phone: Comment on above: The drugs N-Acetylcy steine and Metamizole may falselydepress this assay. [facility] [address] [place], [address] Hemoglobin [id number] By: Sy stem Supervisor Sandblaster on 01-29-2017 Hemoglobin A1c/Hemoglobin.tot al mass fraction (Bld) 5.8 % Normal 4.2-6.3 [facility] Internal [facility] Work Phone: Comment on above: [facility] [address] [place], [address] Lipid ProfileOrdered By: Sy tem Supervisor Sandblaster on 01-29-2017 Cholesterol in HDL mass conc 73 mg/dL Normal [facility] Work Phone: Comment on above: The drugs N-Acetylcy steine and Metamizole may falsely deressthis assay. Reference Range HDL <40 mg/dL Low HDL Cholesterol HDL >or= 60 mg/dL High HDL Cholesterol [facility] [address] [place], [address] Cholesterol in LDL mass conc 125 mg/dL Normal 0-130 [facility] Work Phone: Comment on above: [facility] [address] [place], [address] Cholesterol in VLDL [Mass/Vol] 12 mg/dL Normal 5-40 [facility] Work Phone: Comment on above: [facility] [address] [place], [address] Cholesterol mass conc 210 mg/dL Abnormal [facility] Work Phone: Comment on above: <200 mg/dL Desirable 200-240 mg/dL Borderline >240 mg/dL High Risk [facility] [address] [place], [place], [id number] Triglyceride mass conc 61 mg/dL Normal [facility] Work Phone: Comment on above: The drugs N-Acetylcy steine and Metamizole may falsely deressthis assay.Serum Triglycerides Reference Interval Normal <150 mg/dL Borderline high 150 - 199 mg/dL High 200 - 499 mg/dL Very High > or = 500 mg/dL [facility] [address] [place], [place], [address] Lipid Profile 12 mg/dL Normal 5-40 [facility] Work Phone: Basic Metabolic Profile (BMP )Ordered By: Kiln Head House Operator on 12-27-2016 Basic metabolic 2000 panel 8.9 mg/dL Normal 8.5-10.1 [facility] Work Phone: Comment on above: [facility] [address] [place], [place], [address] Basic metabolic 2000 panel 17 mg/dL Normal 7-18 [facility] Work Phone: Comment on above: [facility] [address] [place], [place], [address] Basic metabolic 2000 panel 3 1 Abnormal 5-15 [facility] Work Phone: Comment on above: [facility] [address] [place], [place], [address] Basic metabolic 2000 panel 104 mg/dL Normal 70-110 [facility] Work Phone: Comment on above: [facility] [address] [place], [place], [address] Basic metabolic 2000 panel 108 mmol/L Abnormal 98-107 [facility] Work Phone: Comment on above: [facility] [address] [place], [place], [address] Basic metabolic 2000 panel 3.8 mmol/L Normal 3.5-5.1 [facility] Work Phone: Comment on above: [facility] [address] [place], [place], [address] Basic metabolic 2000 panel 139 mmol/L Normal 136-145 [facility] Work Phone: Comment on above: [facility] [address] [place], [place], [address] Basic metabolic 2000 panel 0.72 mg/dL Normal 0.55-1.02 [facility] Work Phone: Comment on above: The validity of the calculated GFR AND GFRAA in patients over70 years has not been determined. Clinical correlation isessential. [facility] [address] [place], [place], [address] Basic metabolic 2000 panel 23.7 {RATIO} Abnormal 10-20 [facility] Work Phone: Comment on above: [facility] [address] [place], [place], [phone] Basic metabolic 2000 panel 82.25 ml/min Normal [facility] Work Phone: Comment on above: [facility] [address] [place], [place], [phone] Basic metabolic 2000 panel 110 mL/min Normal [facility] Work Phone: Comment on above: GFR Calc [facility] [address] [place], [place], [phone] Basic metabolic 2000 panel 91 mL/min Normal [facility] Work Phone: Comment on above: Non- GFR Calc [facility] [address] [place], [place], [phone] Basic metabolic 2000 panel 28.0 mmol/L Normal 21.0-32.0 [facility] Work Phone: Comment on above: [facility] [address] [place], [place], [phone] CBC W/Diff, AutomatedOrdered By: Kiln Head House Operator on 12-27-2016 Absolute Neut 3.4 {X10_3/uL} Normal 2.0-7.7 Compreh ens[facility] Work Phone: Comment on above: [facility] [address] [place], [place], [phone] Basophils/100 WBC (Bld) 0.4 % Normal 0-1 [facility] Work Phone: Comment on above: [facility] [address] [place], [place], [phone] Basophils/100 WBC Auto (Bld) 0.4 % Normal 0-1 [facility] Work Phone: Eosinophils/100 WBC (Bld) 1.6 % Normal 0-5 [facility] Work Phone: Comment on above: [facility] [address] [place], [address] Eosinophils/100 WBC Auto (Bld) 1.6 % Normal 0-5 [facility] Work Phone: Erythrocyte distribution width (RBC) [Ratio] 13.8 % Normal 11.6-14.6 [facility] Work Phone: Comment on above: [facility] [address] [place], [address] Erythrocyte distribution width Auto Ratio (RBC) 13.8 % Normal 11.6-14.6 [facility] Work Phone: Hematocrit (Bld) [Volume fraction] 38.3 % Normal 37-47 [facility] Work Phone: Comment on above: [facility] [address] [place], [address] Hematocrit Auto Volume Fraction (Bld) 38.3 % Normal 37-47 [facility] Work Phone: Hemoglobin mass conc (Bld) 12.2 g/dL Normal 12.0-15.0 [facility] Work Phone: Comment on above: [facility] [address] [place], [address] IM GRAN % 0.000 % Normal 0.0-0.9 [facility] Work Phone: Comment on above: IG% - Immature Granu locytes (promyelocytes, myelocytes andmetamyelocytes) > 1% indicates that a LEFT SHIFT is Present. [facility] [address] [place], [address] Lymphocytes (Bld) [#/Vol] 1.20 {X10_3/ul} Normal 0.83-4.51 [facility] Work Phone: Comment on above: [facility] [address] [place], [address] Lymphocytes/100 WBC (Bld) 23.9 % Normal 19-41 [facility] Work Phone: Comment on above: [facility] [address] [place], [address] Lymphocytes/100 WBC Auto (Bld) 23.9 % Normal 19-41 [facility] Work Phone: MCH (RBC) [Entitic mass] 30.0 pg Normal 27.0-32.0 [facility] Work Phone: Comment on above: [facility] [address] [place], [address] MCH Auto Entitic mass (RBC) 30.0 pg Normal 27.0-32.0 [facility] Work Phone: MCHC (RBC) [Mass/Vol] 31.9 {g/gl} Abnormal 32-36 [facility] Work Phone: Comment on above: [facility] [address] [place], [address] MCHC Auto mass conc (RBC) 31.9 {g/gl} Abnormal 32-36 [facility] Work Phone: MCV (RBC) [Entitic vol] 94.3 fL Normal 81-99 [facility] Work Phone: Comment on above: [facility] [address] [place], [address] MCV Auto Entitic volume (RBC) 94.3 fL Normal 81-99 [facility] Work Phone: Monocytes/100 WBC (Bld) 7.4 % Normal 0-10 [facility] Work Phone: Comment on above: [facility] [address] [place], [address] Monocytes/100 WBC Auto (Bld) 7.4 % Normal 0-10 [facility] Work Phone: Neutrophils/100 WBC (Bld) 66.7 % Normal 47-70 [facility] Work Phone: Comment on above: [facility] [address] [place], [address] Neutrophils/100 WBC Auto (Bld) 66.7 % Normal 47-70 [facility] Work Phone: Platelet mean volume (Bld) [Entitic vol] 9.0 fL Normal 6.2-12.0 [facility] Work Phone: Comment on above: [facility] [address] [place], [address] Platelet mean volume Auto Entitic volume (Bld) 9.0 fL Normal 6.2-12.0 [facility] Work Phone: Platelets (Bld) [#/Vol] 274 10*3/uL Normal 150-450 [facility] Work Phone: Comment on above: [facility] [address] [place], [address] Platelets Auto #/vol (Bld) 274 10*3/uL Normal 150-450 [facility] Work Phone: RBC (Bld) [#/Vol] 4.06 {M/mm3} Abnormal 4.2-5.4 [facility] Internal Medicine Work Phone: Comment on above: [facility] [address] [place], [address] RBC Auto #/vol (Bld) 4.06 {M/mm3} Abnormal 4.2-5.4 [facility] Internal Medicine Work Phone: RDW SD 47.5 fL Abnormal 35.1-43.9 [facility] Internal [facility] Work Phone: Comment on above: [facility] [address] [place], [address] WBC (Bld) [#/Vol] 5.0 10*3/uL Normal 4.4-11.0 [facility] Internal Medicine Work Phone: Comment on above: [facility] [address] [place], [address] WBC Auto #/vol (Bld) 5.0 10*3/uL Normal 4.4-11.0 [facility] Work Phone: CBC W/Diff, Automated 1.20 {X10_3/ul} Normal 0.83-4.51 [facility] Work Phone: CBC W/Diff, Automated 3.4 {X10_3/uL} Normal 2.0-7.7 [facility] Work Phone: CBC W/Diff, Automated 0.000 % Normal 0.0-0.9 [facility] Work Phone: Comment on above: IG% - Immature Granu locytes (promyelocytes, myelocytes andmetamyelocytes) > 1% indicates that a LEFT SHIFT is Present. CBC W/Diff, Automated 47.5 fL Abnormal 35.1-43.9 [facility] Work Phone: LIPID PANEL ([id number])Ordered B y: Kiln Head House Operator on 07-30-2015 Cholesterol in HDL mass conc 87 mg/dL Normal [facility] Work Phone: Comment on above: According to ATP-III Guidelines, HDL-C >59 mg/dL is considered anegative risk factor for CHD. PATIENT WAS FASTINGP ERFORMED BY: [employer]6[facility] [id number] Information: [id number] Cholesterol in LDL mass conc 134 mg/dL Abnormal 0-99 [facility] Work Phone: Comment on above: PATIENT WAS FASTINGP ERFORMED BY: [employer]6[facility] [id number] Information: [id number] Cholesterol in LDL/Cholesterol in HDL mass ratio 1.5 {ratio_units} Normal 0.0-3.2 [facility] Work Phone: Comment on above: LDL/HDL Ratio Men Wo men 1/2 Avg.Risk 1.0 1.5 Avg.Risk 3.6 3.2 2X Avg.Risk 6.2 5.0 3X Avg.Risk 8.0 6.1 PATIENT WAS FASTINGP ERFORMED BY: [facility] [id number] Information: [id number] Cholesterol in VLDL mass conc 13 mg/dL Normal 5-40 [facility] Work Phone: Comment on above: PATIENT WAS FASTINGP ERFORMED BY: [place] [id number] [facility] [id number] Information: [id number] Cholesterol mass conc 234 mg/dL Abnormal 100-199 [facility] Work Phone: Comment on above: PATIENT WAS FASTINGP ERFORMED BY: [place] [id number] [facility] [id number] Information: [id number] Triglyceride mass conc 66 mg/dL Normal 0-149 [facility] Work Phone: Comment on above: PATIENT WAS FASTINGP ERFORMED BY: [facility] [place] [id number] [facility] [id number] Information: [id number] AmylaseOrdered By: Gustabo mansfield on 06-02-2015 Amylase enzyme act/vol 29 U/L Normal 25-115 [facility] Work Phone: Comment on above: Test performed at:[facility] [address] [place] [address] CBC W/Diff, AutomatedOrdered By: Kiln Head House Operator on 06-02-2015 Absolute Neut 2.2 {X10_3/uL} Normal 2.0-7.7 Compreh ensive Internal Medicine Work Phone: Comment on above: Test performed at:[facility] [address] [place] [address] Basophils/100 WBC (Bld) 0.7 % Normal 0-1 [facility] Work Phone: Comment on above: Test performed at:[facility] [address] [place] [address] Basophils/100 WBC Auto (Bld) 0.7 % Normal 0-1 [facility] Work Phone: Eosinophils/100 WBC (Bld) 1.7 % Normal 0-5 [facility] Work Phone: Comment on above: Test performed at:[facility] [address] [place] [address] Eosinophils/100 WBC Auto (Bld) 1.7 % Normal 0-5 [facility] Work Phone: Erythrocyte distribution width (RBC) [Ratio] 13.1 % Normal 11.6-14.6 [facility] Work Phone: Comment on above: Test performed at:[facility] [address] [place] [address] Erythrocyte distribution width Auto Ratio (RBC) 13.1 % Normal 11.6-14.6 [facility] Work Phone: Hematocrit (Bld) [Volume fraction] 40.3 % Normal 37-47 [facility] Work Phone: Comment on above: Test performed at:[facility] [address] [place] [address] Hematocrit Auto Volume Fraction (Bld) 40.3 % Normal 37-47 [facility] Work Phone: Hemoglobin mass conc (Bld) 13.5 g/dL Normal 12.0-15.0 [facility] Work Phone: Comment on above: Test performed at:[facility] [address] [place] [address] IM GRAN % 0.000 % Normal 0.0-0.9 [facility] Work Phone: Comment on above: IG% - Immature Granu locytes (promyelocytes, myelocytes andmetamyelocytes) > 1% indicates that a LEFT SHIFT is Present. Test performed at:[facility] [address] [place] [address] Lymphocytes (Bld) [#/Vol] 1.35 {X10_3/ul} Normal 0.83-4.51 [facility] Work Phone: Comment on above: Test performed at:[facility] [address] [place] [address] Lymphocytes/100 WBC (Bld) 33.3 % Normal 19-41 [facility] Work Phone: Comment on above: Test performed at:[facility] [address] [place] [address] Lymphocytes/100 WBC Auto (Bld) 33.3 % Normal 19-41 [facility] Work Phone: MCH (RBC) [Entitic mass] 31.2 pg Normal 27.0-32.0 [facility] Work Phone: Comment on above: Test performed at:[facility] [address] [place] [address] MCH Auto Entitic mass (RBC) 31.2 pg Normal 27.0-32.0 [facility] Work Phone: MCHC (RBC) [Mass/Vol] 33.5 {g/gl} Normal 32-36 [facility] Work Phone: Comment on above: Test performed at:[facility] [address] [place] [address] MCHC Auto mass conc (RBC) 33.5 {g/gl} Normal 32-36 [facility] Work Phone: MCV (RBC) [Entitic vol] 93.1 fL Normal 81-99 [facility] Work Phone: Comment on above: Test performed at:[facility] [address] [place] [address] MCV Auto Entitic volume (RBC) 93.1 fL Normal 81-99 [facility] Work Phone: Monocytes/100 WBC (Bld) 10.6 % Abnormal 0-10 [facility] Work Phone: Comment on above: Test performed at:[facility] [address] [place] [address] Monocytes/100 WBC Auto (Bld) 10.6 % Abnormal 0-10 [facility] Work Phone: Neutrophils/100 WBC (Bld) 53.7 % Normal 47-70 [facility] Work Phone: Comment on above: Test performed at:[facility] [address] [place] [address] Neutrophils/100 WBC Auto (Bld) 53.7 % Normal 47-70 [facility] Work Phone: Platelet mean volume (Bld) [Entitic vol] 10.1 fL Normal 6.2-12.0 [facility] Work Phone: Comment on above: Test performed at:[facility] [address] [place] [address] Platelet mean volume Auto Entitic volume (Bld) 10.1 fL Normal 6.2-12.0 [facility] Work Phone: Platelets (Bld) [#/Vol] 293 10*3/uL Normal 150-450 [facility] Internal [facility] Work Phone: Comment on above: Test performed at:[facility] [address] [place] [address] Platelets Auto #/vol (Bld) 293 10*3/uL Normal 150-450 [facility] Internal [facility] Work Phone: RBC (Bld) [#/Vol] 4.33 {M/mm3} Normal 4.2-5.4 [facility] Internal [facility] Work Phone: Comment on above: Test performed at:[facility] [address] [place] [address] RBC Auto #/vol (Bld) 4.33 {M/mm3} Normal 4.2-5.4 [facility] Internal [facility] Work Phone: RDW SD 43.4 fL Normal 35.1-43.9 [facility] Work Phone: Comment on above: Test performed at:[facility] [address] [place] [address] WBC (Bld) [#/Vol] 4.1 10*3/uL Abnormal 4.4-11.0 [facility]pre [facility] Internal [facility] Work Phone: Comment on above: Test performed at:[facility] [address] [place] [address] WBC Auto #/vol (Bld) 4.1 10*3/uL Abnormal 4.4-11.0 [facility] Work Phone: CBC W/Diff, Automated 43.4 fL Normal 35.1-43.9 [facility] Work Phone: CBC W/Diff, Automated 1.35 {X10_3/ul} Normal 0.83-4.51 [facility] Work Phone: CBC W/Diff, Automated 2.2 {X10_3/uL} Normal 2.0-7.7 [facility] Work Phone: CBC W/Diff, Automated 0.000 % Normal 0.0-0.9 [facility] Internal [facility] Work Phone: Comment on above: IG% - Immature Granu locytes (promyelocytes, myelocytes andmetamyelocytes) > 1% indicates that a LEFT SHIFT is Present. CRPOrdered By: System Manage r on 06-02-2015 CRP mass conc 3.94 mg/L Abnormal 0.0-3.0 Comprehensi [facility] Work Phone: Comment on above: C-Reactive Protein ( CRP) provides useful information for thediagnosis, therapy and monitoring of inflammatory processesand associated diseases. For the evaluation of Relative Riskfor Cardiovascular Disease, a High Sensitivity CRP (HSCRP)should be ordered. Test performed at:[facility] [address] [place] [address] [facility] Prof ilOrdered By: Kiln Head House Operator on 06-02-2015 [facility] 2000 panel 29 U/L Normal 12-78 [facility] Work Phone: Comment on above: Test performed at:[facility] [address] [place] [address] [facility] 2000 panel 0.50 mg/dL Normal 0.20-1.00 [facility] Work Phone: Comment on above: Test performed at:[facility] [address] [place] [address] [facility] 2000 panel 3.5 g/dL Normal 2.3-3.5 [facility] Work Phone: Comment on above: Test performed at:[facility] [address] [place] [address] [facility] 2000 panel 3.9 g/dL Normal 3.4-5.0 [facility] Work Phone: Comment on above: Test performed at:[facility] [address] [place] [address] [facility] 2000 panel 137 mmol/L Normal 136-145 [facility] Work Phone: Comment on above: Test performed at:[facility] [address] [place] [address] Comprehensive metabolic 2000 panel 105 mmol/L Normal 98-107 [facility] Work Phone: Comment on above: Test performed at:[facility] [address] [place] [address] [facility] metabolic 2000 panel 3.8 mmol/L Normal 3.5-5.1 [facility] Work Phone: Comment on above: Test performed at:[facility] [address] [place] [address] Comprehensive metabolic 2000 panel 7.4 g/dL Normal 6.4-8.2 [facility] Work Phone: Comment on above: Test performed at:[facility] [address] [place] [address] [facility] 2000 panel 20.0 {RATIO} Normal 10-20 [facility] Work Phone: Comment on above: Test performed at:[facility] [address] [place] [address] Comprehensive metabolic 2000 panel 114 mL/min Normal [facility] Work Phone: Comment on above: Test performed at:[facility] [address] [place] [address] Comprehensive metabolic 2000 panel 6 1 Normal 5-15 [facility] Work Phone: Comment on above: Test performed at:[facility] [address] [place] [address] Comprehensive metabolic 2000 panel 26.0 mmol/L Normal 21.0-32.0 [facility] Work Phone: Comment on above: Test performed at:[facility] [address] [place] [address] [facility] 2000 panel 94 mL/min Normal [facility] Work Phone: Comment on above: Test performed at:[facility] [address] [place] [address] [facility] metabolic 2000 panel 0.70 mg/dL Normal 0.55-1.20 [facility] Work Phone: Comment on above: The validity of the calculated GFR AND GFRAA in patients over70 years has not been determined. Clinical correlation isessential. Test performed at:[facility] [address] [place] [address] [facility] 2000 panel 14 mg/dL Normal 7-18 [facility] Work Phone: Comment on above: Test performed at:[facility] [address] [place] [address] Comprehensive metabolic 2000 panel 78 mg/dL Normal 70-110 [facility] Work Phone: Comment on above: Test performed at:[facility] [address] [place] [address] Comprehensive metabolic 2000 panel 89 U/L Normal 50-136 [facility] Work Phone: Comment on above: Test performed at:[facility] [address] [place] [address] [facility] metabolic 2000 panel 24 U/L Normal 15-37 [facility] Work Phone: Comment on above: Test performed at:[facility] [address] [place] [address] [facility] metabolic 2000 panel 9.1 mg/dL Normal 8.5-10.1 [facility] Work Phone: Comment on above: Test performed at:[facility] [address] [place] [address] [facility] metabolic 2000 panel 1.1 {RATIO} Normal 0.9-2.4 [facility] Work Phone: Comment on above: Test performed at:[facility] [address] [place] [address] Erythrocyte Sed RateOrdered By: Kiln Head House Operator on 06-02-2015 Erythrocyte Sed Rate 28 mm/h Normal 0-30 [facility] Work Phone: Comment on above: Test performed at:[facility] [address] [place] [address] LipaseOrdered By: System Man ager on 06-02-2015 Lipase enzyme act/vol 85 U/L Normal 73-393 [facility] Work Phone: Comment on above: Test performed at:[facility] [address] [place] [address] [facility] Met[facility] Prof ilOrdered By: Kiln Head House Operator on 10-24-2014 Albumin mass conc 3.8 g/dL Normal 3.4-5.0 Compreh ensive Internal Medicine Work Phone: Comment on above: Test performed at:[facility] [address] [place] [address] Albumin/Globulin mass ratio 1.1 {RATIO} Normal 0.9-2.4 [facility] Work Phone: Comment on above: Test performed at:[facility] [address] [place] [address] ALT enzyme act/vol 28 U/L Normal 12-78 [facility] Internal [facility] Work Phone: Comment on above: Test performed at:[facility] [address] [place] [address] AST enzyme act/vol 18 U/L Normal 15-37 [facility] Internal Medicine Work Phone: Comment on above: Test performed at:[facility] [address] [place] [address] Bilirubin mass conc 0.40 mg/dL Normal 0.00-4.00 [facility] Work Phone: Comment on above: Test performed at:[facility] [address] [place] [address] Calcium mass conc 9.5 mg/dL Normal 8.5-10.1 Compreh [facility] Internal Medicine Work Phone: Comment on above: Test performed at:[facility] [address] [place] [address] Chloride molar conc 102 mmol/L Normal 98-107 [facility] Work Phone: Comment on above: Test performed at:[facility] [address] [place] [address] CO2 molar conc 25.0 mmol/L Normal 21.0-32.0 [facility] Work Phone: Comment on above: Test performed at:[facility] [address] [place] [address] Creatinine mass conc 0.8 mg/dL Normal 0.6-1.0 [facility] Work Phone: Comment on above: Test performed at:[facility] [address] [place] [address] GFR/1.73 sq M predicted among non-blacks MDRD vol rate/area (S/P/Bld) 81 mL/min/{1.73_m2} Normal Comprehensiv e [facility] Medicine Work Phone: Comment on above: Test performed at:[facility] [address] [place] [address] Globulin Calculated mass conc (S) 3.6 g/dL Normal 2.7-4.2 [facility] Work Phone: Glucose mass conc 94 mg/dL Normal 70-110 Compreh ensive [facility] Work Phone: Comment on above: Test performed at:[facility] [address] [place] [address] Potassium molar conc 4.0 mmol/L Normal 3.5-5.1 [facility] Work Phone: Comment on above: Test performed at:[facility] [address] [place] [address] Protein mass conc 7.4 g/dL Normal 6.4-8.2 Compreh ensive [facility] Work Phone: Sodium molar conc 136 mmol/L Normal 136-145 Compreh ensive [facility] Medicine Work Phone: Comment on above: Test performed at:[facility] [address] [place] [address] Urea nitrogen mass conc 18 mg/dL Normal 7-18 [facility] Work Phone: Comment on above: Test performed at:[facility] [address] [place] [address] [facility] Profil 22.5 {RATIO} Abnormal 10-20 [facility] Work Phone: Comment on above: Test performed at:[facility] [address] [place] [address] [facility] Profil 98 mL/min Normal [facility] Work Phone: Comment on above: Test performed at:[facility] [address] [place], [place] [address] [facility] Profil 9 1 Normal 5-15 [facility] Work Phone: Comment on above: Test performed at:[facility] [address] [place] [address] [facility] Metabolic Profil 79 U/L Normal 50-136 [facility] Work Phone: Comment on above: Test performed at:[facility] [address] [place] [address] [facility] Metabolic Profil 3.6 g/dL Normal 2.7-4.2 [facility] Work Phone: Comment on above: Test performed at:[facility] [address] [place] [address] [facility] Metabolic Profil 7.4 g/dL Normal 6.4-8.2 [facility] Work Phone: Comment on above: Test performed at:[facility] [address] [place] [address] Follicle Stimulating Hormone Ordered By: Kiln Head House Operator on 10-24-2014 Follicle Stimulating Hormone 67.0 m[iU]/mL Normal [facility] Work Phone: Comment on above: NORMAL REFERENCE RAN GES FEMALE FOLLICULAR 2.3 - 12.6 mIU/mL MID-CYCLE PEAK 5.2 - 17.5 mIU/mL LUTEAL 1.7 - 12.9 mIU/mL POST-MENOPAUSAL ON MHT 5.9 - 72.8 mIU/mL NOT ON MHT 12.7 - 132.2 mlU/mL MALE 0.7 - 10.8 mIU/mLNEW TEST METHOD AND REFERENCE RANGES JANUARY 24, 2012 Test performed at:[facility] [address] [place], [place] [id number] Thyroid Stim Hormone (TSH)Or dered By: Kiln Head House Operator on 10-24-2014 Thyrotropin Qn 1.51 {uIU/mL} Normal 0.358-3.74 Compreh ensive Internal Medicine Work Phone: Comment on above: Test performed at:[facility] [address] [place] [id number] Vitamin D49Fkywuag By: Maritza bryan Supervisor Sandblaster on 10-24-2014 Cobalamin (Vitamin B12) mass conc 362 pg/mL Normal 211-911 [facility] Work Phone: Comment on above: Test performed at:[facility] [address] [place] [id number] Vitamin D,25 HydroxyOrdered By: Kiln Head House Operator on 10-24-2014 Vitamin D,25 Hydroxy 28.8 ng/mL Normal [facility] Work Phone: Comment on above: Vitamin D 25(OH) Sta tus Range Deficiency <20 ng/mL (50nmol/L) Insuffciency 20 - 30 ng/mL (50 - 75 nmol/L) Sufficiency 30 - 100 ng/mL (75 - 250 nmol/L) Toxicity >100 ng/mL (>250 nmol/L) Test performed at:[facility] [address] [place] [address] [id number] By: System Manage r on 07-09-2014 Cobalamin (Vitamin B12) mass conc 279 pg/mL Normal 211-911 [facility] Work Phone: CBCDOrdered By: System Manag er on 07-09-2014 Erythrocyte distribution width (RBC) [Ratio] 13.0 % Normal 11.6-14.6 [facility] Work Phone: Erythrocyte distribution width Auto Ratio (RBC) 13.0 % Normal 11.6-14.6 [facility] Work Phone: Hematocrit (Bld) [Volume fraction] 37.9 % Normal 37-47 [facility] Work Phone: Hematocrit Auto Volume Fraction (Bld) 37.9 % Normal 37-47 [facility] Internal Medicine Work Phone: Hemoglobin mass conc (Bld) 12.5 g/dL Normal 12.0-15.0 [facility] Internal Medicine Work Phone: MCH (RBC) [Entitic mass] 30.4 pg Normal 27.0-32.0 [facility] Work Phone: MCH Auto Entitic mass (RBC) 30.4 pg Normal 27.0-32.0 [facility] Internal Medicine Work Phone: MCHC (RBC) [Mass/Vol] 33.0 {g/gl} Normal 32-36 [facility] Internal Medicine Work Phone: MCHC Auto mass conc (RBC) 33.0 {g/gl} Normal 32-36 [facility] Work Phone: MCV (RBC) [Entitic vol] 92.2 fL Normal 81-99 [facility] Internal Medicine Work Phone: MCV Auto Entitic volume (RBC) 92.2 fL Normal 81-99 [facility] Internal Medicine Work Phone: Platelet mean volume (Bld) [Entitic vol] 10.0 fL Normal 6.2-12.0 [facility] Internal Medicine Work Phone: Platelet mean volume Auto Entitic volume (Bld) 10.0 fL Normal 6.2-12.0 [facility] Work Phone: Platelets (Bld) [#/Vol] 284 10*3/uL Normal 150-450 [facility] Internal Medicine Work Phone: Platelets Auto #/vol (Bld) 284 10*3/uL Normal 150-450 [facility] Work Phone: RBC (Bld) [#/Vol] 4.11 {M/mm3} Abnormal 4.2-5.4 [facility] Work Phone: RBC Auto #/vol (Bld) 4.11 {M/mm3} Abnormal 4.2-5.4 [facility] Work Phone: WBC (Bld) [#/Vol] 4.1 10*3/uL Abnormal 4.4-11.0 Compre hensive Internal Medicine Work Phone: WBC Auto #/vol (Bld) 4.1 10*3/uL Abnormal 4.4-11.0 [facility] Work Phone: CBCD 0.200 % Normal 0.0-0.9 [facility] Work Phone: Comment on above: IG% - Immature Granu locytes (promyelocytes, myelocytes andmetamyelocytes) > 1% indicates that a LEFT SHIFT is Present. CBCD 0.7 % Normal 0-1 [facility] Work Phone: CBCD 2.7 % Normal 0-5 [facility] Work Phone: CBCD 8.0 % Normal 0-10 [facility] Work Phone: CBCD 27.8 % Normal 19-41 [facility] Work Phone: CBCD 60.6 % Normal 47-70 [facility] Work Phone: CBCD 42.9 fL Normal 35.1-43.9 [facility] Work Phone: CBCD 1.15 {X10_3/ul} Normal 0.83-4.51 Comprehen sive Internal Medicine Work Phone: CBCD 2.5 {X10_3/uL} Normal 2.0-7.7 Comprehens charles Internal Medicine Work Phone: CELIACOrdered By: System Man ager on 07-09-2014 CELIAC <2 Normal 0-3 [facility] Work Phone: Comment on above: Negative 0 - 5Weak P ositive 6 - 9Positive >9 Negative 0 - 3Weak P ositive 4 - 10Positive >10Tissue Transglutaminase (tTG) has been identifiedas the endomysial antigen. Studies have demonstr-ated that endomysial IgA antibodies have over 99%specificity for gluten sensitive enteropathy. Has Patient had X-ra ys with Contrast this admission? N CELIAC Negative Normal [facility] Work Phone: Comment on above: Has Patient had X-ra ys with Contrast this admission? N CELIAC 87 mg/dL Abnormal 91-414 [facility] Work Phone: Comment on above: Has Patient had X-ra ys with Contrast this admission? N CMPOrdered By: System Manage r on 07-09-2014 Albumin mass conc 3.6 g/dL Normal 3.4-5.0 Compreh ensive [facility] Medicine Work Phone: Albumin/Globulin mass ratio 1.1 {RATIO} Normal 0.9-2.4 [facility] Work Phone: ALP enzyme act/vol 81 U/L Normal 50-136 [facility]pre [facility] Internal Medicine Work Phone: ALT enzyme act/vol 25 U/L Normal 12-78 [facility] Internal Medicine Work Phone: AST enzyme act/vol 23 U/L Normal 15-37 [facility] Internal Medicine Work Phone: Bilirubin mass conc 0.30 mg/dL Normal 0.00-4.00 [facility] Work Phone: Calcium mass conc 8.9 mg/dL Normal 8.5-10.1 Compreh ensive Internal Medicine Work Phone: Chloride molar conc 104 mmol/L Normal 98-107 [facility] Work Phone: CO2 molar conc 27.0 mmol/L Normal 21.0-32.0 [facility] Work Phone: Creatinine mass conc 0.7 mg/dL Normal 0.6-1.0 [facility] Work Phone: GFR/1.73 sq M predicted among non-blacks MDRD vol rate/area (S/P/Bld) 94 mL/min/{1.73_m2} Normal Comprehensiv e Internal Medicine Work Phone: Globulin Calculated mass conc (S) 3.2 g/dL Normal 2.7-4.2 [facility] Work Phone: Glucose mass conc 131 mg/dL Abnormal 70-110 Compreh ensive [facility] Medicine Work Phone: Comment on above: Fasting Glucose resu lt greater than or equal to 126 mg/dLsuggests DIABETES MELLITUS per A.D.A. criteria. Potassium molar conc 3.8 mmol/L Normal 3.5-5.1 [facility] Work Phone: Protein mass conc 6.8 g/dL Normal 6.4-8.2 Compreh ensive [facility] Medicine Work Phone: Sodium molar conc 140 mmol/L Normal 136-145 Compreh ensive [facility] Medicine Work Phone: Urea nitrogen mass conc 16 mg/dL Normal 7-18 [facility] Work Phone: Urea nitrogen/Creatinin e mass ratio 22.9 {RATIO} Abnormal 10-20 [facility] Work Phone: CMP 114 mL/min Normal [facility] Work Phone: CMP 9 1 Normal 5-15 [facility] Work Phone: CMP 3.2 g/dL Normal 2.7-4.2 [facility] Work Phone: CMP 6.8 g/dL Normal 6.4-8.2 [facility] Work Phone: TESTFOrdered By: System Vira coello on 07-09-2014 TESTF 1.44 % Normal 0.50-2.80 [facility] Work Phone: Comment on above: Performed at: [address] [id number] Director: Ranjit Becerra PhD, Phone: [phone] at: [facility] [facility] [id number] Director: Rasta Canales MD, Phone: [phone] Has Patient had X-ra ys with Contrast this admission? N TESTF < 0.04 Abnormal 0.10-0.85 [facility] Work Phone: Comment on above: Has Patient had X-ra ys with Contrast this admission? N TESTF Test not performed Normal [facility] Work Phone: Comment on above: Has Patient had X-ra ys with Contrast this admission? N TESTF < 3 Abnormal 3-41 [facility] Work Phone: Comment on above: Has Patient had X-ra ys with Contrast this admission? N VITDOrdered By: System Manag er on 07-09-2014 VITD 26.8 ng/mL Normal [facility] Work Phone: Comment on above: Vitamin D 25(OH) Sta tus RangeDeficiency <20 ng/mL (50nmol/L)Insuffciency 20 - 30 ng/mL (50 - 75 nmol/L)Sufficiency 30 - 100 ng/mL (75 - 250 nmol/L)Toxicity >100 ng/mL (>250 nmol/L) CMPOrdered By: System Manage r on 04-29-2014 Albumin mass conc 3.4 g/dL Normal 3.4-5.0 [facility] Work Phone: Comment on above: Has Patient had X-ra ys with Contrast this admission? NIs Patient on Heparin? N Albumin/Globulin mass ratio 1.0 {RATIO} Normal 0.9-2.4 [facility] Work Phone: Comment on above: Has Patient had X-ra ys with Contrast this admission? NIs Patient on Heparin? N ALP enzyme act/vol 76 U/L Normal 45-117 [facility] Work Phone: Comment on above: Has Patient had X-ra ys with Contrast this admission? NIs Patient on Heparin? N ALT enzyme act/vol 29 U/L Normal 12-78 [facility] Work Phone: Comment on above: Has Patient had X-ra ys with Contrast this admission? NIs Patient on Heparin? N AST enzyme act/vol 19 U/L Normal 15-37 [facility] Work Phone: Comment on above: Has Patient had X-ra ys with Contrast this admission? NIs Patient on Heparin? N Bilirubin mass conc 0.40 mg/dL Normal 0.00-1.00 [facility] Work Phone: Comment on above: Has Patient had X-ra ys with Contrast this admission? NIs Patient on Heparin? N Calcium mass conc 8.6 mg/dL Normal 8.5-10.1 [facility] Work Phone: Comment on above: Has Patient had X-ra ys with Contrast this admission? NIs Patient on Heparin? N Chloride molar conc 104 mmol/L Normal 98-107 [facility] Work Phone: Comment on above: Has Patient had X-ra ys with Contrast this admission? NIs Patient on Heparin? N CO2 molar conc 27.0 mmol/L Normal 21.0-32.0 Comprehen sive [facility] Medicine Work Phone: Comment on above: Has Patient had X-ra ys with Contrast this admission? NIs Patient on Heparin? N Creatinine mass conc 0.8 mg/dL Normal 0.6-1.0 [facility] Work Phone: Comment on above: Has Patient had X-ra ys with Contrast this admission? NIs Patient on Heparin? N GFR/1.73 sq M predicted among non-blacks MDRD vol rate/area (S/P/Bld) 81 mL/min/{1.73_m2} Normal Comprehensiv e [facility] Medicine Work Phone: Comment on above: Has Patient had X-ra ys with Contrast this admission? NIs Patient on Heparin? N Globulin Calculated mass conc (S) 3.4 g/dL Normal 2.7-4.2 [facility] Work Phone: Glucose mass conc 101 mg/dL Normal 70-110 Compreh ensive [facility] Work Phone: Comment on above: Has Patient had X-ra ys with Contrast this admission? NIs Patient on Heparin? N Potassium molar conc 3.4 mmol/L Abnormal 3.5-5.1 [facility] Work Phone: Comment on above: Has Patient had X-ra ys with Contrast this admission? NIs Patient on Heparin? N Protein mass conc 6.8 g/dL Normal 6.4-8.2 Compreh [facility] Work Phone: Sodium molar conc 137 mmol/L Normal 136-145 Compreh ensive [facility] Work Phone: Comment on above: Has Patient had X-ra ys with Contrast this admission? NIs Patient on Heparin? N Urea nitrogen mass conc 10 mg/dL Normal 7-18 [facility] Work Phone: Comment on above: Has Patient had X-ra ys with Contrast this admission? NIs Patient on Heparin? N Urea nitrogen/Creatinin e mass ratio 12.5 {RATIO} Normal 10-20 [facility] Work Phone: Comment on above: Has Patient had X-ra ys with Contrast this admission? NIs Patient on Heparin? N CMP 98 mL/min Normal [facility] Work Phone: Comment on above: Has Patient had X-ra ys with Contrast this admission? NIs Patient on Heparin? N CMP 6 1 Normal 5-15 [facility] Work Phone: Comment on above: Has Patient had X-ra ys with Contrast this admission? NIs Patient on Heparin? N CMP 3.4 g/dL Normal 2.7-4.2 [facility] Work Phone: Comment on above: Has Patient had X-ra ys with Contrast this admission? NIs Patient on Heparin? N CMP 6.8 g/dL Normal 6.4-8.2 [facility] Work Phone: Comment on above: Has Patient had X-ra ys with Contrast this admission? NIs Patient on Heparin? N DHEAOrdered By: System Manag er on 04-29-2014 DHEA 51.3 ug/dL Normal 41.2-243.7 [facility] Work Phone: Comment on above: Has Patient had Radi oactive Injection for X-ray?: N FEOrdered By: Kiln Head House Operator on 04-29-2014 FE 60 ug/dL Normal 50-170 [facility] Work Phone: Comment on above: Has Patient had X-ra ys with Contrast this admission? NIs Patient on Heparin? N FEROrdered By: System Manage r on 04-29-2014 AMANDA 16 ng/mL Normal 8-252 [facility] Work Phone: Comment on above: Has Patient had X-ra ys with Contrast this admission? NIs Patient on Heparin? N [id number] By: System Manage r on 04-29-2014 FT3 2.9 pg/mL Normal 2.18-3.98 [facility] Work Phone: Comment on above: Has Patient had X-ra ys with Contrast this admission? NIs Patient on Heparin? N LIPIDOrdered By: System Vira oumou on 04-29-2014 Cholesterol in HDL mass conc 72 mg/dL Normal [facility] Work Phone: Comment on above: Reference RangeHDL < 40 mg/dL Low HDL CholesterolHDL >or= 60 mg/dL High HDL Cholesterol Has Patient had X-ra ys with Contrast this admission? NIs Patient on Heparin? N Cholesterol in LDL mass conc 108 mg/dL Normal 0-130 [facility] Work Phone: Comment on above: Has Patient had X-ra ys with Contrast this admission? NIs Patient on Heparin? N Cholesterol mass conc 191 mg/dL Normal [facility] Work Phone: Comment on above: <200 mg/dL Desirable 200-240 mg/dL Borderline>240 mg/dL High Risk Has Patient had X-ra ys with Contrast this admission? NIs Patient on Heparin? N Triglyceride mass conc 55 mg/dL Normal 0-199 [facility] Work Phone: Comment on above: Serum Triglycerides Reference IntervalNormal <150 mg/dLBorderline high 150 - 199 mg/dLHigh 200 - 499 mg/dLVery High > or = 500 mg/dL Has Patient had X-ra ys with Contrast this admission? NIs Patient on Heparin? N LIPID 11 mg/dL Normal 5-40 [facility] Work Phone: Comment on above: Has Patient had X-ra ys with Contrast this admission? NIs Patient on Heparin? N PROLOrdered By: System Manag er on 04-29-2014 Protein mass conc 9.8 ng/mL Normal Compreh [facility] Work Phone: Comment on above: NORMAL REFERENCE RAN GESFEMALENON- 2.2 - 30.3 ng/mL 8.1 - 347.6 ng/mLPOST-MENOPAUSAL 0.7 - 31.5 ng/mLMALE 2.5 - 17.4 ng/mLNEW TEST METHOD & REFERENCE RANGES JANUARY 24, 2012 PROL 9.8 ng/mL Normal [facility] Work Phone: Comment on above: NORMAL REFERENCE RAN GESFEMALENON- 2.2 - 30.3 ng/mL 8.1 - 347.6 ng/mLPOST-MENOPAUSAL 0.7 - 31.5 ng/mLMALE 2.5 - 17.4 ng/mLNEW TEST METHOD & REFERENCE RANGES JANUARY 24, 2012 Has Patient had X-ra ys with Contrast this admission? NIs Patient on Heparin? N [id number] By: System Manage r on 04-29-2014 T4F 0.98 ng/dL Normal 0.76-1.46 [facility] Work Phone: Comment on above: Has Patient had X-ra ys with Contrast this admission? NIs Patient on Heparin? N TESTOFOrdered By: System Man ager on 04-29-2014 TESTOF <0.2 Normal 0.0-2.2 [facility] Work Phone: Comment on above: Performed at: [facility] [employer] [id number] Director: Ranjit Becerra PhD, Phone: [phone] at: [facility] [place] [facility] [id number] Director: Rasta Canales MD, Phone: [phone] Has Patient had Radi oactive Injection for X-ray?: N TIBCOrdered By: System Manag er on 04-29-2014 TIBC 358 ug/dL Normal 250-450 [facility] Work Phone: Comment on above: Has Patient had X-ra ys with Contrast this admission? NIs Patient on Heparin? N TSHOrdered By: System Manage r on 04-29-2014 Thyrotropin Qn 2.86 {uIU/mL} Normal 0.358-3.74 Compreh [facility] Work Phone: Comment on above: Has Patient had X-ra ys with Contrast this admission? NIs Patient on Heparin? N BGMOrdered By: System Manage r on 01-19-2012 BGM 99 mg/dL Normal 70-110 [facility] Work Phone: Comment on above: MANAGEMENT OF PATIEN T CARE PER NURSING PROTOCOLNo Action Required0 glu gtt.5Ordered By: Kiln Head House Operator on 01-19-2012 glu gtt.5 147 mg/dL Normal 110-170 [facility] Work Phone: Comment on above: 4HR GTT GLU 1/2 HR G RODNEY GTT-30 min. from [id number]. glu [id number] By: [employer] on 01-19-2012 glu gtt1 167 mg/dL Normal 120-170 [facility] Work Phone: Comment on above: 4HR GTT GLU 1 HR GLU GTT-1 HOUR from 0516:[id number]. glu [id number] By: [employer] on 01-19-2012 glu gtt2 116 mg/dL Normal 70-120 [facility] Work Phone: Comment on above: 4HR GTT GLU 2 HR GLU GTT-2 HOUR from 0516:[id number]. glu [id number] By: [employer] on 01-19-2012 glu gtt3 52 mg/dL Abnormal 70-110 [facility] Work Phone: Comment on above: 4HR GTT GLU 3 HR GLU GTT-3 HOUR from 0516:[id number]. glu [id number] By: [employer] on 01-19-2012 glu gtt4 59 mg/dL Abnormal 70-110 [facility] Work Phone: Comment on above: 4HR GTT GLU 4 HR GLU GTT-4 HOUR from 0516:[id number]. glu gttfOrdered By: Indeed on 01-19-2012 glu gttf 92 mg/dL Normal 70-110 [facility] Work Phone: Comment on above: GLUCOSE TOLERANCE TE ST Reference Interval Non- Adults Fasting 70 - 110 30 minutes 110 - 170 1 hour 120 - 170 2 hour 70 - 120 3 hour 70 - 110 4 hour 70 - 110 5 hour 70 - 110 4HR GTT FASTING GLU GTT-FASTING from 0516:[id number]. BRAIN/HEAD W/WO CONTRASTOrde red By: Kiln Head House Operator on 01-12-2012 BRAIN/HEAD W/WO CONTRAST See Note Normal [facility] Work Phone: Comment on above: PROCEDURE: CT BRAIN WITH AND WITHOUT CONTRAST REASON FOR EXAM: Female, 46 years old. Syncope and tunnel vision. TECHNIQUE: Transaxial CT imaging of the brain was performed pre andpostcontrast administration. The examination was performed with intravenousadministration of 50ML ml of Isovue 370 contrast material. COMPARISON: None. FINDINGS:Normal size of the ventricles and extra-axial spaces for the patient'nick.Normal white matter tracts of the supratentorial brain. Normal basalganglia and thalami. Normal brainstem. Normal cerebellum. There is no demonstrated extra-axial, intraparenchymal, orintraventricularhemorrhage. There are no findings of an acute ischemic infarction. There is nodemonstrated enhancing abnormality. Normal calvarium. There is no demonstrated fracture. Normal soft tissue structures. Normal visualized paranasal sinuses. IMPRESSION:Normal enhanced and unenhanced CT scan of the brain. Signed:Jose Gibbons M.D.January 12, 2012 at 3:06:05 PM EDTElectronically Signed GP/GP Professional Interpretation Provided By: [facility], , To consult with a radiologist regarding this report, please call our [id number] line @ Dictated on 01/12/12 1345 by Edwige BOONE,Tequilascribed on 01/12/12 1522 by ITS IMPORTSign by Jose Gibbons MD on 01/12/12 1523 Sign by: Jose Gibbons MD ROUTINE UAOrdered By: Kiln Head House Operator on 06-15-2011 Clarity (U) CLEAR Normal [facility] Work Phone: Color (U) YELLOW Normal [facility] Work Phone: ROUTINE UA SeeNote Normal [facility] Work Phone: Comment on above: Result: NEGATIVE ROUTINE UA 0.2 EU/dl Normal 0.2 - 1.0 [facility] Work Phone: ROUTINE UA 5.5 1 Normal 5.0-8.0 [facility] Work Phone: ROUTINE UA YELLOW Normal [facility] Work Phone: ROUTINE UA 1.020 1 Normal 1.002-1.03 0 [facility] Work Phone: ROUTINE UA CLEAR Normal [facility] Work Phone: Influenza A Ag ([phone])Ordere d By: Hayley Turner on 11-19-2010 FLUAV Ag IA Ql (Throat) Negative Normal [facility] Work Phone: FLUAV Ag IA Ql (Throat) Negative Normal [facility]; [facility] Work Phone: TRANSVAGINAL NON-Ord ered By: Kiln Head House Operator on 11-11-2010 TRANSVAGINAL NON- See Note Normal [facility] Work Phone: Comment on above: CLINICAL:45 year old female with ovarian cysts. ULTRASOUND TRANSVAGINAL TECHNIQUE:Transvaginal COMPARISON:10/09/2010 CT FINDINGS:Normal uterine size measuring 7.7 cm in maximal craniocaudal dimension.Abicornate uterus is present. On the right there [...] 2.9 x 2.8 cm. A cyst is presentmeasuring 3.5 x 2.3 x 2.1 cm. Normal [...] with multiple anechoic areas in the right myometriumwhichmay be small leiomyomas. Bilateral ovarian cysts. Small amount of fluid in the left adnexa. Nabothian cyst in the area of the cervix. Tubular structure in the area of the left adnexa which may be a dilatedfallopian tube. Dictated on 11/11/10 1348 by Andrew Gonzalez MDTranscribed on 11/12/10 170 by ITS IMPORTSign by Andrew Gonzalez MD on 11/12/101707 Sign by: Andrew Gonzalez MD CBCOrdered By: System Manage r on 05-14-2010 Erythrocyte distribution width (RBC) [Ratio] 13.3 % Normal 11.6-14.6 [facility] Work Phone: Erythrocyte distribution width Auto Ratio (RBC) 13.3 % Normal 11.6-14.6 [facility] Work Phone: Hematocrit (Bld) [Volume fraction] 38.1 % Normal 37-47 [facility] Work Phone: Hematocrit Auto Volume Fraction (Bld) 38.1 % Normal 37-47 [facility] Work Phone: Hemoglobin mass conc (Bld) 12.9 g/dL Normal 12.0-16.0 [facility] Work Phone: MCH (RBC) [Entitic mass] 32.2 pg Abnormal 27.0-32.0 [facility] Work Phone: MCH Auto Entitic mass (RBC) 32.2 pg Abnormal 27.0-32.0 [facility] Work Phone: MCHC (RBC) [Mass/Vol] 33.9 g/dL Normal 32-36 [facility] Work Phone: MCHC Auto mass conc (RBC) 33.9 g/dL Normal 32-36 [facility] Work Phone: MCV (RBC) [Entitic vol] 95.0 fL Normal 81-99 [facility] Work Phone: MCV Auto Entitic volume (RBC) 95.0 fL Normal 81-99 [facility] Work Phone: Platelet mean volume (Bld) [Entitic vol] 8.9 fL Normal 6.5-12.0 [facility] Work Phone: Platelet mean volume Auto Entitic volume (Bld) 8.9 fL Normal 6.5-12.0 [facility] Work Phone: Platelets (Bld) [#/Vol] 248 10*3/uL Normal 150-450 [facility] Work Phone: Platelets Auto #/vol (Bld) 248 10*3/uL Normal 150-450 [facility] Work Phone: RBC (Bld) [#/Vol] 4.01 {M/mm3} Abnormal 4.2-5.4 Compr [facility] Work Phone: RBC Auto #/vol (Bld) 4.01 {M/mm3} Abnormal 4.2-5.4 [facility] Work Phone: WBC (Bld) [#/Vol] 4.2 10*3/uL Abnormal 4.4-11.0 [facility] Work Phone: WBC Auto #/vol (Bld) 4.2 10*3/uL Abnormal 4.4-11.0 [facility] Work Phone: ESTRADIOL [id number] By: Timmy stem Supervisor Sandblaster on 05-14-2010 ESTRADIOL 4515 628.2 pg/mL Normal Comprehen [facility] Work Phone: Comment on above: Adult Female:Follicu lar phase 12.5 - 166.0Ovulation phase 85.8 - 498.0Luteal phase 43.8 - 211.0Postmenopausal <6.0 - 54.6Wkathzwtt9me trimester 215.0 - >4300.0Girls (1-10 years) 6.0 - 27.0Roche ECLIA methodology PROGESTER. 4317Ordered By: Mariah ystem Supervisor Sandblaster on 05-14-2010 Protein mass conc 0.3 ng/mL Normal [facility] Work Phone: Comment on above: Follicular phase 0.2 - 1.5Luteal phase 1.7 - 27.0Ovulation phase 0.8 - 3.0First trimester 8.8 - 48.6Second trimester 12.4 - 75.8Third trimester 58.5 - 222.3Postmenopausal 0.1 - 0.8Performed at: [facility] [place], [place] [id number] Director: Zahra Ingram MD, Phone: [phone] PROGESTER. 4317 0.3 ng/mL Normal [facility] Work Phone: Comment on above: Follicular phase 0.2 - 1.5Luteal phase 1.7 - 27.0Ovulation phase 0.8 - 3.0First trimester 8.8 - 48.6Second trimester 12.4 - 75.8Third trimester 58.5 - 222.3Postmenopausal 0.1 - 0.8Performed at: [facility] TherapeuticsMountains[facility] HospitalTgyhyh[address] [place], [place] [id number] Director: Zahra Ingram MD, Phone: [phone] PAP [id number] By: Mariah correa Supervisor Sandblaster on 01-30-2010 PAP [id number] . Normal [facility] Work Phone: Comment on above: CYTOLOGY INFORMATION :- CLINICAL INFORMATION:- DATE LMP/MENOPAUSE:- COLLECTION VIAL: Thin Prep Vial- LEAK GANG SUPERVISOR SOURCE: CERVICAL/ENDOCERVICAL- COLLECTION TECHNIQUE: BRUSH/SPATULA PAP [id number] Comment Normal [facility] Work Phone: Comment on above: NEGATIVE FOR INTRAEP ITHELIAL LESION AND MALIGNANCY.Satisfactory for evaluation. Endocervical and/or squamous metaplasticcells (endocervical component) are present.Corey [place], [place] (ASCP) The Pap smear is a s creening test designed to aid in thedetection of premalignant and malignant conditions of theuterine cervix. It is not a diagnostic procedure andshould not be used as the sole means of detecting cervicalcancer. Both false-positive and false-negative reports dooccur.. CYTOLOGY INFORMATION :- CLINICAL INFORMATION:- DATE LMP/MENOPAUSE:- COLLECTION VIAL: Thin Prep Vial- LEAK GANG SUPERVISOR SOURCE: CERVICAL/ENDOCERVICAL- COLLECTION TECHNIQUE: BRUSH/SPATULA PAP [id number] SeeNote Normal [facility] Work Phone: Comment on above: Result: NegativeThes e HPV tests detect thirteen high-risk types(16/18/31/33/35/ 39/45/51/52/56/58/59/68) and five low-risktypes (6/11/42/43/44) without differentiation..Performed at: - [facility] [id number] Director: Tra Serna MDPerformed at: = - [facility] [id number] Director: Tra Serna MD Result: Negative CYTOLOGY INFORMATION :- CLINICAL INFORMATION:- DATE LMP/MENOPAUSE:- COLLECTION VIAL: Thin Prep Vial- LEAK GANG SUPERVISOR SOURCE: CERVICAL/ENDOCERVICAL- COLLECTION TECHNIQUE: BRUSH/SPATULA Rapid Strep Test, Office ([phone])Ordered By: Callie Franco on 12-04-2008 S. pyogenes Ag EIA Ql (Throat) Negative Normal [facility]; [facility] Work Phone: Comment on above: done BC S. pyogenes Ag IA Ql (Unsp spec) Negative Normal [facility] Work Phone: Comment on above: done BC LIPIDOrdered By: Gustabo coello on 11-14-2008 Cholesterol in HDL mass conc 63 mg/dL Normal [facility] Work Phone: Comment on above: Reference Range HDL <40 mg/dL Low HDL Cholesterol HDL >or= 60 mg/dL High HDL Cholesterol Cholesterol in LDL mass conc 104 mg/dL Normal 0-130 [facility] Work Phone: Cholesterol in VLDL mass conc 8 mg/dL Normal 5-40 [facility] Work Phone: Cholesterol mass conc 175 mg/dL Normal [facility] Work Phone: Comment on above: <200 mg/dL Desirable 200-240 mg/dL Borderline >240 mg/dL High Risk Triglyceride mass conc 39 mg/dL Normal [facility] Work Phone: Comment on above: Serum Triglycerides Reference Interval Normal <150 mg/dL Borderline high 150 - 199 mg/dL High 200 - 499 mg/dL Very High > or = 500 mg/dL Vital Signs Date Time Vital Sign Value Performing Clinician Facility 09-02-2022 07:05-0500 Body height 167.64 cm Rimma Mar DO Work Phone: [facility]; [facility] Work Phone: 09-02-2022 07:05-0500 Body mass index (BMI) [Ratio] 39.06 kg/m2 Rimma Zaid DO Work Phone: [facility]; [facility] Work Phone: 09-02-2022 07:05-0500 Body surface area Derived from formula 2.17 m2 Rimma Holbrookon DO Work Phone: [facility]; [facility] Work Phone: 09-02-2022 07:05-0500 Body temperature 96.8 [degF] Rimma Mar DO Work Phone: [facility]; [facility] Work Phone: 09-02-2022 07:05-0500 Body weight 109.77 kg Rimma Mar DO Work Phone: [facility]; [facility] Work Phone: 09-02-2022 07:05-0500 Diastolic blood pressure 80 mm[Hg] Rimma Mar DO Work Phone: [facility]; [facility] Work Phone: Comment on above: Patient Position: Si tting; Cuff Location: Left Arm; Cuff Size: Standard 09-02-2022 07:05-0500 Heart rate 62 /min Rimma Mar DO Work Phone: [facility]; [facility] Work Phone: Comment on above: Pattern: Regular 09-02-2022 07:05-0500 Respiratory rate 16 /min Rimma Holbrookon DO Work Phone: [facility]; [facility] Work Phone: Comment on above: Pattern: Unlabored 09-02-2022 07:05-0500 SaO2% (BldA) [Mass fraction] 98 % Rimma Mar DO Work Phone: [facility]; [facility] Work Phone: Comment on above: Room air 09-02-2022 07:05-0500 Systolic blood pressure 128 mm[Hg] Rimma Mar DO Work Phone: [facility]; [facility] Work Phone: Comment on above: Patient Position: Si tting; Cuff Location: Left Arm; Cuff Size: Standard 07-26-2022 16:11-0500 Body height 167.64 cm Tamara Martinez MA [facility]; [facility] Work Phone: 07-26-2022 16:11-0500 Body mass index (BMI) [Ratio] 40.9 kg/m2 Tamara Martinez MA [facility]; [facility] Work Phone: 07-26-2022 16:11-0500 Body surface area Derived from formula 2.21 m2 Tamara Martinez MA [facility]; [facility] Work Phone: 07-26-2022 16:11-0500 Body temperature 99 [degF] Tamara Martinez MA [facility]; [facility] Work Phone: 07-26-2022 16:11-0500 Body weight 114.93 kg Tamara Martinez MA [facility]; [facility] Work Phone: 07-26-2022 16:11-0500 Diastolic blood pressure 94 mm[Hg] Tamara Martinez MA [facility]; [facility] Work Phone: Comment on above: Patient Position: Si tting; Cuff Location: Left Arm; Cuff Size: Standard 07-26-2022 16:11-0500 Heart rate 84 /min Tamara Martinez MA [facility]; [facility] Work Phone: Comment on above: Pattern: Regular 07-26-2022 16:11-0500 SaO2% (BldA) [Mass fraction] 98 % Tamara Martinez MA [facility]; [facility] Work Phone: Comment on above: Room air 07-26-2022 16:11-0500 Systolic blood pressure 156 mm[Hg] Tamara Martinez MA [facility]; [facility] Work Phone: Comment on above: Patient Position: Si tting; Cuff Location: Left Arm; Cuff Size: Standard 05-20-2021 08:57-0400 Body height 167.64 cm Anahi Wolf [facility]; [facility] Work Phone: 05-20-2021 08:57-0400 Body mass index (BMI) [Ratio] 40.9 kg/m2 Anahi Wolf [facility]; [facility] Work Phone: 05-20-2021 08:57-0400 Body surface area Derived from formula 2.21 m2 Anahi Wolf [facility]; [facility] Work Phone: 05-20-2021 08:57-0400 Body temperature 97.1 [degF] Anahi Wolf [facility]; [facility] Work Phone: Comment on above: Method: Infrared 05-20-2021 08:57-0400 Body weight 114.93 kg Anahi Wolf [facility]; [facility] Work Phone: 05-20-2021 08:57-0400 Diastolic blood pressure 98 mm[Hg] Anahi Wolf [facility]; [facility] Work Phone: Comment on above: Patient Position: Si tting; Cuff Location: Left Arm; Cuff Size: Standard 05-20-2021 08:57-0400 Heart rate 96 /min Anahi Wolf [facility]; [facility] Work Phone: Comment on above: Pattern: Regular 05-20-2021 08:57-0400 Respiratory rate 18 /min Anahi Wolf [facility]; [facility] Work Phone: Comment on above: Pattern: Unlabored 05-20-2021 08:57-0400 SaO2% (BldA) [Mass fraction] 96 % Anahi Wolf [facility]; [facility] Work Phone: Comment on above: Room air 05-20-2021 08:57-0400 Systolic blood pressure 162 mm[Hg] Anahi Wolf [facility]; [facility] Work Phone: Comment on above: Patient Position: Si tting; Cuff Location: Left Arm; Cuff Size: Standard 06-30-2020 13:08-0400 BMI (Body Mass Index) 40.25 kg/m2 Anahi Wolf [facility] Work Phone: 06-30-2020 13:08-0400 Body weight 113.12 kg Anahi Wolf [facility] Work Phone: 06-30-2020 13:08-0400 BSA (Body Surface Area) 2.2 m2 Anahi Wolf [facility] Work Phone: 06-30-2020 13:08-0400 Height 167.64 cm Anahi Wolf [facility] Work Phone: 12-13-2019 13:54-0400 Body Temperature 97.6 [degF] Rimma Holbrookon DO Work Phone: [facility] Work Phone: Comment on above: Method: Oral hadnt taken medicine r yet today reported per pt 12-13-2019 13:54-0400 BP Diastolic 89 mm[Hg] Rimma Holbrookon DO Work Phone: [facility] Work Phone: Comment on above: Patient Position: Si tting hadnt taken medicine r yet today reported per pt 12-13-2019 13:54-0400 BP Systolic 148 mm[Hg] Rimma Zaid DO Work Phone: [facility] Work Phone: Comment on above: Patient Position: Si tting hadnt taken medicine r yet today reported per pt 12-13-2019 13:54-0400 Pulse (Heart Rate) 80 /min Rimma Zaid DO Work Phone: [facility] Work Phone: Comment on above: Pattern: Regular hadnt taken medicine r yet today reported per pt 12-13-2019 13:21-0400 BMI (Body Mass Index) 40.25 kg/m2 Whit Celis RN [facility] Work Phone: Comment on above: pt reported vital si gns. 12-13-2019 13:21-0400 Body weight 113.12 kg Whit Celis RN [facility] Work Phone: Comment on above: pt reported vital si gns. 12-13-2019 13:21-0400 BSA (Body Surface Area) 2.2 m2 Whit Celis RN [facility] Work Phone: Comment on above: pt reported vital si gns. 12-13-2019 13:21-0400 Height 167.64 cm Whit Celis RN [facility] Work Phone: Comment on above: pt reported vital si gns. 09-20-2019 14:35-0500 BMI (Body Mass Index) 40.25 kg/m2 Anahi Morelandius [facility] Work Phone: 09-20-2019 14:35-0500 Body Temperature 95.3 [degF] Anahi Anicetoius [facility] Work Phone: Comment on above: Method: Temporal 09-20-2019 14:35-0500 Body weight 113.12 kg Anahi Morelandius [facility] Internal Medicine Work Phone: 09-20-2019 14:35-0500 BP Diastolic 74 mm[Hg] Anahi Anicetoius [facility] Internal Medicine Work Phone: Comment on above: Patient Position: Si tting; Cuff Location: Left Arm; Cuff Size: Standard 09-20-2019 14:35-0500 BP Systolic 124 mm[Hg] Anahi Gravius [facility] Work Phone: Comment on above: Patient Position: Si tting; Cuff Location: Left Arm; Cuff Size: Standard 09-20-2019 14:35-0500 BSA (Body Surface Area) 2.2 m2 Anahi Gravius [facility] Work Phone: 09-20-2019 14:35-0500 Height 167.64 cm Anahi Gravius CATERING ADMINISTRATIVE ASSISTANT [facility] Work Phone: 09-20-2019 14:35-0500 Pulse (Heart Rate) 82 /min Anahi Wolf [facility] Internal Medicine Work Phone: Comment on above: Pattern: Regular 09-20-2019 14:35-0500 Pulse Oximetry 98 % Rimma Mar [facility] Internal Medicine Work Phone: Comment on above: Room air 09-20-2019 14:35-0500 Respiratory Rate 18 /min Anahi Wolf [facility] Internal Medicine Work Phone: Comment on above: Pattern: Unlabored 09-20-2019 14:35-0500 SaO2% (BldA) [Mass fraction] 98 % Anahi Wolf [facility] Internal Medicine; [facility] Work Phone: Comment on above: Room air 08-09-2019 13:43-0500 BMI (Body Mass Index) 38.31 kg/m2 Maria Luisa Canada [facility] Internal Medicine Work Phone: 08-09-2019 13:43-0500 Body Temperature 97.5 [degF] Maria Luisa Canada [facility] Internal Medicine Work Phone: Comment on above: Method: Temporal 08-09-2019 13:43-0500 Body weight 107.67 kg Maria Luisa Canada [facility] Internal Medicine Work Phone: 08-09-2019 13:43-0500 BP Diastolic 78 mm[Hg] Maria Luisa Canada [facility] Internal Medicine Work Phone: Comment on above: Patient Position: Si tting; Cuff Location: Left Arm; Cuff Size: Standard 08-09-2019 13:43-0500 BP Systolic 128 mm[Hg] Maria Luisa Canada [facility] Internal Medicine Work Phone: Comment on above: Patient Position: Si tting; Cuff Location: Left Arm; Cuff Size: Standard 08-09-2019 13:43-0500 BSA (Body Surface Area) 2.15 m2 Maria Luisa Canada [facility] Internal Medicine Work Phone: 08-09-2019 13:43-0500 Height 167.64 cm Maria Luisa Canada [facility] Work Phone: 08-09-2019 13:43-0500 Pulse (Heart Rate) 66 /min Maria Luisa Canada [facility] Work Phone: Comment on above: Pattern: Regular 08-09-2019 13:43-0500 Respiratory Rate 16 /min Maria Luisa Canada [facility] Work Phone: Comment on above: Pattern: Unlabored 10-24-2018 12:17-0500 BMI (Body Mass Index) 38.31 kg/m2 Whit Celis RN [facility] Work Phone: 10-24-2018 12:17-0500 Body weight 107.67 kg Whit Celis RN [facility] Work Phone: 10-24-2018 12:17-0500 BP Diastolic 80 mm[Hg] Whit Celis RN [facility] Work Phone: Comment on above: Patient Position: Si tting; Cuff Location: Left Arm; Cuff Size: Large 10-24-2018 12:17-0500 BP Systolic 128 mm[Hg] Whit Celis RN [facility] Work Phone: Comment on above: Patient Position: Si tting; Cuff Location: Left Arm; Cuff Size: Large 10-24-2018 12:17-0500 BSA (Body Surface Area) 2.15 m2 Whit Celis RN [facility] Work Phone: 10-24-2018 12:17-0500 Height 167.64 cm Whit Celis RN [facility] Work Phone: 10-24-2018 12:17-0500 Pulse (Heart Rate) 70 /min Whit Celis RN [facility] Work Phone: Comment on above: Pattern: Regular 10-24-2018 12:17-0500 Pulse Oximetry 98 % Rimma Zaid [facility] Work Phone: Comment on above: Room air 10-24-2018 12:17-0500 Respiratory Rate 18 /min Whit Celis RN [facility] Work Phone: Comment on above: Pattern: Unlabored 10-24-2018 12:17-0500 SaO2% (BldA) [Mass fraction] 98 % Whit Celis RN [facility]; [facility] Work Phone: Comment on above: Room air 08-21-2018 10:44-0500 BMI (Body Mass Index) 38.82 kg/m2 Whit Celis RN [facility] Work Phone: 08-21-2018 10:44-0500 Body weight 109.09 kg Whit Celis RN [facility] Work Phone: 08-21-2018 10:44-0500 BP Diastolic 92 mm[Hg] Whit Celis RN [facility] Work Phone: Comment on above: Patient Position: Si tting; Cuff Location: Left Arm; Cuff Size: Thigh 08-21-2018 10:44-0500 BP Systolic 140 mm[Hg] Wiht Celis RN [facility] Work Phone: Comment on above: Patient Position: Si tting; Cuff Location: Left Arm; Cuff Size: Thigh 08-21-2018 10:44-0500 BSA (Body Surface Area) 2.16 m2 Whit Celis RN [facility] Work Phone: 08-21-2018 10:44-0500 Height 167.64 cm Whit Celis RN [facility] Work Phone: 08-21-2018 10:44-0500 Pulse (Heart Rate) 94 /min Whit Celis RN [facility] Work Phone: Comment on above: Pattern: Regular 08-21-2018 10:44-0500 Pulse Oximetry 96 % Rimma Mar [facility] Work Phone: Comment on above: Room air 08-21-2018 10:44-0500 Respiratory Rate 18 /min Whit Celis RN [facility] Work Phone: Comment on above: Pattern: Unlabored 08-21-2018 10:44-0500 SaO2% (BldA) [Mass fraction] 96 % Whit Celis RN [facility]; [facility] Work Phone: Comment on above: Room air 08-21-2018 10:44-0500 Weight 109.09 kg Rimma Mar [facility] Internal Medicine Work Phone: 12-13-2017 11:54-0400 BMI (Body Mass Index) 39.54 kg/m2 Kem Gómez LPN [facility] Internal Medicine Work Phone: 12-13-2017 11:54-0400 Body Temperature 97 [degF] Kem Gómez LPN [facility] Internal Medicine Work Phone: 12-13-2017 11:54-0400 Body weight 111.13 kg Kem Gómez LPN [facility] Internal Medicine Work Phone: 12-13-2017 11:54-0400 BP Diastolic 84 mm[Hg] Kem Gómez LPN [facility] Internal Medicine Work Phone: Comment on above: Patient Position: Si tting; Cuff Location: Left Arm; Cuff Size: Standard 12-13-2017 11:54-0400 BP Systolic 118 mm[Hg] Kem Gómez LPN [facility] Internal Medicine Work Phone: Comment on above: Patient Position: Si tting; Cuff Location: Left Arm; Cuff Size: Standard 12-13-2017 11:54-0400 BSA (Body Surface Area) 2.18 m2 Kem Gómez LPN [facility] Internal Medicine Work Phone: 12-13-2017 11:54-0400 Height 167.64 cm Kem Gómez LPN [facility] Internal Medicine Work Phone: 12-13-2017 11:54-0400 Pulse (Heart Rate) 90 /min Kem Gómez LPN [facility] Work Phone: Comment on above: Pattern: Regular 12-13-2017 11:54-0400 Pulse Oximetry 98 % Rimma Mar [facility] Internal Medicine Work Phone: Comment on above: Room air 12-13-2017 11:54-0400 Respiratory Rate 17 /min Kem Gómez LPN [facility] Internal Medicine Work Phone: Comment on above: Pattern: Unlabored 12-13-2017 11:54-0400 SaO2% (BldA) [Mass fraction] 98 % Kem Gómez LPN [facility] Internal [facility]; [facility] Work Phone: Comment on above: Room air 12-13-2017 11:54-0400 Weight 111.13 kg Rimma Mar [facility] Internal Medicine Work Phone: 11-16-2017 13:17-0400 BMI (Body Mass Index) 39.54 kg/m2 Melanie Garcias LPN [facility] Work Phone: 11-16-2017 13:17-0400 Body Temperature 97.2 [degF] Melanie Fairbanksrb STRIP MACHINE TENDER [facility] Work Phone: 11-16-2017 13:17-0400 Body weight 111.13 kg Melanie Garcias STRIP MACHINE TENDER [facility] Work Phone: 11-16-2017 13:17-0400 BP Diastolic 84 mm[Hg] Melanie Magdirb STRIP MACHINE TENDER [facility] Work Phone: Comment on above: Patient Position: Si tting; Cuff Location: Left Arm; Cuff Size: Standard 11-16-2017 13:17-0400 BP Systolic 126 mm[Hg] Melanie Fairbanksrb STRIP MACHINE TENDER [facility] Work Phone: Comment on above: Patient Position: Si tting; Cuff Location: Left Arm; Cuff Size: Standard 11-16-2017 13:17-0400 BSA (Body Surface Area) 2.18 m2 Melanie Garcias STRIP MACHINE TENDER [facility] Work Phone: 11-16-2017 13:17-0400 Height 167.64 cm Melanie Fairbanksrb STRIP MACHINE TENDER [facility] Work Phone: 11-16-2017 13:17-0400 Pulse (Heart Rate) 89 /min Melanie Garcias LPN [facility] Work Phone: Comment on above: Pattern: Regular 11-16-2017 13:17-0400 Pulse Oximetry 98 % Rimma Mar [facility] Internal Medicine Work Phone: Comment on above: Room air 11-16-2017 13:17-0400 Respiratory Rate 16 /min Melanie Garcias STRIP MACHINE TENDER [facility] Work Phone: Comment on above: Pattern: Unlabored 11-16-2017 13:17-0400 SaO2% (BldA) [Mass fraction] 98 % Melanie Garcias LPN [facility]; [facility] Work Phone: Comment on above: Room air 11-16-2017 13:17-0400 Weight 111.13 kg Rimma Mar [facility] Work Phone: 06-03-2017 09:31-0400 BMI (Body Mass Index) 40.55 kg/m2 Whit Celis RN [facility] Work Phone: 06-03-2017 09:31-0400 Body weight 113.97 kg Whit Celis RN [facility] Work Phone: 06-03-2017 09:31-0400 BP Diastolic 84 mm[Hg] Whit Celis RN [facility] Work Phone: Comment on above: Patient Position: Si tting; Cuff Location: Left Arm; Cuff Size: Large 06-03-2017 09:31-0400 BP Systolic 128 mm[Hg] Whit Celis RN [facility] Work Phone: Comment on above: Patient Position: Si tting; Cuff Location: Left Arm; Cuff Size: Large 06-03-2017 09:31-0400 BSA (Body Surface Area) 2.2 m2 Whit Celis RN [facility] Work Phone: 06-03-2017 09:31-0400 Height 167.64 cm Whit Celis RN [facility] Work Phone: 06-03-2017 09:31-0400 Pulse (Heart Rate) 72 /min Whit Celis RN [facility] Work Phone: Comment on above: Pattern: Regular 06-03-2017 09:31-0400 Pulse Oximetry 96 % Rimma Mar [facility] Work Phone: Comment on above: Room air 06-03-2017 09:31-0400 Respiratory Rate 18 /min Whit Celis RN [facility] Work Phone: Comment on above: Pattern: Unlabored 06-03-2017 09:31-0400 SaO2% (BldA) [Mass fraction] 96 % Whit Celis RN [facility]; [facility] Work Phone: Comment on above: Room air 06-03-2017 09:31-0400 Weight 113.97 kg Rimma Mar [facility] Work Phone: 12-02-2016 12:29-0400 BMI (Body Mass Index) 39.62 kg/m2 Whit Celis RN [facility] Work Phone: 12-02-2016 12:29-0400 Body weight 111.36 kg Whit Celis RN [facility] Work Phone: 12-02-2016 12:29-0400 BP Diastolic 84 mm[Hg] Whit Celis RN [facility] Work Phone: Comment on above: Patient Position: Si tting; Cuff Location: Left Arm; Cuff Size: Large 12-02-2016 12:29-0400 BP Systolic 138 mm[Hg] Whit Celis RN [facility] Work Phone: Comment on above: Patient Position: Si tting; Cuff Location: Left Arm; Cuff Size: Large 12-02-2016 12:29-0400 BSA (Body Surface Area) 2.18 m2 Whit Celis RN [facility] Work Phone: 12-02-2016 12:29-0400 Height 167.64 cm Whit Celis RN [facility] Work Phone: 12-02-2016 12:29-0400 Pulse (Heart Rate) 87 /min Whit Celis RN [facility] Work Phone: Comment on above: Pattern: Regular 12-02-2016 12:29-0400 Pulse Oximetry 97 % Rimma Mar [facility] Work Phone: Comment on above: Room air 12-02-2016 12:29-0400 Respiratory Rate 18 /min Whit Celis RN [facility] Work Phone: Comment on above: Pattern: Unlabored 12-02-2016 12:29-0400 SaO2% (BldA) [Mass fraction] 97 % Whit Celis RN [facility]; [facility] Work Phone: Comment on above: Room air 12-02-2016 12:29-0400 Weight 111.36 kg Rimma Mar [facility] Work Phone: 11-01-2016 13:44-0500 BMI (Body Mass Index) 38.78 kg/m2 Whit Celis RN [facility] Work Phone: 11-01-2016 13:44-0500 Body weight 108.98 kg Whit Celis RN [facility] Work Phone: 11-01-2016 13:44-0500 BP Diastolic 88 mm[Hg] Whit Celis RN [facility] Work Phone: Comment on above: Patient Position: Si tting; Cuff Location: Left Arm; Cuff Size: Large 11-01-2016 13:44-0500 BP Systolic 132 mm[Hg] Whit Celis RN [facility] Work Phone: Comment on above: Patient Position: Si tting; Cuff Location: Left Arm; Cuff Size: Large 11-01-2016 13:44-0500 BSA (Body Surface Area) 2.16 m2 Whit Celis RN [facility] Work Phone: 11-01-2016 13:44-0500 Height 167.64 cm Whit Celis RN [facility] Work Phone: 11-01-2016 13:44-0500 Pulse (Heart Rate) 102 /min Whit Celis RN [facility] Work Phone: Comment on above: Pattern: Regular 11-01-2016 13:44-0500 Pulse Oximetry 97 % Rimmatariq Holbrookon [facility] Work Phone: Comment on above: Room air 11-01-2016 13:44-0500 Respiratory Rate 18 /min Whit Celis RN [facility] Work Phone: Comment on above: Pattern: Unlabored 11-01-2016 13:44-0500 SaO2% (BldA) [Mass fraction] 97 % Whit Celis RN [facility]; [facility] Work Phone: Comment on above: Room air 11-01-2016 13:44-0500 Weight 108.98 kg Rimma Holbrookon [facility] Work Phone: 07-30-2015 11:06-0500 BMI (Body Mass Index) 40.03 kg/m2 Whit Celis RN [facility] Work Phone: 07-30-2015 11:06-0500 Body weight 112.49 kg Whit Celis RN [facility] Work Phone: 07-30-2015 11:06-0500 BP Diastolic 86 mm[Hg] Whit Celis RN [facility] Work Phone: Comment on above: Patient Position: Si tting; Cuff Location: Left Arm; Cuff Size: Large 07-30-2015 11:06-0500 BP Systolic 124 mm[Hg] Whit Celis RN [facility] Work Phone: Comment on above: Patient Position: Si tting; Cuff Location: Left Arm; Cuff Size: Large 07-30-2015 11:06-0500 BSA (Body Surface Area) 2.19 m2 Whit Celis RN [facility] Work Phone: 07-30-2015 11:06-0500 Height 167.64 cm Whit Celis RN [facility] Work Phone: 07-30-2015 11:06-0500 Pulse (Heart Rate) 88 /min Whit Celis RN [facility] Work Phone: Comment on above: Pattern: Regular 07-30-2015 11:06-0500 Pulse Oximetry 98 % Rimma Zaid [facility] Work Phone: Comment on above: Room air 07-30-2015 11:06-0500 Respiratory Rate 20 /min Whit Celis RN [facility] Work Phone: Comment on above: Pattern: Unlabored 07-30-2015 11:06-0500 SaO2% (BldA) [Mass fraction] 98 % Whit Celis RN [facility]; [facility] Work Phone: Comment on above: Room air 07-30-2015 11:06-0500 Weight 112.49 kg Rimma Zaid [facility] Work Phone: 06-12-2015 12:33-0400 BMI (Body Mass Index) 39.79 kg/m2 Hayley Turner RN [facility] Work Phone: 06-12-2015 12:33-0400 Body Temperature 97.8 [degF] Hayley Turner RN [facility] Work Phone: Comment on above: Method: Temporal 06-12-2015 12:33-0400 Body weight 111.81 kg Hayley Turner RN [facility] Work Phone: 06-12-2015 12:33-0400 BP Diastolic 82 mm[Hg] Hayley Turner RN [facility] Work Phone: Comment on above: Patient Position: Si tting; Cuff Location: Left Arm; Cuff Size: Standard 06-12-2015 12:33-0400 BP Systolic 124 mm[Hg] Hayley Turner RN [facility] Work Phone: Comment on above: Patient Position: Si tting; Cuff Location: Left Arm; Cuff Size: Standard 06-12-2015 12:33-0400 BSA (Body Surface Area) 2.19 m2 Hayley Turner RN [facility] Work Phone: 06-12-2015 12:33-0400 Height 167.64 cm Hayley Turner RN [facility] Work Phone: 06-12-2015 12:33-0400 Pulse (Heart Rate) 116 /min Hayley Turner RN [facility] Work Phone: Comment on above: Pattern: Regular 06-12-2015 12:33-0400 Pulse Oximetry 98 % Rimma Mar [facility] Work Phone: Comment on above: Room air 06-12-2015 12:33-0400 Respiratory Rate 17 /min Hayley Turner RN [facility] Work Phone: Comment on above: Pattern: Unlabored 06-12-2015 12:33-0400 SaO2% (BldA) [Mass fraction] 98 % Hayley Turner RN [facility]; [facility] Work Phone: Comment on above: Room air 06-12-2015 12:33-0400 Weight 111.81 kg Rimma Mar [facility] Work Phone: 06-02-2015 13:48-0400 BMI (Body Mass Index) 38.49 kg/m2 Hayley Turner RN [facility] Work Phone: 06-02-2015 13:48-0400 Body Temperature 98.2 [degF] Hayley Turner RN [facility] Work Phone: Comment on above: Method: Temporal 06-02-2015 13:48-0400 Body weight 108.18 kg Hayley Turner RN [facility] Work Phone: 06-02-2015 13:48-0400 BP Diastolic 74 mm[Hg] Hayley Turner RN [facility] Work Phone: Comment on above: Patient Position: Si tting; Cuff Location: Left Arm; Cuff Size: Standard 06-02-2015 13:48-0400 BP Systolic 122 mm[Hg] Hayley Turner RN [facility] Work Phone: Comment on above: Patient Position: Si tting; Cuff Location: Left Arm; Cuff Size: Standard 06-02-2015 13:48-0400 BSA (Body Surface Area) 2.16 m2 Hayley Turner RN [facility] Work Phone: 06-02-2015 13:48-0400 Height 167.64 cm Hayley Turner RN [facility] Work Phone: 06-02-2015 13:48-0400 Pulse (Heart Rate) 70 /min Hayley Turner RN [facility] Work Phone: Comment on above: Pattern: Regular 06-02-2015 13:48-0400 Respiratory Rate 16 /min Hayley Turner RN [facility] Work Phone: Comment on above: Pattern: Unlabored 06-02-2015 13:48-0400 Weight 108.18 kg Rimma Zaid [facility] Work Phone: 01-31-2015 11:20-0400 BMI (Body Mass Index) 38.49 kg/m2 Whit Celis RN [facility] Work Phone: 01-31-2015 11:20-0400 Body weight 108.18 kg Whit Celis RN [facility] Work Phone: 01-31-2015 11:20-0400 BP Diastolic 80 mm[Hg] Whit Celis RN [facility] Work Phone: Comment on above: Patient Position: Si tting; Cuff Location: Left Arm; Cuff Size: Large 01-31-2015 11:20-0400 BP Systolic 128 mm[Hg] Whit Celis RN [facility] Work Phone: Comment on above: Patient Position: Si tting; Cuff Location: Left Arm; Cuff Size: Large 01-31-2015 11:20-0400 BSA (Body Surface Area) 2.16 m2 Whit Celis RN [facility] Work Phone: 01-31-2015 11:20-0400 Height 167.64 cm Whit Celis RN [facility] Work Phone: 01-31-2015 11:20-0400 Pulse (Heart Rate) 83 /min Whit Celis RN [facility] Work Phone: Comment on above: Pattern: Regular 01-31-2015 11:20-0400 Pulse Oximetry 97 % Rimma Mar [facility] Work Phone: Comment on above: Room air 01-31-2015 11:20-0400 SaO2% (BldA) [Mass fraction] 97 % Whit Celis RN [facility]; [facility] Work Phone: Comment on above: Room air 01-31-2015 11:20-0400 Weight 108.18 kg Rimma Mar [facility] Work Phone: 10-23-2014 13:15-0500 BMI (Body Mass Index) 37.14 kg/m2 Whit Celis RN [facility] Work Phone: 10-23-2014 13:15-0500 Body Temperature 98.8 [degF] Whit Celis RN [facility] Work Phone: Comment on above: Method: Oral 10-23-2014 13:15-0500 Body weight 104.38 kg Whit Celis RN [facility] Work Phone: 10-23-2014 13:15-0500 BP Diastolic 86 mm[Hg] Whit Celis RN [facility] Work Phone: Comment on above: Patient Position: Si tting; Cuff Location: Left Arm; Cuff Size: Large 10-23-2014 13:15-0500 BP Systolic 128 mm[Hg] Whit Celis RN [facility] Work Phone: Comment on above: Patient Position: Si tting; Cuff Location: Left Arm; Cuff Size: Large 10-23-2014 13:15-0500 BSA (Body Surface Area) 2.12 m2 Whit Celis RN [facility] Work Phone: 10-23-2014 13:15-0500 Height 167.64 cm Whit Celis RN [facility] Work Phone: 10-23-2014 13:15-0500 Pulse (Heart Rate) 100 /min Whit Celis RN [facility] Work Phone: Comment on above: Pattern: Regular 10-23-2014 13:15-0500 Pulse Oximetry 98 % Rimma Mar [facility] Work Phone: Comment on above: Room air 10-23-2014 13:15-0500 Respiratory Rate 18 /min Whit Celis RN [facility] Work Phone: Comment on above: Pattern: Unlabored 10-23-2014 13:15-0500 SaO2% (BldA) [Mass fraction] 98 % Whit Celis RN [facility]; [facility] Work Phone: Comment on above: Room air 10-23-2014 13:15-0500 Weight 104.38 kg Rimma Mar [facility] Work Phone: 04-26-2014 12:01-0400 BMI (Body Mass Index) 37.37 kg/m2 Whit Celis RN [facility] Work Phone: Comment on above: 128/84 recheck bp 04-26-2014 12:01-0400 Body Temperature 98 [degF] Whit Celis RN [facility] Work Phone: Comment on above: Method: Tympanic 128/84 recheck bp 04-26-2014 12:01-0400 Body weight 105.04 kg Whit Celis RN [facility] Work Phone: Comment on above: 128/84 recheck bp 04-26-2014 12:01-0400 BP Diastolic 90 mm[Hg] Whit Celis RN [facility] Work Phone: Comment on above: Patient Position: Si tting; Cuff Location: Left Arm; Cuff Size: Large 128/84 recheck bp 04-26-2014 12:01-0400 BP Systolic 162 mm[Hg] Whit Celis RN [facility] Work Phone: Comment on above: Patient Position: Si tting; Cuff Location: Left Arm; Cuff Size: Large 128/84 recheck bp 04-26-2014 12:01-0400 BSA (Body Surface Area) 2.13 m2 Whit Celis RN [facility] Work Phone: Comment on above: 128/84 recheck bp 04-26-2014 12:01-0400 Height 167.64 cm Whit Celis RN [facility] Work Phone: Comment on above: 128/84 recheck bp 04-26-2014 12:01-0400 Pulse (Heart Rate) 66 /min Whit Celis RN [facility] Work Phone: Comment on above: Pattern: Regular 128/84 recheck bp 04-26-2014 12:01-0400 Pulse Oximetry 98 % Rimma Mar [facility] Work Phone: Comment on above: Room air 128/84 recheck bp 04-26-2014 12:01-0400 Respiratory Rate 18 /min Whit Celis RN [facility] Work Phone: Comment on above: Pattern: Unlabored 128/84 recheck bp 04-26-2014 12:01-0400 SaO2% (BldA) [Mass fraction] 98 % Whit Celis RN [facility]; [facility] Work Phone: Comment on above: Room air 128/84 recheck bp 04-26-2014 12:01-0400 Weight 105.04 kg Rimma Mar [facility] Work Phone: 03-02-2013 11:57-0400 BMI (Body Mass Index) 34.24 kg/m2 Patricia Collins LPN [facility] Work Phone: 03-02-2013 11:57-0400 Body Temperature 98 [degF] Patricia Collins LPN [facility] Work Phone: Comment on above: Method: Oral 03-02-2013 11:57-0400 Body weight 96.22 kg Patricia Colilns LPN [facility] Work Phone: 03-02-2013 11:57-0400 BP Diastolic 80 mm[Hg] Patricia Collins LPN [facility] Work Phone: Comment on above: Patient Position: Si tting; Cuff Location: Left Arm; Cuff Size: Standard 03-02-2013 11:57-0400 BP Systolic 122 mm[Hg] Patricia Collins LPN [facility] Work Phone: Comment on above: Patient Position: Si tting; Cuff Location: Left Arm; Cuff Size: Standard 03-02-2013 11:57-0400 BSA (Body Surface Area) 2.05 m2 Patricia Collins LPN [facility] Work Phone: 03-02-2013 11:57-0400 Height 167.64 cm Patricia Collins LPN [facility] Work Phone: 03-02-2013 11:57-0400 Pulse (Heart Rate) 77 /min Patricia Collins LPN [facility] Work Phone: Comment on above: Pattern: Regular 03-02-2013 11:57-0400 Pulse Oximetry 98 % Rimma Mar [facility] Work Phone: Comment on above: Room air 03-02-2013 11:57-0400 SaO2% (BldA) [Mass fraction] 98 % Patricia Collins LPN [facility]; [facility] Work Phone: Comment on above: Room air 03-02-2013 11:57-0400 Weight 96.22 kg Rimma Mar [facility] Work Phone: 01-21-2012 11:28-0400 BMI (Body Mass Index) 34.24 kg/m2 Whit Celis RN [facility] Work Phone: 01-21-2012 11:28-0400 Body weight 96.22 kg Whit Celis RN [facility] Work Phone: 01-21-2012 11:28-0400 BP Diastolic 82 mm[Hg] Whit Celis RN [facility] Work Phone: Comment on above: Patient Position: Si tting; Cuff Location: Left Arm; Cuff Size: Large 01-21-2012 11:28-0400 BP Systolic 128 mm[Hg] Whit Celis RN [facility] Work Phone: Comment on above: Patient Position: Si tting; Cuff Location: Left Arm; Cuff Size: Large 01-21-2012 11:28-0400 BSA (Body Surface Area) 2.05 m2 Whit Celis RN [facility] Work Phone: 01-21-2012 11:28-0400 Height 167.64 cm Whit Celis RN [facility] Work Phone: 01-21-2012 11:28-0400 Pulse (Heart Rate) 72 /min Whit Celis RN [facility] Work Phone: Comment on above: Pattern: Regular 01-21-2012 11:28-0400 Respiratory Rate 20 /min Whit Celis RN [facility] Work Phone: Comment on above: Pattern: Unlabored 01-21-2012 11:28-0400 Weight 96.22 kg Rimma Mar [facility] Work Phone: 01-07-2012 10:38-0400 BMI (Body Mass Index) 34.24 kg/m2 Hayley Turner RN [facility] Work Phone: Comment on above: statse today is a go od day 01-07-2012 10:38-0400 Body Temperature 97.5 [degF] Hayley Turner RN [facility] Work Phone: Comment on above: Method: Oral statse today is a go od day 01-07-2012 10:38-0400 Body weight 96.22 kg Hayley Turner RN [facility] Work Phone: Comment on above: statse today is a go od day 01-07-2012 10:38-0400 BP Diastolic 70 mm[Hg] Hayley Turner RN [facility] Work Phone: Comment on above: Patient Position: Si tting; Cuff Location: Left Arm; Cuff Size: Standard statse today is a go od day 01-07-2012 10:38-0400 BP Systolic 114 mm[Hg] Hayley Turner RN [facility] Work Phone: Comment on above: Patient Position: Si tting; Cuff Location: Left Arm; Cuff Size: Standard statse today is a go od day 01-07-2012 10:38-0400 BSA (Body Surface Area) 2.05 m2 Hayley Turner RN [facility] Work Phone: Comment on above: statse today is a go od day 01-07-2012 10:38-0400 Height 167.64 cm Hayley Turner RN [facility] Work Phone: Comment on above: statse today is a go od day 01-07-2012 10:38-0400 Pulse (Heart Rate) 76 /min Hayley Turner RN [facility] Work Phone: Comment on above: Pattern: Regular statse today is a go od day 01-07-2012 10:38-0400 Respiratory Rate 18 /min Hayley Turner RN [facility] Work Phone: Comment on above: Pattern: Unlabored statse today is a go od day 01-07-2012 10:38-0400 Weight 96.22 kg Rimma Zaid [facility] Work Phone: 11-19-2010 11:37-0400 BMI (Body Mass Index) 34.24 kg/m2 Whit Celis RN [facility] Work Phone: 11-19-2010 11:37-0400 Body Temperature 99.1 [degF] Whit Celis RN [facility] Work Phone: Comment on above: Method: Oral 11-19-2010 11:37-0400 Body weight 96.22 kg Whit Celis RN [facility] Work Phone: 11-19-2010 11:37-0400 BP Diastolic 84 mm[Hg] Whit Celis RN [facility] Work Phone: Comment on above: Patient Position: Si tting; Cuff Location: Left Arm; Cuff Size: Large 11-19-2010 11:37-0400 BP Systolic 128 mm[Hg] Whit Celis RN [facility] Work Phone: Comment on above: Patient Position: Si tting; Cuff Location: Left Arm; Cuff Size: Large 11-19-2010 11:37-0400 BSA (Body Surface Area) 2.05 m2 Whit Celis RN [facility] Work Phone: 11-19-2010 11:37-0400 Height 167.64 cm Whit Celis RN [facility] Work Phone: 11-19-2010 11:37-0400 Pulse (Heart Rate) 64 /min Whit Celis RN [facility] Work Phone: Comment on above: Pattern: Regular 11-19-2010 11:37-0400 Respiratory Rate 20 /min Whit Celis RN [facility] Work Phone: Comment on above: Pattern: Unlabored 11-19-2010 11:37-0400 Weight 96.22 kg Rimma Mar [facility] Work Phone: 11-06-2010 08:26-0500 BMI (Body Mass Index) 34.6 kg/m2 Hayley Turner RN [facility] Work Phone: 11-06-2010 08:26-0500 Body Temperature 97.6 [degF] Hayley Turner RN [facility] Work Phone: Comment on above: Method: Oral 11-06-2010 08:26-0500 Body weight 97.25 kg Hayley Turner RN [facility] Work Phone: 11-06-2010 08:26-0500 BP Diastolic 80 mm[Hg] Hayley Turner RN [facility] Work Phone: Comment on above: Patient Position: Si tting; Cuff Location: Left Arm; Cuff Size: Standard 11-06-2010 08:26-0500 BP Systolic 118 mm[Hg] Hayley Turner RN [facility] Work Phone: Comment on above: Patient Position: Si tting; Cuff Location: Left Arm; Cuff Size: Standard 11-06-2010 08:26-0500 BSA (Body Surface Area) 2.06 m2 Hayley Turner RN [facility] Work Phone: 11-06-2010 08:26-0500 Height 167.64 cm Hayley Turner RN [facility] Work Phone: 11-06-2010 08:26-0500 Pulse (Heart Rate) 76 /min Hayley Turner RN [facility] Work Phone: Comment on above: Pattern: Regular 11-06-2010 08:26-0500 Respiratory Rate 16 /min Hayley Turner RN [facility] Work Phone: Comment on above: Pattern: Unlabored 11-06-2010 08:26-0500 Weight 97.25 kg Rimma Mar [facility] Work Phone: 01-02-2009 13:06-0400 BMI (Body Mass Index) 40.86 kg/m2 Whit Celis RN [facility] Work Phone: 01-02-2009 13:06-0400 Body weight 111.39 kg Whit Celis RN [facility] Work Phone: 01-02-2009 13:06-0400 BP Diastolic 78 mm[Hg] Whit Celis RN [facility] Work Phone: Comment on above: Patient Position: Si tting; Cuff Location: Left Arm; Cuff Size: Large 01-02-2009 13:06-0400 BP Systolic 132 mm[Hg] Whit Celis RN [facility] Work Phone: Comment on above: Patient Position: Si tting; Cuff Location: Left Arm; Cuff Size: Large 01-02-2009 13:06-0400 BSA (Body Surface Area) 2.16 m2 Whit Celis RN [facility] Work Phone: 01-02-2009 13:06-0400 Head Circumference 0 cm Rimma Zaid [facility] Work Phone: 01-02-2009 13:06-0400 Head Occipital-frontal circumference 0 cm Whit Celis RN [facility]; [facility] Work Phone: 01-02-2009 13:06-0400 Height 165.1 cm Whit Celis RN [facility] Work Phone: 01-02-2009 13:06-0400 Pulse (Heart Rate) 80 /min Whit Celis RN [facility] Work Phone: Comment on above: Pattern: Regular 01-02-2009 13:06-0400 Respiratory Rate 20 /min Whit Celis RN [facility] Work Phone: Comment on above: Pattern: Unlabored 01-02-2009 13:06-0400 Weight 111.39 kg Rimma Mar [facility] Work Phone: 12-04-2008 13:09-0400 Body Temperature 98.5 [degF] [facility] Work Phone: Comment on above: Method: Oral 12-04-2008 13:0400 Body weight 112.07 kg [facility] Work Phone: 12-04-2008 13:09-0400 BP Diastolic 78 mm[Hg] [facility] Work Phone: Comment on above: Patient Position: Si tting; Cuff Location: Left Arm; Cuff Size: Standard 12-04-2008 13:09-0400 BP Systolic 128 mm[Hg] [facility] Work Phone: Comment on above: Patient Position: Si tting; Cuff Location: Left Arm; Cuff Size: Standard 12-04-2008 13:09-0400 Head Circumference 0 cm Rimma Mar [facility] Work Phone: 12-04-2008 13:09-0400 Head Occipital-frontal circumference 0 cm [facility]; [facility] Work Phone: 12-04-2008 13:09-0400 Height 0 cm Callie [facility] Work Phone: 12-04-2008 13:09-0400 Pulse (Heart Rate) 78 /min [facility] Work Phone: Comment on above: Pattern: Regular 12-04-2008 13:09-0400 Respiratory Rate 18 /min Callie Franco [facility] Work Phone: Comment on above: Pattern: Unlabored 12-04-2008 13:09-0400 Weight 112.07 kg Rimma Mar [facility] Work Phone: 11-27-2008 13:13-0400 BMI (Body Mass Index) 41.45 kg/m2 Whit Celis RN [facility] Work Phone: 11-27-2008 13:13-0400 Body weight 112.97 kg Whit Celis RN [facility] Work Phone: 11-27-2008 13:13-0400 BP Diastolic 82 mm[Hg] Whit Celis RN [facility] Work Phone: Comment on above: Patient Position: Si tting; Cuff Location: Left Arm; Cuff Size: Large 11-27-2008 13:13-0400 BP Systolic 128 mm[Hg] Whit Celis RN [facility] Work Phone: Comment on above: Patient Position: Si tting; Cuff Location: Left Arm; Cuff Size: Large 11-27-2008 13:13-0400 BSA (Body Surface Area) 2.17 m2 Whit Celis RN [facility] Work Phone: 11-27-2008 13:13-0400 Head Circumference 0 cm Rimma Mar [facility] Work Phone: 11-27-2008 13:13-0400 Head Occipital-frontal circumference 0 cm Whit Celis RN [facility]; [facility] Work Phone: 11-27-2008 13:13-0400 Height 165.1 cm Whit Celis RN [facility] Work Phone: 11-27-2008 13:13-0400 Pulse (Heart Rate) 64 /min Whit Celis RN [facility] Work Phone: Comment on above: Pattern: Regular 11-27-2008 13:13-0400 Respiratory Rate 20 /min Whit Celis RN [facility] Work Phone: Comment on above: Pattern: Unlabored 11-27-2008 13:13-0400 Weight 112.97 kg Rimma Mar [facility] Work Phone: 10-21-2008 15:53-0500 Body weight 0 kg Whit Celis RN [facility] Work Phone: 10-21-2008 15:53-0500 BP Diastolic 78 mm[Hg] Whit Celis RN [facility] Work Phone: Comment on above: Patient Position: Si tting; Cuff Location: Left Arm; Cuff Size: Large 10-21-2008 15:53-0500 BP Systolic 128 mm[Hg] Whit Celis RN [facility] Work Phone: Comment on above: Patient Position: Si tting; Cuff Location: Left Arm; Cuff Size: Large 10-21-2008 15:53-0500 Head Circumference 0 cm Rimma Mar [facility] Work Phone: 10-21-2008 15:53-0500 Head Occipital-frontal circumference 0 cm Whit Celis RN [facility]; [facility] Work Phone: 10-21-2008 15:53-0500 Height 165.1 cm Whit Celis RN [facility] Work Phone: 10-21-2008 15:53-0500 Pulse (Heart Rate) 72 /min Whit Celis RN [facility] Work Phone: Comment on above: Pattern: Regular 10-21-2008 15:53-0500 Respiratory Rate 18 /min Whit Celis RN [facility] Work Phone: Comment on above: Pattern: Unlabored 10-21-2008 15:53-0500 Weight 0 kg Rimma aMr [facility] Work Phone: 06-11-2008 10:42-0400 BMI (Body Mass Index) 37.44 kg/m2 Whit Celis RN [facility] Work Phone: 06-11-2008 10:42-0400 Body weight 102.06 kg Whit Celis RN [facility] Work Phone: 06-11-2008 10:42-0400 BP Diastolic 70 mm[Hg] Whit Celis RN [facility] Work Phone: Comment on above: Patient Position: Si tting; Cuff Location: Left Arm; Cuff Size: Standard 06-11-2008 10:42-0400 BP Systolic 118 mm[Hg] Whit Celis RN [facility] Work Phone: Comment on above: Patient Position: Si tting; Cuff Location: Left Arm; Cuff Size: Standard 06-11-2008 10:42-0400 BSA (Body Surface Area) 2.08 m2 Whit Celis RN [facility] Work Phone: 06-11-2008 10:42-0400 Head Circumference 0 cm Rimma Mar [facility] Work Phone: 06-11-2008 10:42-0400 Head Occipital-frontal circumference 0 cm Whit Celis RN [facility]; [facility] Work Phone: 06-11-2008 10:42-0400 Height 165.1 cm Whit Celis RN [facility] Work Phone: 06-11-2008 10:42-0400 Pulse (Heart Rate) 80 /min Whit Celis RN [facility] Work Phone: Comment on above: Pattern: Regular 06-11-2008 10:42-0400 Respiratory Rate 20 /min Whit Celis RN [facility] Work Phone: Comment on above: Pattern: Unlabored 06-11-2008 10:42-0400 Weight 102.06 kg Rimma Holbrookon [facility] Work Phone: 09-29-2007 14:56-0500 BMI (Body Mass Index) 37.44 kg/m2 Whit Celis RN [facility] Work Phone: 09-29-2007 14:56-0500 Body Temperature 98.3 [degF] Whit Celis RN [facility] Work Phone: Comment on above: Method: Oral 09-29-2007 14:56-0500 Body weight 102.06 kg Whit Celis RN [facility] Work Phone: 09-29-2007 14:56-0500 BP Diastolic 72 mm[Hg] Whit Celis RN [facility] Work Phone: Comment on above: Patient Position: Si tting; Cuff Location: Right Arm; Cuff Size: Standard 09-29-2007 14:56-0500 BP Systolic 124 mm[Hg] Whit Celis RN [facility] Work Phone: Comment on above: Patient Position: Si tting; Cuff Location: Right Arm; Cuff Size: Standard 09-29-2007 14:56-0500 BSA (Body Surface Area) 2.08 m2 Whit Celis RN [facility] Work Phone: 09-29-2007 14:56-0500 Head Circumference 0 cm Rimma Mar [facility] Work Phone: 09-29-2007 14:56-0500 Head Occipital-frontal circumference 0 cm Whit Celis RN [facility]; [facility] Work Phone: 09-29-2007 14:56-0500 Height 165.1 cm Whit Celis RN [facility] Work Phone: 09-29-2007 14:56-0500 Pulse (Heart Rate) 88 /min Whit Celis RN [facility] Work Phone: Comment on above: Pattern: Regular 09-29-2007 14:56-0500 Respiratory Rate 20 /min Whit Celis RN [facility] Work Phone: Comment on above: Pattern: Unlabored 09-29-2007 14:56-0500 Weight 102.06 kg Rimma Holbrookon [facility] Work Phone: 01-24-2007 13:32-0400 BMI (Body Mass Index) 37.44 kg/m2 Kristen Banks [facility] Work Phone: 01-24-2007 13:32-0400 Body weight 102.[address] [facility] Work Phone: 01-24-2007 13:32-0400 BP Diastolic 64 mm[Hg] Kristen Banks [facility] Work Phone: Comment on above: Patient Position: Si tting; Cuff Location: Left Arm; Cuff Size: Standard 01-24-2007 13:32-0400 BP Systolic 112 mm[Hg] Kristen Banks [facility] Work Phone: Comment on above: Patient Position: Si tting; Cuff Location: Left Arm; Cuff Size: Standard 01-24-2007 13:32-0400 BSA (Body Surface Area) 2.[address] [facility] Work Phone: 01-24-2007 13:32-0400 Head Circumference 0 cm Rimma Mar [facility] Work Phone: 01-24-2007 13:32-0400 Head Occipital-frontal circumference 0 cm [facility]; [facility] Work Phone: 01-24-2007 13:32-0400 Height 165.1 cm [facility] Work Phone: 01-24-2007 13:32-0400 Pulse (Heart Rate) 60 /min [facility] Work Phone: Comment on above: Pattern: Regular 01-24-2007 13:32-0400 Respiratory Rate 16 /min [facility] Work Phone: Comment on above: Pattern: Unlabored 01-24-2007 13:32-0400 Weight 102.06 kg Rimma Mar [facility] Work Phone: NEGATED: Highlighted [id number] 13:49-0400 BMI (Body Mass Index) 39.41 kg/m2 Betty Asha [facility] Work Phone: NEGATED: Highlighted [id number] 13:49-0400 Body weight 107.05 kg Bettylivia Barry [facility] Work Phone: NEGATED: Highlighted [id number] 13:49-0400 Body weight 107 kg Betty Asha [facility] Work Phone: NEGATED: Highlighted [id number] 13:49-0400 BP Diastolic 86 mm[Hg] [facility] Work Phone: NEGATED: Highlighted [id number] 13:49-0400 BP Diastolic 85 mm[Hg] Betty Barry [employer] [facility] Work Phone: NEGATED: Highlighted [id number] 13:49-0400 BP Systolic 144 mm[Hg] Betty Barry [employer] [facility] Work Phone: NEGATED: Highlighted [id number] 13:49-0400 BP Systolic 139 mm[Hg] Bettylivia Barry [employer] [facility] Work Phone: NEGATED: Highlighted [id number] 13:49-0400 Height 165.[address] [facility] Work Phone: NEGATED: Highlighted [id number] 13:49-0400 Height 165 cm [facility] Work Phone: NEGATED: Highlighted [id number] 13:49-0400 Pulse (Heart Rate) 67 /min [facility] Work Phone: Encounters Encounter Date Encounter Type Care Provider Facility Start: 08-09-2025 ambulatory Rimma Mar Facilit y:[facility] Start: 07-30-2025 ambulatory Rimma Mar Facilit y:[facility] Start: 06-19-2025 ambulatory RIMMA MAR Facil ity:[id number] Start: 06-19-2025 End: 06-19-2025 ambulatory Rimma Mar Facility:[facility] Start: 04-24-2025 End: 04-24-[address] Rimma Mar DO Work Phone: -Ultrasound [facility] Start: 04-24-2025 End: 04-24-[address] Rimma Mar DO -Ultrasound [facility] Work Phone: Start: 04-24-2025 End: 04-24-2025 ambulatory Rimma Mar Facility:[facility] Start: 04-11-2025 Non-patient / Non-visit Dr. Filipe Armijo MD -[facility] Work Phone: Start: 04-11-[address] Beto Mar DO -Cat Scan [facility] Work Phone: Start: 04-11-2025 ambulatory Rimma Mar Facilit y:[facility] Start: 01-01-2025 End: 01-01-2025 Office outpatient new 30 minutes Dennis Toure MD Work Phone: [facility] [place] Comment on above: Conjunctivochalasis of left eye (Primary Dx); Chemosis of left conjunctiva Start: 01-01-2025 ambulatory DENNIS TOURE Facility :[facility] Start: 10-11-2024 End: 10-11-2024 ambulatory RIMMA PHAM [facility] Start: 10-08-2024 End: 10-08-2024 ambulatory Argentina Talley Facility:[facility] Start: 09-29-2024 End: 09-29-2024 ambulatory [place] Talley Facility:[facility] Start: 07-30-2024 End: 07-30-2024 ambulatory Rimma Mar Facility:[facility] Start: 05-05-2023 End: 05-05-2023 Annotation/Addendum Rimma Mar DO Work Phone: [facility] Start: 04-28-2023 End: 04-28-2023 ambulatory [facility] Work Phone: Start: 04-28-2023 End: 04-28-2023 Patient encounter procedure [facility] D[facility]ometry Work Phone: Start: 09-02-2022 ambulatory Rimma jarvis DO [facility] Start: 09-02-2022 End: 09-03-2022 Office outpatient visit 15 minutes Rimma Mar DO Work Phone: [facility] Start: 09-02-2022 Review Rimma Koehler n DO Work Phone: [facility] Start: 08-26-2022 End: 08-26-2022 ambulatory [facility] Work Phone: Start: 08-26-2022 End: 08-26-2022 Patient encounter procedure [facility] Start: 07-27-2022 End: 07-27-2022 Phone Encounter Rimma Zaid DO Work Phone: [facility] Start: 07-26-2022 End: 07-26-2022 Office outpatient visit 10 minutes Rimma Holbrookon DO Work Phone: [facility] Start: 02-17-2022 End: 02-17-2022 Patient encounter procedure [facility]Neurology Start: 05-20-2021 End: 05-20-2021 Office outpatient visit 25 minutes Rimma Mar DO Work Phone: [facility] Start: 07-02-2020 End: 07-02-2020 Annotation/Addendum Rimma Mar [facility] Start: 06-30-2020 End: 06-30-2020 Office outpatient visit 10 minutes Rimma Mar [facility] Start: 12-17-2019 End: 12-17-2019 Phone Encounter Rimma Mar [facility] Start: 12-13-2019 End: 12-13-2019 Office outpatient visit 15 minutes Rimma Mar [facility] Start: 09-20-2019 End: 09-20-2019 Office outpatient visit 15 minutes Rimma Mar [facility] Start: 08-09-2019 End: 08-09-2019 Office outpatient visit 25 minutes Rimma Mar [facility] Start: 08-01-2019 End: 08-01-2019 Lab Order Rimma Mar [facility] Start: 06-27-2019 End: 06-27-2019 Patient encounter procedure Mandeep Munoz MD Work Phone: [facility] Work Phone: Start: 11-16-2018 End: 11-16-2018 Patient encounter procedure [facility] MITT[facility] Start: 10-24-2018 End: 10-24-2018 Office outpatient visit 10 minutes Rimma Mar [facility] Start: 09-08-2018 End: 09-08-2018 Annotation/Addendum [facility]ma [facility] Start: 08-21-2018 End: 08-21-2018 Office outpatient visit 25 minutes Rimma [facility] Start: 08-16-2018 End: 08-16-2018 Lab Order [facility] Start: 05-13-2018 [facility] Start: 12-13-2017 End: 12-13-2017 Office outpatient visit 15 minutes Rimma [facility] Start: 11-16-2017 End: 11-16-2017 Office outpatient visit 15 minutes Rimma [facility] Start: 06-28-2017 End: 06-28-2017 Phone Encounter Rimma [facility] Start: 06-03-2017 End: 06-03-2017 Office outpatient visit 15 minutes Rimma [facility] Start: 12-02-2016 End: 12-02-2016 Office outpatient visit 15 minutes Rimma Mar [facility] Start: 11-01-2016 End: 11-01-2016 Office outpatient visit 25 minutes Rimma Mar [facility] Start: 07-30-2015 End: 07-30-2015 Office outpatient visit 15 minutes Rimma Mar [facility] Start: 07-30-2015 End: 07-30-2015 Patient encounter procedure Rimma Zaid DO Work Phone: [facility] Start: 06-12-2015 End: 06-12-2015 Office outpatient visit 15 minutes Rimma [facility] Start: 06-02-2015 End: 06-02-2015 Office outpatient visit 25 minutes Rimma Mar [facility] Start: 01-31-2015 End: 02-03-2015 Office outpatient visit 25 minutes Rimma Mar [facility] Start: 10-25-2014 End: 10-25-2014 Phone Encounter Rim[facility] Start: 10-23-2014 End: 10-23-2014 Office outpatient visit 15 minutes Rimma [facility] Start: 04-29-2014 End: 04-29-2014 Phone Encounter Rimma [facility] Start: 04-26-2014 End: 04-26-2014 Office outpatient visit 15 minutes Rimma Mar [facility] Start: 03-02-2013 End: 03-02-2013 Office outpatient visit 15 minutes Rimma Mar [facility] Start: 01-21-2012 End: 01-21-2012 Patient encounter procedure Rimma Mar [facility] Start: 01-07-2012 End: 01-10-2012 Patient encounter procedure Rimma Mar [facility] Start: 06-15-2011 End: 06-15-2011 Phone Encounter Rimma Mar [facility] Start: 11-19-2010 End: 11-19-2010 Patient encounter procedure Rimma Mar [facility] Start: 11-06-2010 End: 11-06-2010 Historical Summary Rimma Mar [facility] Start: 11-06-2010 End: 11-06-2010 Patient encounter procedure Rimma Mar [facility] Start: 01-02-2009 End: 01-02-2009 Office outpatient visit 25 minutes Rimmatariq Mar [facility] Start: 12-04-2008 End: 12-04-2008 Office outpatient visit 15 minutes Rimma Mar [facility] Start: 11-27-2008 End: 11-27-2008 Patient encounter procedure Rimma Mar [facility] Start: 11-01-2008 End: 11-01-2008 Historical Summary Rimma Mar [facility] Start: 10-21-2008 End: 10-21-2008 Patient encounter procedure Rimma Mar [facility] Start: 06-11-2008 End: 06-11-2008 Patient encounter procedure Rimma Mar [facility] Start: 09-29-2007 End: 09-29-2007 Patient encounter procedure Rimma Mar [facility] Start: 01-24-2007 End: 01-24-2007 Office outpatient visit 15 minutes Rimma Mar [facility] Start: 08-05-2006 End: 08-05-2006 Historical Summary Rimma Mar [facility]; [facility] Work Phone: Patient encounter procedure Tamara Martinez MA [facility]; [facility] Work Phone: Patient encounter procedure Tamara Martinez MA [facility]; [facility] Work Phone: Procedures Date Procedure Procedure Detail Performing Clinician Start: 04-24-2025 US scan of thyroid Dr. Rimma Mar DO Work Phone: Start: 04-11-2025 CT angiography of co ronary arteries Dr. Rimma Mar DO Work Phone: Start: 04-28-2023 End: 05-05-2023 Dexa Bone Density Study Procedure Note: See Note; NOTES: [facility] Imaging Services [address] [place] [address] Dexa Bone Density Study MR#: [id number] Acct: [id number] Name: VARSHA TORRES Rep #: [id number] : 1965 F 58 From: Jose jackson MD PCP: Dr. Rimma Mar, Status: DEP CLI Study: Dexa Bone Density Study Date of Exam: 04/28/23 Exam# [id number] Ordering Dr: LINDA HOGAN STUDY: DUAL ENERGY X-RAY ABSORPTIOMETRY / DXA REASON FOR EXAM: Female, 58 years old. [id number] TECHNIQUE: Bone Mineral Density (BMD) measurements of lumbar spine and bilateral hips were obtained. COMPARISON: None. FINDINGS: Lumbar Spine (L1-L4): g/cm2 (1.156) / T-score (1.0) / Z-score (2.3) Findings are suggestive of normal bone density with a low fracture risk. Left Femur Total: g/cm2 (0.976) / T-score (0.3) / Z-score (1.2) Left Femoral Neck: g/cm2 (0.703) / T-score (-1.3) / Z-score (-0.1) Right Femur Total: g/cm2 (0.903) / T-score (-0.3) / Z-score (0.6) Right Femoral Neck: g/cm2 (0.719) / T-score (-1.2) / Z-score (0.1) BD/Dexa Bone Density Study IMPRESSION: The patient is considered osteopenic as outlined below according to World Stoney Organization (WHO) criteria with a low fracture risk. Reference Information: The T-score is the number of standard deviations above or below the standard which is normal for young adults at their peak bone mineral density. The World Health Organization (WHO) interprets the T-scores as follows: Above -1 Normal bone density Between -1 and -2.5 Osteopenia Equal to / or below -2.5 Osteoporosis As a practical clinical guideline, osteopenia may be graded as follows: Mild -1 through -1.5 Moderate -1.6 through -2.0 Severe -2.1 through -2.4 The Z-score is the number of standard deviations above or below age-matched controls. A Z-score of less than -1.5 would be considered abnormal. References: 1. NIH Osteoporosis and Related Bone Diseases www osteo.org 2. International Society for Clinical Densitometry www iscd.org 3. National Osteoporosis Foundation www nof.org Electronically Signed: Jose Gibbons MD at 14:44 EDT Reading Location ID and State: [address] [place] [address] , Service support , CC: Dr. Rimma Mar DO; LINDA HOGAN Drafter Civil: Signed Rimma Mar DO Work Phone: Start: 04-28-2023 Screening mammography Start: 04-28-2023 End: 04-29-2023 SCRN MAMM (CAD)W/KOBI BILAT Procedure Note: See Note; NOTES: [facility] Imaging Services [address] [place] [address] SCRN MAMM (CAD)W/KOBI BILAT MR#: [id number] Acct: [id number] Name: VARSHA TORRES Rep #: [id number] : 1965 F 58 From: Ricardo Meza DO PCP: Dr. Rimma Mar DO Status: REG CLI Study: SCRN MAMM (CAD)W/KOBI BILAT Date of Exam: 04/06 12/26 Exam# [id number] Ordering Dr: LINDA HOGAN MAMMOGRAPHY - BILATERAL SCREENING REASON FOR EXAM: Female, 58 years old. Routine annual screening examination. PERTINENT HISTORY: Family history unknown, as the patient is adopted. No reported personal history of breast cancer. TECHNIQUE: Digital bilateral breast kobi (3D mammographic acquisition) in the CC and MLO projections. 2-D mediolateral oblique (MLO) and craniocaudad (CC) views of both breasts were obtained. CAD: Full Field Digital Mammography with Computer Added Detection was performed. COMPARISON: Screening mammogram from 02/25/2020, 07/28/2018. FINDINGS: Breast Composition: The breasts are almost entirely fatty. There are no dominant masses or suspicious calcifications. Stable scattered small benign-appearing bilateral axillary and intramammary lymph nodes. No other significant abnormalities are identified. There has been no significant change since the prior study. BI/SCRN MAMM (CAD)W/KOBI BILAT IMPRESSION: Negative screening mammogram. Stable examination since 02/25/2020. Yearly followup mammogram recommended. (A) ASSESSMENT CATEGORY: BIRADS Category 2: Benign. A letter regarding these results will be sent to the patient by the facility within 30 days. Approximately 10% of breast cancers are not detected by mammography. A normal mammogram should not delay biopsy of a clinically suspicious abnormality. Electronically Signed: Ricardo Meza DO at 8:52 EDT , CC: Dr. Rimma Mar DO; LINDA HOGAN Drafter Civil: Signed Rimma Mar DO Work Phone: Start: 02-17-2022 End: 02-17-2022 NCS and/or EMG Patient Procedure Note: See Note; NOTES: [facility] Pulmonary Services/Neurology [address] [place] [address] MR#: [id number] Acct: [id number] Name: VARSHA TORRES Rep #: [id number] : 1965 56 From: Maria Guadalupe Curran MD Referring Dr: Sher Chacon DO Status: REG C LI Location: [facility] Date: 02/17/22 Sex: F C NCS and/or EMG Patient Report Ordering Doctor: Sher Chacon DATE OF SERVICE: 02/17/22 Varsha presents for electrodiagnostic testing of the upper limbs. She reports intermittent numbness and tingling in the hands. She has a history of right carpal tunnel release several years ago. Electrodiagnostic findings: Median motor nerve demonstrates normal distal latency, amplitude and conduction velocity bilaterally. Normal ulnar motor response bilaterally, including conduction across the elbow. Normal median ulnar F waves. Sensory responses are within normal limits. On needle EMG, all muscles tested in the upper limbs as well as the cervical paraspinals showed no evidence of denervation normal motor unit action potentials. Electrodiagnostic impression: Diagnostic study of the upper limbs. There is no electrodiagnostic evidence for peripheral neuropathy including carpal tunnel syndrome. There is no electrodiagnostic evidence for cervical radiculopathy. 02/17/22 1113 <Electronically signed by Maria Guadalupe Curran MD> Date Maria Guadalupe Curran MD CC: Dr. Maria Guadalupe Curran MD; Dr. Rimma Mar DO; Dr. Sher Chacon DO Date Dictated: 02/17/228 Date Transcribed: 02/17/22 110 Drafter Civil: LEVI Signed Rimma Mar DO Work Phone: Start: 05-28-2021 End: 06-01-2021 Thyroid Comments: See Note; NOTES: [facility] Imaging Services [address] [place] [address] Thyroid MR#: [id number] Acct: [id number] Name: VARSHA TORRES Rep #: [id number] : 1965 F 56 From: Jose jackson MD PCP: Dr. Rimma Mar DO Status: REG CLI Study: Thyroid Date of Exam: 05/28/21 Exam# [id number] Ordering Dr: Rimma Mar DO STUDY: THYROID ULTRASOUND REASON FOR EXAM: Female, 56 years old. THYROID MASS- TECHNIQUE: Ultrasound evaluation of the thyroid was performed with real-time and static lund-scale imaging. COMPARISON: None. FINDINGS: RIGHT LOBE: The right lobe of the thyroid gland measures 4.9 cm x 1.6 cm x 1.7 cm. There is a homogeneous echotexture. There is a 5 mm x 3 mm x 3 mm cyst in the midpole of the right lobe. LEFT LOBE: The left lobe of the thyroid gland measures 4.4 cm x 1.3 cm x 1.4 cm. There is a homogeneous echotexture. There are no demonstrated solid, cystic or complex lesions. ISTHMUS: The isthmus measures 3 mm. There is a 2.2 cm x 0.9 cm x 0.5 cm lymph node in the lower aspect of the left cervical region. US/Thyroid IMPRESSION: 5 mm x 3 mm x 3 mm cyst in the midpole of the right lobe of the thyroid. 2.2 cm x 0.9 cm x 0.5 cm lymph node in the lower cervical region. Electronically Signed: Jose Gibbons MD at 12:45 EDT , Service support , CC: Dr. Rimma Mar DO Drafter Civil: Signed Rimma Mar DO Work Phone: Start: 02-25-2020 End: 03-11-2020 SCREEN MAMM (CAD) W/KOBI BILAT Comments: See Note; NOTES: [facility] Imaging Services [address] [place] [address] SCREEN MAMM (CAD) W/KOBI BILAT MR#: [id number] Acct: [id number] Name: VARSHA TORRES Rep #: [id number] : 1965 F 54 From: Blu Forbes MD PCP: Dr. Rimma Mar DO Status: REG CLI Study: SCREEN MAMM (CAD) W/KOBI BILAT Date of Exam: 0 02/25/20 Exam# [id number] Ordering Dr: Linda Hogan DO MAMMOGRAPHY - BILATERAL SCREENING 3-D TOMOSYNTHESIS REASON FOR EXAM: Female, 54 years old. Routine screening PERTINENT HISTORY: FAM HX UNKNOWN -ADOPTED -- GAINED 10# -- NO SX -- BILAT MOLES MARKED. TECHNIQUE: 2-D mammograms and 3-D Tomosynthesis of the breast (s) were performed. CAD was performed. COMPARISON: None. FINDINGS: The breast composition is almost entirely fat. Scattered benign calcifications are seen. No dense spiculated masses or suspicious microcalcifications are identified. No architectural distortion is identified. There is no skin thickening or retraction. There has been no significant change since the prior study. BI/SCREEN MAMM (CAD) W/KOBI BILAT IMPRESSION: No mammographic signs of malignancy. Routine yearly mammograms recommended. ASSESSMENT CATEGORY: BIRADS Category 1: Negative. A letter regarding these results will be sent to the patient by the facility within 30 days. FOLLOW UP RECOMMENDATION: Yearly follow up mammogram recommended. (A) Approximately 10% of breast cancers are not detected by mammography. A normal mammogram should not delay biopsy of a clinically suspicious abnormality. Electronically Signed: Archie Forbes MD at 8:17 EDT , Service support , CC: Dr. Rimma Mar DO; Dr. Linda Hogan DO Drafter Civil: Signed Rimma Mar Start: 07-06-2019 End: 07-06-2019 Repair of musculotendinous cuff of shoulder Anahi Luciano Start: 07-06-2019 End: 07-06-2019 Rotator Cuff Repair - Right Anahi Anicetoius Start: 06-27-2019 End: 06-27-2019 BMI documented as above normal parameters - follow-up documented Mandeep Munoz MD Work Phone: Start: 06-27-2019 End: 06-27-2019 Documentation of current medications Mandeep Munoz MD Work Phone: Start: 06-27-2019 End: 06-27-2019 Pain assessment documented as positive - follow-up documented Mandeep Munoz MD Work Phone: Start: 06-27-2019 End: 06-27-2019 POLAR CARE KODIAK COMBO - SHOULDER (BREG) Mandeep Munoz MD Work Phone: Start: 06-27-2019 End: 06-27-2019 SLINGSHOT 2 (BREG) Mandeep Munoz MD Work Phone: Start: 06-27-2019 End: 06-27-2019 Tobacco non-user Mandeep Munoz MD Work Phone: Start: 07-28-2018 End: 07-31-2018 SCREENING MAMM (CAD), BILAT Comments: See Note; NOTES: [facility] Imaging Services [address] [place] [address] SCREENING MAMM (CAD), BILAT MR#: [id number] Acct: [id number] Name: VARSHA TORRES Rep #: [id number] : 1965 F 53 From: Jose Gibbons MD PCP: Rimma Mar DO Status: REG CLI Study: SCREENING MAMM (CAD), BILAT Date of Exam: 07/28/18 Exam# [id number] Ordering Dr: Linda Hogan DO MAMMOGRAPHY - BILATERAL SCREENING REASON FOR EXAM: Female, 53 years old. Routine annual screening examination. PERTINENT HISTORY: Non-contributory. TECHNIQUE: Digital bilateral breast kobi (3D mammographic acquisition) in the CC and [...] delay biopsy of a clinically suspicious abnormality. [id number] Electronically Signed: Jose Gibbons MD at 9:36 EST Tel [phone], Service support , CC: Rimma Mar DO; Linda Hogan DO Drafter Civil: Signed Rimma Mar Work Phone: Start: 02-23-2018 End: 02-23-2018 Downtime Report Comments: See Note; NOTES: [facility] Medical Records Department [address] [place], [place] [address] [address] Downtime Report MR#: [id number] Acct: [id number] Name: VARSHA TORRES E Rep #: [id number] : 1965 52 From: Franco Montana PCP: Rimma Mar DO Status: REG CLI This patient was seen during an EMR downtime February 06, 2018 - February 13, 2018. This patient may have a combination of paper and electronic documentation or all paper documentation. All documentation is viewable within the e-chart portion of [facility] for each patient visit. Rimma Mar Start: 07-21-2017 End: 07-21-2017 SCREENING MAMM (CAD), BILAT Comments: See Note; NOTES: [facility] Imaging Services [address] [place] [address] SCREENING MAMM (CAD), BILAT MR#: [id number] Acct: [id number] Name: VARSHA TORRES Rep #: [id number] : 1965 F 52 From: Jose Gibbons MD PCP: Rimma Mar DO Status: REG CLI Study: SCREENING MAMM (CAD), BILAT Date of Exam: 07/21/17 Exam# [id number] Ordering Dr: Yamilet Vilchis o. MAMMOGRAPHY - BILATERAL SCREENING REASON FOR EXAM: Female, 52 years old. Routine annual screening examination. PERTINENT HISTORY: Non-contributory. TECHNIQUE: Digital bilateral breast kobi (3D mammographic acquisition) in the CC and MLO projections. 2-D mediolateral oblique (MLO) and craniocaudad (CC) views of both breasts were obtained. CAD: Full Field Digital Mammography with Computer Added Detection was performed. COMPARISON: Comparison is made with prior study dated November 26, 2015 and October 03, 2014. FINDINGS: Breast Composition: The breasts are almost entirely fatty. There are no dominant masses or suspicious calcifications. Stable appearance of the small axillary lymph nodes in the axillary region of the left breast. No other significant abnormalities are identified. There has been no significant change since the prior study. HPBI/SCREENING MAMM (CAD), BILAT IMPRESSION: Stable bilateral screening mammogram. Yearly follow-up mammogram recommended. (A) ASSESSMENT CATEGORY: BIRADS Category 2: Benign. A letter regarding these results will be sent to the patient by the facility within 30 days. Approximately 10% of breast cancers are not detected by mammography. A normal mammogram should not delay biopsy of a clinically suspicious abnormality. [id number] Electronically Signed: Jose Gibbons MD at 14:34 EST Tel [phone], Service support , CC: Rimma Mar DO; OUT OF TOWN DOCTOR Drafter Civil: Signed Rimma Mar Start: 02-09-2017 End: 02-09-2017 Echocardiogram Complete Comments: See Note; NOTES: [facility] Cardiovascular Services [address] [place] [id number] Echo Complete 02/09/17 1257 MR#: [id number] Acct: [id number] Name: VARSHA TORRES Rep #: [id number] : 1965 51 From: Ken Lisa MD Attending Dr: Zulay Rhodes MD Status: REG I Ordering Dr: Rimma Rhodes MD Date: 02/09/17 Location: [facility] Sex: F C Admitted: Reason For Study: Left Sided Paresthesia Procedure This was a 2D Doppler, Color Flow transthoracic echocardiogram. Exam performed in department. Left Ventricle Normal LV size. Mild concentric left ventricular hypertrophy. The estimated ejection fraction is 65 %. Stage 1 diastolic dysfunction. No regional wall motion abnormalities noted. Right Ventricle Normal size and thickness. Normal systolic function. Atria Normal left atrium. Normal right atrium. Normal atrial septum. Bubble contrast study negative for right to left interatrial shunt. Mitral Valve Normal mitral valve. Trivial mitral valve insufficiency. Tricuspid Valve Normal tricuspid valve. Trivial tricuspid valve insufficiency. Unable to estimate RV systolic pressure/pulmonary artery pressure due to technically difficult study. Aortic Valve Trisinus/trileaflet aortic valve. Pulmonic Valve Normal pulmonic valve. Great Vessels Normal aortic root. Normal arch. Normal inferior vena cava. Inferior vena cava collapse with sniff. Pericardium/Pleural No pericardial effusion. Medication 22 gauge [...] cm2 RVDd: 2.8 cm FS: 52.2 % __ Ao root diam: 3.1 cm LAV(MOD-bp): 25.4 ml LA A4 area: 10.0 cm2 LA dimension: 3.6 cm LAV(MOD-bp) Indexed: 11.8 ml/m2 LAV(MOD-sp2): 26.0 ml LAV(MOD-sp4): 19.2 ml __ RA A4 area: 10.6 cm2 Time Measurements MV dec time: 0.17 sec Doppler Measurements AND Calculations MV E max aye: 72.4 cm/sec Lat Peak E' Aye: 7.4 cm/sec Med Peak E' Aye: 6.8 cm/sec MV A max aye: 88.7 cm/sec E/E' lat: 9.8 E/E' med: 10.6 MV E/A: 0.82 __ MV V2 max: 103.0 cm/sec MV P1/2t max aye: 95.3 cm/sec Ao V2 max: 130.0 cm/sec MV max P.2 mmHg MV P1/2t: 50.9 msec Ao max P.8 mmHg MV V2 mean: 58.9 cm/sec MV dec slope: 549.0 cm/sec2 RADHA(V,D): 2.7 cm2 MV mean P.7 mmHg MVA(P1/2t): 4.3 cm2 MV V2 VTI: 20.2 cm __ LV V1 max: 108.6 cm/sec PA V2 max: 132.9 cm/sec LV V1 max P.7 mmHg Interpretation Summary Mild concentric left ventricular hypertrophy. The estimated ejection fraction is 65 %. Stage 1 diastolic dysfunction. Bubble contrast study negative for right to left interatrial shunt. Unable to estimate RV systolic pressure/pulmonary artery pressure due to technically difficult study. Compared to echo report dated 01/12/2012, no appreciable changes noted. Ordering Physician: Zulay Rhodes Referring Physician: LINDA HOGAN Performed By: Devon Vallejo RCS 06/07/17 1448 Date Ken Lisa MD CC: Zulay Rhodes MD; Rimma Mar DO Date Dictated: 02/09/17 1257 Date Transcribed: 02/09/17 1448 Drafter Civil: Signed Rhonda Robledo Work Phone: Start: 12-31-2016 End: 12-31-2016 12 lead ECG Comments: See Note; NOTES: [facility] Cardiovascular Services [address] [place] [address] 12 Lead EKG 12/27/16 1436 MR#: [id number] Acct: [id number] Name: VARSHA TORRES Rep #: [id number] : 1965 51 From: Ken Lisa MD Attending Dr: Status: DEP ER Ordering Dr: Leigh Charles MD Date: 12/27/16 Location: ED Sex: F C Admitted: Test Reason : NUMBNESS Blood Pressure : / mmHG Vent. Rate : 095 BPM Atrial Rate : 095 BPM P-R Int : 174 ms QRS Dur : 076 ms QT Int : 362 ms P-R-T Axes : 034 007 044 degrees QTc Int : 454 ms Normal sinus rhythm Inferior infarct , age undetermined Abnormal ECG Confirmed by KEN LISA ([id number]), continuity editor MARVIN MONTANA ([id number]) on 12/30/2016 3:03:19 PM Referred By: KRYSTA Confirmed By:KEN LISA 12/30/16 1503 Date Ken Lisa MD CC: Rimma Mar DO Date Dictated: 12/27/16 1436 Date Transcribed: 12/27/16 1436 Drafter Civil: Signed Rimma Mar Start: 12-30-2016 End: 12-30-2016 Emergency Department Summary Comments: See Note; NOTES: [facility] Medical Records Department [address] [place] [address] Emergency Department Summary MR#: [id number] Acct: [id number] Name: VARSHA TORRES Rep #: [id number] : 1965 51 From: Leigh Charles MD PCP: Rimma Mar DO Status: [facility] ER DATE OF SERVICE: 12/27/2016 CHIEF COMPLAINT: Paresthesia. HISTORY OF PRESENT ILLNESS: This is an otherwise healthy 51-year-old female with no known medical history, who had symptoms that started 3 days ago with a paresthesia in the left side of her jaw and tongue that had continued until today when very suddenly after lunch at work, she did not feel well and began noticing a paresthesia on the entire left side of her body, predominantly her limbs and it has continued. It has been a couple of hours now and just has not gotten better. [...] the left side. No other elicited neurologic deficits. No facial droop or asymmetry. HEART: Rate is regular without murmur. LUNGS: Clear to auscultation bilaterally. EXTREMITIES: No pedal edema. CLINICAL COURSE AND DECISION MAKING: EKG was normal sinus rhythm, unchanged from previous. CT brain was negative. CBC and chemistry, both unremarkable. I discussed the case with Dr. Adrian, who recommended MRI including MRA head and neck and currently, those tests are pending and will be followed up on by the oncoming physician. Providing benign appearing results, she will be discharged home to follow up with her physician. Obviously, there is significant abnormality on the MRI that will be addressed. DISPOSITION: Pending MRI. DIAGNOSIS: Left-sided paresthesias. Leigh Charles MD T: NTS JOB: [id number] 12/30/16 0805 <Electronically signed by Leigh Charles MD> Date Leigh Leroy Signature (If Indicated): Date CC: Rimma Mar DO Date Dictated: 12/27/16 154 Date Transcribed: 12/27/161543 Drafter Civil: Signed Rimma Mar Start: 12-28-2016 End: 12-28-2016 Emergency Department Summary Comments: See Note; NOTES: [facility] Medical Records Department [address] [place] [address] Emergency Department Summary MR#: [id number] Acct: [id number] Name: VARSHA TORRES Rep #: [id number] : 1965 51 From: Magnus Londono MD PCP: Rimma Mar DO Status: DEP DATE OF SERVICE: 12/27/2016 ADDENDUM: The patient was signed out to me by Dr. Charles. MRIs were reviewed. MRA of head and neck were unremarkable. MRI was questionable for concerning periventricular white matter changes, likely seen a small vessel disease versus demyelinating process. The patient has had no progression of symptoms while here. I discussed with Dr. Adrian. The patient wants to try outpatient therapy and I feel that this is reasonable. She will be discharged home, will be seen this week. She is counseled on concerning symptoms, reasons to return and will follow up with neurology. IMPRESSION: Paresthesias. DISPOSITION: Discharge. Magnus Londono MD T: NTS JOB: [id number] 12/28/16 1516 <Electronically signed by Magnus Londono MD> Date Magnus Leroy Signature (If Indicated): Date CC: Rimma Mar DO Date Dictated: 12/27/161958 Date Transcribed: 12/27/161958 Drafter Civil: Signed Rimma Mar Start: 12-27-2016 End: 12-27-2016 Discharge Instruction Comments: See Note; NOTES: [facility] Medical Records Department [address] [place] [address] Discharge Instruction 12/27/161956 MR#: [id number] Acct: [id number] Name: VARSHA TORRES Rep #: [id number] : 1965 51 From: Magnus Londono MD PCP: Rimma Mar DO Status: REG ER ED Disposition - Plan for ED Patient: Chief Complaint: Numb/Ting Instructions: ED Paraesthesias Referrals: Rasta Adrian MD [STAFF PHYSICIAN] - What to do if you have Problems For any increased pain, shortness of breath, bleeding, nausea or vomiting, chest pain, or any unexpected problems, contact your Primary Care Provider. Call [facility] [facility] ([phone]) or report to the closest Emergency Room. Call 911 if necessary. 12/27/162005 <Electronically signed by Magnus Londono MD> Date Magnus Londono MD Cosigner Signature (If Indicated): Date CC: Rimma Zuluaga Start: 12-27-2016 End: 12-27-2016 Discharge Instruction Comments: See Note; NOTES: [facility] Medical Records Department [address] [place] [address] Discharge Instruction 12/27/164 MR#: [id number] Acct: [id number] Name: VARSHA TORRES Rep #: [id number] : 1965 51 From: Leigh Charles MD PCP: Rimma Mar DO Status: REG ER ED Disposition - Plan for ED Patient: Chief Complaint: Numb/Ting Instructions: ED Paraesthesias Referrals: Rimma Mar DO [Primary Care Provider] - As soon as possible What to do if you have Problems For any increased pain, shortness of breath, bleeding, nausea or vomiting, chest pain, or any unexpected problems, contact your Primary Care Provider. Call [facility] ([phone]) or report to the closest Emergency Room. Call 911 if necessary. 12/27/16 8365 <Electronically signed by Leigh Charles MD> Date Leigh Charles MD Cosigner Signature (If Indicated): Date CC: Rimma Zuluaga Start: 12-27-2016 End: 12-27-2016 Brain W/WO Contrast Comments: See Note; NOTES: [facility] Imaging Services [address] [place] [id number] [place] [address] 4d Brain W/WO Contrast MR#: [id number] Acct: [id number] Name: VARSHA TORRES Rep #: [id number] : 1965 F 51 From: Joseluis Magaña MD PCP: Rimma Mar DO Status: REG ER Study: Brain W/WO Contrast Date of Exam: 12/27/16 Exam# [id number] Ordering Dr: Leigh Charles MD STUDY: MRI BRAIN WITH AND WITHOUT CONTRAST REASON FOR EXAM: Female, 51 years old. Numbness and tingling of left cheek and tongue TECHNIQUE: Standardized multiplanar fat and water weighted pulse sequences were obtained. 10 ml of Gadavist contrast material was administered intravenously for the contrast portion of the examination. COMPARISON: CT of December 27, 2016 FINDINGS: Normal size of the ventricles and extra-axial spaces for the patient's age. There are multiple punctate white matter lesions in the centrum semiovale and ricks radiata bilaterally without mass effect or restricted diffusion. Normal bilateral basal ganglia. [...] upper cervical spine. MRI/Brain W/WO Contrast IMPRESSION: Multiple nonspecific periventricular white matter lesions.. This likely represents ischemic changes secondary to small vessel disease in patient of this age although nonspecific demyelinating disease also cannot be entirely excluded and clinical correlation is recommended There is no mass effect or restricted diffusion to suggest acute infarction. Electronically Signed: Joseluis Magaña MD at 19:09 EDT , Service support , CC: Leigh Charles MD; Rimma Mar DO Drafter Civil: Signed Rimma Mar Start: 12-27-2016 End: 12-27-2016 MRA Head ONLY without Contrast Comments: See Note; NOTES: [facility] Imaging Services [address] [place] [address] [place] 4d MRA Head ONLY without Contrast MR#: [id number] Acct: [id number] Name: VARSHA TORRES Rep #: [id number] : 1965 F 51 From: Joseluis Magaña MD PCP: Rimma Mar DO Status: [facility] ER Study: MRA Head ONLY without Contrast Date of Exam: 12/27/16 Exam# [id number] Ordering Dr: Leigh Charles MD STUDY: MRA OF THE HEAD WITHOUT CONTRAST REASON FOR EXAM: Female, 51 years old. CVA TECHNIQUE: 3-D kjbp-ol-gsnzvg (TOF) imaging was performed with MIPs. The study was performed unenhanced. COMPARISON: None. FINDINGS: Normal bilateral petrous carotid arteries. Normal right cavernous carotid artery with a normal supraclinoid bifurcation. Normal left cavernous carotid artery with a normal supraclinoid bifurcation. Normal right A1 segments of the anterior cerebral artery. Normal left A1 segments of the anterior cerebral artery. Anterior communicating artery not visualized consistent with normal variant.. Normal A2 segments of the anterior cerebral arteries Normal right M1 and M2 segments of the middle cerebral arteries, with a normal M1 bifurcation. Normal left M1 and M2 segments of the middle cerebral arteries, with a normal M1 bifurcation. Normal right posterior communicating artery (PCOM). Left posterior communicating artery not visualized consistent with normal variant Normal bilateral vertebral arteries. Normal basilar artery with a normal basilar bifurcation. The visualized bilateral superior cerebellar (SCA) arteries are normal. Normal bilateral P1, P2 and visualized P3 segments of the posterior cerebral arteries. There is no demonstrated aneurysm of the [place]. There is no major vessel occlusion or hemodynamically significant stenosis. There is no demonstrated abnormality of the visualized brain. MRI/MRA Head ONLY without Contrast IMPRESSION: Normal MRA of the head Electronically Signed: Joseluis Magaña MD at 19:38 EDT , Service support , CC: Leigh Charles MD; Rimma Mar DO Drafter Civil: Signed Rimma Mar Start: 12-27-2016 End: 12-27-2016 MRA Neck WITH and W/O Contrast Comments: See Note; NOTES: [facility] Imaging Services [address] [place] [address] [place] 4d MRA Neck WITH and W/O Contrast MR#: [id number] Acct: [id number] Name: VARSHA TORRES Rep #: [id number] : 1965 F 51 From: Joseluis Magaña MD PCP: Rimma Mar DO Status: REG Study: MRA Neck WITH and W/O Contrast Date of Exam: 12/27/16 Exam# [id number] Ordering Dr: Leigh Charles MD STUDY: MRA NECK WITH AND WITHOUT CONTRAST REASON FOR EXAM: Female, 51 years old. CVA TECHNIQUE: 3-D zawm-if-ngmcsb (TOF) imaging was performed in an 1.5 T MRI scanner. 10 ml of Gadavist was administered for the contrast enhanced images. COMPARISON: None. FINDINGS: RIGHT CAROTID ARTERIES: Normal right common carotid artery (CCA). Normal right common carotid bulb. Normal origin of the right internal carotid (ICA) artery without a hemodynamically significant stenosis. Normal visualized cervical portion of the right internal carotid artery. Normal origin of the right external carotid artery (ECA). LEFT CAROTID ARTERIES: Normal left common carotid artery (CCA). Normal left common carotid bulb. Normal origin of the left internal carotid (ICA) artery without a hemodynamically significant stenosis. Normal visualized cervical portion of the left internal carotid artery. Normal origin of the left external carotid artery (ECA). VERTEBRAL ARTERIES: Normal antegrade flow within the bilateral vertebral artery without a hemodynamically significant stenosis. MRI/MRA Neck WITH and W/O Contrast IMPRESSION: Normal bilateral cervical carotid and vertebral arteries. Electronically Signed: Joseluis Magaña MD at 19:12 EDT , Service support , CC: Leigh Charles MD; Rimma Mar DO Drafter Civil: Signed Rimma Mar Start: 12-27-2016 End: 12-27-2016 Brain/Head without Contrast Comments: See Note; NOTES: [facility] Imaging Services [address] [place] [address] [place] 4d Brain/Head without Contrast MR#: [id number] Acct: [id number] Name: VARSHA TORRES Rep #: [id number] : 1965 F 51 From: Jose Gibbons MD PCP: Rimma Mar DO Status: REG ER Study: Brain/Head without Contrast Date of Exam: 12/27/16 Exam# [id number] Ordering Dr: Leigh Charles MD STUDY: CT BRAIN WITHOUT CONTRAST REASON FOR EXAM: Female, 51 years old. Left sided paresthesias. RADIATION DOSAGE (If Supplied By Facility): CTDIvol = ( 60.81 ) mGy, DLP = ( 1044.28 ) mGycm TECHNIQUE: Transaxial CT imaging of the brain was performed without administration of intravenous contrast material. Individualized dose optimization techniques were used for this CT. COMPARISON: None. FINDINGS: Normal soft tissue structures. Normal calvarium. Normal size ventricles and extra-axial spaces for the patient's age. Normal white matter tracts of the cerebral hemispheres. Normal basal ganglia and thalami. Normal brainstem. Normal cerebellum. There is no intracranial hemorrhage. There are no findings of an acute ischemic infarction. Normal visualized paranasal sinuses. CT/Brain/Head without Contrast IMPRESSION: Normal unenhanced CT scan of the brain. Electronically Signed: Jose Gibbons MD at 15:12 EDT Tel [phone], Service support , CC: Leigh Charles MD; Rimma Mar DO Drafter Civil: Signed Rimma Mar Start: 11-22-2016 End: 11-22-2016 Electroencephalogram Comments: See Note; NOTES: [facility] Pulmonary Services/Neurology [address] [place] [address] Electroencephalogram (EEG) MR#: [id number] Acct: [id number] Name: VARSHA TORRES Rep #: [id number] : 1965 51 From: Rimma Rhodes MD Referring Dr: Rimma Mar DO Status: REG CLI Ordering Dr: Rimma Mar DO Date: 11/12/16 Location: [facility] Sex: F C DATE OF SERVICE: HISTORY: EEG is done to rule out seizure. The patient had experienced tunneled vision, eyes rolling back as well as blackout episode for which EEG is being requested. EEG DESCRIPTION: This is an 18-channel EEG done with 10-20 lead placement system. Photic stimulation and hyperventilation were performed. Bipolar montages and referential montages were reviewed. The posterior dominant background rhythm is 8 Hz, which is synchronous, symmetrical and reactive to eye opening and closing. Photic stimulation elicited a normal photic driving response. Without any photoparoxysmal response. Hyperventilation did not elicit any abnormal paroxysmal response. The patient did get drowsy, but no sleep architecture was identified. There is no background slowing. There is no epileptiform discharges or electrographic seizures noted during the recording. INTERPRETATION: This is a normal awake and drowsy EEG. There is no epileptiform discharges or electrographic seizures noted during the record. Ney Rhodes MD T: [facility] JOB: [id number] 11/22/16 1339 <Electronically signed by Rimma Rhodes MD> Date Rimma Rhodes MD CC: Zulay Rhodes MD; Rimma Mar DO Date Dictated: 11/12/16942 Date Transcribed: 11/12/16942 Drafter Civil: Signed Rimma Mar Work Phone: Start: 05-21-2016 End: 05-21-2016 Upper GI/w Small Bowel Comments: See Note; NOTES: [facility] Imaging Services [address] [place] [address] [place] 4d Upper GI/w Small Bowel MR#: [id number] Acct: [id number] Name: VARSHA TORRES Rep #: [id number] : 1965 F 51 From: Jose Gibbons MD PCP: Rimma Mar DO Status: REG CLI Study: Upper GI/w Small Bowel Date of Exam: 05/21/16 Exam# [id number] Ordering Dr: Rony Gale STUDY: AIR-CONTRAST UPPER GI SERIES AND SMALL BOWEL FOLLOW-THROUGH EXAMINATION. REASON FOR EXAM: Female, 51 years old. Upper abdominal pain and heartburn. FLUOROSCOPY TIME (if supplied): (0:40) minutes/seconds. 30 images were obtained. TECHNIQUE: The patient ingested barium. Multiple images of the esophagus, stomach and duodenum were obtained. Following this, a small bowel follow-through examination was performed. COMPARISON: None. FINDINGS: The esophagus is unremarkable. There is no evidence of gas esophageal reflux. No mass lesion is seen. The stomach and duodenum are unremarkable. There is no evidence of ulceration. No mass lesions present. A small bowel follow through examination was then obtained. The small bowel transit is normal. There is no evidence of intrinsic or extrinsic small bowel disease. The terminal ileum is unremarkable. RAD/Upper GI/w Small Bowel IMPRESSION: Unremarkable examination. Electronically Signed: Jose Gibbons MD at 10:55 EDT Tel [phone], Service support [phone], CC: RONY GALE; Rimma Mar DO Drafter Civil: Signed Rimma Mar Start: 11-26-2015 End: 11-26-2015 Breast Limited Unilateral Comments: See Note; NOTES: [facility] Imaging Services [address] [place], [place] [address] [address] [place] 4d Breast Limited Unilateral MR#: [id number] Acct: [id number] Name: VARSHA TORRES Rep #: [id number] : 1965 F 50 From: Jose Gibbons MD PCP: Rimma Mar DO Status: REG CLI Study: Breast Limited Unilateral Date of Exam: 11/26/15 Exam# [id number] Ordering Dr: LINDA HOGAN STUDY: ULTRASOUND BREAST - RIGHT REASON FOR EXAM: Female, 50 years old. Palpable lump in the right breast. TECHNIQUE: Axial and longitudinal images of the RIGHT breast were performed with a high resolution ultrasound transducer. COMPARISON: Comparison is made with prior mammogram done earlier in the day. FINDINGS: RIGHT Breast: There is a 6 mm x 1 [...] the facility within 30 days. Electronically Signed: Jose Gibbons MD at 13:05 EDT Tel [phone], Service support [phone], CC: Rimma HOGAN Drafter Civil: Signed Deneen Chery Work Phone: Start: 11-26-2015 End: 11-26-2015 Bilat Diag Digital AND CAD Comments: See Note; NOTES: [facility] Imaging Services [address] [place] [address] [place] [address] [place] 4d Bilat Diag Digital AND CAD MR#: [id number] Acct: [id number] Name: VARSHA TORRES Rep #: [id number] : 1965 F 50 From: Jose Gibbons MD PCP: Rimma Mar DO Status: REG CLI Study: Mine Colon Digital AND CAD Date of Exam: 11/26/15 Exam# [id number] Ordering Dr: HAYLEY HOGAN MAMMOGRAPHY - BILATERAL DIAGNOSTIC REASON FOR EXAM: Female, 50 years old. Superficial lump along the inferior medial aspect of the right breast. PERTINENT HISTORY: Non-contributory. TECHNIQUE: Digital examination. Mediolateral oblique (MLO) and [...] Jose Gibbons MD at 13:06 EDT Tel [phone], Service support [phone], CC: Rimma HOGAN Drafter Civil: Signed Deneen Chery Work Phone: Start: 06-04-2015 End: 06-05-2015 Abdomen without IV Contrast Comments: See Note; NOTES: [facility] Imaging Services [address] [place] [address] CAT Scan Report MR#: [id number] Acct: [id number] Name: VARSHA TORRES Rep #: [id number] : 1965 F 50 From: Madison Romero MD PCP: Rimma Mar DO Status: REG CLI Study: Abdomen without IV Contrast Date of Exam: 06/04/15 Exam# [id number] Ordering Dr: Rimma Mar DO STUDY: CT ABDOMEN WITHOUT CONTRAST REASON FOR EXAM: Female, 50 years old. Epigastric and left upper quadrant pain, prior gastric plication, cholecystectomy. RADIATION DOSAGE (If Supplied By Facility): CTDIvol = ( 13.38 ) mGy, DLP = ( 980.25 ) mGycm TECHNIQUE: Transaxial 3.75 mm images were obtained without intravenous contrast, and oral contrast. Sagittal and coronal images were reconstructed. This examination is limited for the evaluation of solid organs and vascular structures due to the lack of intravenous contrast. COMPARISON: None. FINDINGS: The visualized lung bases are unremarkable. There is cardiac enlargement. There is no pericardial effusion. There is mild hepatomegaly with diffuse hepatic enlargement measuring 18 cm craniocaudal. The gallbladder is contracted. Normal spleen. Normal pancreas. Normal bilateral adrenal glands. Bilateral nonobstructive but hyperattenuated collecting system possible with previous contrast application. Normal post surgical gastric plication appearance. Normal small intestine. Normal colon. The appendix is visualized and appears normal. Image 85-19 series 1002. There is minor atherosclerotic calcification of the abdominal aorta, without a demonstrated aneurysm. Normal inferior vena cava. Normal retroperitoneum. There is a small umbilical hernia containing fat. Obesity. There are L5-S1 degenerative changes. IMPRESSION: Normal post surgical appearance of gastric plication. Status post cholecystectomy. No acute intra-abdominal pathology detected. Hyperattenuation in the renal collecting system possible due to previous contrast application. This can also be seen with marked hematuria. Clinical correlation advised. Mild arteriosclerosis, small umbilical hernia, degenerative changes, obesity as nonacute findings. Electronically Signed: Madison Romero MD at 5:04 EDT , Service support [phone], CC: Rimma Mar DO Drafter Civil: Signed Rimma Mar Work Phone: Start: 01-31-2015 End: 01-31-2015 Chest PA and Lateral Comments: See Note; NOTES: [facility] Imaging Services [address] [place] [address] Radiology Report MR#: [id number] Acct: [id number] Name: VARSHA TORRES Rep #: [id number] : 1965 F 49 From: Eris Bro MD PCP: Rimma Mar DO Status: REG CLI Study: Chest PA and Lateral Date of Exam: 01/31/15 Exam# [id number] Ordering Dr: Rimma Mar DO STUDY: X-RAY CHEST REASON FOR EXAM: [...] Signed: Eris Bro MD at 23:31 EDT , Service support [phone], RAD/Chest PA and Lateral IMPRESSION: Normal x-ray examination of the chest. Electronically Signed: Eris Bro MD at 23:31 EDT , Service support [phone], CC: Rimma Mar DO Drafter Civil: Signed Rimma Mar Work Phone: Start: 10-03-2014 End: 10-04-2014 Bilat Scrn Digital AND CAD Comments: See Note; NOTES: [facility] Imaging Services [address] [place] [address] Breast Imaging Report MR#: [id number] Acct: [id number] Name: VARSHA TORRES Rep #: [id number] : 1965 F 49 From: Jose Gibbons MD PCP: Rimma Mar DO Status: REG CLI Study: Bilat Scrn Digital AND CAD Date of Exam: 10/03/14 Exam# [id number] Ordering Dr: LINDA HOGAN MAMMOGRAPHY - BILATERAL SCREENING REASON FOR EXAM: Female, 49 years old. Routine annual screening examination. PERTINENT HISTORY: Non-contributory. TECHNIQUE: Digital examination. Mediolateral oblique (MLO) and craniocaudad (CC) views of both breasts were obtained. CAD: CAD was performed on this study. COMPARISON: Comparison is made with prior study dated July 27, 2013 and May 12, 2012. FINDINGS: Breast Composition: There are scattered areas of fibroglandular density. There are no dominant masses or suspicious calcifications. Stable small nodular densities in both axillary regions in keeping with small axillary lymph nodes. No other significant abnormalities are identified. There has been no significant change since the prior study. IMPRESSION: Stable bilateral screening mammogram. Yearly [...] Jose Gibbons MD at 8:13 EST Tel [phone], Service support [phone], CC: Rimma Mar DO; LINDA HOGAN Drafter Civil: Signed Deneen Bryna Miri Work Phone: Carpal Tunnel Surger y - Right Kem Moya Comment on above: 03/27/14 Carpal Tunnel Surger y - Right Whit Messenger Comment on above: 03/27/14 Carpal Tunnel Surger y - Right Whit Messenger Comment on above: 03/27/14 Carpal Tunnel Surger y - Right Anahi Gravius Comment on above: 03/27/14 D&C Kem Moya Comment on above: 02/18 D&C Whit Celis Comment on above: 02/18 D&C Whit Celis Comment on above: 02/18 D&C Anahi Gravius Comment on above: 02/18 D&C Anahi Gravius CATERING ADMINISTRATIVE ASSISTANT Comment on above: 02/18 D&C Tamara Martinez MA Comment on above: 02/18 D&C Tamara Martinez MA Comment on above: 02/18 Decompression of med adry nerve Anahi Gravius Comment on above: 03/27/14 Decompression of med adry nerve Anahi Gravius CATERING ADMINISTRATIVE ASSISTANT Comment on above: 03/27/14 Decompression of med adry nerve Tamara Martinez MA Comment on above: 03/27/14 Decompression of med adry nerve Tamara Martinez MA Comment on above: 03/27/14 NEGATED: Highlighted rowStart: 06-27-2019 End: 06-27-2019 Documentation of current medications Betty Barry LPN Plan of Treatment Date Care Activity Detail Author Start: 2039 RSV VACCINE (1 - 1-dose 75+ series) RSV VACCINE (1 - 1-dose 75+ series) [facility] Start: 05-06-2025 Influenza vaccination INFLUENZA VACCINE (Season Ended) [facility] Start: 05-06-2024 COVID-19 VACCINE ( season) COVID-19 VACCINE ( season) [facility] Start: 04-28-2023 Dual energy X-ray absorptiometry Dexa Bone Density Study [facility] Start: 04-28-2023 DXA Bone [Mass/Area] Bone density [facility] Start: 09-02-2022 Procedure Education Eprescribed prescriptions (G8553) [facility]; [facility] Work Phone: Start: 09-02-2022 Provider Instructions for Treatment [facility]; [facility] Work Phone: Start: 07-26-2022 25 hydroxy includes fractions if performed CALCIFEDIOL (07763) [facility]; [facility] Work Phone: Start: 07-26-2022 Hemoglobin glycosylated a1c HGB A1C (79064) [facility]; [facility] Work Phone: Start: 07-26-2022 Assay of thyroid stimulating hormone tsh TSH (87218) [facility]; [facility] Work Phone: Start: 07-26-2022 Urine albumin quantitative MICROALBUMIN: CREATININE RATIO (53683) AND (88878) [facility]; [facility] Work Phone: Start: 07-26-2022 Comprehensive metabolic panel METABOLIC PANEL, COMPREHENSIVE (59049) [facility]; [facility] Work Phone: Start: 07-26-2022 Lipid panel LIPID PANEL (14722) [facility]; [facility] Work Phone: Start: 07-26-2022 Blood count complete auto&auto difrntl wbc CBC W/AUTO DIFF WBC (45210) [facility]; [facility] Work Phone: Start: 07-26-2022 Procedure Education Eprescribed prescriptions (G8553) [facility]; [facility] Work Phone: Start: 07-26-2022 Provider Instructions for Treatment [facility] Work Phone: Start: 05-20-2021 Procedure Education Eprescribed prescriptions (G8553) [facility]; [facility] Work Phone: Start: 05-20-2021 Provider Instructions for Treatment [facility] Work Phone: Start: 05-20-2021 Lipid panel LIPID PANEL (76544) [facility]; [facility] Work Phone: Start: 05-20-2021 Assay of thyroid stimulating hormone tsh TSH (51413) [facility]; [facility] Work Phone: Start: 05-20-2021 Urnls dip stick/tablet reagent auto microscopy URINALYSIS, W/ MICRO (91107) [facility]; [facility] Work Phone: Start: 05-20-2021 Urine albumin quantitative MICROALBUMIN: CREATININE RATIO (74933) AND (92673) [facility]; [facility] Work Phone: Start: 05-20-2021 Comprehensive metabolic panel METABOLIC PANEL, COMPREHENSIVE (32461) [facility]; [facility] Work Phone: Start: 05-20-2021 Blood count complete auto&auto difrntl wbc CBC W/AUTO DIFF WBC (44659) [facility]; [facility] Work Phone: Start: 06-30-2020 Procedure Education Eprescribed prescriptions (G8553) [facility] Work Phone: Start: 06-30-2020 Iaadiadoo influenza 2019 Novel Coronavirus (COVID-19), BLAKE (93021) [facility] Work Phone: Start: 12-13-2019 Procedure Education Eprescribed prescriptions (G8553) [facility] Work Phone: Start: 09-20-2019 Procedure Education Eprescribed prescriptions (G8553) [facility] Work Phone: Start: 08-09-2019 Procedure Education Eprescribed prescriptions (G8553) [facility] Work Phone: Start: 08-09-2019 Provider Instructions for Treatment [facility] Work Phone: Start: 08-01-2019 Assay of thyroid stimulating hormone tsh TSH (THYROID STIMULATING HORMONE) (15344) [facility]; [facility] Work Phone: Start: 08-01-2019 TSH Qn TSH (THYROID STIMULATING HORMONE) (49751) [facility] Work Phone: Start: 08-01-2019 Lipoprotein blood sonja numbers & subclasses NMR Profile (38711) [facility] Work Phone: Start: 08-01-2019 Comprehensive metabolic panel METABOLIC PANEL, COMPREHENSIVE (73806) [facility] Work Phone: Start: 08-01-2019 Urinalysis qual/semiquant except immunoassays URINALYSIS (18067) [facility] Work Phone: Start: 06-27-2019 End: 06-27-2019 Appointment Appointment [facility] Work Phone: Start: 10-24-2018 Provider Instructions for Treatment [facility] Work Phone: Start: 08-21-2018 Procedure Education Eprescribed prescriptions (G8553) [facility] Work Phone: Start: 08-21-2018 Provider Instructions for Treatment [facility] Work Phone: Start: 08-16-2018 Urinalysis qual/semiquant except immunoassays URINALYSIS (99485) [facility] Work Phone: Start: 08-16-2018 Lipid panel LIPID PANEL (49148) [facility] Work Phone: Start: 08-16-2018 Assay of thyroid stimulating hormone tsh TSH (THYROID STIMULATING HORMONE) (26046) [facility]; [facility] Work Phone: Start: 08-16-2018 Thyrotropin Qn TSH (THYROID STIMULATING HORMONE) (00961) [facility] Work Phone: Start: 08-16-2018 Blood count complete automated CBC & PLATELETS (AUTO) (38042) [facility] Work Phone: Start: 08-16-2018 Comprehensive metabolic panel METABOLIC PANEL, COMPREHENSIVE (47750) [facility] Work Phone: Start: 12-13-2017 Patient Education Sore Throat *: sore throat [facility] Work Phone: Start: 12-13-2017 Procedure Education Eprescribed prescriptions (G8553) [facility] Work Phone: Start: 12-13-2017 Provider Instructions for Treatment Follow up if no improvement or if symptoms worsen [facility] Work Phone: Start: 11-16-2017 Procedure Education Eprescribed prescriptions (G8553) [facility] Work Phone: Start: 11-16-2017 Provider Instructions for Treatment Follow up if no improvement or if symptoms worsen [facility] Work Phone: Start: 06-03-2017 Procedure Education Eprescribed prescriptions (G8553) [facility] Work Phone: Start: 06-03-2017 Provider Instructions for Treatment Diet, Exercise, and Wt loss [facility] Work Phone: Start: 12-02-2016 Provider Instructions for Treatment [facility] Work Phone: Start: 11-01-2016 Provider Instructions for Treatment [facility] Work Phone: Start: 07-30-2015 Provider Instructions for Treatment [facility] Work Phone: Start: 07-30-2015 Gluc bld gluc mntr dev cleared fda spec home use Blood Glucose , Office (52594) [facility]; [facility] Work Phone: Start: 07-30-2015 Glucose mass conc Blood Glucose , Office (93526) [facility] Work Phone: Start: 06-12-2015 Procedure Education Eprescribed prescriptions (G8553) [facility] Work Phone: Start: 06-02-2015 C-reactive protein C-REACTIVE PROTEIN (78900) [facility]; [facility] Work Phone: Start: 06-02-2015 CRP mass conc C-REACTIVE PROTEIN (46619) [facility] Work Phone: Start: 06-02-2015 Amylase enzyme act/vol Amylase (64979) [facility] Work Phone: Start: 06-02-2015 Assay of amylase Amylase (65685) [facility]; [facility] Work Phone: Start: 06-02-2015 Assay of lipase Lipase (33969) [facility] Work Phone: Start: 06-02-2015 Sedimentation rate rbc non-automated Sed Rate Erythrocyte (32840) [facility] Work Phone: Start: 06-02-2015 Comprehensive metabolic panel Metabolic Panel, Comprehensive (19194) [facility] Work Phone: Start: 06-02-2015 Blood count complete automated CBC (Auto) (51692) [facility] Work Phone: Start: 06-02-2015 Procedure Education Eprescribed prescriptions (G8553) [facility] Work Phone: Start: 06-02-2015 Provider Instructions for Treatment [facility] Work Phone: Start: 10-23-2014 Provider Instructions for Treatment [facility] Work Phone: Start: 04-29-2014 Assay of magnesium MAGNESIUM (53879) [facility]; [facility] Work Phone: Start: 04-29-2014 Magnesium mass conc MAGNESIUM (37918) [facility] Work Phone: Start: 04-29-2014 Potassium molar conc POTASSIUM SERUM (83657) [facility] Work Phone: Start: 04-29-2014 Potassium serum plasma/whole blood POTASSIUM SERUM (15998) [facility]; [facility] Work Phone: Start: 04-26-2014 Provider Instructions for Treatment [facility] Work Phone: Start: 04-26-2014 Blood occult fecal hgb deter ia qual feces 1-3 FECAL OCCULT HGB ASSAY- tubes sent home (01432) [facility] Work Phone: Start: 04-26-2014 Assay of ferritin FERRITIN (59098) [facility] Work Phone: Start: 04-26-2014 Ferritin [Mass/Vol] FERRITIN (71689) [facility] Work Phone: Start: 04-26-2014 Iron binding capacity IRON BINDING CAPACITY (TIBC) (24053) [facility] Work Phone: Start: 04-26-2014 Assay of iron IRON (00543) [facility]; [facility] Work Phone: Start: 04-26-2014 Iron mass conc IRON (19558) [facility] Work Phone: Start: 04-26-2014 Assay of free thyroxine T4, FREE (THYROXINE) (66392) [facility]; [facility] Work Phone: Start: 04-26-2014 Assay of prolactin PROLACTIN (12294) [facility] Work Phone: Start: 04-26-2014 Assay of thyroid stimulating hormone tsh TSH (43859) [facility]; [facility] Work Phone: Start: 04-26-2014 Assay of triiodothyronine t3 free T3, FREE (TRIDOTHYRONINE) (04934) [facility]; [facility] Work Phone: Start: 04-26-2014 Comprehensive metabolic panel Metabolic Panel, Comprehensive (82971) [facility] Work Phone: Start: 04-26-2014 Protein mass conc PROLACTIN (30627) [facility] Work Phone: Start: 04-26-2014 T3 free mass conc T3, FREE (TRIDOTHYRONINE) (49555) [facility] Work Phone: Start: 04-26-2014 T4 free mass conc T4, FREE (THYROXINE) (16141) [facility] Work Phone: Start: 04-26-2014 Thyrotropin Qn TSH (83704) [facility] Work Phone: Start: 04-26-2014 Assay of testosterone free TESTOSTERONE FREE (02673) [facility] Work Phone: Start: 04-26-2014 Dehydroepiandrosterone-sul fate DHEA-S (DEHYDROEPIANDROSTERONE SULFATE) (02315) [facility] Work Phone: Start: 04-26-2014 Lipid panel LIPID PANEL (44131) [facility] Work Phone: Start: 2014 Pneumococcal vaccination PNEUMOCOCCAL VACCINE SERIES (1 of 1 - PCV) [facility] Start: 2014 Zoster vaccine hzv live for subcutaneous use ZOSTER (SHINGLES) VACCINE (1 of 2) [facility] Start: 01-21-2012 Patient Education Fainting (Syncope) *: fainting [facility] Work Phone: Start: 01-21-2012 Provider Instructions for Treatment [facility] Work Phone: Start: 01-07-2012 Provider Instructions for Treatment Follow up - Make appt after diagnostic tests [facility] Work Phone: Start: 01-07-2012 Glucose tolerance test gtt 3 specimens Glucose Tolerance Test (GTT) (52724)- 4 hr [facility] Work Phone: Start: 06-15-2011 Urnls dip stick/tablet rgnt auto w/o microscopy URINALYSIS, AUTOMATED, W/O MICRO (76230) [facility] Work Phone: Start: 11-19-2010 Provider Instructions for Treatment Reviewed Diagnostic Tests [facility] Work Phone: Start: 11-06-2010 Provider Instructions for Treatment [facility] Work Phone: Start: 2009 Screening for malignant neoplasm of colon COLORECTAL CANCER SCREENING DISCUSSION [facility] Start: 01-02-2009 Provider Instructions for Treatment Continue Current Prescription(s) [facility] Work Phone: Start: 12-04-2008 Provider Instructions for Treatment [facility] Work Phone: Start: 10-21-2008 Lipid panel LIPID PANEL (56372) [facility] Work Phone: Start: 10-21-2008 Provider Instructions for Treatment [facility] Work Phone: Start: 09-29-2007 Provider Instructions for Treatment [facility] Work Phone: Start: 2004 Lipid panel LIPID SCREENING [facility] Start: 2004 Screening for malignant neoplasm of breast MAMMOGRAM SCREENING DISCUSSION [facility] Start: 1985 Screening for malignant neoplasm of cervix CERVICAL CANCER SCREENING DISCUSSION [facility] Start: 1983 Third diphtheria, tetanus and acellular pertussis (DTaP) vaccination TDAP (ADULT) [facility] Start: 1979 HIV screening HIV SCREENING DISCUSSION [facility] Start: 1964 Hepatitis C screening HEPATITIS C VIRUS SCREENING [facility] Start: 1964 Tetanus vaccination TETANUS [facility] Work Phone: [facility] Work Phone: [facility] Work Phone: [facility] Work Phone: [facility] Work Phone: [facility] Work Phone: [facility] Work Phone: [facility] Work Phone: [facility] Work Phone: [facility] Work Phone: [facility] Work Phone: [facility] Work Phone: [facility] Work Phone: [facility] Work Phone: Immunizations Immunization Date Immunization Notes Care Provider [facility] 08-16-2009 influenza virus vaccine, unspecified formulation Dennis Toure MD Work Phone: [facility] Payers Date Payer Category Payer Unknown 2024 Managed Care (unspecified) ANTH HMO PPO POS [id number] 2024 Unknown [id number] 2024 Self-pay [id number] 2020 Unknown [id number] 2004 Unknown [id number] 1965 Unknown [id number]. [id number] 1965 Unknown [id number]. 2.716 1964 Unknown [id number] [id number]. 2.651 1964 Unknown [id number] [id number]. 2.159 1964 Unknown [id number] [id number]. 2.594 Unknown [id number] [id number]. 2.462 Unknown [id number] [id number]. 2.462 Unknown [id number] [id number]. 2.462 Unknown [id number] [id number]. 2.462 Unknown [id number] [id number]. 2.462 Unknown [id number] [id number]. 2.462 Unknown [id number] [id number]. 2.462 Unknown [id number] [id number]. 2.462 Unknown [id number] [id number]. 2.462 Social History Date Type Detail Facility Start: 01-01-2025 Caffeine Use Never smoker [facility] Work Phone: Comment on above: 3 QD Marijuana in [facility] Tobacco use: Never smoker. [facility] Work Phone: Start: 12-27-2016 End: 12-27-2016 Assertion Unknown if ever smoked [facility] Work Phone: Tobacco use: Tobacco use: [facility] Work Phone: Start: 1965 Sex Assigned At Female [facility] Start: 12-27-2016 End: 01-01-2025 Tobacco smoking status NHIS Never smoked tobacco [facility] Start: 01-01-2025 Tobacco use and exposure Smokeless tobacco non-user [facility] Start: 01-01-2025 Alcoholic beverage intake Current drinker of alcohol (finding) [facility] Start: 01-01-2025 Tobacco use panel [facility] Start: 1965 Sex assigned at Not on file [facility] Start: 11-19-2024 Sex Female (finding) [facility] NEGATED: Highlighted rowStart: 06-27-2019 End: 06-27-2019 How many days of moderate to strenuous exercise, like a brisk walk, did you do in the last 7 days? How many days of moderate to strenuous exercise, like a brisk walk, did you do in the last 7 days? [facility] Work Phone: Clinical Notes 01-01-2025 to 04-25-2025 Dennis Toure MD - 01/01/2025 2:00 PM EDTOlashell Prado - 01/01/2025 2:00 PM EDT Note Date & Type Note Facility 04-25-2025 Radiology Diagnostic study note [facility] [address], [place] [address] Thyroid MR#: [id number] Acct: [id number] Name: VARSHA TORRES Rep #: [id number] : 1965 F 60 From: Bridger Elise MD PCP: Dr. Rimma Mar, Status: RE G CLI Study:Thyroid Date of Exam: 04/24/25 Exam# [id number] Ordering Dr: Mayuri Mar DO PROCEDURE: THYROID 04/24/2025 REASON FOR EXAM: THYROID MASS TECHNIQUE: THYROID COMPARISON: None FINDINGS: Right thyroid lobe size: 4.4 x 1.7 x 1.9 cm Left thyroid lobe size: 4.1 x 1.6 x 1.3 cm Isthmus: 4.4 mm Background parenchymal echotexture is normal Nodules: 1. Lobe: Right, Location: Midpole, Size: 0.6 cm, Stability: N/A Composition: Cystic or mostly cystic (+0) Echogenicity: Anechoic (+0) Margin: Smooth (+0) Shape: Wider than tall (+0) Echogenic Foci: None (+0) TI-RADS: 1 2. Lobe: Right, Location: Lower pole, Size: 0.2 cm, Stability: N/A Composition: Cannot be determined Echogenicity: Cannot be determined Margin: Ill-defined (+0) Shape: Wider than tall (+0) Echogenic Foci: Macrocalcification (+1) TI-RADS: 1 Technologist scanned overly sternoclavicular joint in the area of palpable concern. Likely degenerative changes. US/Thyroid IMPRESSION: 1. Benign colloid cyst right midpole. 2. Benign dystrophic calcification right lower pole. TIADS 1. Non-suspicious. No follow-up required 3. Technologist scanned over an area of palpable concern at the sternoclavicular region. Likely degenerative changes. Consider x-ray if appropriate. Reading Location: [id number] CC: Dr. 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 She went to see an suction roller and was not sure what was going on so she was sent here. She states the tearing/watering has decreased a decent amount since this started back in August. She feels like her vision has remained stable and had not changed. She get the occasional itch every once in awhile. She denies any flashes, floaters, or missing spots in vision. She has a history of ocular migraines and feels like they have gotten worse. She denies contact lens wear Pt states other offices have tried multiple drops and regimens and were unable to get any improvement. Pt states around the time this happened she got her hair done and got some of the kerry based bleach in her eye. Her doctor thinks she may have rubbed the eye so hard/much it may have contributed to this but not 100% certain Ocular History: None Ocular surgeries: None Ocular medications: Systane nighttime @ bedtime OS Systane Ultra TID OS Pt states she has been very good about her drops, but due to father passing she has not remembered to put them in all the time. Providers seen: Dr. Mayuri Mar-PCP Dr. Noam Wallace- Assembly Leader Dr. Na Talley- Security Associate Referring provider: [place] [address] Last edited by Bella Prado on 01/01/2025 2:29 PM. I have reviewed the chief complaint, history, review of systems, medical history, allergies, and medications as documented in the medical record and agree, with any changes noted. Referring Provider: MD [place] [address] Assessment/Plan: 1) Conjunctival chalasis OS 2) Hx of chemosis OS - referred by Dr. Talley - started around 08/2024, may have gotten some hair dye in her eye - no improvement with topical steroids or azelastine per hx, has also tried PO pred - had CT orbits as well as thyroid labs done previously which were reportedly normal - slow improvement over time, mostly resolved at this point - monitor for now - continue preservative free ATs - call with any new or worsening symptoms 3) NS cataracts OU Follow up in 1-2 month(s) with me or Dr. Talley, or sooner as needed REASON FOR VISIT Varsha Torres presents to clinic today for a New Patient visit. 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 She went to see an suction roller and was not sure what was going on so she was sent here. She states the tearing/watering has decreased a decent amount since this started back in August. She feels like her vision has remained stable and had not changed. She get the occasional itch every once in awhile. She denies any flashes, floaters, or missing spots in vision. She has a history of ocular migraines and feels like they have gotten worse. She denies contact lens wear Pt states other offices have tried multiple drops and regimens and were unable to get any improvement. Pt states around the time this happened she got her hair done and got some of the kerry based bleach in her eye. Her doctor thinks she may have rubbed the eye so hard/much it may have contributed to this but not 100% certain Ocular History: None Ocular surgeries: None Ocular medications: Systane nighttime @ bedtime OS Systane Ultra TID OS Pt states she has been very good about her drops, but due to father passing she has not remembered to put them in all the time. Providers seen: Dr. Mayuri Mar-PCP Dr. Noam Wallace- Assembly Leader Dr. Na Talley- Security Associate Referring provider: Argentina Talley MD [address] [place] [address] Last edited by Bella Prado on 01/01/2025 2:29 PM. Allergies, medications & history reviewed & updated by Bella Prado REVIEW OF SYSTEMS Review of Systems 20 minutes of face to face time was spent with patient performing the forest ranger technician work of this visit. Referring Physician: Argentina Talley MD [address] [place] [address] documented in this encounter [facility] Evaluation note No assessment information [facility] Work Phone: Evaluation note Diagnosis Conjunctivochalasis of left eye- Primary Conjunctivochalasis Chemosis of left conjunctiva [facility] D[facility] Details Patient Instructions Indication:Non-smoker Start:20-May-2021 Instruction Type:Provider Instructions for Treatment How to Access Health Informa tion Online using Patient Portal and [address] Apps Indication:Non-smoker Start:20-May-2021 Instruction Type:Patient Education How to access health informa tion online Indication:Non-smoker Start:30-Jun-2020 Instruction Type:Patient Education How to access health informa tion online - Detail Indication:Non-smoker Start:30-Jun-2020 Instruction Type:Patient Education Patient Instructions Indication:Non-smoker Start:30-Jun-2020 Instruction Type:Provider Instructions for Treatment How to access health informa tion online Indication:Non-smoker Start:13-Dec-2019 Instruction Type:Patient Education How to access health informa tion online - Detail Indication:Non-smoker Start:13-Dec-2019 Instruction Type:Patient Education Patient Instructions Indication:Non-smoker Start:13-Dec-2019 Instruction Type:Provider Instructions for Treatment How to access health informa tion online Indication:BMI 40.0-44.9, adult Start:20-Sep-2019 Instruction Type:Patient Education How to access health informa tion online - Detail Indication:BMI 40.0-44.9, adult Start:20-Sep-2019 Instruction Type:Patient Education Patient Instructions Indication:BMI 40.0-44.9, adult Start:20-Sep-2019 Instruction Type:Provider Instructions for Treatment How to access health informa tion online Indication:HTN (hypertension), benign Start:09-Aug-2019 Instruction Type:Patient Education How to access health informa tion online - Detail Indication:HTN (hypertension), benign Start:09-Aug-2019 Instruction Type:Patient Education Patient Instructions Indication:HTN (hypertension), benign Start:09-Aug-2019 Instruction Type:Provider Instructions for Treatment How to access health informa tion online Indication:Non-smoker Start:24-Oct-2018 Instruction Type:Patient Education Patient Instructions Indication:Non-smoker Start:24-Oct-2018 Instruction Type:Provider Instructions for Treatment How to access health informa tion online - Detail Indication:BMI 39.0-39.9,adult Start:21-Aug-2018 Instruction Type:Patient Education Patient Instructions Indication:BMI 39.0-39.9,adult Start:21-Aug-2018 Instruction Type:Provider Instructions for Treatment How to access health informa tion online Indication:BMI 39.0-39.9,adult Start:13-Dec-2017 Instruction Type:Patient Education How to access health informa tion online - Detail Indication:BMI 39.0-39.9,adult Start:13-Dec-2017 Instruction Type:Patient Education Patient Instructions Indication:Upper respiratory infection, acute Start:13-Dec-2017 Instruction Type:Provider Instructions for Treatment How to access health informa tion online Indication:Cough Start:16-Nov-2017 Instruction Type:Patient Education How to access health informa tion online - Detail Indication:Cough Start:16-Nov-2017 Instruction Type:Patient Education Patient Instructions Indication:Cough Start:16-Nov-2017 Instruction Type:Provider Instructions for Treatment How to access health informa tion online Indication:BMI 40.0-44.9, adult Start:03-Jun-2017 Instruction Type:Patient Education How to access health informa tion online - Detail Indication:BMI 40.0-44.9, adult Start:03-Jun-2017 Instruction Type:Patient Education Patient Instructions Indication:BMI 40.0-44.9, adult Start:03-Jun-2017 Instruction Type:Provider Instructions for Treatment Patient Instructions Indication:Syncope Start:02-Dec-2016 Instruction Type:Provider Instructions for Treatment How to access health informa tion online Indication:Non-smoker Start:01-Nov-2016 Instruction Type:Patient Education How to access health informa tion online - Detail Indication:Non-smoker Start:01-Nov-2016 Instruction Type:Patient Education Patient Instructions Indication:Non-smoker Start:01-Nov-2016 Instruction Type:Provider Instructions for Treatment How to access health informa tion online Indication:Abdominal pain, acute, left upper quadrant Start:12-Jun-2015 Instruction Type:Patient Education How to access health informa tion online - Detail Indication:Abdominal pain, acute, left upper quadrant Start:12-Jun-2015 Instruction Type:Patient Education Patient Instructions Indication:Abdominal pain, acute, left upper quadrant Start:12-Jun-2015 Instruction Type:Provider Instructions for Treatment How to access health informa tion online Indication:Abdominal pain Start:02-Jun-2015 Instruction Type:Patient Education How to access health informa tion online - Detail Indication:Abdominal pain Start:02-Jun-2015 Instruction Type:Patient Education Patient Instructions Indication:Abdominal pain Start:02-Jun-2015 Instruction Type:Provider Instructions for Treatment How to access health informa tion online Indication:Hypercholesteremia Start:26-Apr-2014 Instruction Type:Patient Education How to access health informa tion online - Detail Indication:Hypercholesteremia Start:26-Apr-2014 Instruction Type:Patient Education Patient Instructions Indication:Hypercholesteremia Start:26-Apr-2014 Instruction Type:Provider Instructions for Treatment Patient Instructions Indication:URI (upper respiratory infection) Start:02-Mar-2013 Instruction Type:Provider Instructions for Treatment DISCONTINUED - GLUCOSE ADY ANCE TEST (GTT) 5 hour ([id number]) Indication:Syncope Start:07-Jan-2012 Instruction Type:Patient Education Sore throat: diagnosis and treatment Indication:Pharyngitis, acute Start:04-Dec-2008 Instruction Type:Patient Education [facility]; [facility] Work Phone: Instructions* Name Dates Details Patient Instructions Indication:Non-smoker Start:20-May-2021 Instruction Type:Provider Instructions for Treatment How to Access Health Informa tion Online using Patient Portal and [employer] Apps Indication:Non-smoker Start:20-May-2021 Instruction Type:Patient Education How to access health informa tion online Indication:Non-smoker Start:30-Jun-2020 Instruction Type:Patient Education How to access health informa tion online - Detail Indication:Non-smoker Start:30-Jun-2020 Instruction Type:Patient Education Patient Instructions Indication:Non-smoker Start:30-Jun-2020 Instruction Type:Provider Instructions for Treatment How to access health informa tion online Indication:Non-smoker Start:13-Dec-2019 Instruction Type:Patient Education How to access health informa tion online - Detail Indication:Non-smoker Start:13-Dec-2019 Instruction Type:Patient Education Patient Instructions Indication:Non-smoker Start:13-Dec-2019 Instruction Type:Provider Instructions for Treatment How to access health informa tion online Indication:BMI 40.0-44.9, adult Start:20-Sep-2019 Instruction Type:Patient Education How to access health informa tion online - Detail Indication:BMI 40.0-44.9, adult Start:20-Sep-2019 Instruction Type:Patient Education Patient Instructions Indication:BMI 40.0-44.9, adult Start:20-Sep-2019 Instruction Type:Provider Instructions for Treatment How to access health informa tion online Indication:HTN (hypertension), benign Start:09-Aug-2019 Instruction Type:Patient Education How to access health informa tion online - Detail Indication:HTN (hypertension), benign Start:09-Aug-2019 Instruction Type:Patient Education Patient Instructions Indication:HTN (hypertension), benign Start:09-Aug-2019 Instruction Type:Provider Instructions for Treatment How to access health informa tion online Indication:Non-smoker Start:24-Oct-2018 Instruction Type:Patient Education Patient Instructions Indication:Non-smoker Start:24-Oct-2018 Instruction Type:Provider Instructions for Treatment How to access health informa tion online - Detail Indication:BMI 39.0-39.9,adult Start:21-Aug-2018 Instruction Type:Patient Education Patient Instructions Indication:BMI 39.0-39.9,adult Start:21-Aug-2018 Instruction Type:Provider Instructions for Treatment How to access health informa tion online Indication:BMI 39.0-39.9,adult Start:13-Dec-2017 Instruction Type:Patient Education How to access health informa tion online - Detail Indication:BMI 39.0-39.9,adult Start:13-Dec-2017 Instruction Type:Patient Education Patient Instructions Indication:Upper respiratory infection, acute Start:13-Dec-2017 Instruction Type:Provider Instructions for Treatment How to access health informa tion online Indication:Cough Start:16-Nov-2017 Instruction Type:Patient Education How to access health informa tion online - Detail Indication:Cough Start:16-Nov-2017 Instruction Type:Patient Education Patient Instructions Indication:Cough Start:16-Nov-2017 Instruction Type:Provider Instructions for Treatment How to access health informa tion online Indication:BMI 40.0-44.9, adult Start:03-Jun-2017 Instruction Type:Patient Education How to access health informa tion online - Detail Indication:BMI 40.0-44.9, adult Start:03-Jun-2017 Instruction Type:Patient Education Patient Instructions Indication:BMI 40.0-44.9, adult Start:03-Jun-2017 Instruction Type:Provider Instructions for Treatment Patient Instructions Indication:Syncope Start:02-Dec-2016 Instruction Type:Provider Instructions for Treatment How to access health informa tion online Indication:Non-smoker Start:01-Nov-2016 Instruction Type:Patient Education How to access health informa tion online - Detail Indication:Non-smoker Start:01-Nov-2016 Instruction Type:Patient Education Patient Instructions Indication:Non-smoker Start:01-Nov-2016 Instruction Type:Provider Instructions for Treatment How to access health informa tion online Indication:Abdominal pain, acute, left upper quadrant Start:12-Jun-2015 Instruction Type:Patient Education How to access health informa tion online - Detail Indication:Abdominal pain, acute, left upper quadrant Start:12-Jun-2015 Instruction Type:Patient Education Patient Instructions Indication:Abdominal pain, acute, left upper quadrant Start:12-Jun-2015 Instruction Type:Provider Instructions for Treatment How to access health informa tion online Indication:Abdominal pain Start:02-Jun-2015 Instruction Type:Patient Education How to access health informa tion online - Detail Indication:Abdominal pain Start:02-Jun-2015 Instruction Type:Patient Education Patient Instructions Indication:Abdominal pain Start:02-Jun-2015 Instruction Type:Provider Instructions for Treatment How to access health informa tion online Indication:Hypercholesteremia Start:26-Apr-2014 Instruction Type:Patient Education How to access health informa tion online - Detail Indication:Hypercholesteremia Start:26-Apr-2014 Instruction Type:Patient Education Patient Instructions Indication:Hypercholesteremia Start:26-Apr-2014 Instruction Type:Provider Instructions for Treatment Patient Instructions Indication:URI (upper respiratory infection) Start:02-Mar-2013 Instruction Type:Provider Instructions for Treatment DISCONTINUED - GLUCOSE ADY ANCE TEST (GTT) 5 hour ([id number]) Indication:Syncope Start:07-Jan-2012 Instruction Type:Patient Education Sore throat: diagnosis and treatment Indication:Pharyngitis, acute Start:04-Dec-2008 Instruction Type:Patient Education [facility]; [facility] Work Phone: Instructions* Name Dates Details Patient Instructions Indication:Non-smoker Start:26-Jul-2022 Instruction Type:Provider Instructions for Treatment How to Access Health Informa tion Online using Patient Portal and [employer] Apps Indication:Non-smoker Start:26-Jul-2022 Instruction Type:Patient Education Patient Instructions Indication:Non-smoker Start:20-May-2021 Instruction Type:Provider Instructions for Treatment How to Access Health Informa tion Online using Patient Portal and [employer] Apps Indication:Non-smoker Start:20-May-2021 Instruction Type:Patient Education How to access health informa tion online Indication:Non-smoker Start:30-Jun-2020 Instruction Type:Patient Education How to access health informa tion online - Detail Indication:Non-smoker Start:30-Jun-2020 Instruction Type:Patient Education Patient Instructions Indication:Non-smoker Start:30-Jun-2020 Instruction Type:Provider Instructions for Treatment How to access health informa tion online Indication:Non-smoker Start:13-Dec-2019 Instruction Type:Patient Education How to access health informa tion online - Detail Indication:Non-smoker Start:13-Dec-2019 Instruction Type:Patient Education Patient Instructions Indication:Non-smoker Start:13-Dec-2019 Instruction Type:Provider Instructions for Treatment How to access health informa tion online Indication:BMI 40.0-44.9, adult Start:20-Sep-2019 Instruction Type:Patient Education How to access health informa tion online - Detail Indication:BMI 40.0-44.9, adult Start:20-Sep-2019 Instruction Type:Patient Education Patient Instructions Indication:BMI 40.0-44.9, adult Start:20-Sep-2019 Instruction Type:Provider Instructions for Treatment How to access health informa tion online Indication:HTN (hypertension), benign Start:09-Aug-2019 Instruction Type:Patient Education How to access health informa tion online - Detail Indication:HTN (hypertension), benign Start:09-Aug-2019 Instruction Type:Patient Education Patient Instructions Indication:HTN (hypertension), benign Start:09-Aug-2019 Instruction Type:Provider Instructions for Treatment How to access health informa tion online Indication:Non-smoker Start:24-Oct-2018 Instruction Type:Patient Education Patient Instructions Indication:Non-smoker Start:24-Oct-2018 Instruction Type:Provider Instructions for Treatment How to access health informa tion online - Detail Indication:BMI 39.0-39.9,adult Start:21-Aug-2018 Instruction Type:Patient Education Patient Instructions Indication:BMI 39.0-39.9,adult Start:21-Aug-2018 Instruction Type:Provider Instructions for Treatment How to access health informa tion online Indication:BMI 39.0-39.9,adult Start:13-Dec-2017 Instruction Type:Patient Education How to access health informa tion online - Detail Indication:BMI 39.0-39.9,adult Start:13-Dec-2017 Instruction Type:Patient Education Patient Instructions Indication:Upper respiratory infection, acute Start:13-Dec-2017 Instruction Type:Provider Instructions for Treatment How to access health informa tion online Indication:Cough Start:16-Nov-2017 Instruction Type:Patient Education How to access health informa tion online - Detail Indication:Cough Start:16-Nov-2017 Instruction Type:Patient Education Patient Instructions Indication:Cough Start:16-Nov-2017 Instruction Type:Provider Instructions for Treatment How to access health informa tion online Indication:BMI 40.0-44.9, adult Start:03-Jun-2017 Instruction Type:Patient Education How to access health informa tion online - Detail Indication:BMI 40.0-44.9, adult Start:03-Jun-2017 Instruction Type:Patient Education Patient Instructions Indication:BMI 40.0-44.9, adult Start:03-Jun-2017 Instruction Type:Provider Instructions for Treatment Patient Instructions Indication:Syncope Start:02-Dec-2016 Instruction Type:Provider Instructions for Treatment How to access health informa tion online Indication:Non-smoker Start:01-Nov-2016 Instruction Type:Patient Education How to access health informa tion online - Detail Indication:Non-smoker Start:01-Nov-2016 Instruction Type:Patient Education Patient Instructions Indication:Non-smoker Start:01-Nov-2016 Instruction Type:Provider Instructions for Treatment How to access health informa tion online Indication:Abdominal pain, acute, left upper quadrant Start:12-Jun-2015 Instruction Type:Patient Education How to access health informa tion online - Detail Indication:Abdominal pain, acute, left upper quadrant Start:12-Jun-2015 Instruction Type:Patient Education Patient Instructions Indication:Abdominal pain, acute, left upper quadrant Start:12-Jun-2015 Instruction Type:Provider Instructions for Treatment How to access health informa tion online Indication:Abdominal pain Start:02-Jun-2015 Instruction Type:Patient Education How to access health informa tion online - Detail Indication:Abdominal pain Start:02-Jun-2015 Instruction Type:Patient Education Patient Instructions Indication:Abdominal pain Start:02-Jun-2015 Instruction Type:Provider Instructions for Treatment How to access health informa tion online Indication:Hypercholesteremia Start:26-Apr-2014 Instruction Type:Patient Education How to access health informa tion online - Detail Indication:Hypercholesteremia Start:26-Apr-2014 Instruction Type:Patient Education Patient Instructions Indication:Hypercholesteremia Start:26-Apr-2014 Instruction Type:Provider Instructions for Treatment Patient Instructions Indication:URI (upper respiratory infection) Start:02-Mar-2013 Instruction Type:Provider Instructions for Treatment DISCONTINUED - GLUCOSE ADY ANCE TEST (GTT) 5 hour ([id number]) Indication:Syncope Start:07-Jan-2012 Instruction Type:Patient Education Sore throat: diagnosis and treatment Indication:Pharyngitis, acute Start:04-Dec-2008 Instruction Type:Patient Education [facility]; [facility] Work Phone: Instructions* Name Dates Details Patient Instructions Indication:Non-smoker Start:26-Jul-2022 Instruction Type:Provider Instructions for Treatment How to Access Health Informa tion Online using Patient Portal and [employer] Apps Indication:Non-smoker Start:26-Jul-2022 Instruction Type:Patient Education Patient Instructions Indication:Non-smoker Start:20-May-2021 Instruction Type:Provider Instructions for Treatment How to Access Health Informa tion Online using Patient Portal and [employer] Apps Indication:Non-smoker Start:20-May-2021 Instruction Type:Patient Education How to access health informa tion online Indication:Non-smoker Start:30-Jun-2020 Instruction Type:Patient Education How to access health informa tion online - Detail Indication:Non-smoker Start:30-Jun-2020 Instruction Type:Patient Education Patient Instructions Indication:Non-smoker Start:30-Jun-2020 Instruction Type:Provider Instructions for Treatment How to access health informa tion online Indication:Non-smoker Start:13-Dec-2019 Instruction Type:Patient Education How to access health informa tion online - Detail Indication:Non-smoker Start:13-Dec-2019 Instruction Type:Patient Education Patient Instructions Indication:Non-smoker Start:13-Dec-2019 Instruction Type:Provider Instructions for Treatment How to access health informa tion online Indication:BMI 40.0-44.9, adult Start:20-Sep-2019 Instruction Type:Patient Education How to access health informa tion online - Detail Indication:BMI 40.0-44.9, adult Start:20-Sep-2019 Instruction Type:Patient Education Patient Instructions Indication:BMI 40.0-44.9, adult Start:20-Sep-2019 Instruction Type:Provider Instructions for Treatment How to access health informa tion online Indication:HTN (hypertension), benign Start:09-Aug-2019 Instruction Type:Patient Education How to access health informa tion online - Detail Indication:HTN (hypertension), benign Start:09-Aug-2019 Instruction Type:Patient Education Patient Instructions Indication:HTN (hypertension), benign Start:09-Aug-2019 Instruction Type:Provider Instructions for Treatment How to access health informa tion online Indication:Non-smoker Start:24-Oct-2018 Instruction Type:Patient Education Patient Instructions Indication:Non-smoker Start:24-Oct-2018 Instruction Type:Provider Instructions for Treatment How to access health informa tion online - Detail Indication:BMI 39.0-39.9,adult Start:21-Aug-2018 Instruction Type:Patient Education Patient Instructions Indication:BMI 39.0-39.9,adult Start:21-Aug-2018 Instruction Type:Provider Instructions for Treatment How to access health informa tion online Indication:BMI 39.0-39.9,adult Start:13-Dec-2017 Instruction Type:Patient Education How to access health informa tion online - Detail Indication:BMI 39.0-39.9,adult Start:13-Dec-2017 Instruction Type:Patient Education Patient Instructions Indication:Upper respiratory infection, acute Start:13-Dec-2017 Instruction Type:Provider Instructions for Treatment How to access health informa tion online Indication:Cough Start:16-Nov-2017 Instruction Type:Patient Education How to access health informa tion online - Detail Indication:Cough Start:16-Nov-2017 Instruction Type:Patient Education Patient Instructions Indication:Cough Start:16-Nov-2017 Instruction Type:Provider Instructions for Treatment How to access health informa tion online Indication:BMI 40.0-44.9, adult Start:03-Jun-2017 Instruction Type:Patient Education How to access health informa tion online - Detail Indication:BMI 40.0-44.9, adult Start:03-Jun-2017 Instruction Type:Patient Education Patient Instructions Indication:BMI 40.0-44.9, adult Start:03-Jun-2017 Instruction Type:Provider Instructions for Treatment Patient Instructions Indication:Syncope Start:02-Dec-2016 Instruction Type:Provider Instructions for Treatment How to access health informa tion online Indication:Non-smoker Start:01-Nov-2016 Instruction Type:Patient Education How to access health informa tion online - Detail Indication:Non-smoker Start:01-Nov-2016 Instruction Type:Patient Education Patient Instructions Indication:Non-smoker Start:01-Nov-2016 Instruction Type:Provider Instructions for Treatment How to access health informa tion online Indication:Abdominal pain, acute, left upper quadrant Start:12-Jun-2015 Instruction Type:Patient Education How to access health informa tion online - Detail Indication:Abdominal pain, acute, left upper quadrant Start:12-Jun-2015 Instruction Type:Patient Education Patient Instructions Indication:Abdominal pain, acute, left upper quadrant Start:12-Jun-2015 Instruction Type:Provider Instructions for Treatment How to access health informa tion online Indication:Abdominal pain Start:02-Jun-2015 Instruction Type:Patient Education How to access health informa tion online - Detail Indication:Abdominal pain Start:02-Jun-2015 Instruction Type:Patient Education Patient Instructions Indication:Abdominal pain Start:02-Jun-2015 Instruction Type:Provider Instructions for Treatment How to access health informa tion online Indication:Hypercholesteremia Start:26-Apr-2014 Instruction Type:Patient Education How to access health informa tion online - Detail Indication:Hypercholesteremia Start:26-Apr-2014 Instruction Type:Patient Education Patient Instructions Indication:Hypercholesteremia Start:26-Apr-2014 Instruction Type:Provider Instructions for Treatment Patient Instructions Indication:URI (upper respiratory infection) Start:02-Mar-2013 Instruction Type:Provider Instructions for Treatment DISCONTINUED - GLUCOSE ADY ANCE TEST (GTT) 5 hour ([id number]) Indication:Syncope Start:07-Jan-2012 Instruction Type:Patient Education Sore throat: diagnosis and treatment Indication:Pharyngitis, acute Start:04-Dec-2008 Instruction Type:Patient Education [facility]; [facility] Work Phone: Instructions* Name Dates Details Patient Instructions Indication:Non-smoker Start:26-Jul-2022 Instruction Type:Provider Instructions for Treatment How to Access Health Informa tion Online using Patient Portal and [employer] Apps Indication:Non-smoker Start:26-Jul-2022 Instruction Type:Patient Education Patient Instructions Indication:Non-smoker Start:20-May-2021 Instruction Type:Provider Instructions for Treatment How to Access Health Informa tion Online using Patient Portal and [employer] Apps Indication:Non-smoker Start:20-May-2021 Instruction Type:Patient Education How to access health informa tion online Indication:Non-smoker Start:30-Jun-2020 Instruction Type:Patient Education How to access health informa tion online - Detail Indication:Non-smoker Start:30-Jun-2020 Instruction Type:Patient Education Patient Instructions Indication:Non-smoker Start:30-Jun-2020 Instruction Type:Provider Instructions for Treatment How to access health informa tion online Indication:Non-smoker Start:13-Dec-2019 Instruction Type:Patient Education How to access health informa tion online - Detail Indication:Non-smoker Start:13-Dec-2019 Instruction Type:Patient Education Patient Instructions Indication:Non-smoker Start:13-Dec-2019 Instruction Type:Provider Instructions for Treatment How to access health informa tion online Indication:BMI 40.0-44.9, adult Start:20-Sep-2019 Instruction Type:Patient Education How to access health informa tion online - Detail Indication:BMI 40.0-44.9, adult Start:20-Sep-2019 Instruction Type:Patient Education Patient Instructions Indication:BMI 40.0-44.9, adult Start:20-Sep-2019 Instruction Type:Provider Instructions for Treatment How to access health informa tion online Indication:HTN (hypertension), benign Start:09-Aug-2019 Instruction Type:Patient Education How to access health informa tion online - Detail Indication:HTN (hypertension), benign Start:09-Aug-2019 Instruction Type:Patient Education Patient Instructions Indication:HTN (hypertension), benign Start:09-Aug-2019 Instruction Type:Provider Instructions for Treatment How to access health informa tion online Indication:Non-smoker Start:24-Oct-2018 Instruction Type:Patient Education Patient Instructions Indication:Non-smoker Start:24-Oct-2018 Instruction Type:Provider Instructions for Treatment How to access health informa tion online - Detail Indication:BMI 39.0-39.9,adult Start:21-Aug-2018 Instruction Type:Patient Education Patient Instructions Indication:BMI 39.0-39.9,adult Start:21-Aug-2018 Instruction Type:Provider Instructions for Treatment How to access health informa tion online Indication:BMI 39.0-39.9,adult Start:13-Dec-2017 Instruction Type:Patient Education How to access health informa tion online - Detail Indication:BMI 39.0-39.9,adult Start:13-Dec-2017 Instruction Type:Patient Education Patient Instructions Indication:Upper respiratory infection, acute Start:13-Dec-2017 Instruction Type:Provider Instructions for Treatment How to access health informa tion online Indication:Cough Start:16-Nov-2017 Instruction Type:Patient Education How to access health informa tion online - Detail Indication:Cough Start:16-Nov-2017 Instruction Type:Patient Education Patient Instructions Indication:Cough Start:16-Nov-2017 Instruction Type:Provider Instructions for Treatment How to access health informa tion online Indication:BMI 40.0-44.9, adult Start:03-Jun-2017 Instruction Type:Patient Education How to access health informa tion online - Detail Indication:BMI 40.0-44.9, adult Start:03-Jun-2017 Instruction Type:Patient Education Patient Instructions Indication:BMI 40.0-44.9, adult Start:03-Jun-2017 Instruction Type:Provider Instructions for Treatment Patient Instructions Indication:Syncope Start:02-Dec-2016 Instruction Type:Provider Instructions for Treatment How to access health informa tion online Indication:Non-smoker Start:01-Nov-2016 Instruction Type:Patient Education How to access health informa tion online - Detail Indication:Non-smoker Start:01-Nov-2016 Instruction Type:Patient Education Patient Instructions Indication:Non-smoker Start:01-Nov-2016 Instruction Type:Provider Instructions for Treatment How to access health informa tion online Indication:Abdominal pain, acute, left upper quadrant Start:12-Jun-2015 Instruction Type:Patient Education How to access health informa tion online - Detail Indication:Abdominal pain, acute, left upper quadrant Start:12-Jun-2015 Instruction Type:Patient Education Patient Instructions Indication:Abdominal pain, acute, left upper quadrant Start:12-Jun-2015 Instruction Type:Provider Instructions for Treatment How to access health informa tion online Indication:Abdominal pain Start:02-Jun-2015 Instruction Type:Patient Education How to access health informa tion online - Detail Indication:Abdominal pain Start:02-Jun-2015 Instruction Type:Patient Education Patient Instructions Indication:Abdominal pain Start:02-Jun-2015 Instruction Type:Provider Instructions for Treatment How to access health informa tion online Indication:Hypercholesteremia Start:26-Apr-2014 Instruction Type:Patient Education How to access health informa tion online - Detail Indication:Hypercholesteremia Start:26-Apr-2014 Instruction Type:Patient Education Patient Instructions Indication:Hypercholesteremia Start:26-Apr-2014 Instruction Type:Provider Instructions for Treatment Patient Instructions Indication:URI (upper respiratory infection) Start:02-Mar-2013 Instruction Type:Provider Instructions for Treatment DISCONTINUED - GLUCOSE ADY ANCE TEST (GTT) 5 hour ([id number]) Indication:Syncope Start:07-Jan-2012 Instruction Type:Patient Education Sore throat: diagnosis and treatment Indication:Pharyngitis, acute Start:04-Dec-2008 Instruction Type:Patient Education [facility]; [facility] Work Phone: Instructions* Name Dates Details Patient Instructions Indication:Non-smoker Start:02-Sep-2022 Instruction Type:Provider Instructions for Treatment How to Access Health Informa tion Online using Patient Portal and 3rd [employer] Apps Indication:Non-smoker Start:02-Sep-2022 Instruction Type:Patient Education Patient Instructions Indication:Non-smoker Start:26-Jul-2022 Instruction Type:Provider Instructions for Treatment How to Access Health Informa tion Online using Patient Portal and [employer]rd [employer] Apps Indication:Non-smoker Start:26-Jul-2022 Instruction Type:Patient Education Patient Instructions Indication:Non-smoker Start:20-May-2021 Instruction Type:Provider Instructions for Treatment How to Access Health Informa tion Online using Patient Portal and [employer]rd [employer] Apps Indication:Non-smoker Start:20-May-2021 Instruction Type:Patient Education How to access health informa tion online Indication:Non-smoker Start:30-Jun-2020 Instruction Type:Patient Education How to access health informa tion online - Detail Indication:Non-smoker Start:30-Jun-2020 Instruction Type:Patient Education Patient Instructions Indication:Non-smoker Start:30-Jun-2020 Instruction Type:Provider Instructions for Treatment How to access health informa tion online Indication:Non-smoker Start:13-Dec-2019 Instruction Type:Patient Education How to access health informa tion online - Detail Indication:Non-smoker Start:13-Dec-2019 Instruction Type:Patient Education Patient Instructions Indication:Non-smoker Start:13-Dec-2019 Instruction Type:Provider Instructions for Treatment How to access health informa tion online Indication:BMI 40.0-44.9, adult Start:20-Sep-2019 Instruction Type:Patient Education How to access health informa tion online - Detail Indication:BMI 40.0-44.9, adult Start:20-Sep-2019 Instruction Type:Patient Education Patient Instructions Indication:BMI 40.0-44.9, adult Start:20-Sep-2019 Instruction Type:Provider Instructions for Treatment How to access health informa tion online Indication:HTN (hypertension), benign Start:09-Aug-2019 Instruction Type:Patient Education How to access health informa tion online - Detail Indication:HTN (hypertension), benign Start:09-Aug-2019 Instruction Type:Patient Education Patient Instructions Indication:HTN (hypertension), benign Start:09-Aug-2019 Instruction Type:Provider Instructions for Treatment How to access health informa tion online Indication:Non-smoker Start:24-Oct-2018 Instruction Type:Patient Education Patient Instructions Indication:Non-smoker Start:24-Oct-2018 Instruction Type:Provider Instructions for Treatment How to access health informa tion online - Detail Indication:BMI 39.0-39.9,adult Start:21-Aug-2018 Instruction Type:Patient Education Patient Instructions Indication:BMI 39.0-39.9,adult Start:21-Aug-2018 Instruction Type:Provider Instructions for Treatment How to access health informa tion online Indication:BMI 39.0-39.9,adult Start:13-Dec-2017 Instruction Type:Patient Education How to access health informa tion online - Detail Indication:BMI 39.0-39.9,adult Start:13-Dec-2017 Instruction Type:Patient Education Patient Instructions Indication:Upper respiratory infection, acute Start:13-Dec-2017 Instruction Type:Provider Instructions for Treatment How to access health informa tion online Indication:Cough Start:16-Nov-2017 Instruction Type:Patient Education How to access health informa tion online - Detail Indication:Cough Start:16-Nov-2017 Instruction Type:Patient Education Patient Instructions Indication:Cough Start:16-Nov-2017 Instruction Type:Provider Instructions for Treatment How to access health informa tion online Indication:BMI 40.0-44.9, adult Start:03-Jun-2017 Instruction Type:Patient Education How to access health informa tion online - Detail Indication:BMI 40.0-44.9, adult Start:03-Jun-2017 Instruction Type:Patient Education Patient Instructions Indication:BMI 40.0-44.9, adult Start:03-Jun-2017 Instruction Type:Provider Instructions for Treatment Patient Instructions Indication:Syncope Start:02-Dec-2016 Instruction Type:Provider Instructions for Treatment How to access health informa tion online Indication:Non-smoker Start:01-Nov-2016 Instruction Type:Patient Education How to access health informa tion online - Detail Indication:Non-smoker Start:01-Nov-2016 Instruction Type:Patient Education Patient Instructions Indication:Non-smoker Start:01-Nov-2016 Instruction Type:Provider Instructions for Treatment How to access health informa tion online Indication:Abdominal pain, acute, left upper quadrant Start:12-Jun-2015 Instruction Type:Patient Education How to access health informa tion online - Detail Indication:Abdominal pain, acute, left upper quadrant Start:12-Jun-2015 Instruction Type:Patient Education Patient Instructions Indication:Abdominal pain, acute, left upper quadrant Start:12-Jun-2015 Instruction Type:Provider Instructions for Treatment How to access health informa tion online Indication:Abdominal pain Start:02-Jun-2015 Instruction Type:Patient Education How to access health informa tion online - Detail Indication:Abdominal pain Start:02-Jun-2015 Instruction Type:Patient Education Patient Instructions Indication:Abdominal pain Start:02-Jun-2015 Instruction Type:Provider Instructions for Treatment How to access health informa tion online Indication:Hypercholesteremia Start:26-Apr-2014 Instruction Type:Patient Education How to access health informa tion online - Detail Indication:Hypercholesteremia Start:26-Apr-2014 Instruction Type:Patient Education Patient Instructions Indication:Hypercholesteremia Start:26-Apr-2014 Instruction Type:Provider Instructions for Treatment Patient Instructions Indication:URI (upper respiratory infection) Start:02-Mar-2013 Instruction Type:Provider Instructions for Treatment DISCONTINUED - GLUCOSE ADY ANCE TEST (GTT) 5 hour ([id number]) Indication:Syncope Start:07-Jan-2012 Instruction Type:Patient Education Sore throat: diagnosis and treatment Indication:Pharyngitis, acute Start:04-Dec-2008 Instruction Type:Patient Education [facility]; [facility] Work Phone: Instructions* Name Dates Details Patient Instructions Indication:Non-smoker Start:02-Sep-2022 Instruction Type:Provider Instructions for Treatment How to Access Health Informa tion Online using Patient Portal and [employer]rd [employer] Apps Indication:Non-smoker Start:02-Sep-2022 Instruction Type:Patient Education Patient Instructions Indication:Non-smoker Start:26-Jul-2022 Instruction Type:Provider Instructions for Treatment How to Access Health Informa tion Online using Patient Portal and [employer]rd [employer] Apps Indication:Non-smoker Start:26-Jul-2022 Instruction Type:Patient Education Patient Instructions Indication:Non-smoker Start:20-May-2021 Instruction Type:Provider Instructions for Treatment How to Access Health Informa tion Online using Patient Portal and [employer]rd [employer] Apps Indication:Non-smoker Start:20-May-2021 Instruction Type:Patient Education How to access health informa tion online Indication:Non-smoker Start:30-Jun-2020 Instruction Type:Patient Education How to access health informa tion online - Detail Indication:Non-smoker Start:30-Jun-2020 Instruction Type:Patient Education Patient Instructions Indication:Non-smoker Start:30-Jun-2020 Instruction Type:Provider Instructions for Treatment How to access health informa tion online Indication:Non-smoker Start:13-Dec-2019 Instruction Type:Patient Education How to access health informa tion online - Detail Indication:Non-smoker Start:13-Dec-2019 Instruction Type:Patient Education Patient Instructions Indication:Non-smoker Start:13-Dec-2019 Instruction Type:Provider Instructions for Treatment How to access health informa tion online Indication:BMI 40.0-44.9, adult Start:20-Sep-2019 Instruction Type:Patient Education How to access health informa tion online - Detail Indication:BMI 40.0-44.9, adult Start:20-Sep-2019 Instruction Type:Patient Education Patient Instructions Indication:BMI 40.0-44.9, adult Start:20-Sep-2019 Instruction Type:Provider Instructions for Treatment How to access health informa tion online Indication:HTN (hypertension), benign Start:09-Aug-2019 Instruction Type:Patient Education How to access health informa tion online - Detail Indication:HTN (hypertension), benign Start:09-Aug-2019 Instruction Type:Patient Education Patient Instructions Indication:HTN (hypertension), benign Start:09-Aug-2019 Instruction Type:Provider Instructions for Treatment How to access health informa tion online Indication:Non-smoker Start:24-Oct-2018 Instruction Type:Patient Education Patient Instructions Indication:Non-smoker Start:24-Oct-2018 Instruction Type:Provider Instructions for Treatment How to access health informa tion online - Detail Indication:BMI 39.0-39.9,adult Start:21-Aug-2018 Instruction Type:Patient Education Patient Instructions Indication:BMI 39.0-39.9,adult Start:21-Aug-2018 Instruction Type:Provider Instructions for Treatment How to access health informa tion online Indication:BMI 39.0-39.9,adult Start:13-Dec-2017 Instruction Type:Patient Education How to access health informa tion online - Detail Indication:BMI 39.0-39.9,adult Start:13-Dec-2017 Instruction Type:Patient Education Patient Instructions Indication:Upper respiratory infection, acute Start:13-Dec-2017 Instruction Type:Provider Instructions for Treatment How to access health informa tion online Indication:Cough Start:16-Nov-2017 Instruction Type:Patient Education How to access health informa tion online - Detail Indication:Cough Start:16-Nov-2017 Instruction Type:Patient Education Patient Instructions Indication:Cough Start:16-Nov-2017 Instruction Type:Provider Instructions for Treatment How to access health informa tion online Indication:BMI 40.0-44.9, adult Start:03-Jun-2017 Instruction Type:Patient Education How to access health informa tion online - Detail Indication:BMI 40.0-44.9, adult Start:03-Jun-2017 Instruction Type:Patient Education Patient Instructions Indication:BMI 40.0-44.9, adult Start:03-Jun-2017 Instruction Type:Provider Instructions for Treatment Patient Instructions Indication:Syncope Start:02-Dec-2016 Instruction Type:Provider Instructions for Treatment How to access health informa tion online Indication:Non-smoker Start:01-Nov-2016 Instruction Type:Patient Education How to access health informa tion online - Detail Indication:Non-smoker Start:01-Nov-2016 Instruction Type:Patient Education Patient Instructions Indication:Non-smoker Start:01-Nov-2016 Instruction Type:Provider Instructions for Treatment How to access health informa tion online Indication:Abdominal pain, acute, left upper quadrant Start:12-Jun-2015 Instruction Type:Patient Education How to access health informa tion online - Detail Indication:Abdominal pain, acute, left upper quadrant Start:12-Jun-2015 Instruction Type:Patient Education Patient Instructions Indication:Abdominal pain, acute, left upper quadrant Start:12-Jun-2015 Instruction Type:Provider Instructions for Treatment How to access health informa tion online Indication:Abdominal pain Start:02-Jun-2015 Instruction Type:Patient Education How to access health informa tion online - Detail Indication:Abdominal pain Start:02-Jun-2015 Instruction Type:Patient Education Patient Instructions Indication:Abdominal pain Start:02-Jun-2015 Instruction Type:Provider Instructions for Treatment How to access health informa tion online Indication:Hypercholesteremia Start:26-Apr-2014 Instruction Type:Patient Education How to access health informa tion online - Detail Indication:Hypercholesteremia Start:26-Apr-2014 Instruction Type:Patient Education Patient Instructions Indication:Hypercholesteremia Start:26-Apr-2014 Instruction Type:Provider Instructions for Treatment Patient Instructions Indication:URI (upper respiratory infection) Start:02-Mar-2013 Instruction Type:Provider Instructions for Treatment DISCONTINUED - GLUCOSE ADY ANCE TEST (GTT) 5 hour ([id number]) Indication:Syncope Start:07-Jan-2012 Instruction Type:Patient Education Sore throat: diagnosis and treatment Indication:Pharyngitis, acute Start:04-Dec-2008 Instruction Type:Patient Education [facility]; [facility] Work Phone: Instructions* Name Dates Details Patient Instructions Indication:Non-smoker Start:02-Sep-2022 Instruction Type:Provider Instructions for Treatment How to Access Health Informa tion Online using Patient Portal and [employer]rd [employer] Apps Indication:Non-smoker Start:02-Sep-2022 Instruction Type:Patient Education Patient Instructions Indication:Non-smoker Start:26-Jul-2022 Instruction Type:Provider Instructions for Treatment How to Access Health Informa tion Online using Patient Portal and [employer]rd [employer] Apps Indication:Non-smoker Start:26-Jul-2022 Instruction Type:Patient Education Patient Instructions Indication:Non-smoker Start:20-May-2021 Instruction Type:Provider Instructions for Treatment How to Access Health Informa tion Online using Patient Portal and [employer]rd [employer] Apps Indication:Non-smoker Start:20-May-2021 Instruction Type:Patient Education How to access health informa tion online Indication:Non-smoker Start:30-Jun-2020 Instruction Type:Patient Education How to access health informa tion online - Detail Indication:Non-smoker Start:30-Jun-2020 Instruction Type:Patient Education Patient Instructions Indication:Non-smoker Start:30-Jun-2020 Instruction Type:Provider Instructions for Treatment How to access health informa tion online Indication:Non-smoker Start:13-Dec-2019 Instruction Type:Patient Education How to access health informa tion online - Detail Indication:Non-smoker Start:13-Dec-2019 Instruction Type:Patient Education Patient Instructions Indication:Non-smoker Start:13-Dec-2019 Instruction Type:Provider Instructions for Treatment How to access health informa tion online Indication:BMI 40.0-44.9, adult Start:20-Sep-2019 Instruction Type:Patient Education How to access health informa tion online - Detail Indication:BMI 40.0-44.9, adult Start:20-Sep-2019 Instruction Type:Patient Education Patient Instructions Indication:BMI 40.0-44.9, adult Start:20-Sep-2019 Instruction Type:Provider Instructions for Treatment How to access health informa tion online Indication:HTN (hypertension), benign Start:09-Aug-2019 Instruction Type:Patient Education How to access health informa tion online - Detail Indication:HTN (hypertension), benign Start:09-Aug-2019 Instruction Type:Patient Education Patient Instructions Indication:HTN (hypertension), benign Start:09-Aug-2019 Instruction Type:Provider Instructions for Treatment How to access health informa tion online Indication:Non-smoker Start:24-Oct-2018 Instruction Type:Patient Education Patient Instructions Indication:Non-smoker Start:24-Oct-2018 Instruction Type:Provider Instructions for Treatment How to access health informa tion online - Detail Indication:BMI 39.0-39.9,adult Start:21-Aug-2018 Instruction Type:Patient Education Patient Instructions Indication:BMI 39.0-39.9,adult Start:21-Aug-2018 Instruction Type:Provider Instructions for Treatment How to access health informa tion online Indication:BMI 39.0-39.9,adult Start:13-Dec-2017 Instruction Type:Patient Education How to access health informa tion online - Detail Indication:BMI 39.0-39.9,adult Start:13-Dec-2017 Instruction Type:Patient Education Patient Instructions Indication:Upper respiratory infection, acute Start:13-Dec-2017 Instruction Type:Provider Instructions for Treatment How to access health informa tion online Indication:Cough Start:16-Nov-2017 Instruction Type:Patient Education How to access health informa tion online - Detail Indication:Cough Start:16-Nov-2017 Instruction Type:Patient Education Patient Instructions Indication:Cough Start:16-Nov-2017 Instruction Type:Provider Instructions for Treatment How to access health informa tion online Indication:BMI 40.0-44.9, adult Start:03-Jun-2017 Instruction Type:Patient Education How to access health informa tion online - Detail Indication:BMI 40.0-44.9, adult Start:03-Jun-2017 Instruction Type:Patient Education Patient Instructions Indication:BMI 40.0-44.9, adult Start:03-Jun-2017 Instruction Type:Provider Instructions for Treatment Patient Instructions Indication:Syncope Start:02-Dec-2016 Instruction Type:Provider Instructions for Treatment How to access health informa tion online Indication:Non-smoker Start:01-Nov-2016 Instruction Type:Patient Education How to access health informa tion online - Detail Indication:Non-smoker Start:01-Nov-2016 Instruction Type:Patient Education Patient Instructions Indication:Non-smoker Start:01-Nov-2016 Instruction Type:Provider Instructions for Treatment How to access health informa tion online Indication:Abdominal pain, acute, left upper quadrant Start:12-Jun-2015 Instruction Type:Patient Education How to access health informa tion online - Detail Indication:Abdominal pain, acute, left upper quadrant Start:12-Jun-2015 Instruction Type:Patient Education Patient Instructions Indication:Abdominal pain, acute, left upper quadrant Start:12-Jun-2015 Instruction Type:Provider Instructions for Treatment How to access health informa tion online Indication:Abdominal pain Start:02-Jun-2015 Instruction Type:Patient Education How to access health informa tion online - Detail Indication:Abdominal pain Start:02-Jun-2015 Instruction Type:Patient Education Patient Instructions Indication:Abdominal pain Start:02-Jun-2015 Instruction Type:Provider Instructions for Treatment How to access health informa tion online Indication:Hypercholesteremia Start:26-Apr-2014 Instruction Type:Patient Education How to access health informa tion online - Detail Indication:Hypercholesteremia Start:26-Apr-2014 Instruction Type:Patient Education Patient Instructions Indication:Hypercholesteremia Start:26-Apr-2014 Instruction Type:Provider Instructions for Treatment Patient Instructions Indication:URI (upper respiratory infection) Start:02-Mar-2013 Instruction Type:Provider Instructions for Treatment DISCONTINUED - GLUCOSE ADY ANCE TEST (GTT) 5 hour ([id number]) Indication:Syncope Start:07-Jan-2012 Instruction Type:Patient Education Sore throat: diagnosis and treatment Indication:Pharyngitis, acute Start:04-Dec-2008 Instruction Type:Patient Education [facility]; [facility] Work Phone: reason for referral (narrative)No reason for referral [facility]: Summary Purpose Family History No Family History Records FoundUnknown Family Member Name Dates Details Adopted Status:Active Unknown Family Member Name Dates Details Adopted Status:Active Unknown Family Member Name Dates Details Adopted Status:Active Unknown Family Member Name Dates Details Adopted Status:Active Unknown Family Member Name Dates Details Adopted Status:Active Unknown Family Member Name Dates Details Adopted Status:Active Unknown Family Member Name Dates Details Adopted Status:Active Unknown Family Member Name Dates Details Adopted Status:Active Unknown Family Member Name Dates Details Adopted Status:Active Unknown Family Member Name Dates Details Adopted Status:Active Unknown Family Member Name Dates Details Adopted Status:Active Unknown Family Member Name Dates Details Adopted Status:Active Unknown Family Member Name Dates Details Adopted Status:Active Unknown Family Member Name Dates Details Adopted Status:Active Unknown Family Member Name Dates Details Adopted Status:Active Unknown Family Member Name Dates Details Adopted Status:Active Unknown Family Member Name Dates Details Adopted Status:Active Advance Directives No Advanced Directives Records Found Advance Directive Response Recorded Date/ Time Living Will No December 27, 2016 2:18pm Power of Finish Opener No December 27 2:18pm Advance Directive Response Recorded Date/ Time Living Will No December 27, 2016 1:18pm Power of Finish Opener No December 27 1:18pm Instructions Name Dates Details BMI 39.0-39.9,adult : How to access health information online Indication:BMI 39.0-39.9,adult BMI 39.0-39.9,adult : How to access health information online - Detail Indication:BMI 39.0-39.9,adult Upper respiratory infection, acute : Patient Instructions Indication:Upper respiratory infection, acute Cough : How to access health information online Indication:Cough Cough : How to access health information online - Detail Indication:Cough Cough : Patient Instructions Indication:Cough BMI 40.0-44.9, adult : How t o access health information online Indication:BMI 40.0-44.9, adult BMI 40.0-44.9, adult : How t o access health information online - Detail Indication:BMI 40.0-44.9, adult BMI 40.0-44.9, adult : Patie nt Instructions Indication:BMI 40.0-44.9, adult Syncope : Patient Instructio ns Indication:Syncope Non-smoker : How to access h ealth information online Indication:Non-smoker Non-smoker : How to access h ealth information online - Detail Indication:Non-smoker Non-smoker : Patient Instruc tions Indication:Non-smoker Abdominal pain, acute, left upper quadrant : How to access health information online Indication:Abdominal pain, acute, left upper quadrant Abdominal pain, acute, left upper quadrant : How to access health information online - Detail Indication:Abdominal pain, acute, left upper quadrant Abdominal pain, acute, left upper quadrant : Patient Instructions Indication:Abdominal pain, acute, left upper quadrant Abdominal pain : How to acce ss health information online Indication:Abdominal pain Abdominal pain : How to acce ss health information online - Detail Indication:Abdominal pain Abdominal pain : Patient Ins tructions Indication:Abdominal pain Hypercholesteremia : How to access health information online Indication:Hypercholesteremia Hypercholesteremia : How to access health information online - Detail Indication:Hypercholesteremia Hypercholesteremia : Patient Instructions Indication:Hypercholesteremia URI (upper respiratory infec tion) : Patient Instructions Indication:URI (upper respiratory infection) Syncope : DISCONTINUED - GLU COSE TOLERANCE TEST (GTT) 5 hour (70801) Indication:Syncope Pharyngitis, acute : Sore th roat: diagnosis and treatment Indication:Pharyngitis, acute Name Dates Details BMI 39.0-39.9,adult : How to access health information online - Detail Indication:BMI 39.0-39.9,adult BMI 39.0-39.9,adult : Patien t Instructions Indication:BMI 39.0-39.9,adult BMI 39.0-39.9,adult : How to access health information online Indication:BMI 39.0-39.9,adult Upper respiratory infection, acute : Patient Instructions Indication:Upper respiratory infection, acute Cough : How to access health information online Indication:Cough Cough : How to access health information online - Detail Indication:Cough Cough : Patient Instructions Indication:Cough BMI 40.0-44.9, adult : How t o access health information online Indication:BMI 40.0-44.9, adult BMI 40.0-44.9, adult : How t o access health information online - Detail Indication:BMI 40.0-44.9, adult BMI 40.0-44.9, adult : Patie nt Instructions Indication:BMI 40.0-44.9, adult Syncope : Patient Instructio ns Indication:Syncope Non-smoker : How to access h ealth information online Indication:Non-smoker Non-smoker : How to access h ealth information online - Detail Indication:Non-smoker Non-smoker : Patient Instruc tions Indication:Non-smoker Abdominal pain, acute, left upper quadrant : How to access health information online Indication:Abdominal pain, acute, left upper quadrant Abdominal pain, acute, left upper quadrant : How to access health information online - Detail Indication:Abdominal pain, acute, left upper quadrant Abdominal pain, acute, left upper quadrant : Patient Instructions Indication:Abdominal pain, acute, left upper quadrant Abdominal pain : How to acce ss health information online Indication:Abdominal pain Abdominal pain : How to acce ss health information online - Detail Indication:Abdominal pain Abdominal pain : Patient Ins tructions Indication:Abdominal pain Hypercholesteremia : How to access health information online Indication:Hypercholesteremia Hypercholesteremia : How to access health information online - Detail Indication:Hypercholesteremia Hypercholesteremia : Patient Instructions Indication:Hypercholesteremia URI (upper respiratory infec tion) : Patient Instructions Indication:URI (upper respiratory infection) Syncope : DISCONTINUED - GLU COSE TOLERANCE TEST (GTT) 5 hour (24026) Indication:Syncope Pharyngitis, acute : Sore th roat: diagnosis and treatment Indication:Pharyngitis, acute Name Dates Details BMI 39.0-39.9,adult : How to access health information online - Detail Indication:BMI 39.0-39.9,adult BMI 39.0-39.9,adult : Patien t Instructions Indication:BMI 39.0-39.9,adult BMI 39.0-39.9,adult : How to access health information online Indication:BMI 39.0-39.9,adult Upper respiratory infection, acute : Patient Instructions Indication:Upper respiratory infection, acute Cough : How to access health information online Indication:Cough Cough : How to access health information online - Detail Indication:Cough Cough : Patient Instructions Indication:Cough BMI 40.0-44.9, adult : How t o access health information online Indication:BMI 40.0-44.9, adult BMI 40.0-44.9, adult : How t o access health information online - Detail Indication:BMI 40.0-44.9, adult BMI 40.0-44.9, adult : Patie nt Instructions Indication:BMI 40.0-44.9, adult Syncope : Patient Instructio ns Indication:Syncope Non-smoker : How to access h ealth information online Indication:Non-smoker Non-smoker : How to access h ealth information online - Detail Indication:Non-smoker Non-smoker : Patient Instruc tions Indication:Non-smoker Abdominal pain, acute, left upper quadrant : How to access health information online Indication:Abdominal pain, acute, left upper quadrant Abdominal pain, acute, left upper quadrant : How to access health information online - Detail Indication:Abdominal pain, acute, left upper quadrant Abdominal pain, acute, left upper quadrant : Patient Instructions Indication:Abdominal pain, acute, left upper quadrant Abdominal pain : How to acce ss health information online Indication:Abdominal pain Abdominal pain : How to acce ss health information online - Detail Indication:Abdominal pain Abdominal pain : Patient Ins tructions Indication:Abdominal pain Hypercholesteremia : How to access health information online Indication:Hypercholesteremia Hypercholesteremia : How to access health information online - Detail Indication:Hypercholesteremia Hypercholesteremia : Patient Instructions Indication:Hypercholesteremia URI (upper respiratory infec tion) : Patient Instructions Indication:URI (upper respiratory infection) Syncope : DISCONTINUED - GLU COSE TOLERANCE TEST (GTT) 5 hour ([id number]) Indication:Syncope Pharyngitis, acute : Sore th roat: diagnosis and treatment Indication:Pharyngitis, acute Name Dates Details BMI 39.0-39.9,adult : How to access health information online - Detail Indication:BMI 39.0-39.9,adult BMI 39.0-39.9,adult : Patien t Instructions Indication:BMI 39.0-39.9,adult BMI 39.0-39.9,adult : How to access health information online Indication:BMI 39.0-39.9,adult Upper respiratory infection, acute : Patient Instructions Indication:Upper respiratory infection, acute Cough : How to access health information online Indication:Cough Cough : How to access health information online - Detail Indication:Cough Cough : Patient Instructions Indication:Cough BMI 40.0-44.9, adult : How t o access health information online Indication:BMI 40.0-44.9, adult BMI 40.0-44.9, adult : How t o access health information online - Detail Indication:BMI 40.0-44.9, adult BMI 40.0-44.9, adult : Patie nt Instructions Indication:BMI 40.0-44.9, adult Syncope : Patient Instructio ns Indication:Syncope Non-smoker : How to access h ealth information online Indication:Non-smoker Non-smoker : How to access h ealth information online - Detail Indication:Non-smoker Non-smoker : Patient Instruc tions Indication:Non-smoker Abdominal pain, acute, left upper quadrant : How to access health information online Indication:Abdominal pain, acute, left upper quadrant Abdominal pain, acute, left upper quadrant : How to access health information online - Detail Indication:Abdominal pain, acute, left upper quadrant Abdominal pain, acute, left upper quadrant : Patient Instructions Indication:Abdominal pain, acute, left upper quadrant Abdominal pain : How to acce ss health information online Indication:Abdominal pain Abdominal pain : How to acce ss health information online - Detail Indication:Abdominal pain Abdominal pain : Patient Ins tructions Indication:Abdominal pain Hypercholesteremia : How to access health information online Indication:Hypercholesteremia Hypercholesteremia : How to access health information online - Detail Indication:Hypercholesteremia Hypercholesteremia : Patient Instructions Indication:Hypercholesteremia URI (upper respiratory infec tion) : Patient Instructions Indication:URI (upper respiratory infection) Syncope : DISCONTINUED - GLU COSE TOLERANCE TEST (GTT) 5 hour ([id number]) Indication:Syncope Pharyngitis, acute : Sore th roat: diagnosis and treatment Indication:Pharyngitis, acute Name Dates Details How to access health informa tion online Indication:Non-smoker Start:24-Oct-2018 Instruction Type:Patient Education Patient Instructions Indication:Non-smoker Start:24-Oct-2018 Instruction Type:Provider Instructions for Treatment How to access health informa tion online - Detail Indication:BMI 39.0-39.9,adult Start:21-Aug-2018 Instruction Type:Patient Education Patient Instructions Indication:BMI 39.0-39.9,adult Start:21-Aug-2018 Instruction Type:Provider Instructions for Treatment How to access health informa tion online Indication:BMI 39.0-39.9,adult Start:13-Dec-2017 Instruction Type:Patient Education How to access health informa tion online - Detail Indication:BMI 39.0-39.9,adult Start:13-Dec-2017 Instruction Type:Patient Education Patient Instructions Indication:Upper respiratory infection, acute Start:13-Dec-2017 Instruction Type:Provider Instructions for Treatment How to access health informa tion online Indication:Cough Start:16-Nov-2017 Instruction Type:Patient Education How to access health informa tion online - Detail Indication:Cough Start:16-Nov-2017 Instruction Type:Patient Education Patient Instructions Indication:Cough Start:16-Nov-2017 Instruction Type:Provider Instructions for Treatment How to access health informa tion online Indication:BMI 40.0-44.9, adult Start:03-Jun-2017 Instruction Type:Patient Education How to access health informa tion online - Detail Indication:BMI 40.0-44.9, adult Start:03-Jun-2017 Instruction Type:Patient Education Patient Instructions Indication:BMI 40.0-44.9, adult Start:03-Jun-2017 Instruction Type:Provider Instructions for Treatment Patient Instructions Indication:Syncope Start:02-Dec-2016 Instruction Type:Provider Instructions for Treatment How to access health informa tion online Indication:Non-smoker Start:01-Nov-2016 Instruction Type:Patient Education How to access health informa tion online - Detail Indication:Non-smoker Start:01-Nov-2016 Instruction Type:Patient Education Patient Instructions Indication:Non-smoker Start:01-Nov-2016 Instruction Type:Provider Instructions for Treatment How to access health informa tion online Indication:Abdominal pain, acute, left upper quadrant Start:12-Jun-2015 Instruction Type:Patient Education How to access health informa tion online - Detail Indication:Abdominal pain, acute, left upper quadrant Start:12-Jun-2015 Instruction Type:Patient Education Patient Instructions Indication:Abdominal pain, acute, left upper quadrant Start:12-Jun-2015 Instruction Type:Provider Instructions for Treatment How to access health informa tion online Indication:Abdominal pain Start:02-Jun-2015 Instruction Type:Patient Education How to access health informa tion online - Detail Indication:Abdominal pain Start:02-Jun-2015 Instruction Type:Patient Education Patient Instructions Indication:Abdominal pain Start:02-Jun-2015 Instruction Type:Provider Instructions for Treatment How to access health informa tion online Indication:Hypercholesteremia Start:26-Apr-2014 Instruction Type:Patient Education How to access health informa tion online - Detail Indication:Hypercholesteremia Start:26-Apr-2014 Instruction Type:Patient Education Patient Instructions Indication:Hypercholesteremia Start:26-Apr-2014 Instruction Type:Provider Instructions for Treatment Patient Instructions Indication:URI (upper respiratory infection) Start:02-Mar-2013 Instruction Type:Provider Instructions for Treatment DISCONTINUED - GLUCOSE ADY ANCE TEST (GTT) 5 hour (31518) Indication:Syncope Start:07-Jan-2012 Instruction Type:Patient Education Sore throat: diagnosis and treatment Indication:Pharyngitis, acute Start:04-Dec-2008 Instruction Type:Patient Education Instruction Description Start Date Please follow-up with Primar y Care Physician or Art Teacher for treatment or adjustment of medication regarding elevated blood pressure.Patient advised to follow-up with Primary Care Physician for BMI management. Name Dates Details How to access health informa tion online Indication:Non-smoker Start:30-Jun-2020 Instruction Type:Patient Education How to access health informa tion online - Detail Indication:Non-smoker Start:30-Jun-2020 Instruction Type:Patient Education Patient Instructions Indication:Non-smoker Start:30-Jun-2020 Instruction Type:Provider Instructions for Treatment How to access health informa tion online Indication:Non-smoker Start:13-Dec-2019 Instruction Type:Patient Education How to access health informa tion online - Detail Indication:Non-smoker Start:13-Dec-2019 Instruction Type:Patient Education Patient Instructions Indication:Non-smoker Start:13-Dec-2019 Instruction Type:Provider Instructions for Treatment How to access health informa tion online Indication:BMI 40.0-44.9, adult Start:20-Sep-2019 Instruction Type:Patient Education How to access health informa tion online - Detail Indication:BMI 40.0-44.9, adult Start:20-Sep-2019 Instruction Type:Patient Education Patient Instructions Indication:BMI 40.0-44.9, adult Start:20-Sep-2019 Instruction Type:Provider Instructions for Treatment How to access health informa tion online Indication:HTN (hypertension), benign Start:09-Aug-2019 Instruction Type:Patient Education How to access health informa tion online - Detail Indication:HTN (hypertension), benign Start:09-Aug-2019 Instruction Type:Patient Education Patient Instructions Indication:HTN (hypertension), benign Start:09-Aug-2019 Instruction Type:Provider Instructions for Treatment How to access health informa tion online Indication:Non-smoker Start:24-Oct-2018 Instruction Type:Patient Education Patient Instructions Indication:Non-smoker Start:24-Oct-2018 Instruction Type:Provider Instructions for Treatment How to access health informa tion online - Detail Indication:BMI 39.0-39.9,adult Start:21-Aug-2018 Instruction Type:Patient Education Patient Instructions Indication:BMI 39.0-39.9,adult Start:21-Aug-2018 Instruction Type:Provider Instructions for Treatment How to access health informa tion online Indication:BMI 39.0-39.9,adult Start:13-Dec-2017 Instruction Type:Patient Education How to access health informa tion online - Detail Indication:BMI 39.0-39.9,adult Start:13-Dec-2017 Instruction Type:Patient Education Patient Instructions Indication:Upper respiratory infection, acute Start:13-Dec-2017 Instruction Type:Provider Instructions for Treatment How to access health informa tion online Indication:Cough Start:16-Nov-2017 Instruction Type:Patient Education How to access health informa tion online - Detail Indication:Cough Start:16-Nov-2017 Instruction Type:Patient Education Patient Instructions Indication:Cough Start:16-Nov-2017 Instruction Type:Provider Instructions for Treatment How to access health informa tion online Indication:BMI 40.0-44.9, adult Start:03-Jun-2017 Instruction Type:Patient Education How to access health informa tion online - Detail Indication:BMI 40.0-44.9, adult Start:03-Jun-2017 Instruction Type:Patient Education Patient Instructions Indication:BMI 40.0-44.9, adult Start:03-Jun-2017 Instruction Type:Provider Instructions for Treatment Patient Instructions Indication:Syncope Start:02-Dec-2016 Instruction Type:Provider Instructions for Treatment How to access health informa tion online Indication:Non-smoker Start:01-Nov-2016 Instruction Type:Patient Education How to access health informa tion online - Detail Indication:Non-smoker Start:01-Nov-2016 Instruction Type:Patient Education Patient Instructions Indication:Non-smoker Start:01-Nov-2016 Instruction Type:Provider Instructions for Treatment How to access health informa tion online Indication:Abdominal pain, acute, left upper quadrant Start:12-Jun-2015 Instruction Type:Patient Education How to access health informa tion online - Detail Indication:Abdominal pain, acute, left upper quadrant Start:12-Jun-2015 Instruction Type:Patient Education Patient Instructions Indication:Abdominal pain, acute, left upper quadrant Start:12-Jun-2015 Instruction Type:Provider Instructions for Treatment How to access health informa tion online Indication:Abdominal pain Start:02-Jun-2015 Instruction Type:Patient Education How to access health informa tion online - Detail Indication:Abdominal pain Start:02-Jun-2015 Instruction Type:Patient Education Patient Instructions Indication:Abdominal pain Start:02-Jun-2015 Instruction Type:Provider Instructions for Treatment How to access health informa tion online Indication:Hypercholesteremia Start:26-Apr-2014 Instruction Type:Patient Education How to access health informa tion online - Detail Indication:Hypercholesteremia Start:26-Apr-2014 Instruction Type:Patient Education Patient Instructions Indication:Hypercholesteremia Start:26-Apr-2014 Instruction Type:Provider Instructions for Treatment Patient Instructions Indication:URI (upper respiratory infection) Start:02-Mar-2013 Instruction Type:Provider Instructions for Treatment DISCONTINUED - GLUCOSE ADY ANCE TEST (GTT) 5 hour ([id number]) Indication:Syncope Start:07-Jan-2012 Instruction Type:Patient Education Sore throat: diagnosis and treatment Indication:Pharyngitis, acute Start:04-Dec-2008 Instruction Type:Patient Education Name Dates Details How to access health informa tion online Indication:Non-smoker Start:30-Jun-2020 Instruction Type:Patient Education How to access health informa tion online - Detail Indication:Non-smoker Start:30-Jun-2020 Instruction Type:Patient Education Patient Instructions Indication:Non-smoker Start:30-Jun-2020 Instruction Type:Provider Instructions for Treatment How to access health informa tion online Indication:Non-smoker Start:13-Dec-2019 Instruction Type:Patient Education How to access health informa tion online - Detail Indication:Non-smoker Start:13-Dec-2019 Instruction Type:Patient Education Patient Instructions Indication:Non-smoker Start:13-Dec-2019 Instruction Type:Provider Instructions for Treatment How to access health informa tion online Indication:BMI 40.0-44.9, adult Start:20-Sep-2019 Instruction Type:Patient Education How to access health informa tion online - Detail Indication:BMI 40.0-44.9, adult Start:20-Sep-2019 Instruction Type:Patient Education Patient Instructions Indication:BMI 40.0-44.9, adult Start:20-Sep-2019 Instruction Type:Provider Instructions for Treatment How to access health informa tion online Indication:HTN (hypertension), benign Start:09-Aug-2019 Instruction Type:Patient Education How to access health informa tion online - Detail Indication:HTN (hypertension), benign Start:09-Aug-2019 Instruction Type:Patient Education Patient Instructions Indication:HTN (hypertension), benign Start:09-Aug-2019 Instruction Type:Provider Instructions for Treatment How to access health informa tion online Indication:Non-smoker Start:24-Oct-2018 Instruction Type:Patient Education Patient Instructions Indication:Non-smoker Start:24-Oct-2018 Instruction Type:Provider Instructions for Treatment How to access health informa tion online - Detail Indication:BMI 39.0-39.9,adult Start:21-Aug-2018 Instruction Type:Patient Education Patient Instructions Indication:BMI 39.0-39.9,adult Start:21-Aug-2018 Instruction Type:Provider Instructions for Treatment How to access health informa tion online Indication:BMI 39.0-39.9,adult Start:13-Dec-2017 Instruction Type:Patient Education How to access health informa tion online - Detail Indication:BMI 39.0-39.9,adult Start:13-Dec-2017 Instruction Type:Patient Education Patient Instructions Indication:Upper respiratory infection, acute Start:13-Dec-2017 Instruction Type:Provider Instructions for Treatment How to access health informa tion online Indication:Cough Start:16-Nov-2017 Instruction Type:Patient Education How to access health informa tion online - Detail Indication:Cough Start:16-Nov-2017 Instruction Type:Patient Education Patient Instructions Indication:Cough Start:16-Nov-2017 Instruction Type:Provider Instructions for Treatment How to access health informa tion online Indication:BMI 40.0-44.9, adult Start:03-Jun-2017 Instruction Type:Patient Education How to access health informa tion online - Detail Indication:BMI 40.0-44.9, adult Start:03-Jun-2017 Instruction Type:Patient Education Patient Instructions Indication:BMI 40.0-44.9, adult Start:03-Jun-2017 Instruction Type:Provider Instructions for Treatment Patient Instructions Indication:Syncope Start:02-Dec-2016 Instruction Type:Provider Instructions for Treatment How to access health informa tion online Indication:Non-smoker Start:01-Nov-2016 Instruction Type:Patient Education How to access health informa tion online - Detail Indication:Non-smoker Start:01-Nov-2016 Instruction Type:Patient Education Patient Instructions Indication:Non-smoker Start:01-Nov-2016 Instruction Type:Provider Instructions for Treatment How to access health informa tion online Indication:Abdominal pain, acute, left upper quadrant Start:12-Jun-2015 Instruction Type:Patient Education How to access health informa tion online - Detail Indication:Abdominal pain, acute, left upper quadrant Start:12-Jun-2015 Instruction Type:Patient Education Patient Instructions Indication:Abdominal pain, acute, left upper quadrant Start:12-Jun-2015 Instruction Type:Provider Instructions for Treatment How to access health informa tion online Indication:Abdominal pain Start:02-Jun-2015 Instruction Type:Patient Education How to access health informa tion online - Detail Indication:Abdominal pain Start:02-Jun-2015 Instruction Type:Patient Education Patient Instructions Indication:Abdominal pain Start:02-Jun-2015 Instruction Type:Provider Instructions for Treatment How to access health informa tion online Indication:Hypercholesteremia Start:26-Apr-2014 Instruction Type:Patient Education How to access health informa tion online - Detail Indication:Hypercholesteremia Start:26-Apr-2014 Instruction Type:Patient Education Patient Instructions Indication:Hypercholesteremia Start:26-Apr-2014 Instruction Type:Provider Instructions for Treatment Patient Instructions Indication:URI (upper respiratory infection) Start:02-Mar-2013 Instruction Type:Provider Instructions for Treatment DISCONTINUED - GLUCOSE ADY ANCE TEST (GTT) 5 hour ([id number]) Indication:Syncope Start:07-Jan-2012 Instruction Type:Patient Education Sore throat: diagnosis and treatment Indication:Pharyngitis, acute Start:04-Dec-2008 Instruction Type:Patient Education Name Dates Details Non-smoker : How to access h ealth information online Indication:Non-smoker Non-smoker : Patient Instruc tions Indication:Non-smoker BMI 39.0-39.9,adult : How to access health information online - Detail Indication:BMI 39.0-39.9,adult BMI 39.0-39.9,adult : Patien t Instructions Indication:BMI 39.0-39.9,adult BMI 39.0-39.9,adult : How to access health information online Indication:BMI 39.0-39.9,adult Upper respiratory infection, acute : Patient Instructions Indication:Upper respiratory infection, acute Cough : How to access health information online Indication:Cough Cough : How to access health information online - Detail Indication:Cough Cough : Patient Instructions Indication:Cough BMI 40.0-44.9, adult : How t o access health information online Indication:BMI 40.0-44.9, adult BMI 40.0-44.9, adult : How t o access health information online - Detail Indication:BMI 40.0-44.9, adult BMI 40.0-44.9, adult : Patie nt Instructions Indication:BMI 40.0-44.9, adult Syncope : Patient Instructio ns Indication:Syncope Non-smoker : How to access h ealth information online - Detail Indication:Non-smoker Abdominal pain, acute, left upper quadrant : How to access health information online Indication:Abdominal pain, acute, left upper quadrant Abdominal pain, acute, left upper quadrant : How to access health information online - Detail Indication:Abdominal pain, acute, left upper quadrant Abdominal pain, acute, left upper quadrant : Patient Instructions Indication:Abdominal pain, acute, left upper quadrant Abdominal pain : How to acce ss health information online Indication:Abdominal pain Abdominal pain : How to acce ss health information online - Detail Indication:Abdominal pain Abdominal pain : Patient Ins tructions Indication:Abdominal pain Hypercholesteremia : How to access health information online Indication:Hypercholesteremia Hypercholesteremia : How to access health information online - Detail Indication:Hypercholesteremia Hypercholesteremia : Patient Instructions Indication:Hypercholesteremia URI (upper respiratory infec tion) : Patient Instructions Indication:URI (upper respiratory infection) Syncope : DISCONTINUED - GLU COSE TOLERANCE TEST (GTT) 5 hour (80073) Indication:Syncope Pharyngitis, acute : Sore th roat: diagnosis and treatment Indication:Pharyngitis, acute Name Dates Details How to access health informa tion online Indication:Non-smoker Start:30-Jun-2020 Instruction Type:Patient Education How to access health informa tion online - Detail Indication:Non-smoker Start:30-Jun-2020 Instruction Type:Patient Education Patient Instructions Indication:Non-smoker Start:30-Jun-2020 Instruction Type:Provider Instructions for Treatment How to access health informa tion online Indication:Non-smoker Start:13-Dec-2019 Instruction Type:Patient Education How to access health informa tion online - Detail Indication:Non-smoker Start:13-Dec-2019 Instruction Type:Patient Education Patient Instructions Indication:Non-smoker Start:13-Dec-2019 Instruction Type:Provider Instructions for Treatment How to access health informa tion online Indication:BMI 40.0-44.9, adult Start:20-Sep-2019 Instruction Type:Patient Education How to access health informa tion online - Detail Indication:BMI 40.0-44.9, adult Start:20-Sep-2019 Instruction Type:Patient Education Patient Instructions Indication:BMI 40.0-44.9, adult Start:20-Sep-2019 Instruction Type:Provider Instructions for Treatment How to access health informa tion online Indication:HTN (hypertension), benign Start:09-Aug-2019 Instruction Type:Patient Education How to access health informa tion online - Detail Indication:HTN (hypertension), benign Start:09-Aug-2019 Instruction Type:Patient Education Patient Instructions Indication:HTN (hypertension), benign Start:09-Aug-2019 Instruction Type:Provider Instructions for Treatment How to access health informa tion online Indication:Non-smoker Start:24-Oct-2018 Instruction Type:Patient Education Patient Instructions Indication:Non-smoker Start:24-Oct-2018 Instruction Type:Provider Instructions for Treatment How to access health informa tion online - Detail Indication:BMI 39.0-39.9,adult Start:21-Aug-2018 Instruction Type:Patient Education Patient Instructions Indication:BMI 39.0-39.9,adult Start:21-Aug-2018 Instruction Type:Provider Instructions for Treatment How to access health informa tion online Indication:BMI 39.0-39.9,adult Start:13-Dec-2017 Instruction Type:Patient Education How to access health informa tion online - Detail Indication:BMI 39.0-39.9,adult Start:13-Dec-2017 Instruction Type:Patient Education Patient Instructions Indication:Upper respiratory infection, acute Start:13-Dec-2017 Instruction Type:Provider Instructions for Treatment How to access health informa tion online Indication:Cough Start:16-Nov-2017 Instruction Type:Patient Education How to access health informa tion online - Detail Indication:Cough Start:16-Nov-2017 Instruction Type:Patient Education Patient Instructions Indication:Cough Start:16-Nov-2017 Instruction Type:Provider Instructions for Treatment How to access health informa tion online Indication:BMI 40.0-44.9, adult Start:03-Jun-2017 Instruction Type:Patient Education How to access health informa tion online - Detail Indication:BMI 40.0-44.9, adult Start:03-Jun-2017 Instruction Type:Patient Education Patient Instructions Indication:BMI 40.0-44.9, adult Start:03-Jun-2017 Instruction Type:Provider Instructions for Treatment Patient Instructions Indication:Syncope Start:02-Dec-2016 Instruction Type:Provider Instructions for Treatment How to access health informa tion online Indication:Non-smoker Start:01-Nov-2016 Instruction Type:Patient Education How to access health informa tion online - Detail Indication:Non-smoker Start:01-Nov-2016 Instruction Type:Patient Education Patient Instructions Indication:Non-smoker Start:01-Nov-2016 Instruction Type:Provider Instructions for Treatment How to access health informa tion online Indication:Abdominal pain, acute, left upper quadrant Start:12-Jun-2015 Instruction Type:Patient Education How to access health informa tion online - Detail Indication:Abdominal pain, acute, left upper quadrant Start:12-Jun-2015 Instruction Type:Patient Education Patient Instructions Indication:Abdominal pain, acute, left upper quadrant Start:12-Jun-2015 Instruction Type:Provider Instructions for Treatment How to access health informa tion online Indication:Abdominal pain Start:02-Jun-2015 Instruction Type:Patient Education How to access health informa tion online - Detail Indication:Abdominal pain Start:02-Jun-2015 Instruction Type:Patient Education Patient Instructions Indication:Abdominal pain Start:02-Jun-2015 Instruction Type:Provider Instructions for Treatment How to access health informa tion online Indication:Hypercholesteremia Start:26-Apr-2014 Instruction Type:Patient Education How to access health informa tion online - Detail Indication:Hypercholesteremia Start:26-Apr-2014 Instruction Type:Patient Education Patient Instructions Indication:Hypercholesteremia Start:26-Apr-2014 Instruction Type:Provider Instructions for Treatment Patient Instructions Indication:URI (upper respiratory infection) Start:02-Mar-2013 Instruction Type:Provider Instructions for Treatment DISCONTINUED - GLUCOSE ADY ANCE TEST (GTT) 5 hour (63002) Indication:Syncope Start:07-Jan-2012 Instruction Type:Patient Education Sore throat: diagnosis and treatment Indication:Pharyngitis, acute Start:04-Dec-2008 Instruction Type:Patient Education Chief Complaint Chief Complaint Description Start Date right shoulder pain Preliminary chief co mplaint data, not yet signed by the author as of Assessments There may be information available, but it has not been provided by the sender. Review of System There may be information available, but it has not been provided by the sender. History of Present Illness There may be information available, but it has not been provided by the sender. Chief Complaint and Reason for Visit Chief Complaint BILAT UPPER PARESTHE ASHTYN Chief Complaint SCREENING Chief Complaint Admit Date Pure hypercholesterolemia, unspecified A ugust 2024 2:24pm CT CALCIUM SCORING April 11, 2025 2:2 5pm THYROID MASS April 24, 2025 11 :52am Additional Source Comments INFORMATION SOURCE (unrecogn ized section and content) DATE CREATED AUTHOR 05/29/2018 [facility] DATE CREATED AUTHOR AUTHOR'S ORGANIZ ATION 11/18/2018 [facility] DATE CREATED AUTHOR AUTHOR'S ORGANIZ ATION 11/18/2018 [facility] DATE CREATED AUTHOR AUTHOR'S ORGANIZ ATION 09/15/[address] [facility] DATE CREATED AUTHOR AUTHOR'S ORGANIZ ATION 06/08/2020 [facility] DATE CREATED AUTHOR AUTHOR'S ORGANIZ ATION 09/02/2022 [facility] DATE CREATED AUTHOR AUTHOR'S ORGANIZ ATION 10/13/2024 [facility] DATE CREATED AUTHOR AUTHOR'S ORGANIZ ATION 06/21/2025 [facility] DATE CREATED AUTHOR AUTHOR'S ORGANIZ ATION 07/12/2025 [facility] DATE CREATED AUTHOR AUTHOR'S ORGANIZ ATION 07/13/2025 [facility] Reason for Visit (unrecogniz ed section and content) Reason For Visit Description New/Est - 1st visit with physician 06/27 Preliminary reason f or visit data, not yet signed by the author as of right shoulder pain Reason Comments New Patient Watery Eyes Specialty Diagnoses / Procedures Referred By Contac t Referred To Contact Ophthalmology Diagnoses Chemosis of conjunctiva, left Conjunctivochalasis of left eye Argentina Talley MD [address] [place] [address] Phone: tel: fax: Dennis Toure MD [address] [facility] [address] [place] [address] Phone: tel: fax: Referral ID Status Reason Start Date Expiration Date V isits Requested Visits Authorized [id number] Pending Review 11/19/2024 12/14/2025 1 1 Goals (unrecognized section and content) Goals may be documented in a n alternate sectionGoals may be documented in an alternate sectionGoals may be documented in an alternate sectionGoals may be documented in an alternate section Care Teams (unrecognized sec tion and content) Team Status: Active Member Role Status Dates Dr. Rimma Mar DO Family Provider Active Dr. Rimma Mar DO Primary Care Provider Active Team Status: Inactive Member Role Status Dates Dr. Rimma Mar DO Primary Care Provider Active SHEELA SMITH Attending Provider, Referring Provider A ctive Team Status: Active Member Role/Relationship Status Dates Dr. Rimma Mar DO Primary Care Provider Active Team Status: Active Member Role/Relationship Status Dates Dr. Rimma Mar DO Primary Care Provider Active Start: April 11, 2025 Dr. Rimma Mar DO Attending Provider Active Start: April 11, 2025 Dr. Rimma Mar DO Referring Provider Active Start: April 11, 2025 Team Status: Active Member Role/Relationship Status Dates Dr. Rimma Mar DO Primary Care Provider Active Start: April 11, 2025 Dr. Rimma Mar DO Referring Provider Active Start: April 11, 2025 Dr. Benigno Armijo MD Attending Provider Active S tart: April 11, 2025 Team Status: Inactive Member Role/Relationship Status Dates Dr. Rimma Mar DO Primary Care Provider Active Start: April 24, 2025 End: April 24, 2025 Dr. Rimma Mar DO Attending Provider Active Start: April 24, 2025 End: April 24, 2025 Dr. Rimma Mar DO Referring Provider Active Start: April 24, 2025 End: April 24, 2025 FOR RECORDS PERTAINING TO PATIENTS WHO ARE OR HAVE BEEN ENROLLED IN A CHEMICAL DEPENDENCY/SUBSTANCEABUSE PROGRAM, SOME INFORMATION MAY BE OMITTED. This clinical summary was aggregated from multiple sources. Caution should be exercised in using it in the provision of clinical care. This summary normalizes information from multiple sources, and as a consequence, information in this document may materially change the coding, format and clinical context of patient data. In addition, data may be omitted in some cases. CLINICAL DECISIONS SHOULD BE BASED ON THE PRIMARY CLINICAL RECORDS. [facility]. provides no warranty or guarantee of the accuracy or completeness of information in this document.
== END | disposition home or self-care (01) ==
LOC: OPBD 16:16
PROVIDERS: PCP Internal Medicine; Referring Provider Internal Medicine; Visit Provider Internal Medicine
DX: Z78.0 Asymptomatic menopausal state (principal)
CPT/HCPCS: 77080

== ENCOUNTER → 2025-08-09 | Outpatient (CLI) | payer BC, SELFPAY ==
--- NOTE | 2025-08-09 10:45 | BI_ITS ---
EXAM: SCRN MAMM (CAD)W/KOBI BILAT DATE: 08/09/2025 CLINICAL HISTORY: F, Age 60 y/o , SCREENING TECHNIQUE: Procedure Code: [id number] Modality: MG Procedure: SCRN MAMM (CAD)W/KOBI BILAT COMPARISON: Prior exam(s) dated 06/28/2024, 04/28/2023, 02/25/2020. FINDINGS: TISSUE DENSITY: The breasts are almost entirely fatty. Bilateral Breast Mammographic Findings: No significant masses, calcifications or other abnormalities are identified. BI/SCRN MAMM (CAD)W/KOBI BILAT IMPRESSION: There is no mammographic evidence of malignancy. OVERALL FINAL ASSESSMENT BI-RADS 1: NEGATIVE. RECOMMENDATION: Routine annual follow-up in 1 Year Additional Recommendation none A letter with findings and recommendations will be mailed to the patient. Reading Location: [id number]
== END | disposition home or self-care (01) ==
LOC: OPBD 10:35
PROVIDERS: PCP Internal Medicine; Referring Provider Internal Medicine; Visit Provider Internal Medicine
DX: Z12.31 Encounter for screening mammogram for malignant neoplasm of breast (principal)
CPT/HCPCS: 77063; 77067